=== PATIENT | male | born 1940 | race Caucasian/White ===

== ENCOUNTER 2017-04-15 09:05 | Inpatient (IN) ==
[2017-04-15 09:48] LABS: BASO% 0.1 % (0.0-0.8); EOS# 0.01 X1000 (0.0-0.7); EOS% 0.1 % (0.0-10.0); HEMATOCRIT 38.6 % (42.0-52.0); HEMOGLOBIN 13.4 g/dL (14.0-18.0); IMM GRAN# 0.03 X1000 (0.0-0.04); IMM GRAN% 0.2 % (0.0-0.5); LYMPH# 0.84 X1000 (1.2-3.4); LYMPH% 5.8 % (20.5-51.1); MANUAL DIFF NEEDED? NO; MCH 31.1 PG (27-31); MCHC 34.7 g/dL (33-37); MCV 89.6 FL (81-99); MONO% 6.9 % (1.7-9.3); MPV 11.1 FL (7.4-10.4); NEUT% 86.9 % (42.2-75.2); PLT 276 X1000 (130-400); RBC 4.31 XMIL (4.7-6.1)
[2017-04-15 10:04] LABS: ACETONE SERUM MODERATE (NEGATIVE)
[2017-04-15 10:06] LABS: URINE MICRO REVIEW NEEDED? NO; URINE SOURCE CLEAN CATCH
[2017-04-15 10:11] LABS: BILIRUBIN URINE NEGATIVE (NEGATIVE); BLOOD URINE LARGE (NEGATIVE); COLOR ORANGE; GLUCOSE URINE >1000 mg/dL (NEGATIVE); LEUKOCYTES URINE LARGE (NEGATIVE); NITRITE URINE NEGATIVE (NEGATIVE); PH URINE 5.5; PROTEIN URINE 50 mg/dL (NEGATIVE); SP GRAVITY URINE 1.017; TURBIDITY URINE TURBID (CLEAR); UR EPITHELIAL CELLS >10 /HPF (<10); URINE BACTERIA NEGATIVE /HPF; URINE CULTURE NEEDED? YES; URINE RBC TNTC /HPF (<10); URINE WBC TNTC /HPF (<10); UROBILINOGEN URINE NORMAL (NORMAL)
[2017-04-15 10:36] LABS: AGAP 30; ALBUMIN 3.5 g/dL (3.5-5.0); ALKALINE PHOSPHATASE 97 U/L (32-122); BUN 73 mg/dL (8-22); CALCIUM 8.6 mg/dL (8.8-10.2); CHLORIDE 76 mmol/L (98-107); COSMO 298; GOT 26 U/L (10-34); GPT 18 U/L (10-44); POTASSIUM 4.7 mmol/L (3.5-5.1); SODIUM 118 mmol/L (136-145); TCO2 13 mmol/L (25-35); TOTAL BILIRUBIN 0.63 mg/dL (0.20-1.00); TOTAL PROTEIN 6.7 g/dL (6.3-8.3)
[2017-04-15 10:40] LABS: ALLEN TEST YES; BE -10.7 mmoll (-3.0-3.0); BLOOD TYPE ARTERIAL; DRAW SITE R RADIAL; METHB 1.3 % (0.0-1.5); O2(CT) 17.5 mL/dL (15.0-23.0); PCO2(98.6) 27 mmHg (35-45); PO2(98.6) 105 mmHg (60-100); SAMPLE BLOOD; SAO2 99.6 % (95.0-100.0); THB 12.8 g/dL (11.5-17.4); pH(98.6) 7.32 (7.35-7.45)
[2017-04-15 10:41] LABS: MODALITY ROOM AIR
[2017-04-15] MEDS ORDERED: ROCEPHIN 1 GM in NS 50 ML IV ONE (10:42)
[2017-04-15] MEDS ORDERED: HUMULIN R IV ONE ×2 (10:42→16:37)
[2017-04-15] MEDS ORDERED: NS 1,000 ML IV ONE ×2 (10:42→16:06)
--- NOTE | 2017-04-15 11:18 | PROVIDER DOCUMENTATION ---
HPI-General Adult - General Chief Complaint: High Blood Sugar Stated Complaint: elevated sugar Time Seen by Provider: 04/15/17 09:40 Source: patient, family Allergies/Adverse Reactions: Patient Allergies Allergy/AdvReac Type Severity Reaction Status Date / Time No Known Allergies Allergy Verified 04/15/17 10:20 Home Medications: Home Medication List Medication Instructions Recorded Confirmed Last Taken Type Lisinopril/Hydrochlorothiazide 1 each PO DAILY 11/04/12 04/15/17 12/28/15 21:00 History [Lisinopril-Hctz 20-25 mg Tab] Potassium Chloride [Klor-Con M10] 10 meq PO DAILY 11/04/12 04/15/17 12/28/15 21: 00 History Sotalol HCl [Sotalol] 160 mg PO BID 11/04/12 04/15/17 12/29/15 05:30 History Warfarin Sodium 4 mg PO DIRECTED 11/04/12 04/15/17 12/26/15 21:00 History Warfarin Sodium 6 mg PO DIRECTED 11/04/12 04/15/17 12/25/15 21:00 History Finasteride 5 mg PO DAILY 12/29/15 04/15/17 12/28/15 21:00 History Multivitamins/Minerals [Centrum 1 each PO DAILY 12/29/15 04/15/17 12/29/15 05: 30 History Silver] Subcutaneous Insulin Pump [Insulin 1 each MC DIRECTED 12/29/15 04/15/1704/15 History Pump] Tamsulosin [Flomax] 0.4 mg PO DAILY 12/29/15 04/15/17 12/28/15 21:00 History Levofloxacin [Levaquin] 500 mg PO DAILY 04/15/17 04/15/17 Unknown History - History of Present Illness -Gen Adult Nature of Presenting Problems: Pt is a 76 y/o M c chief complaint of hyperglycemia. Pt arrived at the hospital today with his family for an out-patient urology procedure with Dr. George. On arrival, they checked his vital signs and blood sugar and found him to by hypotensive and have a blood sugar of 760. He was sent to the ER for further evaluation. 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 Pt has an insulin pump and for the past week his blood sugar has been running between 500-600. Family states pt has been confused more than his baseline lately. On arrival, pt is in minimal distress and is afebrile. Review of Systems - Adult - REVIEW OF SYSTEMS - ADULT Constitutional: reports: no symptoms reported. denies: chills, fatique Eyes: reports: no symptoms reported. denies: blurred vision, double vision Ears, Nose, Mouth & Throat: reports: no symptoms reported. denies: ear pain, nose pain Cardiovascular: reports: no symptoms reported. denies: chest pain, irregular heart rate Respiratory: reports: no symptoms reported. denies: cough, shortness of breath Gastrointestinal: reports: no symptoms reported. denies: abdominal pain, nausea Genitourinary: reports: see HPI, urinary retention. denies: dysuria, hematuria Musculoskeletal: reports: no symptoms reported. denies: joint pain, joint swelling Integumentary: reports: no symptoms reported. denies: hives, itching Neurological: reports: no symptoms reported. denies: ataxia, numbness, paresthesia Psychiatric: reports: no symptoms reported. denies: anxiety, emotional problems Endocrine: reports: no symptoms reported. denies: cold intolerance, heat intolerance Hematologic/Lymphatic: reports: no symptoms reported. denies: blood clots, low blood count Allergic/Immunologic: reports: no symptoms reported. denies: allergic reactions , food allergy All Other Systems: Reviewed and Negative Past History - Adult - PAST MEDICAL HISTORY-ADULT Review of Records: reports: Old Records Reviewed, Nursing Assessment Review, Medications Reviewed, Social history reviewed & non-contributory. Major Childhood Illnesses: reports: denies history Cardiovascular: reports: HTN, hyperlipidemia Respiratory: reports: denies history Gastrointestinal: reports: denies history Obstetrical/Gynecological: reports: denies history Genitourinary: reports: chronic UTI's, other (BPH, penile mass) Musculoskeletal: reports: denies history Neurological: reports: denies history Endocrine/Immune: reports: Diabetes Other Conditions: reports: denies history - IMMUNIZATION STATUS Childhood Immunizations: See Nurse Assessment Flu Vaccine: See Nurse Assessment - FAMILY HISTORY Family History: reviewed, not pertinent - SOCIAL HISTORY Smoking: denies Substance Use: none/never Alcohol Use Frequency: never Living Situation: family Physical Exam-General - PHYSICAL EXAM-ADULT Initial Vital Signs Reviewed: Yes - CONSTITUTIONAL General Appearance: alert, no apparent distress - EYES Eyes: PERRL/EOMI, pink conjunctivae - HEAD, EARS, NOSE, MOUTH & THROAT HENMT: normocephalic/atraumatic, moist mucous membranes, normal ENT inspection - NECK Neck: normal inspection - RESPIRATORY Respiratory: chest non-tender, lungs clear, normal breath sounds - CARDIOVASCULAR Cardiovascular: normal peripheral pulses, regular rate, rhythm - GASTROINTESTINAL (ABDOMEN) Abdominal Exam: normal bowel sounds, non tender, soft - LYMPHATIC Lymphatic: no adenopathy - MUSCULOSKELETAL Back Exam: normal inspection, no CVA tenderness, no vertebral tenderness Extremity: normal range of motion, non-tender, normal inspection - SKIN Integumentary: normal color, normal turgor, warm/dry - NEUROLOGIC Neurologic: grossly normal, no motor/sensory deficits - PSYCHIATRIC Psych/Mental Status: normal mood/affect, normal thought content, normal thought process, oriented x 3, other (alert and oriented c mild confusion per family) Progress - PLAN OF CARE/RESULTS Progress/Plan/Lab Results: Vital Signs - 8 hr 04/15/17 09:13 04/15/17 10:37 Temperature 97.6 F Pulse Rate 88 Respiratory Rate 18 Blood Pressure 94/44 O2 Sat by Pulse Oximetry 98 Laboratory Results - last 24 hr 04/15/17 04/15/17 04/15/17 09:29 09:29 09:36 WBC 14.52 H RBC 4.31 L Hgb 13.4 L Hct 38.6 L MCV 89.6 MCH 31.1 H MCHC 34.7 RDW Std Deviation 12.5 Plt Count 276 MPV 11.1 H Immature Gran % (Auto) 0.2 Neut % (Auto) 86.9 H Lymph % (Auto) 5.8 L Barron % (Auto) 6.9 Eos % (Auto) 0.1 Baso % (Auto) 0.1 Immature Gran # (Auto) 0.03 Neut # (Auto) 12.63 H Lymph # (Auto) 0.84 L Barron # (Auto) 1.00 H Eos # (Auto) 0.01 Baso # (Auto) 0.01 Specimen Type Sample Site pH pCO2 pO2 HCO3 Base Excess Oxyhemoglobin ABG O2 Sat (Calculated) ABG O2 Saturation ABG Carboxyhemoglobin ABG Methemoglobin Alex Test A-a O2 Difference Total Hemoglobin Lactate Blood Gas Modality FiO2 % Sodium 118 L* Potassium 4.7 Chloride 76 L Carbon Dioxide 13 L Anion Gap 30 BUN 73 H Creatinine 2.2 H Estimated GFR/1.73 m2 29 BUN/Creatinine Ratio 33 Glucose 760 H* Calculated Osmolality 298 Calcium 8.6 L Total Bilirubin 0.63 AST 26 ALT 18 Alkaline Phosphatase 97 Total Protein 6.7 Albumin 3.5 Globulin 3.2 Albumin/Globulin Ratio 1.1 Urine Source CLEAN CATCH Urine Color ORANGE Urine Turbidity TURBID Urine pH 5.5 Ur Specific [place] 1.017 Urine Protein 50 A Ur Glucose (Stick) >1000 A Ur Ketones (Stick) 20 A Urine Blood LARGE A Urine Nitrite NEGATIVE Urine Bilirubin NEGATIVE Urobilinogen Dipstick NORMAL Urine Leukocytes LARGE A Urine WBC (Auto) TNTC A Urine RBC (Auto) TNTC A U Epithel Cells (Auto) >10 A Urine Bacteria (Auto) NEGATIVE Acetone Level MODERATE A 04/15/17 10:31 WBC RBC Hgb Hct MCV MCH MCHC RDW Std Deviation Plt Count MPV Immature Gran % (Auto) Neut % (Auto) Lymph % (Auto) Barron % (Auto) Eos % (Auto) Baso % (Auto) Immature Gran # (Auto) Neut # (Auto) Lymph # (Auto) Barron # (Auto) Eos # (Auto) Baso # (Auto) Specimen Type ARTERIAL Sample Site R RADIAL pH 7.32 L pCO2 27 L pO2 105 H HCO3 16.6 L Base Excess -10.7 L Oxyhemoglobin 96.5 ABG O2 Sat (Calculated) 17.5 ABG O2 Saturation 99.6 ABG Carboxyhemoglobin 1.80 ABG Methemoglobin 1.3 Alex Test YES A-a O2 Difference 11.0 Total Hemoglobin 12.8 Lactate 3.90 H Blood Gas Modality ROOM AIR FiO2 % 21.0 Sodium Potassium Chloride Carbon Dioxide Anion Gap BUN Creatinine Estimated GFR/1.73 m2 BUN/Creatinine Ratio Glucose Calculated Osmolality Calcium Total Bilirubin AST ALT Alkaline Phosphatase Total Protein Albumin Globulin Albumin/Globulin Ratio Urine Source Urine Color Urine Turbidity Urine pH Ur Specific [place] Urine Protein Ur Glucose (Stick) Ur Ketones (Stick) Urine Blood Urine Nitrite Urine Bilirubin Urobilinogen Dipstick Urine Leukocytes Urine WBC (Auto) Urine RBC (Auto) U Epithel Cells (Auto) Urine Bacteria (Auto) Acetone Level Orders Category Date Time Status FSBS [Finger Stick Blood Sugar (ED)] DIRECTED Care 04/15/17 09:19 Active CHEST-2 VIEWS [RAD] Stat Exams 04/15/17 11:04 Ordered ABG [RESP] Routine Lab 04/15/17 10:31 Completed ACETONE SERUM [CHEM] Stat Lab 04/15/17 09:29 Completed BLOOD CULTURE [BLDCUL] Stat Lab 04/15/17 11:03 Uncollected CBC WITH ELECTRONIC DIFF [HEME] Stat Lab 04/15/17 09:29 Completed COMPREHENSIVE METABOLIC PANEL [CHEM] Stat Lab 04/15/17 09:29 Completed UA Reflex [URINALYSIS W/POSS RFLX CULT-1] [URINALYSIS] Lab 04/15/17 09:36 Completed Stat URINE CULTURE [RM] Routine Lab 04/15/17 10:18 Received 0.9% Sodium Chloride Inj [Ns] 1,000 ml Med 04/15/17 10:42 Active IV 999 mls/hr CefTRIAXONE [Rocephin] 1 gm Med 04/15/17 10:42 Discontinued 0.9% Sodium Chloride Inj [Ns] 50 ml IV NOW Insulin Human Regular [Humulin R] Med 04/15/17 10:42 Discontinued 8 unit IV NOW ONE Result Diagrams: 04/15/17 09:29 04/15/17 09:29 - CONSULTS/PCP/HOSPITALIST Notification #1 *Consult/PCP/Hospitalist*: Lisa LANGFORD / Dr. Carpenter (Hospitalist) Time Discussed: 11:21 (Will admit pt. Agree c work up and treatment. ) #2 Consult: Dr. George (Urology) Time Discussed: 11:53 (Do bladder scan. If >200mL start Olmstead cath. Recommend 13 Belarusian.) #3 Consult: Lisa LANGFORD / Dr. Miranda (Hospitalist) Time Discussed: 11:54 (Discussed recommendations from Dr. George. Requested I order insulin drip at 2units/hr and d/c patient's insulin pump. ) Departure - Departure Date of Disposition Decision: 04/15/17 Time of Disposition Decision: 11:21 DIAGNOSIS: UTI (urinary tract infection) Qualifiers: Urinary tract infection type: site unspecified Hematuria presence: without hematuria Qualified Code(s): N39.0 - Urinary tract infection, site not specified DKA (diabetic ketoacidoses) Qualifiers: Diabetes mellitus type: other specified (including MICHAELLE) Diabetes mellitus complication detail: without coma Qualified Code(s): E13.10 - Other specified diabetes mellitus with ketoacidosis without coma Sepsis Qualifiers: Sepsis type: sepsis due to unspecified organism Qualified Code(s): A41.9 - Sepsis, unspecified organism Disposition: ADMITTED INPATIENT 09 Certified Medical Emergency: Emergent Condition: Stable Referrals and Follow-Ups: Addi Valencia MD [Primary Care Provider] - - Critical Care Note This patient required my direct & personal management of CC.: No Attestation - Physician/ JESSICA Attestation Patient care was provided by Advanced Practice Provider:: Yes Advanced Practice Provider:: Liu Leigh Advanced Practice Provider documentation review:: The Mid-level provider documentation, treatment plan and medical decision making was reviewed by the physician who agrees with all treatment and medical decision making by the MLP. The physician spent face to face time with patient:: No Advanced Practice Provider documentation review:: Supervising physician onsite and consulted in the evaluation and care of this patient. The physician did not have a face to face encounter with the patient.
[2017-04-15 11:41] LABS: HEMOGLOBIN A1C 11.4 % (4.8-6.0)
[2017-04-15] MEDS ORDERED: XYLOCAINE 2% JELLY UROJECT ONE (12:00)
[2017-04-15] MEDS ORDERED: HUMULIN R 100 UNIT in NS 100 ML IV SCH ×4 (12:00)
[2017-04-15] MEDS: HUMULIN R 100 UNIT in NS 100 ML IV SCH ×3 (12:37→14:40)
--- NOTE | 2017-04-15 13:20 | Diag Imaging Result Doc PS360 ---
EXAM: CHEST-2 VIEWS HISTORY: admission to ICU TECHNIQUE: AP upright COMMENT: There is no evidence of acute cardiac or pulmonary disease. Compared to 12/29/2015 there is been no significant change. IMPRESSION: Stable chest. Electronically signed by Chi Morris 04/15/2017 1:18 PM
--- NOTE | 2017-04-15 14:35 | HISTORY AND PHYSICAL ---
PRIMARY CARE PROVIDER: Dr. Addi Valencia CHIEF COMPLAINT: Hypoglycemia. HISTORY OF PRESENT ILLNESS: Mr. Wang Gustafson is a 76-year-old, male , with a medical history of diabetes mellitus type 1, with insulin pump for 10 years, who has most recently been found with an a penile mass. Today, he was here for pre-admit blood work and, while walking to the lab, his knees had buckled. Staff checked his blood glucose, which registered over 600, and he was brought to the ER. He has not had any complaints of nausea. Denies chest pain or abdominal pain. He does have some intermittent diarrhea that has happened for the last 1 week. He does complain of pain around the urethra and meatus. It is found that he does have some JIMMY, which could be secondary to a post-renal situation where the mass is restricting urinary flow. He also appears dehydrated. His blood glucose in the ER registered as 760, and has been started on IV insulin. The insulin pump was removed. He apparently has been using insulin pump for at least 10 years. The basal rate is set by Dr. Valnecia's office, and then his gives him additional insulin on top of that. Apparently, he has also received 18 units of regular insulin this morning prior to arrival. According to the , just this past January, he was admitted to [facility] for the same diagnoses of DKA and urinary tract infection. It also appears he was admitted here last in December 2015 for the same thing. It looks as though he was supposed to have surgery of circumcision with cystoscope at that time, but was not performed due to his hyperglycemia. Dr. George is following. We will attempt for Olmstead catheter placement, as he did have a urinary retention with a bladder scan greater than 400 mL. We will admit to the ICU and consult Dr. George. PAST MEDICAL HISTORY: Dementia, hypertension, hyperlipidemia and type 1 diabetes mellitus that was diagnosed in his 30s. He has been using insulin pump for 10 years now. BPH , atrial fibrillation. SURGICAL HISTORY: Inguinal hernia repair, mitral valve replacement that is mechanical, on chronic Coumadin therapy. Appendectomy. He has had DCCV x2, cardioversion last time was 10 years ago. SOCIAL HISTORY: Quit smoking 30 years ago. Denies alcohol or illicit drug use. Lives at home with his . FAMILY HISTORY: Father had stomach problems, mother had breast cancer. REVIEW OF SYSTEMS: A 14-point review of systems was completed and all were negative, except for those mentioned above in HPI. He does state that he does occasionally have some shortness of breath. He did have some nausea and vomiting yesterday, vomiting only phlegm, and has had some diarrhea on-and-off for 1 week. He has penile pain, bladder pain, urinary retention and incontinence. ALLERGIES: No known drug allergies. HOME MEDICATIONS: Finasteride 5 mg p.o. daily. He was on Levaquin 500 mg p.o. daily, lisinopril/hydrochlorothiazide 20/25 at 1 tab p.o. daily, Centrum Silver 1 tab p.o. daily, potassium chloride 10 mEq p.o. daily, sotalol 160 mg p.o. twice daily, insulin pump that was programmed by Dr. Valencia's office, along with a sliding-scale insulin regimen. Tamsulosin 0.4 mg p.o. daily, Coumadin 4 mg on Tuesdays and Fridays and 6 mg on Friday, Friday , , Friday and Sundays. PHYSICAL EXAMINATION: VITAL SIGNS: Temperature 97.6 degrees, heart rate 88, respiratory rate 18, blood pressure 94/44, O2 saturation 98% on room air. Height 5 foot 8 inches tall, 165 pounds. BMI 25.1. GENERAL: Mr. Wang Gustafson is a 76-year-old male, who is able to answer some questions appropriately, although he does have a history of dementia. He was alert, and in no acute distress. HEENT: Atraumatic, normocephalic. Pupils equal, round, reactive to light. Extraocular movements intact. Mucous membranes are dry. NECK: No JVD. Trachea is midline. CARDIOVASCULAR: Irregularly irregular rate and rhythm. No rubs, gallops, or murmurs. No JVD or carotid bruits noted. No edema noted in the lower extremities. He had +2 dorsalis and radial pulses. PULMONARY: Clear to auscultate, with bilateral breath sounds. No accessory muscle use or work of breathing noted. GASTROINTESTINAL: Soft, nontender, nondistended. Positive bowel sounds x4. The bladder can be felt and is distended. GENITOURINARY: Penile assessment reveals that the foreskin is retracted over the meatus and is difficult to retract in order to assess. He does have a distended bladder, with urinary retention and a bladder scan greater than 400. He does have urinary incontinence involved also. A Olmstead will be attempted. EXTREMITIES: Moves all extremities equally. NEUROLOGIC: Oriented to name and place, but still with some mild confusion. Follows commands. Sensory is intact. SKIN: Warm, dry, intact. LABORATORY DATA: White blood cells 14,000, hemoglobin 13, hematocrit 38, platelet count 276,000. Sodium 118, potassium 4.7, BUN 73, creatinine is 2.2, glucose 760. ABGs on room air: PH 7.32, pCO2 of 27, pO2 of 105, bicarb 16, base excess -10, saturation 96%. Lactate 3.9. Hemoglobin A1c is 11.4. Calcium 8.6, bilirubin 0.63, AST 26, ALT 18, albumin 3.5. Urinalysis : Protein is 50. Urine glucose greater than a 1000. Urine ketones 20. Large blood, large leukocytes, too-numerous- to-count white blood cells, eyf-lckeoerw-ls--count red blood cells, greater than 10 epithelial cells. Negative for bacteria. Moderate acetone level. IMAGING: Chest x-ray has been ordered. ASSESSMENT AND PLAN: 1. Diabetic ketoacidosis, with a history of diabetes mellitus type 1. Apparently, he has an insulin pump that he has had for 10 years, and also received additional sliding-scale insulin. He did have some vomiting yesterday and some on-and-off diarrhea over the last week. We will remove his insulin pump for now, start him on insulin drip per protocol. Hemoglobin A1c is 11.4. Currently, he is n.p.o., except for ice chips, sips of water and medications. 2. 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 He is followed by Dr. George. The plan was for to receive a circumcision with meatus excision. He has been on Coumadin for a mechanical mitral valve and for atrial fibrillation. On Friday, he was started on Lovenox 80 mg twice a day, and Friday his Coumadin was stopped. We will continue with the Lovenox in hopes that, possibly by , will be good for the surgery. Dr. George has been reconsulted. 3. Urinary tract infection present on admit. Received 1 g of Rocephin in the emergency room, and will continue that. White blood cells are up to 14,000. He is afebrile. He is not having any true symptoms of sepsis, although the lactate is up to 3.9. This is likely secondary to diabetic ketoacidosis and not a septic infection. I do feel like the urinary tract infection is currently chronic for him, secondary to urinary retention. 4. Acute kidney injury with a BUN of 73, creatinine of 2.2. Looking back at his creatinine, it has been anywhere from 0.9 to as high as 1.3, so this is new. This is likely post-renal, as a penile mass is causing urinary retention. We will attempt for a urinary catheter placement. Dr. George recommended a Coude catheter versus a 12-Filipino catheter, so we will attempt this. If unsuccessful, will refer to Dr. George. We will do aggressive IV fluid hydration, secondary to diabetic ketoacidosis. 5. Atrial fibrillation, also a mechanical mitral valve replacement, on chronic Coumadin therapy. His Coumadin was stopped on Friday, and he was started on Lovenox 80 mg twice daily in preparation for his procedure . Will continue this regimen for now, unless the procedure gets canceled, then will resume his Coumadin. He has had a history of having cardioversion twice, but the last time was 10 years ago. We will continue his sotalol. 6. Hypertension. Will hold his antihypertensives for now. He is on sotalol and his blood pressure is in the low-100's, upper-90s for now. Will continue sotalol only. 7. Dementia. Continue home medications. 8. Deep venous thrombosis prophylaxis. Again, he is on Lovenox. 9. Gastrointestinal prophylaxis. Proton pump inhibitor. Dictated by PRIMITIVO Kelsey for [employer] MD Addendum: Patient seen and examined. Agree with PRIMITIVO note. It reflects my assessment and plan. Patient basically is being admitted for DKA. According to he is having problems controlling diabetes because of recurrent UTI. Patient has a penile mass. Urology has been consulted and they are planning to do surgery while this patient is here in the hospital. For UTI a urine culture has been ordered and int the meantime will continue with Ceftriaxone. WBC is elevated but he is not having any fever. Also labs done in the ER showed JIMMY. Will continue with IV fluids, in this case NS and will keep checking BMP daily. For anticoagulation since last friday warfarin has been stopped. Patient has chronic atrial fibrillation and mechanical mitral valve. Will continue to hold it. Will continue with Lovenox 80 mg per kg bid and check INR tomorrow. If still high will need to use vitamin K or FFP. cc: PRIMITIVO Kelsey MD Kirk L. Jackson, MD MTDD
[2017-04-15] MEDS ORDERED: ZOFRAN IV PRN (15:22)
[2017-04-15] MEDS ORDERED: TYLENOL PO PRN (15:22)
[2017-04-15] MEDS ORDERED: NS 1,000 ML ONE (15:53)
[2017-04-15] MEDS ORDERED: NS 1,000 ML IV SCH ×2 (16:02→16:37)
[2017-04-15] MEDS ORDERED: D50W SYRINGE IV PRN (16:37)
[2017-04-15] MEDS ORDERED: KLOR-CON PO PRN ×2 (16:37)
[2017-04-15] MEDS ORDERED: POTASSIUM CHLORIDE 40 MEQ/SWI 40 MEQ/100 ML IVPB IV PRN (16:37)
[2017-04-15] MEDS ORDERED: POTASSIUM CHLORIDE 20 MEQ/SWI 20 MEQ/100 ML IVPB IV PRN (16:37)
[2017-04-15] MEDS ORDERED: SODIUM BICARBONATE 8.4% 50 MEQ in D5W 250 ML IV PRN (16:37)
[2017-04-15] MEDS ORDERED: SODIUM PHOSPHATE 30 MMOL in D5W 250 ML IV PRN (16:37)
[2017-04-15] MEDS ORDERED: SODIUM BICARBONATE 8.4% 100 MEQ in D5W 500 ML IV PRN (16:37)
[2017-04-15] MEDS: D5 NS 1,000 ML IV SCH (17:33)
[2017-04-15] MEDS ORDERED: MORPHINE ONE (18:01)
[2017-04-15] MEDS ORDERED: MORPHINE IV ONE (18:05)
[2017-04-15 18:20] LABS: AMYLASE 35 U/L (20-200); CK PROFILE 155 U/L (24-204); LIPASE 26 U/L (13-60)
[2017-04-15 18:21] LABS: CALCIUM 8.6 mg/dL (8.8-10.2); POTASSIUM 3.2 mmol/L (3.5-5.1)
[2017-04-15] MEDS: NS 1,000 ML IV SCH (18:31)
[2017-04-15 18:51] LABS: URINE CULTURE NEEDED? NO; URINE MICRO REVIEW NEEDED? NO; URINE SOURCE CATH
[2017-04-15 18:56] LABS: BILIRUBIN URINE NEGATIVE (NEGATIVE); BLOOD URINE MODERATE (NEGATIVE); COLOR YELLOW; GLUCOSE URINE 500 mg/dL (NEGATIVE); LEUKOCYTES URINE NEGATIVE (NEGATIVE); NITRITE URINE NEGATIVE (NEGATIVE); PH URINE 5.5; PROTEIN URINE NEGATIVE (NEGATIVE); TURBIDITY URINE CLEAR (CLEAR); UROBILINOGEN URINE NORMAL (NORMAL)
[2017-04-15 18:57] LABS: UR EPITHELIAL CELLS <10 /HPF (<10); URINE BACTERIA NEGATIVE /HPF; URINE RBC <10 /HPF (<10); URINE WBC <10 /HPF (<10)
--- NOTE | 2017-04-15 19:14 | CONSULTATION ---
DATE OF CONSULTATION: 04/15/2017 CONSULTING PHYSICIAN: Hawk Cleaning MD. REASON FOR CONSULTATION: UTI, inability to place Olmstead catheter. HISTORY OF PRESENT ILLNESS: This is a 76-year-old male with longstanding symptoms of BPH who was seen by me originally in 2016 at which point he had phimosis and meatal stenosis. He originally was scheduled to undergo circumcision the meatoplasty but had sought a second opinion from Dr. Farmer. The decision at that point was made to be conservative. He re- presented to me just a week ago with worsening symptoms and nearly inability to urinate as well as urinary incontinence. Upon physical examination, he was noted to have a firm penile mass encompassing his entire glans as well as near obliteration of his meatus. He was scheduled to undergo a circumcision, penile biopsy and meatoplasty. He presented to pre-test for anesthesia but was found to have blood sugar over 700. He was admitted with diabetic ketoacidosis. Nursing Staff in the emergency room had attempted multiple times to place a Olmstead catheter and were unsuccessful in doing so. He has been able to void some, however, his bladder scan at some point was reported to be over 400 mL. PAST MEDICAL HISTORY: Diabetes mellitus, hyperlipidemia, hypertension, dementia , BPH, atrial fibrillation, meatal stenosis/phimosis. PAST SURGICAL HISTORY: Appendectomy, mitral valve replacement, cardioversion, inguinal hernia repair. ALLERGIES: No known drug allergies. HOME MEDICATIONS: Please see electronic record but pertinent are finasteride, tamsulosin and Coumadin although he is currently on Lovenox bridge. FAMILY HISTORY: No reports of malignancy. SOCIAL HISTORY: Denies alcohol or drug use, quit smoking a number of years ago. REVIEW OF SYSTEMS: Reviewed 12 systems and negative except for HPI. PHYSICAL EXAMINATION: Vital Signs: T 97.5 degrees, P 87, BP 100/72. General: A pleasant male in no apparent distress. HEENT: Normocephalic, atraumatic. Cardiovascular: Regular rhythm. Pulmonary: Bilateral breath sounds. Abdomen: Nontender, nondistended. Genitourinary: Phimotic foreskin, firm mass palpable along the entire glans, meatus is not visible, there is blood at the meatus likely from previous multiple attempts at catheterization, testes atrophic but descended bilaterally without masses. DIGITAL RECTAL EXAMINATION: Deferred at this time. Lymphatic: No groin lymphadenopathy. Psychiatric: Appropriate mood and affect. Dermatologic: No obvious skin rashes. PERTINENT LABORATORY DATA: White cell count is 15,000, creatinine is 1.9, glucose was 760 this morning but on most recent check it is 163. PERTINENT IMAGES: None. ASSESSMENT AND PLAN: A 76-year-old male with UTI and diabetic ketoacidosis who has phimosis meatal now obliteration, and penile mass suspicious for penile cancer. I prepped and draped the patient in a sterile fashion. I attempted to introduce a 14-Stateless silicone catheter multiple times but met resistance. I then switched to [employer] Difficult catheterization kit and used a spiral filiform introducer to find the true meatus and advance it all the way into the patient's bladder. I then dilated him at bedside over the filiform up to 18-Stateless, followed by introduction of [place] Tip Catheter over the filiform. Clear urine was returned. Olmstead catheter was placed to gravity drainage after 10 mL of sterile water were instilled into the balloon. PLAN: 1. Recommend continuing Olmstead catheter gravity drainage for now. 2. We will tentatively plan for him to undergo procedure on . I had a discussion with the family and originally we plan for him to undergo circumcision, meatoplasty and penile biopsy but given the firmness of the mass and obliteration of the meatus he may benefit from a partial penectomy. The patient and his want to proceed with a 1 stage procedure if possible. We tentatively have it set up for 04/17/2017. Thank you for the consultation. cc: Justyn George MD MTDToro
[2017-04-15] MEDS: PRILOSEC PO SCH (21:09)
[2017-04-15] MEDS: LOVENOX SUBQ SCH (21:10)
[2017-04-15] MEDS: BETAPACE PO SCH (21:10)
[2017-04-15 21:29] LABS: CALCIUM 8.6 mg/dL (8.8-10.2); POTASSIUM 3.6 mmol/L (3.5-5.1)
[2017-04-15 21:46] LABS: ALLEN TEST YES; BE 0.1 mmoll (-3.0-3.0); BLOOD TYPE ARTERIAL; DRAW SITE R RADIAL; METHB 1.1 % (0.0-1.5); MODALITY ROOM AIR; O2(CT) 16.3 mL/dL (15.0-23.0); PCO2(98.6) 39 mmHg (35-45); PO2(98.6) 80 mmHg (60-100); SAMPLE BLOOD; SAO2 98.4 % (95.0-100.0); THB 12.1 g/dL (11.5-17.4); pH(98.6) 7.41 (7.35-7.45)
[2017-04-15 22:52] LABS: URINE MICRO REVIEW NEEDED? NO; URINE SOURCE CATH
[2017-04-15 23:11] LABS: BILIRUBIN URINE NEGATIVE (NEGATIVE); BLOOD URINE MODERATE (NEGATIVE); COLOR YELLOW; GLUCOSE URINE >1000 mg/dL (NEGATIVE); LEUKOCYTES URINE SMALL (NEGATIVE); NITRITE URINE NEGATIVE (NEGATIVE); PROTEIN URINE NEGATIVE (NEGATIVE); SP GRAVITY URINE 1.013; TURBIDITY URINE CLEAR (CLEAR); UR EPITHELIAL CELLS <10 /HPF (<10); URINE BACTERIA NEGATIVE /HPF; URINE CULTURE NEEDED? YES; URINE RBC 20-40 /HPF (<10); UROBILINOGEN URINE NORMAL (NORMAL)
[2017-04-16 01:34] LABS: ALLEN TEST YES; BE -0.2 mmoll (-3.0-3.0); BLOOD TYPE ARTERIAL; DRAW SITE R RADIAL; METHB 1.4 % (0.0-1.5); O2(CT) 16.6 mL/dL (15.0-23.0); PCO2(98.6) 37 mmHg (35-45); PO2(98.6) 96 mmHg (60-100); SAMPLE BLOOD; SAO2 99.1 % (95.0-100.0); THB 12.2 g/dL (11.5-17.4); pH(98.6) 7.42 (7.35-7.45)
[2017-04-16 01:35] LABS: MODALITY ROOM AIR
[2017-04-16] MEDS: D5 NS 1,000 ML IV SCH ×2 (01:48→09:15)
[2017-04-16 02:16] LABS: CALCIUM 7.7 mg/dL (8.8-10.2); MAGNESIUM 1.8 mg/dL (1.5-2.7); POTASSIUM 3.3 mmol/L (3.5-5.1)
[2017-04-16 05:05] LABS: MANUAL DIFF NEEDED? NO
--- NOTE | 2017-04-16 05:06 | EKG Report ---
Test Performed on : 04/15/2017 4:23:31 PM Test Reason : Evaluation Blood Pressure : / mmHG Vent. Rate : 081 BPM Atrial Rate : 084 BPM P-R Int : 000 ms QRS Dur : 116 ms QT Int : 536 ms P-R-T Axes : 000 -05 222 degrees QTc Int : 622 ms Atrial fibrillation. Incomplete right bundle branch block Septal infarct (cited on or before 06-JUL-2007) ST \T\ T wave abnormality, consider anterolateral ischemia ST \T\ T wave abnormality, consider inferior ischemia Prolonged QT Abnormal ECG When compared with ECG of 04-NOV-2012 13:46, Significant changes have occurred Confirmed by Dl Dunlap MD ([id number]) on 04/16/2017 3:08:48 PM
[2017-04-16 05:09] LABS: BASO% 0.2 % (0.0-0.8); EOS# 0.03 X1000 (0.0-0.7); EOS% 0.3 % (0.0-10.0); HEMOGLOBIN 11.6 g/dL (14.0-18.0); IMM GRAN# 0.02 X1000 (0.0-0.04); IMM GRAN% 0.2 % (0.0-0.5); LYMPH# 1.56 X1000 (1.2-3.4); LYMPH% 15.3 % (20.5-51.1); MCH 30.4 PG (27-31); MCHC 35.2 g/dL (33-37); MCV 86.6 FL (81-99); MONO# 1.19 X1000 (0.11-0.59); MONO% 11.7 % (1.7-9.3); MPV 10.9 FL (7.4-10.4); NEUT% 72.3 % (42.2-75.2); PLT 220 X1000 (130-400); RBC 3.81 XMIL (4.7-6.1)
[2017-04-16 05:12] LABS: ALLEN TEST YES; BE -0.2 mmoll (-3.0-3.0); BLOOD TYPE ARTERIAL; DRAW SITE R RADIAL; METHB 0.9 % (0.0-1.5); MODALITY ROOM AIR; O2(CT) 18.2 mL/dL (15.0-23.0); PCO2(98.6) 41 mmHg (35-45); PO2(98.6) 72 mmHg (60-100); SAMPLE BLOOD; SAO2 97.5 % (95.0-100.0); THB 13.7 g/dL (11.5-17.4); pH(98.6) 7.39 (7.35-7.45)
[2017-04-16 05:46] LABS: ALBUMIN 2.7 g/dL (3.5-5.0); CALCIUM 7.8 mg/dL (8.8-10.2); POTASSIUM 2.9 mmol/L (3.5-5.1); TOTAL BILIRUBIN 0.55 mg/dL (0.20-1.00); TOTAL PROTEIN 5.1 g/dL (6.3-8.3)
[2017-04-16 05:48] LABS: HDL 17 mg/dL (35-55); LDL 84 mg/dL; TRIGLYCERIDES 175 mg/dL (39-160); VLDL 35 mg/dL
[2017-04-16 07:14] LABS: PROTIME 76.6 Seconds (9.2-11.7)
[2017-04-16] MEDS: PRILOSEC PO SCH ×2 (07:17→19:49)
[2017-04-16 07:18] LABS: INR 6.48; PTT 67.1 Seconds (22.0-36.0)
[2017-04-16] MEDS: NS 1,000 ML IV SCH ×2 (09:12→10:41)
[2017-04-16] MEDS ORDERED: INSULIN PEN NEEDLES ONE (09:47)
[2017-04-16] MEDS: POTASSIUM CHLORIDE 60 MEQ in NS 500 ML IV SCH ×2 (09:52→17:42)
[2017-04-16] MEDS: PROSCAR PO SCH (09:52)
[2017-04-16] MEDS: FLOMAX PO SCH (09:52)
[2017-04-16] MEDS: NEUTRA-PHOS PO SCH ×4 (09:53→19:50)
[2017-04-16] MEDS: LOVENOX SUBQ SCH ×2 (09:53→19:50)
[2017-04-16] MEDS ORDERED: VITAMIN K SUBQ ONE (10:09)
[2017-04-16] MEDS ORDERED: MORPHINE IV PRN (10:33)
[2017-04-16] MEDS: LANTUS SUBQ SCH (10:35)
[2017-04-16] MEDS: BETAPACE PO SCH ×2 (10:42→19:50)
[2017-04-16] MEDS ORDERED: NS 1,000 ML ONE (10:43)
[2017-04-16] MEDS: HUMALOG SUBQ SCH ×3 (10:55→19:59)
[2017-04-16] MEDS: ROCEPHIN 1 GM in NS 50 ML IV SCH (10:57)
[2017-04-16 11:14] LABS: INR 5.6; PROTIME 65.6 Seconds (9.2-11.7)
--- NOTE | 2017-04-16 11:26 | PROGRESS NOTE ---
DATE: 04/16/2017 SUBJECTIVE: Patient reports feeling fine. Denies any pain or fever. OBJECTIVE: Vital Signs: Temperature 97.3 degrees, heart rate is 96, respiratory rate 18, blood pressure 95/52, O2 saturation 96% on room air. General Examination: This is a 76-year-old, male, lying in bed, in no acute distress. HEENT: Head is normocephalic and atraumatic. Anicteric sclerae and pale conjunctivae. Neck: Supple. No JVD noted. No carotid bruits. No lymphadenopathy. No thyromegaly. Cardiovascular Examination: S1 and S2 heard. Irregularly irregular heart rate. No gallops or rubs. There is metallic sound in the mitral area. Respiratory Examination: Clear bilaterally to auscultation. No work of breathing or using accessory muscles. Abdomen: Soft, nontender to palpation. Bowel sounds present. No organomegaly. Genitourinary: The penile assessment reveals foreskin is retracted over the meatus and it is difficult to retract in order to assess. Extremities: No clubbing, cyanosis, or edema. Peripheral pulses present in both legs. Neurological Examination: Patient is alert and oriented x3. Moves 4 extremities. He is more awake today. Laboratory Data: White cell count 10.18, hemoglobin is 11.6, hematocrit 33, platelets 220,000. INR is 6.48. The ABG shows pH 7.39, with pCO2 of 41, PO2 72. BMP today shows sodium 135, potassium 2.9, chloride 100, bicarbonate 23, anion gap 12, BUN 48, creatinine 1.4, with a glucose of 106, and phosphorus 2 with magnesium 2. ASSESSMENT AND PLAN: 1. Diabetic ketoacidosis. That condition is resolved. Anion gap is closed. He had been using an insulin pump for years. At this time, we have the stopped that pump. Patient currently is on insulin drip. We were going to stop it. We are going to change the intravenous fluids to normal saline at 75 mL per hour. We are going to start Lantus 25 units daily. We will use sliding scale insulin with Humalog moderate doses. We are going to start on a diabetic diet because the patient is not complaining of any nausea and he reports feeling hungry. 2. 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 Dr. George has scheduled this patient to have removal of this mass tomorrow morning. At this point, we will continue following the recommendations per him. 3. Urinary tract infection. Patient is on Rocephin 1 g intravenous every 24 hours. White cell count is back to normal. Two urine cultures have returned negative. Because of history of recurrent urinary tract infections and in anticipation for a urological procedure, we are going to continue with this medication. 4. Chronic atrial fibrillation/mechanical mitral valve replacement. Patient is on chronic Coumadin therapy. Because the INR was high, Coumadin was stopped on Friday and he was started on Lovenox 80 mg subcutaneously twice daily in preparation for procedure on . At this time, because it is very important to do the surgery tomorrow, and considering that his bleeding will be significant, we prefer to administer fresh frozen plasma 1 unit. We are going to check INR later today at 5 p.m. and tomorrow morning. We will provide more fresh frozen plasma if needed. Of course, we are going to continue with Lovenox. That is going to be held just for tomorrow for the procedure and then we will we restart tomorrow after the surgery. 5. Hypertension. Patient's blood pressure is in the range of 110s and high 90s so we are going to stop all blood pressure medications. Medication for chronic atrial fibrillation, in this case Sotalol will be continued. 6. Dementia. We will continue home medications. 7. Acute kidney injury. We have checked previous creatinine for this patient and it was from 0.9- 1.3. On admission, it was 1.7 and today has dropped to 1.4. We will continue checking BMP and we will continue with normal saline at 75 mL per hour. 9. Gastrointestinal prophylaxis with Protonix. 10. Deep vein thrombosis prophylaxis. Patient is on therapeutic Lovenox. We will continue with the same management. cc: Hawk Cleaning MD MTDD
--- NOTE | 2017-04-16 12:41 | PROGRESS NOTE ---
DATE: 04/16/2017 SUBJECTIVE: Mr. Gustafson denies significant pain overnight. He is resting. His Olmstead catheter is draining well. OBJECTIVE: Vital Signs: T 97.3, P 96, BP 95/52. General: No acute distress. Pleasant male. HEENT: Normocephalic, atraumatic. Abdomen: Nontender, distended. : Bladder is nontender to palpation, Olmstead catheter in place draining straw-colored urine. PERTINENT LABS: White cell count of 10,000, hematocrit 33, INR is 5.6, his creatinine is 1.4. ASSESSMENT AND PLAN: A 76-year-old male with: 1. Urinary retention. 2. Diabetes ketoacidosis, which is resolving on insulin. 3. Penile mass. 4. Meatal obliteration and phimosis. I have discussed with the patient that his INR is fairly high and keeps us from being able to proceed with surgery tomorrow unless it is corrected. I have discussed with Dr. Carpenter, who is attending of record currently on Mr. Gustafson. We have agreed to administer fresh frozen plasma to decrease his INR in order for him to be a suitable surgical candidate. Of note, he has been off Coumadin for 4 days and on Lovenox bridge. I have discussed with Mr. Gustafson that his options would be circumcision and penile biopsy versus partial penectomy. I do not think meatoplasty will be of benefit to him. Given that his meatus is pretty much obliterated. The patient seems to understand and his family, who is the and daughter are present at bedside. Everybody appears to be in agreement to proceed with one stage operation which would be partial penectomy, involving removal of the penile mass. He appears to have adequate length to be able to void spontaneously and hence, he does not need a perineal urethrostomy. We have discussed the risks of the procedure including but not limited to bleeding, infection, injury to adjacent structures, need for additional interventions, inability to complete the procedure as attempted. He voiced understanding and wants to proceed. He will be given fresh frozen plasma later today. His INR will be rechecked first thing in the morning. If it is still not suitable, he may need to receive more fresh frozen plasma or be rescheduled at a different date. If it is suitable, we will plan to proceed with partial penectomy. I appreciate Dr. Carpenter's help with his anticoagulation matter. cc: Justyn George MD
[2017-04-16] MEDS ORDERED: AMBIEN PO PRN (20:07)
[2017-04-16] MEDS ORDERED: VITAMIN K 10 MG in NS 50 ML IV ONE (23:54)
[2017-04-17] MEDS: BETAPACE PO SCH ×3 (03:17→21:31)
[2017-04-17] MEDS: PRILOSEC PO SCH ×4 (03:17→21:32)
[2017-04-17] MEDS: NEUTRA-PHOS PO SCH ×5 (03:17→21:32)
[2017-04-17] MEDS: HUMALOG SUBQ SCH ×4 (06:32→21:32)
[2017-04-17 07:00] LABS: MANUAL DIFF NEEDED? NO
[2017-04-17 07:06] LABS: BASO% 0.4 % (0.0-0.8); EOS# 0.05 X1000 (0.0-0.7); HEMATOCRIT 33.7 % (42.0-52.0); HEMOGLOBIN 11.4 g/dL (14.0-18.0); IMM GRAN# 0.02 X1000 (0.0-0.04); IMM GRAN% 0.4 % (0.0-0.5); LYMPH# 1.02 X1000 (1.2-3.4); LYMPH% 19.8 % (20.5-51.1); MCH 30.4 PG (27-31); MCHC 33.8 g/dL (33-37); MCV 89.9 FL (81-99); MONO# 0.77 X1000 (0.11-0.59); MONO% 14.9 % (1.7-9.3); MPV 10.4 FL (7.4-10.4); NEUT% 63.5 % (42.2-75.2); PLT 187 X1000 (130-400); RBC 3.75 XMIL (4.7-6.1)
[2017-04-17 07:24] LABS: INR 1.67; PROTIME 18.1 Seconds (9.2-11.7)
[2017-04-17 07:43] LABS: AGAP 11; BUN 24 mg/dL (8-22); CALCIUM 8.8 mg/dL (8.8-10.2); CHLORIDE 105 mmol/L (98-107); COSMO 284; MAGNESIUM 1.9 mg/dL (1.5-2.7); POTASSIUM 3.6 mmol/L (3.5-5.1); SODIUM 140 mmol/L (136-145); TCO2 24 mmol/L (25-35)
[2017-04-17] MEDS ORDERED: MARCAINE 0.5% ONE (08:15)
[2017-04-17] MEDS ORDERED: BACITRACIN OINTMENT ONE (08:52)
[2017-04-17] MEDS ORDERED: NS 500 ML ONE (09:49)
[2017-04-17] MEDS ORDERED: NORCO-7.5 PO PRN (10:47)
--- NOTE | 2017-04-17 11:02 | PROGRESS NOTE ---
DATE: 04/17/2017 SUBJECTIVE: Patient reports feeling fine. No nausea or vomiting. No fever or pain reported. OBJECTIVE: Vital Signs: Temperature 97.6 degrees, heart rate 102, respiratory rate 12, blood pressure 128/79, O2 saturation 98% on room air. General: This is a 76-year- old male, lying in bed, in no acute distress. HEENT: Head is normocephalic, atraumatic. Neck: Supple. No JVD noted. Cardiovascular: S1, S2 heard. Irregularly irregular heart rate. No gallops or rubs. There is some metallic heart sound in the mitral area. Respiratory: Clear bilaterally to auscultation. No work of breathing or use of accessory muscles. Abdomen: Soft, nontender to palpation. Bowel sounds present. No organomegaly. Genitourinary: The penis is covered with dressing. Extremities: No clubbing, cyanosis, or edema. Peripheral pulses present in both legs. Neurologic: Patient is alert and oriented x3. Moves 4 extremities. LABORATORY DATA: White blood cell count 5.1, hemoglobin 11.4, hematocrit 33.7, platelets 187,000. BMP completely unremarkable. ASSESSMENT AND PLAN: 1. Diabetic ketoacidosis. Condition completely resolved. Patient has been started on Lantus 35 units daily plus sliding scale insulin, Humalog moderate dose. Glucose from [facility] today is 107. We are going to continue with the same management. 2. Penile mass. Dr. George has taken this patient to the OR and had performed partial removal of the penis. The patient with Olmstead catheter. We will follow recommendations. 3. Urinary tract infection. Patient is on Rocephin 1 g IV q.24 hours. White cell count is back to normal. Two urine cultures have returned negative. Because of recent urological procedure and history of recurrent infections, we are going to continue with this medication. We can switch this medication to oral upon discharge. 4. Chronic atrial fibrillation/mechanical mitral valve replacement. The patient is on Lovenox 80 mg subcutaneous twice daily. INR was high at admission, so patient was given FFPs to reverse the action of warfarin. At this time, the INR is 1.6. We are going to restart Coumadin here, in this case 5 mg p.o. daily, and he is going to be seen in the [facility] next week. While this patient is here, we are going to check INR daily. 5. Acute diarrhea. The patient reports that since admission, he started having diarrhea at 1-2 per day, that now is getting a little bit worse 3-4 yesterday that could be related to antibiotic use. In any case, we are going to order a C difficile of stool checking for antigen and toxin. 6. Hypertension. Blood pressure is most of the time in the range of 120s and 130s. So at this point, we are going to continue holding all blood pressure medication. In this case, patient takes lisinopril 20/HCTZ 12.5. Medication for chronic atrial fibrillation, sotalol will be continued. 7. Dementia. Will continue home medications. 8. Acute kidney injury. That condition is completely resolved. 9. Gastrointestinal prophylaxis with Protonix. 10. Deep vein thrombosis prophylaxis. Patient is on therapeutic Lovenox. DISPOSITION: The patient was admitted to the hospital for DKA, acute kidney injury, and urinary tract infection. Also, we were managing anticoagulation for chronic atrial fibrillation and mechanical mitral valve replacement. Those conditions are now stable. DKA is resolved. Acute kidney injury is resolved. Patient is on Lovenox at therapeutic 1 mg/kg q.12 hours. We are going to continue with that, and we are going to start warfarin. As soon as possible urology clears this patient, we will be able to send this patient home. cc: Hawk Cleaning MD MTDToro
[2017-04-17] MEDS: FLOMAX PO SCH (11:16)
[2017-04-17] MEDS: PROSCAR PO SCH (11:16)
[2017-04-17] MEDS: LANTUS SUBQ SCH (11:17)
[2017-04-17] MEDS: ROCEPHIN 1 GM in NS 50 ML IV SCH (11:47)
[2017-04-17] MEDS: NS 1,000 ML IV SCH ×2 (16:32→21:31)
--- NOTE | 2017-04-17 17:20 | PROGRESS NOTE ---
DATE: 04/17/2017 SUBJECTIVE: Mr. Gustafson reports feeling well. He denies pain. OBJECTIVE: Vital Signs: T 98.4, P 104, BP 128/69. General: No acute distress. Abdomen: Non- tender, non-distended. : Olmstead catheter in place, draining clear urine. His dressings from partial penectomy has come off. The sutures are in place, there is no evidence of active bleeding. ASSESSMENT: A 76-year-old male status post partial penectomy earlier today. He is doing well. PLAN: I have discussed with the patient that from my standpoint Olmstead catheter has to stay in for 48 hours and from then on it would be removed. He did have a urinary tract infection with gram- negative rods growing so far. He is on scheduled Rocephin. I have discussed with the patient. I would defer to the hospitalist colleagues to the antibiotic and its dose. I would recommend 10-14 day treatment given his "complicated UTI." Otherwise, he is clear for discharge from urology standpoint and I will plan to see him in a week in my office to review pathology and check his wound. Again, his Olmstead catheter should stay in through end of Friday and can be removed as early as Friday versus Friday. cc: Justyn George MD
--- NOTE | 2017-04-17 19:53 | OPERATIVE NOTE ---
PROCEDURE DATE: 04/17/2017 SURGEON: Justyn George MD PREOPERATIVE DIAGNOSIS: Gross hematuria, urinary retention, urinary incontinence, penile mass, phimosis. PRIMARY PROCEDURE: Partial penectomy. INDICATIONS: A 76-year-old male who had seen me in the past secondary to phimosis and meatal stenosis. He went for another opinion where he was observed for a period of time. He re- presented with a firm glans encompassing mass, phimosis, and recurrent UTIs as well as urinary retention. 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 He was counseled on either circumcision with penile biopsy likely followed by partial penectomy versus partial penectomy. The patient and his family elected to proceed with the latter. He was counseled on the risks. FINDINGS: Adequate hemostasis at the conclusion of the case. DETAILS OF OPERATION: After obtaining informed consent, patient was brought to the operating room. Perioperative antibiotics and laryngeal mask anesthesia were administered. He was placed in supine position and prepped and draped in sterile fashion. 10 mL of 0.5% plain Marcaine was administered for penile block. We made an incision with a 15 blade approximately 1 cm proximal to the area of firmness to assure were negative margins. His skin, Washburn's fascia and corporal cavernosa were incised and transected. Once we got to corpus spongiosum, we dissected along the urethra distally allowing us to have approximately 1 cm edge. The corpus spongiosum and urethra was then transected. The specimen was placed in a container and sent off for Pathology. We then used 2-0 PDS sutures in a horizontal mattress fashion to reapproximate corpora cavernosa. This was done, x3 with a tube down the 0.25 Manda drain which was placed previously providing us tourniquet and hemostasis. Reinspection revealed small bleeding at the level of Washburn's fashion and subcutaneous tissues, but no bleeding from cavernosal bodies or around the urethra. Following that, we spatulated his urethra dorsally with Metzenbaum scissors at a length of approximately 1 cm. We then used 4-0 Vicryl sutures to анна the edges of the urethra and reapproximate it onto the penile skin. This was done circumferentially in an interrupted fashion. Following that, the skin was closed over the stump with interrupted horizontal mattress 3-0 Vicryl sutures. There was no evidence of active bleeding. We then performed cystoscopy with 16-Wallisian flexible cystoscope as the patient has had urinary retention in the past and we were trying to rule out other etiologies, such as urethral stricture, bladder stone or overly enlarged prostate. His cystourethroscopy revealed no evidence of mucosal abnormalities, bilobar prostatic hypertrophy without severe obstruction. His bladder was moderately trabeculated without evidence of diverticula, mucosal lesions or bladder stones. The cystoscope was withdrawn. A 16-Wallisian Olmstead catheter was introduced with return of clear urine. He was extubated and taken to PACU for further recovery. ESTIMATED BLOOD LOSS: 10 mL. COMPLICATIONS: None. DISPOSITION: To PACU and subsequently floor with prescription for pain medications. I have explained to the family that he will need to keep his catheter for 48 hours. This should not preclude him from discharge, but I would deem and defer that to hospitalist colleagues. If he had to have a Olmstead catheter in at the time of discharge, we can educate the family or they can wait 2 more days and have it removed at the office. cc: Justyn George MD
[2017-04-18] MEDS: HUMALOG SUBQ SCH ×5 (01:03→22:08)
[2017-04-18 06:10] LABS: MANUAL DIFF NEEDED? NO
[2017-04-18 06:27] LABS: BASO% 0.1 % (0.0-0.8); EOS# 0.01 X1000 (0.0-0.7); EOS% 0.1 % (0.0-10.0); HEMATOCRIT 32.9 % (42.0-52.0); HEMOGLOBIN 10.8 g/dL (14.0-18.0); IMM GRAN# 0.02 X1000 (0.0-0.04); IMM GRAN% 0.3 % (0.0-0.5); LYMPH% 18.3 % (20.5-51.1); MCH 30.3 PG (27-31); MCHC 32.8 g/dL (33-37); MCV 92.4 FL (81-99); MONO# 1.01 X1000 (0.11-0.59); MONO% 14.2 % (1.7-9.3); MPV 10.8 FL (7.4-10.4); PLT 155 X1000 (130-400); RBC 3.56 XMIL (4.7-6.1)
[2017-04-18] MEDS: PRILOSEC PO SCH ×2 (06:35→22:03)
[2017-04-18] MEDS: LOVENOX SUBQ SCH ×2 (06:35→18:03)
[2017-04-18 06:39] LABS: INR 1.08; PROTIME 11.4 Seconds (9.2-11.7)
[2017-04-18 06:42] LABS: AGAP 11; BUN 21 mg/dL (8-22); CHLORIDE 104 mmol/L (98-107); COSMO 279; MAGNESIUM 1.9 mg/dL (1.5-2.7); POTASSIUM 3.9 mmol/L (3.5-5.1); SODIUM 139 mmol/L (136-145); TCO2 24 mmol/L (25-35)
[2017-04-18] MEDS: NEUTRA-PHOS PO SCH ×4 (09:21→22:02)
[2017-04-18] MEDS: PERIDEX MT SCH ×2 (09:21→22:02)
[2017-04-18] MEDS: PROSCAR PO SCH (09:21)
[2017-04-18] MEDS: FLOMAX PO SCH (09:21)
[2017-04-18] MEDS: BETAPACE PO SCH ×2 (09:21→22:03)
[2017-04-18] MEDS: LANTUS SUBQ SCH (09:22)
[2017-04-18] MEDS: NS 1,000 ML IV SCH ×2 (12:24→16:23)
[2017-04-18] MEDS: ROCEPHIN 1 GM in NS 50 ML IV SCH (12:24)
--- NOTE | 2017-04-18 14:02 | PROGRESS NOTE ---
DATE: 04/18/2017 SUBJECTIVE: Patient reports feeling fine. He denies any fever or chills. OBJECTIVE: Vital Signs: Temperature 98.8 degrees, heart rate 85, respiratory rate 18, blood pressure 135/66, O2 saturation 99% on room air. General Examination: This is a 76-year-old male, lying in bed, in no acute distress. HEENT: Head is normocephalic, atraumatic. Neck: Supple. No JVD. No carotid bruits. Cardiovascular: S1, S2 heard. Irregularly irregular heart rate. No gallops or rubs. There is a metallic heart sound in the mitral area. Respiratory: Clear bilaterally to auscultation. No work of breathing or using accessory muscles. Abdomen: Soft. Nontender to palpation. Bowel sounds present. No organomegaly. Extremities: No clubbing, cyanosis, or edema. Peripheral pulses present in both legs. Genitourinary: Penis is covered by a dressing and also Olmstead catheter present. Neurological: Patient is alert and oriented x3. Moves 4 extremities. LABORATORY DATA: White cell count 7.2, hemoglobin 10.8, hematocrit 32.9, platelets 155,000. BMP completely unremarkable except glucose 71 but Accu-Chek 300 glucose. ASSESSMENT AND PLAN: 1. Diabetic ketoacidosis. That condition is completely resolved. 2. Uncontrolled diabetes type 1. Patient has been controlled here on Lantus 35 units plus Humalog sliding scale. The blood sugar on BMP has been low. At this point, we are going to continue with the same management. Sometimes the blood sugar has been really high. Patient at home uses an insulin drip and has been managed by Dr. Addi Valencia, his primary care physician. In any case, they prefer to see the primary care physician in the office next Friday and they already have an appointment. 3. Perineal mass. Dr. George from urology has performed this procedure. At this point, the patient is ready to go from a urology standpoint, although family is very ___ ____ he is ready. In any case, we will try to contact Dr. George and talk about this patient, if he is able to go from a urology standpoint. 4. Urinary tract infection. The patient is on Rocephin and actually the urine culture showed Pseudomonas aeruginosa pansensitive, so we are going to change the medication to levofloxacin and we are going to complete 2 weeks of antibiotics as per urology recommendation. 5. Acute diarrhea. I think it is related to antibiotic use but we have checked C. difficile infection by doing toxin and antigen in the stool but those returned negative. 6. Chronic atrial fibrillation/mechanical mitral valve replacement. The patient has been given FFP to bring down the CO2 to almost normal levels so patient can have surgery. At this point, we are planning to restart warfarin and keep checking INR daily while this patient is in the hospital. We will stop Lovenox once we reach therapeutic numbers, in this case it is 2.5 to 3.5. 7. Hypertension. Blood pressure has been okay, in the range of 110 to as high as 120 ,so I do not think this patient needs to be restarted on any blood pressure medicines at this time. Will leave the decision to restart to his primary care physician. 8. Dementia. Will continue home medications. 9. Acute kidney injury. Completely resolved. 10. Gastrointestinal prophylaxis with Protonix. 11. Deep vein thrombosis prophylaxis with therapeutic Lovenox. The condition as per family, they report that the patient has become very weak. Physical therapy consult has been placed already and we are waiting for their evaluation and recommendations. Addendum: Patient's family is very demanding and refused to take him home. Patient evaluated by physical therapy and they recommend home health. He is able to walk. They said they are afraid that patient because of dementia can pull out Olmstead catheter. He also claimed his urologist has not seen him today. They also mentioned his blood sugars are erratic and they prefer to restart insulin pump but they have an appointment with his primary care doctor who manages the pump on friday so they requested to keep him until friday. He is medically stable. Urology was informed that family wanted to talk to him. In the meantime will keep this patient in the hospital one more day. Again, this family is very difficult to deal with. cc: Hawk Cleaning MD MTDD
--- NOTE | 2017-04-18 17:40 | PROGRESS NOTE ---
DATE: 04/18/2017 SUBJECTIVE: Mr. Gustafson reports being comfortable. His and family member are present at bedside. Apparently, they are upset because they had not had a chance to talk to me. I have explained to them that I saw him at 7 o'clock this morning without them being present and explained to him the plan of care. They are frustrated because they feel uncomfortable taking care of Olm[place] catheter due to his dementia. OBJECTIVE: Vital Signs: Temperature 98 degrees, pulse 76, blood pressure 109/57. General: No acute distress. Abdomen: Nontender, nondistended. : The incision is clean, dry and intact. Olmstead catheter draining straw-colored urine. PERTINENT LABORATORY DATA: White cell count of 7000, hematocrit 33, creatinine of 1.1. ASSESSMENT: A 76-year-old male status post partial penectomy, who is doing well from the urologic standpoint. I have explained to the family again as I did yesterday that Olmstead catheter has to stay for 48 hours and the earliest we can get it out would be tomorrow morning. I have also explained to them that from urologic standpoint, it is not uncommon for patients and their families to go home with Olmstead catheter and be educated on its removal or have it removed in our office on Friday. Again, the patient's is upset and states she is not leaving the hospital until the catheter is out as she does not feel comfortable with her going home with a catheter. We discussed that it could come out as early as tomorrow morning on 04/19/2017. I have also gone over in details his postoperative care, including the fact that he can lift, walk, take stairs, take showers and apply Vaseline or antibiotic ointment as needed to the suture line to keep it from being irritated. I have also discussed with him that I will plan to see him in approximately a week to go over the pathology results and check his wound. They voiced understanding today on rounds. PLAN: 1. No further care needed at this point. 2. I am putting the order in for Olmstead catheter to be removed at 6 in the morning. 3. Once he voids, he will be clear for discharge. 4. I will see him in 1 week again to discuss pathology results and check his wound. cc: Justyn George MD
[2017-04-19] MEDS: NS 1,000 ML IV SCH ×2 (03:54→06:07)
[2017-04-19] MEDS: PRILOSEC PO SCH (06:08)
[2017-04-19] MEDS: LOVENOX SUBQ SCH (06:08)
[2017-04-19] MEDS: HUMALOG SUBQ SCH ×2 (06:10→13:54)
[2017-04-19 06:38] LABS: MANUAL DIFF NEEDED? NO
[2017-04-19 06:49] LABS: BASO% 0.3 % (0.0-0.8); EOS# 0.14 X1000 (0.0-0.7); EOS% 1.9 % (0.0-10.0); HEMATOCRIT 35.3 % (42.0-52.0); HEMOGLOBIN 11.5 g/dL (14.0-18.0); IMM GRAN# 0.03 X1000 (0.0-0.04); IMM GRAN% 0.4 % (0.0-0.5); LYMPH# 1.17 X1000 (1.2-3.4); MCH 30.6 PG (27-31); MCHC 32.6 g/dL (33-37); MCV 93.9 FL (81-99); MONO# 0.66 X1000 (0.11-0.59); NEUT% 72.4 % (42.2-75.2); PLT 173 X1000 (130-400); RBC 3.76 XMIL (4.7-6.1)
[2017-04-19 06:52] LABS: INR 1.01; PROTIME 10.6 Seconds (9.2-11.7)
[2017-04-19] MEDS ORDERED: SODIUM PHOSPHATE 30 MMOL in NS 250 ML IV ONE (07:08)
[2017-04-19 07:09] LABS: AGAP 9; BUN 16 mg/dL (8-22); CALCIUM 7.9 mg/dL (8.8-10.2); CHLORIDE 106 mmol/L (98-107); COSMO 284; MAGNESIUM 1.7 mg/dL (1.5-2.7); POTASSIUM 4.1 mmol/L (3.5-5.1); SODIUM 142 mmol/L (136-145); TCO2 27 mmol/L (25-35)
[2017-04-19 07:58] VITALS: BP 120/81
[2017-04-19] MEDS ORDERED: POTASSIUM PHOSPHATE 30 MMOL in NS 250 ML IV ONE (08:00)
[2017-04-19] MEDS: LANTUS SUBQ SCH (08:25)
[2017-04-19] MEDS: FLOMAX PO SCH (08:25)
[2017-04-19] MEDS: BETAPACE PO SCH (08:25)
[2017-04-19] MEDS: NEUTRA-PHOS PO SCH ×2 (08:25→13:55)
[2017-04-19] MEDS: PROSCAR PO SCH (08:25)
[2017-04-19] MEDS ORDERED: INSULIN PEN NEEDLES ONE (08:38)
[2017-04-19] MEDS: PERIDEX MT SCH (09:18)
[2017-04-19] MEDS: ROCEPHIN 1 GM in NS 50 ML IV SCH (13:55)
--- NOTE | 2017-04-19 16:04 | PROGRESS NOTE ---
DATE: 04/19/2017 SUBJECTIVE: Mr. Gustafson reports he had a good night overnight. He denies pain at the surgery site. He has voided and has straw-colored urine sitting at bedside in the urinal. OBJECTIVE: Temperature 93 degrees, pulse 101, blood pressure 120/81.General: No acute distress. Abdomen: Nontender, nondistended. : His sutures are intact around the partial penectomy site, no evidence of drainage. PERTINENT LABORATORY DATA: White cell count of 7000, hematocrit is 35, creatinine is 1.1. ASSESSMENT: A 76-year-old male status post partial penectomy who is doing well from the urologic standpoint. I have had a conversation with his family as they are concerned about his blood sugars. He is followed by Dr. Valencia. I have educated him on appropriate postoperative care. We have discussed followup in 5-6 days to check his wound and review pathology report. PLAN: 1. He is cleared for discharge from urology standpoint. 2. I will plan to see him next week again to review his pathology results and check his wound. 3. From my standpoint he is cleared to restart his Coumadin tomorrow. He is currently on Lovenox bridge. cc: Justyn George MD
--- NOTE | 2017-04-19 17:17 | DISCHARGE SUMMARY ---
ADMISSION DATE: 04/15/2017 DISCHARGE DATE: 04/19/2017 DISCHARGE DIAGNOSES: 1. Diabetic ketoacidosis resolved. 2. Uncontrolled diabetes mellitus. 3. Penile mass status post partial penectomy. 4. Urinary tract infection under treatment. 5. Acute kidney injury resolved. 6. Atrial fibrillation/mechanical mitral valve replacement. 7. Chronic anticoagulation. 8. Hypertension. 9. Dementia. CONSULTATIONS: Dr. Justyn George from Urology. PROCEDURES: Partial penectomy performed by Dr. George. HOSPITAL COURSE: This is a 76-year-old male past medical history diabetes mellitus type 1 with insulin pump who has been recently found with a penile mass. He went to the hospital for preadmission to have some blood work and when he was there he was complaining of nausea and the labs showed sugar over 600 so he was brought to the ER. Then he was found to be on DKA and also he reported that he was having some intermittent diarrhea that happened for the last week apparently secondary to an increase in the medication that he takes for dementia that is called Aricept. So patient admitted to the hospital to intensive care unit for management of DKA. Next day the glucose was much better controlled with anion gap that was closed so patient was transferred to regular floor. The patient was scheduled for a partial penectomy next day. 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 Day before surgery we administered 3 units of FFP and 10 mg of vitamin K so the INR went from 6.5- 1.7 so surgery was performed. The patient tolerated the procedure very well. Then we ordered a urine culture twice and both of them did not grow any bacteria. Considering his history of recurrent UTIs we prefer to keep him on antibiotics in this case ceftriaxone. He received 4 doses of that medication while here in the hospital. Also with IV fluids provided for DKA the acute kidney injury that was deemed to be secondary to dehydration was completely resolved as well. For diabetes management he was on insulin 25 units daily plus sliding scale insulin. All those conditions were well controlled. Dr. George has seen this patient in a daily basis and he removed the Olmstead catheter. Before he was discharged we made sure that this patient voided. Patient is going to be treated with antibiotics for a couple of weeks for UTI. Patient's blood pressure medication will be held because most of the time blood pressure even with IV fluids was running between 110s and 120s so I do not think this patient needs to restart this medication by now. He is going to check with Dr. Addi Valencia, his primary care physician to see when is a good time to restart this medication. All labs returned normal. We found out mild low phosphate in the labs that was repleted before this patient leaves. Patient is being discharged in stable condition. He is supposed to have an appointment with Dr. George in the office in 1 week. DISCHARGE DISPOSITION: 1. Home to self-care. 2. Follow up with Dr. George in a week. 3. With Dr. Addi Valencia next Friday as already scheduled. LIST OF MEDICATIONS: 1. Cefuroxime 500 mg p.o. b.i.d. for a couple weeks. 2. Lovenox 80 mg subcutaneous twice daily. 3. [place] 7.5 one tablet p.o. every 4 hours as needed for pain. 4. Warfarin as directed. 5. Insulin pump as directed. 6. Finasteride 5 mg 1 tablet p.o. daily. 7. Tamsulosin 0.4 mg 1 tablet p.o. daily. DISCHARGE TIME: Time spent was 35 minutes. cc: Hawk Cleaning MD MTDD
== END 2017-04-19 15:29 | disposition home or self-care (01) ==
LOC: ED 09:05 → EDIPHOLD 12:28 → ICU 15:30 → 4N 04-16 17:19
PROVIDERS: ATTEND Internal Medicine

== ENCOUNTER 2019-04-04 11:41 | Inpatient (IN) ==
[2019-04-04] MEDS ORDERED: NS 1,000 ML IV ONE ×2 (12:06→18:29)
[2019-04-04] MEDS ORDERED: NS 1,000 ML ONE (12:11)
[2019-04-04] MEDS ORDERED: NS 500 ML IV ONE ×2 (12:13→15:33)
[2019-04-04] MEDS ORDERED: CORDARONE IV ONE (12:13)
--- NOTE | 2019-04-04 13:12 | Diag Imaging Result Doc PS360 ---
EXAM: CHEST-1 VIEW INDICATION: sepsis criteria TECHNIQUE: One view COMPARISON: 03/19/2019 FINDINGS: The interstitial infiltrates seen on the previous study have grossly resolved. The interval. The lungs are grossly clear. There is no discrete pleural fluid collection or pneumothorax. Median sternotomy wires are noted. The pacemaker is stable. The cardiac silhouette is unremarkable, otherwise. IMPRESSION: No evidence of acute pathology by plain radiograph. Electronically signed by Liu Avila 04/04/2019 1:09 PM
[2019-04-04 13:38] LABS: PROTIME 80.1 Seconds (11.0-16.0); PTT 85.9 Seconds (22.3-41.8)
[2019-04-04 13:41] LABS: HEMATOCRIT 31.2 % (42.0-52.0); HEMOGLOBIN 10.7 g/dL (14.0-18.0); MCH 30.1 PG (27-31); MCHC 34.3 g/dL (33-37); MCV 87.6 FL (81-99); RBC 3.56 XMIL (4.7-6.1)
[2019-04-04 13:42] LABS: LYMPH# 0.14 X1000 (1.2-3.4); MONO# 0.15 X1000 (0.11-0.59); MPV 13.2 FL (7.4-10.4); NEUT# 0.71 X1000 (1.4-6.5); PLT 117 X1000 (130-400); RDW 15.5 % (11.5-14.5)
[2019-04-04 13:53] LABS: AGAP 26; ALB/GLOB RATIO 1.1; ALBUMIN 2.5 g/dL (3.5-5.0); ALKALINE PHOSPHATASE 109 U/L (32-122); BUN 36 mg/dL (8-22); CALCIUM 8.8 mg/dL (8.8-10.2); CHLORIDE 95 mmol/L (98-107); CK PROFILE 176 U/L (24-204); COSMO 305; GOT 32 U/L (10-34); GPT 20 U/L (10-44); POTASSIUM 4.8 mmol/L (3.5-5.1); SODIUM 137 mmol/L (136-145); TCO2 16 mmol/L (25-35); TOTAL BILIRUBIN 1.19 mg/dL (0.20-1.00); TOTAL PROTEIN 4.8 g/dL (6.3-8.3)
[2019-04-04] MEDS ORDERED: HUMULIN R IV ONE ×2 (14:04→15:30)
[2019-04-04 14:07] LABS: BANDS 2 % (0-1); LYMPHS 15 % (21-51); MONO 10 % (1-9); NRBC 6 % (0-0); SEGS 73 % (42-75)
[2019-04-04 14:08] LABS: HYPOCHROM 1+; TARGET CELLS OCCASIONAL
[2019-04-04 14:09] LABS: LARGE PLATELETS 1+
[2019-04-04] MEDS ORDERED: AZACTAM 1 GM in NS 50 ML IV ONE (14:13)
[2019-04-04] MEDS ORDERED: VANCOMYCIN 1 GM/NS 1 GM/250 ML IVPB IV ONE ×2 (14:13→18:00)
[2019-04-04] MEDS ORDERED: LANOXIN IV ONE (14:16)
[2019-04-04] MEDS ORDERED: CALMOSEPTINE OINTMENT TOP PRN (14:20)
[2019-04-04 14:48] LABS: URINE SOURCE CLEAN CATCH
[2019-04-04 14:57] LABS: BILIRUBIN URINE NEGATIVE (NEGATIVE); BLOOD URINE NEGATIVE (NEGATIVE); COLOR YELLOW; GLUCOSE URINE >1000 mg/dL (NEGATIVE); KETONE URINE 40 mg/dL (NEGATIVE); LEUKOCYTES URINE NEGATIVE (NEGATIVE); NITRITE URINE NEGATIVE (NEGATIVE); PROTEIN URINE NEGATIVE (NEGATIVE); TURBIDITY URINE CLEAR (CLEAR); UR EPITHELIAL CELLS <10 /HPF (<10); URINE BACTERIA NEGATIVE /HPF; URINE RBC <10 /HPF (<10); URINE WBC <10 /HPF (<10); UROBILINOGEN URINE NORMAL (NORMAL)
[2019-04-04] MEDS ORDERED: NS 500 ML ONE (15:21)
[2019-04-04] MEDS ORDERED: HUMULIN R 100 UNIT in NS 100 ML IV SCH (15:30)
[2019-04-04] MEDS ORDERED: D50W SYRINGE IV PRN (15:30)
[2019-04-04] MEDS ORDERED: VITAMIN K 5 MG in NS 50 ML IV ONE (15:42)
[2019-04-04] MEDS ORDERED: POTASSIUM CHLORIDE 20 MEQ/SWI 20 MEQ/100 ML IVPB IV PRN (15:45)
[2019-04-04 16:23] LABS: MAGNESIUM 1.9 mg/dL (1.5-2.7); PHOSPHORUS 3.2 mg/dL (2.7-4.5)
--- NOTE | 2019-04-04 16:31 | HISTORY AND PHYSICAL ---
ADDENDUM: Mr. 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 Galvan and Dr. Anglin. The patient is currently on adjuvant therapy. Presented to the emergency department today because of generalized weakness, elevated blood glucose, and has been admitted because his investigations have revealed septic patient and DKA. I have also reviewed his labs and imaging studies. Upon presentation, Mr. Gustafson's blood pressure was down to 80/57, and he responded well to fluid resuscitation. PHYSICAL EXAMINATION: Remarkable on his physical exam is his left inguinal region has an open wound which is draining some purulent material. It is extremely foul smelling. It is tunneling into the deeper structures it appears to be. LABORATORY DATA: Significant for leukopenia with thrombocytopenia. Bands of about only 2%. His chemistry is significant for high gap metabolic acidosis with glucose of 503, plasma lactate of 6.7, positive acetone, and troponin also elevated. A chest x-ray shows no evidence of acute pathology. ASSESSMENT: 1. Septic shock presumably due to an infected wound of the left inguinal region. Culture has been done from the wound. Blood cultures have also been done. The patient will be started on broad-spectrum IV antibiotics including vancomycin and cefepime. The patient will be admitted to the ICU and will continue with the sepsis protocol. 2. Infected left inguinal open wound. This has been cultured. The patient will be evaluated by Surgery and Wound Care. 3. 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 The patient is currently undergoing chemotherapy with Dr. Galvan on weekly basis and also radiation therapy with Dr. Anglin 5 times per week for the last 6 weeks. 4. High anion gap metabolic acidosis due to diabetic ketoacidosis and lactic acidosis. We are going to continue to address them. 5. Elevated troponins, most likely from demand ischemia. However, underlying coronary artery disease cannot be entirely ruled out. We are going to be trending days going forward. We will also get a stat EKG to rule out any ST-segment elevation that would need an acute intervention. 6. Atrial fibrillation with rapid ventricular response. The patient has a history of paroxysmal atrial fibrillation. It appears this has gotten worse because of the septic sepsis picture and/or the metabolic derangements. We will continue to hydrate the patient for now. Now that his blood pressures are okay, we will put him on short-acting Cardizem per mouth. 7. Supratherapeutic INR due to Coumadin therapy. This will be withheld. We have given patient a dose of vitamin K. He is currently not actively bleeding, so we are not going to reverse it with any FFP yet. 8. Status post mechanical valve noted. Please refer to the details of the history and physical, which has been dictated by the nurse practitioner. cc: Blake Yanez MD
[2019-04-04 16:37] LABS: ALLEN TEST YES; BE 1.7 mmoll (-3.0-3.0); BLOOD TYPE ARTERIAL; HCO3-(ACT) 26.3 mmoll (20.0-26.0); METHB 0.9 % (0.0-1.5); O2(CT) 13.1 mL/dL (15.0-23.0); O2HB 97.4 % (95.0-99.0); PCO2(98.6) 27 mmHg (35-45); PO2(98.6) 119 mmHg (60-100); SAMPLE BLOOD; SAO2 99.4 % (95.0-100.0); THB 9.4 g/dL (11.5-17.4); pH(98.6) 7.55 (7.35-7.45)
[2019-04-04 16:40] LABS: MODALITY ROOM AIR
[2019-04-04] MEDS ORDERED: ZOFRAN IV PRN (16:51)
[2019-04-04] MEDS ORDERED: VANCOMYCIN IV PER PHARMACY MISC SCH (16:51)
[2019-04-04] MEDS ORDERED: TYLENOL PO PRN (16:51)
--- NOTE | 2019-04-04 16:56 | HISTORY AND PHYSICAL ---
PRIMARY CARE PHYSICIAN: Dr. Lobato. ONCOLOGIST: Dr. Galvan. RADIOLOGY ONCOLOGIST: Dr. Anglin. CHIEF COMPLAINT: Of increased weakness, increased heart rate over the last 2 weeks and increased blood sugar today. HISTORY OF PRESENTING ILLNESS: This is a 78-year-old male who presents to [facility] via EMS with family at bedside who is currently being treated for a penile cancer, is receiving radiation currently and has 4 treatments left. Last treatment was this past Friday. states that he has had an elevated heart rate in the 130s, 140s for the past couple of weeks. They brought him to the emergency room last week because his blood sugar dropped to 39. He had a blood sugar today of 503, a plasma lactate of 6.7, his heart rate was atrial fibrillation with RVR at 140s was given amiodarone 150 mg IV x1 and digoxin 500 mcg IV x1. He was also given 6 units of regular insulin IV x1, 2 L of normal saline boluses, was given a dose of Azactam 1 g IV x1. He had a troponin of 0.835, a white blood cell count of 1.0. His PT and INR were elevated at 80.1 and 9.43. He will be given vitamin K 5 mg IV x1 and placed on a insulin drip, placed on vancomycin per pharmacy protocol and cefepime 1 g IV q.12. He had a left groin tumor that ruptured about 2 weeks ago is tunneling, has excoriated skin surrounding it that is erythematous, tender to touch and we will consult Surgery, Wound Care and Oncology along with Cardiology. He will be admitted to the intensive care unit. His insulin pump has been removed by the . It is noted that he had shingles 3 weeks ago and still has some crusting to his left eyebrow and eye area but completed his treatment. PAST MEDICAL HISTORY: Of dementia, hypertension, hyperlipidemia, diabetes type 1, BPH, atrial fibrillation, DVT and shingles. PAST SURGICAL HISTORY: Of an inguinal hernia, mitral valve replacement that is mechanical, pacemaker, appendectomy, a CVV x2 and cardioversion and a penile ectomy. FAMILY HISTORY: His mother had breast. SOCIAL HISTORY: Currently lives with his , quit smoking 30 years ago and denies any alcohol or illicit drug use. ALLERGIES: He has no known drug allergies. HOME MEDICATIONS: We will need to obtain a current list, reconcile, review and restart as appropriate. Will place an order for nursing to update and confirm home medications. LABORATORY DATA: Showed a white blood cell count of 1.00, hemoglobin 10.7, hematocrit 31.2, platelets 117,000, PT and INR of 80.1 and 9.43. Sodium 137, potassium 4.8, chloride of 95, CO2 16, BUN of 36, creatinine 1, blood sugar 503, troponin of 0.835. Plasma lactate of 6.7. Urinalysis was negative. Acetone level was small. Chest x-ray showed no evidence of acute pathology by plain radiograph. REVIEW OF SYSTEMS: Unable to obtain from patient but at bedside states that he has had increased weakness, increased heart rate, increased blood sugar. Denied any chest pain, coughing, shortness of breath, denied any abdominal pain, constipation, diarrhea, burning or hurting with urination. PHYSICAL EXAMINATION: On arrival he had a temperature of 98.2 degrees, pulse 126 but went as high as 148, respirations 20, blood pressure on arrival of 80/57, saturating 94% on room air currently, blood pressure is up to 122/69. GENERAL: This is a 78-year-old male who is lying in the bed and pleasantly confused, unable to answer questions. at bedside to give medical history and reviewed medical record. GENERAL: This is a 78-year-old male who is lying in the bed. HEENT: Normocephalic, atraumatic. Normal ENT inspection. Again patient is noted to have some scabs and crusting to above his left eyebrow from where he was treated for shingles, treatment is complete. Oropharynx and nares are clear. Pupils are equal, round, and reactive to light, accommodation. Extraocular movements are intact. NECK: Normal inspection, normal range of motion. LUNGS: With some crackles at the bases, equal lung expansion, chest wall movement noted. HEART: Irregular rate and rhythm but no murmurs, rubs, or gallops. ABDOMEN: Soft, nontender, nondistended. Bowel sounds are present x4 quadrants. In the left groin he is noted to have a large open wound, states that is where his tumor burst about 2 weeks ago and has left tunneling now at this time with excoriations surrounding the area and tender to touch. NEUROLOGICAL: Cranial nerves 2-12 appear grossly intact. ASSESSMENT: 1. Sepsis. 2. Atrial fibrillation with rapid ventricular response. 3. Hypotension. 4. Diabetic ketoacidosis. 5. Neutropenia. 6. A left groin wound. 7. Coagulopathy. 8. Elevated troponin . PLAN: He will be admitted to the intensive care unit, placed on telemetry, we will consult General Surgery, Cardiology, Oncology, Wound Care, place on reverse isolation and neutropenic precautions. Place on vancomycin per pharmacy protocol, cefepime 1 g IV q.12 hours, normal saline at 125 mL an hour. He will receive vitamin K 5 mg IV x1, be placed on insulin drip per protocol. Will recheck PT with INR, CBC, BMP in the a.m., do serial troponins q.8, do serial lactate. O2 per protocol. Blood sugars per the DKA protocol. Further orders after seen by attending and by clinical services consultant. Dictated by PRIMITIVO Palmer for Blake Yanez MD cc: MD Blake Felder MD
--- NOTE | 2019-04-04 17:35 | HEMO/ONC CONSULTATION ---
DATE: 04/04/2019 Patient is seen in initial consultation regarding squamous cell carcinoma. The patient is known to Dr. Galvan for squamous cell carcinoma and is undergoing treatment with weekly Taxol and carboplatin. He had his most recent treatment on March 29 and is now being admitted with inguinal infection and what looks like sepsis. He has neutropenic fever. His last chemotherapy treatment was March 29 and his white count at that time was 3.3 with an ANC greater than 1,000. I have recommended sepsis protocol workup with treatment as you are doing. He should be on neutropenic precautions given his total white count of 1.00. His atrial fibrillation RVR is being evaluated by Cardiology. We will follow along and leave further recommendations as indicated based on his hospital course. cc: Joie Clark MD
--- NOTE | 2019-04-04 17:48 | EKG Report ---
Test Performed on : 04/04/2019 11:54:33 AM Test Reason : elevated troponins Blood Pressure : / mmHG Vent. Rate : 143 BPM Atrial Rate : 286 BPM P-R Int : 000 ms QRS Dur : 112 ms QT Int : 234 ms P-R-T Axes : 109 021 188 degrees QTc Int : 361 ms Atrial flutter. with variable AV block. with premature ventricular or aberrantly conducted complexes. Septal infarct (cited on or before 19-MAR-2019) ST & T wave abnormality, consider inferior ischemia ST & T wave abnormality, consider anterior ischemia Abnormal ECG When compared with ECG of 04-APR-2019 11:53, (Unconfirmed) Previous ECG has undetermined rhythm, needs review Serial changes of Septal infarct present Unconfirmed Result
--- NOTE | 2019-04-04 18:24 | GENERAL SURGERY CONSULTATION ---
DATE: 04/04/2019 REQUESTING PHYSICIAN: The hospitalist. REASON FOR CONSULTATION: Groin wound. HISTORY OF PRESENT ILLNESS: This is a 78-year-old male who is being treated for penile cancer, receiving radiation and chemotherapy, who presented with increased weakness and new onset atrial fibrillation. He has a wound in his left groin, the duration of which is hard for me to find by history. Regardless, he does have it to his left groin. He likely had lymphadenopathy there. Has significant tunneling. It is in the area likely where he has had radiation. I was asked to weigh an opinion. PAST MEDICAL HISTORY: Dementia, hypertension, hyperlipidemia, diabetes mellitus type 2, BPH, atrial fibrillation, DVT, history of shingles, and history of penile cancer. PAST SURGICAL HISTORY: Includes mitral valve, pacemaker, appendectomy, cardioversion, penectomy, inguinal hernia. FAMILY HISTORY: Positive for breast cancer. SOCIAL HISTORY: Lives with his . Former smoker. ALLERGIES: None. CURRENT MEDICATIONS: Reviewed. REVIEW OF SYSTEMS: A full 14 systems reviewed and negative except as specified in HPI. PHYSICAL EXAMINATION: Vital Signs: Patient is currently afebrile. Vital signs stable. General: No acute distress. HEENT: Normocephalic, atraumatic. Pupils equal, round, react to light. Mucous membranes moist. Oropharynx benign. There are scabs and crusting over his left eyebrow. Neck: Supple. Trachea midline. Cardiovascular: Somewhat irregular. Lungs: Grossly clear. Abdomen: Soft, nontender. : Left groin with an open wound with tunneling and excoriation likely from radiation. Tender to palpation. Extremities: Moves all extremities. Neurologic: Grossly intact. Skin: Wound as noted above. Vascular: All extremities perfused. LABORATORY: White blood cell count 1, hematocrit 32, platelet count 117,000. INR is 9.43. Remainder of labs reviewed. Of note, his troponin is elevated at 0.835 and glucose is 503. ASSESSMENT AND PLAN: This is a 78-year-old gentleman with multiple medical comorbidities with left groin wound. 1. Multiple medical comorbidities. At this time, to be managed by the hospitalist service. He is in the ICU right now. We will defer to the hospitalist. 2. Left groin wound. At this time, likely a combination of tumor burden, radiation, and underlying disease process. We will just do wet-to-dry dressing changes. His tissue is probably very friable secondary to the radiation, so we will just do wet-to-dry. I am unsure if he could tolerate any other more aggressive treatment at this time. Wound care has been consulted, so we will get their opinion when wound care comes back from the holiday. cc: Sanjay Sampson MD
[2019-04-04] MEDS: MAXIPIME 1 GM in NS 50 ML IV SCH (18:44)
[2019-04-04] MEDS ORDERED: D5 NS 1,000 ML IV SCH ×2 (19:00)
[2019-04-04] MEDS: D5 NS 1,000 ML IV SCH (19:42)
[2019-04-04] MEDS: NS 1,000 ML IV SCH (19:44)
[2019-04-04 20:17] LABS: GLUCOSE 503 mg/dL (70-104)
[2019-04-04 21:06] LABS: AGAP 14; BUN 28 mg/dL (8-22); CHLORIDE 108 mmol/L (98-107); COSMO 292; CREATININE 0.8 mg/dL (0.7-1.2); ESTIMATED GFR > 60; GLUCOSE 158 mg/dL (70-104); MAGNESIUM 1.8 mg/dL (1.5-2.7); PHOSPHORUS 2.3 mg/dL (2.7-4.5); SODIUM 142 mmol/L (136-145); TCO2 20 mmol/L (25-35)
[2019-04-04 21:09] LABS: INR 9.43
[2019-04-05] MEDS: XANAX PO PRN (00:35)
[2019-04-05] MEDS ORDERED: LOPRESSOR IV ONE ×2 (01:02→03:58)
[2019-04-05] MEDS: NS 1,000 ML IV SCH (01:17)
[2019-04-05 01:49] LABS: AGAP 15; BUN 28 mg/dL (8-22); CHLORIDE 110 mmol/L (98-107); COSMO 287; CREATININE 0.9 mg/dL (0.7-1.2); GLUCOSE 277 mg/dL (70-104); POTASSIUM 4.5 mmol/L (3.5-5.1); SODIUM 136 mmol/L (136-145); TCO2 11 mmol/L (25-35)
[2019-04-05 01:50] LABS: MAGNESIUM 1.7 mg/dL (1.5-2.7); PHOSPHORUS 2.7 mg/dL (2.7-4.5)
[2019-04-05] MEDS ORDERED: MAGNESIUM SULFATE 2 GM/S.W.I. 2 GM/50 ML IVPB IV PRN (03:00)
[2019-04-05] MEDS ORDERED: SODIUM PHOSPHATE 30 MMOL in D5W 250 ML IV PRN (03:00)
[2019-04-05] MEDS ORDERED: POTASSIUM CHLORIDE 20 MEQ/SWI 20 MEQ/100 ML IVPB IV PRN (03:00)
[2019-04-05] MEDS ORDERED: SODIUM BICARBONATE 8.4% 100 MEQ in STERILE WATER INJ. 500 ML IV PRN (03:00)
[2019-04-05] MEDS ORDERED: POTASSIUM CHLORIDE 20% LIQUID PO PRN (03:00)
[2019-04-05] MEDS ORDERED: POTASSIUM CHLORIDE 40 MEQ/SWI 40 MEQ/100 ML IVPB IV PRN (03:00)
[2019-04-05] MEDS ORDERED: POTASSIUM CHLORIDE 10% LIQUID PO PRN (03:00)
[2019-04-05] MEDS: MAXIPIME 1 GM in NS 50 ML IV SCH ×3 (04:05→19:43)
[2019-04-05] MEDS: D5 NS 1,000 ML IV SCH (04:05)
[2019-04-05] MEDS ORDERED: CORDARONE IV ONE (05:52)
[2019-04-05] MEDS ORDERED: CORDARONE 360 MG/D5W 360 MG/200 ML IV.SOLN IV ONE (06:00)
[2019-04-05 07:25] LABS: INR 1.64; PROTIME 19.8 Seconds (11.0-16.0)
[2019-04-05 07:28] LABS: BASO# 0.01 X1000 (0.0-0.2); EOS# 0.01 X1000 (0.0-0.7); HEMATOCRIT 29.8 % (42.0-52.0); HEMOGLOBIN 10.2 g/dL (14.0-18.0); LYMPH# 0.24 X1000 (1.2-3.4); MCH 29.8 PG (27-31); MCHC 34.2 g/dL (33-37); MCV 87.1 FL (81-99); MONO# 0.23 X1000 (0.11-0.59); MPV 13.2 FL (7.4-10.4); PLT 106 X1000 (130-400); RBC 3.42 XMIL (4.7-6.1); RDW 15.6 % (11.5-14.5); WBC 0.96 X1000 (4.8-10.8)
--- NOTE | 2019-04-05 07:28 | GENERAL SURGERY PROGRESS NOTE ---
DATE: 04/05/2019 Patient doing about the same. Nursing staff reports no major issues. They have been changing his wound, and it looks grossly the same. We will continue to follow and intermittently check the wound. No major surgical intervention planned. cc: Sanjay Sampson MD
[2019-04-05 07:37] LABS: NEUT# 0.47 X1000 (1.4-6.5)
[2019-04-05 07:49] LABS: AGAP 10; BUN 25 mg/dL (8-22); CALCIUM 7.6 mg/dL (8.8-10.2); CHLORIDE 109 mmol/L (98-107); COSMO 290; CREATININE 0.8 mg/dL (0.7-1.2); ESTIMATED GFR > 60; GLUCOSE 138 mg/dL (70-104); POTASSIUM 4.1 mmol/L (3.5-5.1); SODIUM 142 mmol/L (136-145); TCO2 23 mmol/L (25-35)
[2019-04-05 07:58] LABS: MAGNESIUM 2.3 mg/dL (1.5-2.7)
[2019-04-05] MEDS ORDERED: COUMADIN PO ONE (08:23)
[2019-04-05 09:27] LABS: AGAP 10; BUN 24 mg/dL (8-22); CALCIUM 7.9 mg/dL (8.8-10.2); CHLORIDE 110 mmol/L (98-107); COSMO 290; CREATININE 0.8 mg/dL (0.7-1.2); ESTIMATED GFR > 60; GLUCOSE 151 mg/dL (70-104); POTASSIUM 3.7 mmol/L (3.5-5.1); SODIUM 142 mmol/L (136-145); TCO2 22 mmol/L (25-35)
[2019-04-05 09:38] LABS: MAGNESIUM 2.2 mg/dL (1.5-2.7); PHOSPHORUS 1.9 mg/dL (2.7-4.5)
[2019-04-05] MEDS ORDERED: POTASSIUM PHOSPHATE 40 MEQ in NS 250 ML IV ONE (09:47)
[2019-04-05] MEDS ORDERED: D5 1/2 NS + KCL 20 MEQ 1,000 ML IV SCH (10:00)
[2019-04-05] MEDS ORDERED: LOPRESSOR IV PRN (10:09)
[2019-04-05] MEDS: HEPARIN 25,000 UNITS/D5W 25,000 UNIT/250 ML IV.SOLN IV SCH (10:13)
[2019-04-05] MEDS ORDERED: LANTUS INSULIN SUBQ ONE (10:25)
--- NOTE | 2019-04-05 10:46 | PROGRESS NOTE ---
DATE: 04/05/2019 SUBJECTIVE: This morning Mr. Gustafson continues to be fairly the same. The 2 sisters were at the bedside. No new complaints. They did have a lot of questions about his care. Per the nursing staff, there were no new complaints overnight. OBJECTIVE: Vital Signs: Blood pressure is 124/89, pulse is 127, respirations 15, temperature 97.8 degrees. General: Mr. Gustafson is a 78-year-old gentleman. He is in bed, no distress. Mucosa is pink, slightly dry. Anicteric. Acyanotic. Neck: Supple. Chest: Air entry is bilaterally reduced. There are a few crackles in the posterior lung newberry. Cardiovascular: Still tachycardic and irregularly irregular. There is an old sternotomy scar on the anterior chest wall. There is also a pacemaker on the left anterior chest wall. Abdomen: Soft. Bowel sounds present. The left inguinal region wound is packed with sterile gauze. There is also some superficial skin breakdown on the right side. Extremities: About 1 to 2+ pedal edema. Central Nervous System: The patient is sleepy, but easily awake. He will say a few words, but for the most part he is not engaging in the conversation. Skin: I understand he also has some erosions on his butt. Mr. Gustafson also has redness over the right big finger with a central area of minimal fluctuance. CURRENT MEDICATIONS: The patient's current medications have all been reviewed. ASSESSMENT AND PLAN: 1. Septic shock secondary to left inguinal wound infection. The patient was adequately fluid resuscitated. He did not need any vasopressor. Blood pressures have now stabilized. 2. Atrial fibrillation with rapid ventricular response in the setting of septic shock. The patient has been evaluated by Cardiology. He is currently on amiodarone. Heart rate is still in atrial fibrillation, but it seems to be a little better in terms of the rate. 3. High anion gap metabolic acidosis, resolved. 4. Diabetic ketoacidosis, resolved. 5. Elevated troponin, presumably demand ischemia versus [id number] myocardial infarction. 6. Supratherapeutic INR due to Coumadin therapy. INR is now down to subtherapeutic level. The patient has a mechanical valve, so we are going to start him on a heparin drip and start him back on his Coumadin. 7. Infected left inguinal open wound. This has been cultured. It is growing gram-negative addie. We think that was the source of the sepsis picture. The patient has been evaluated by Surgery and wound care has been advised. 8. Cellulitis to the right big finger. The patient is currently on IV antibiotics. 9. 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 The patient follows up with Dr. Galvan. He has been evaluated over here by Dr. Clark. We will continue with recommendations from them. 10. Severe underlying dementia noted. 11. Neutropenia with calculated absolute neutrophil count of 470. The patient is currently on neutropenic precautions, broad-spectrum IV antibiotics, and we are awaiting the culture results. 12. Crackles in the lungs. We think this is probably from overhydration. We are going to get a chest x-ray today to make sure there is not any new global pneumonia that has developed in the interim. We will also cut back on his IV fluids at this point since his blood pressures are now back to normal. 13. S/p Mitral Mechanical Valve, will start patient on Heparin drip DISCUSSION: In general, I think Mr. Gustafson continues to be remarkably sick. His blood pressure is now back to normal. He still in atrial fibrillation RVR. He is currently on amiodarone drip. We will continue with broad-spectrum IV antimicrobial therapy. We will also get Infectious Disease to see him to help with antimicrobial therapy. Mr. Gustafson is being seen by multiple subspecialties including Cardiology and General Surgery. TIME SPENT: Critical time spent is 45 minutes. cc: Blkae Yanez MD MTDD
[2019-04-05] MEDS ORDERED: LASIX IV ONE (10:49)
--- NOTE | 2019-04-05 10:54 | CARDIOLOGY CONSULTATION ---
DATE: 04/05/2019 CHIEF COMPLAINT ON PRESENTATION: Weakness increased, heart rates, elevated blood sugar. HISTORY OF PRESENT ILLNESS: Mr. Gustafson is a 78-year-old white male with a history of atrial fibrillation as well as a mechanical mitral valve. He presented for the above complaints with his family. Apparently the patient has been quite confused as well. He has a history of invasive squamous cell carcinoma of the penis, currently receiving radiation therapy, and has had some infectious issues in the left groin area. The patient does not overly report any heart racing or pain complaints, but again, he is quite confused. PAST MEDICAL HISTORY: Significant for: 1. A mechanical mitral valve replacement in [address] [employer] valve. He has been managed on Coumadin for that. 2. Chronic atrial fibrillation. 3. History of ASD with pericardial patch. 4. History of sick sinus syndrome with subsequent permanent pacemaker implantation in 2018. 5. Hypertension. 6. Hyperlipidemia. 7. Diabetes. 8. Apparent dementia. 9. History of squamous cell carcinoma of the penis. SOCIAL HISTORY: Lives with his . Quit smoking 30 years ago. FAMILY HISTORY: Mother apparently had breast cancer. REVIEW OF SYSTEMS: A 10 system review of systems was unable to be done as the patient is currently quite confused. PHYSICAL EXAMINATION: The patient has been afebrile during this hospitalization. His most recent heart rates have been in the 120s, blood pressure is 124/89.General: He is in no acute distress. HEENT: Oropharynx is moist. Poor dentition. His eye examination shows pink conjunctivae and white sclerae. Neck: Examination shows no obvious thyromegaly or thyroid tenderness. Cardiovascular: He sounds to be in an irregularly irregular tachycardic rhythm which is consistent with atrial fibrillation on his monitor. He has no lower extremity edema. He has warm and well perfused extremities. His chest exam was difficult but sounded clear. He had a poor inspiratory effort. He had no increased work of breathing. His abdomen is soft, nontender. He has no obvious organomegaly. His exam shows a packed wound in the left groin area. Neurologic and psychiatric exams could not be performed secondary to the patient's confusion, but he seems to be moving all extremities well and quite confused. DIAGNOSTIC STUDIES: His chest x-ray shows no evidence of any acute pathology. His EKG on presentation showed rapid atrial fibrillation, 143 beats per minute, likely aberrant conduction with some nonspecific ST-T changes. His white count is 0.9, his hematocrit is 29.8, his platelet count is 106,000. His INR on presentation was 9.4; presently it is 1.6. His sodium is 142, potassium 3.8, BUN 25, creatinine 0.8. His cardiac enzymes have been elevated with initial of 0.835, most recent was 0.605. His lactate is 3.8. He did have a small amount acetone. ASSESSMENT: Mr. Gustafson is a 78-year-old gentleman, who presented in diabetic ketoacidosis, with likely sepsis and rapid atrial fibrillation. PLAN: Patient's atrial fibrillation is being driven by the sepsis as well as DKA/volume depletion. His cardiac enzymes were elevated and likely secondary to the infection/DKA with the supply/demand mismatch going along with it. I would continue him on the amiodarone for the time being, and I will add in a low dose of oral Lopressor with some IV Lopressor for breakthrough. Hopefully with improvement in his infectious issues, we will see improvement in the rate control. Notably, the patient has chronic atrial fibrillation, so judaism of sinus is not an option in this patient. cc: Uday Quintero MD
--- NOTE | 2019-04-05 10:54 | Diag Imaging Result Doc PS360 ---
EXAM: CHEST-PORTABLE INDICATION: sob TECHNIQUE: One view COMPARISON: 04/04/2019 FINDINGS: Since the previous study, there has been development of pulmonary venous congestion and mild to moderate interstitial edema. There is no discrete pleural fluid collection or pneumothorax. The pacemaker is in stable position. Cardiac silhouette is stable, otherwise. IMPRESSION: Interval development of pulmonary venous congestion and interstitial edema as described. Electronically signed by Liu Avila 04/05/2019 10:51 AM
[2019-04-05] MEDS: HUMALOG SUBQ SCH ×3 (11:39→20:24)
[2019-04-05] MEDS ORDERED: CORDARONE 540 MG in D5W 289.2 ML IV ONE (12:00)
[2019-04-05 12:25] LABS: MAGNESIUM 1.9 mg/dL (1.5-2.7); PHOSPHORUS 2.1 mg/dL (2.7-4.5)
[2019-04-05] MEDS: MORPHINE IV PRN (12:30)
[2019-04-05 12:51] LABS: AGAP 10; BUN 24 mg/dL (8-22); CALCIUM 7.3 mg/dL (8.8-10.2); CHLORIDE 108 mmol/L (98-107); COSMO 287; CREATININE 0.6 mg/dL (0.7-1.2); ESTIMATED GFR > 60; GLUCOSE 238 mg/dL (70-104); POTASSIUM 4.7 mmol/L (3.5-5.1); SODIUM 138 mmol/L (136-145); TCO2 20 mmol/L (25-35)
[2019-04-05] MEDS: LOPRESSOR PO SCH ×2 (15:45→20:32)
--- NOTE | 2019-04-05 15:57 | INFECTIOUS DISEASE PROGRESS NO ---
DATE: 04/05/2019 CONCLUSION: The patient has an infection in his left groin wound. The wound is growing gram- negative rods. The patient also has an abscess on his right hand. I have sent a culture down from the hand today. RECOMMENDATIONS: I agree with treating the patient with vancomycin and cefepime. I have with a needle gotten some fluid from the patient's right hand abscess. The fluid was sanguinopurulent in nature. The fluid that came out I sent it to the microbiology lab for culture. DISCUSSION: The patient came in the hospital because of increased weakness and tachycardia. Also he was in diabetic ketoacidosis. Studies thus far show a CBC with a white count of 960, an absolute neutrophil count of 470, creatinine is 0.8, GFR is greater than 60. Liver function studies are normal. Urinalysis does not have any white cells or bacteria. The patient's hemoglobin is 10.2 and platelet count is 106,000. Chest x-ray shows pulmonary venous congestion. Blood cultures are pending. PRESENT ILLNESS: The patient had a return of the patient's penile cancer in the left groin area for which the patient received chemotherapy and radiation. The patient has developed a large open wound in the left groin area. A culture from that wound is growing gram- negative rods. PAST MEDICAL HISTORY: The patient has dementia, hypertension, hyperlipidemia, diabetes, benign prostatic hypertrophy, atrial fibrillation, deep venous thrombosis. INFECTIOUS DISEASE HISTORY: Patient recently had shingles of the face. PAST SURGICAL HISTORY: The patient has had an inguinal hernia repair, mitral valve replacement, a pacemaker, an appendectomy, he has had a penile ectomy. FAMILY HISTORY: Positive for breast cancer. SOCIAL HISTORY: The patient is . He quit smoking 30 years ago. He does not drink alcohol or use illicit drugs. ALLERGIES: He has no known drug allergies. HOME MEDICATIONS: Include alprazolam, doxycycline, insulin, Ativan, losartan, and Coumadin. PHYSICAL EXAMINATION: Vital Signs: Temperature is 98.2 degrees, pulse 132, respirations 18, blood pressure 164/75. General: This is a ill-appearing elderly male. He is sedated. Head, eyes, ears, nose and throat: No drainage noted from the nose or ears. Almost all his hair is gone. Patient does have on the left side of his face a large eschar where he had shingles. I could not see into his mouth. Neck: No meningismus. Patient has a jugular venous catheter in place. The catheter site is not erythematous or draining. Lungs: Clear to auscultation. Cardiovascular: Heart rate was regular and rapid. Abdomen: Soft and nontender. The left inguinal area had a large open wound that had some necrotic tissue in it. There was no odor. On the buttock area, there are some erythematous areas most likely due to the patient being on his back and buttock for prolonged periods. Neurologic: As mentioned above, the patient is sedated. He did not respond to verbal stimuli. There was no tremor. Extremities: The patient's right hand had fluctuant area on the dorsum of the hand between the thumb and 2nd finger. I put a needle in that area after cleaning with alcohol and a small amount of sanguinopurulent fluid came out which was sent for culture. Thank you for the consult. cc: Miguel Michel MD MTDD
[2019-04-05] MEDS ORDERED: VANCOMYCIN 1,400 MG in NS 250 ML IV SCH (18:00)
[2019-04-05] MEDS ORDERED: HEPARIN IV ONE (18:02)
[2019-04-06] MEDS: LOPRESSOR PO SCH ×4 (01:16→20:00)
[2019-04-06] MEDS: MAXIPIME 1 GM in NS 50 ML IV SCH (03:43)
[2019-04-06] MEDS: MORPHINE IV PRN ×2 (03:44→13:59)
[2019-04-06] MEDS: HUMALOG SUBQ SCH ×4 (06:29→20:00)
[2019-04-06 06:33] LABS: BASO# 0.01 X1000 (0.0-0.2); BASO% 0.5 % (0.0-0.8); EOS# 0.02 X1000 (0.0-0.7); HEMATOCRIT 29.7 % (42.0-52.0); HEMOGLOBIN 9.9 g/dL (14.0-18.0); IMM GRAN# 0.09 X1000 (0.0-0.04); IMM GRAN% 4.4 % (0.0-0.5); LYMPH# 0.53 X1000 (1.2-3.4); LYMPH% 25.7 % (20.5-51.1); MCH 29.5 PG (27-31); MCHC 33.3 g/dL (33-37); MCV 88.4 FL (81-99); MONO# 0.35 X1000 (0.11-0.59); MPV 13.3 FL (7.4-10.4); NEUT# 1.06 X1000 (1.4-6.5); NEUT% 51.4 % (42.2-75.2); PLT 105 X1000 (130-400); RBC 3.36 XMIL (4.7-6.1); RDW 16.6 % (11.5-14.5); WBC 2.06 X1000 (4.8-10.8)
[2019-04-06] MEDS ORDERED: CORDARONE 360 MG/D5W 360 MG/200 ML IV.SOLN IV SCH (07:00)
--- NOTE | 2019-04-06 07:23 | Diag Imaging Result Doc PS360 ---
EXAM: CHEST-PORTABLE 04/06/2019 HISTORY: dyspnea TECHNIQUE: AP portable at 0532 COMMENT: The pulmonary edema present on 04/05/2019 appears to have improved slightly. The heart size does not appear to be as large. IMPRESSION: Improved cardiomegaly and pulmonary edema. Electronically signed by Chi Morris 04/06/2019 7:21 AM
[2019-04-06 07:35] LABS: AGAP 15; ALBUMIN 2.4 g/dL (3.5-5.0); BUN 25 mg/dL (8-22); CHLORIDE 120 mmol/L (98-107); COSMO 313; CREATININE 0.9 mg/dL (0.7-1.2); ESTIMATED GFR > 60; GLUCOSE 197 mg/dL (70-104); POTASSIUM 4.5 mmol/L (3.5-5.1); SODIUM 153 mmol/L (136-145); TCO2 18 mmol/L (25-35)
[2019-04-06 07:44] LABS: BANDS 22 % (0-1); LYMPHS 6 % (21-51); MONO 6 % (1-9); NRBC 12 % (0-0); SEGS 66 % (42-75)
[2019-04-06] MEDS: HEPARIN 25,000 UNITS/D5W 25,000 UNIT/250 ML IV.SOLN IV SCH ×2 (08:02→17:20)
[2019-04-06] MEDS: LANTUS INSULIN SUBQ SCH (08:02)
[2019-04-06] MEDS: D5W 1,000 ML IV SCH ×2 (08:38→17:20)
--- NOTE | 2019-04-06 09:38 | INFECTIOUS DISEASE PROGRESS NO ---
DATE: 04/06/2019 PRESENT ILLNESS: The patient has an infection in his left groin where his penile tumor came back and he has been having radiation therapy to that area. Culture from the area grew Providencia. MEDICATIONS: The patient has been on cefepime and vancomycin. PHYSICAL EXAMINATION: Vital Signs: Temperature is 96.9 degrees, pulse 129, respirations 14, blood pressure 105/71. General: This is an ill-appearing elderly male. He is delirious. Head/eyes/ears/nose/throat: He has a large eschar on the left side of his face where he had shingles. There is no drainage from the nose or ears. I could not get a good look into his mouth. Neck: There does not seem to be any pain when the patient turns his neck. He does have a left-sided jugular catheter in place. The site is not red or swollen. Lungs: Clear to auscultation. Cardiovascular: Heart rate is regular. Abdomen: Soft and nontender. In the left inguinal area there is a large open wound. It is erythematous and it has an odor to it. The patient, on his right hand has a fluctuant area which I aspirated last night. It looks like it primarily may be a hematoma, but there were parts where I thought there was some purulent material also, so it could be an abscess combined with a hematoma. Thorax: The patient has a pacemaker present on the left side. The site is not erythematous or swollen. LAB AND X-RAY: Chest x-ray shows improvement in the patient's pulmonary venous congestion. The patient's groin, as mentioned above, grew Providencia. His CBC shows a white count that is up to 2060, hemoglobin is 9.9, and platelet count is a 105,000. Creatinine is 0.9, GFR is greater than 60. The right hand culture is pending. Blood cultures are sterile. ASSESSMENT AND PLAN: The patient has an infection in his left groin wound. I am switching the patient from cefepime and vancomycin to Rocephin as a single drug. The hand culture is pending. COMORBIDITIES: The patient is elderly. He has penile cancer which recurred in his left groin. He also is a diabetic. The patient has had mitral valve replacement with a plastic valve according to the patient's . cc: Miguel Michel MD [facility]
[2019-04-06] MEDS: ROCEPHIN 2 GM in NS 50 ML IV SCH (09:51)
[2019-04-06] MEDS: LOPRESSOR IV PRN (10:38)
--- NOTE | 2019-04-06 10:55 | PROGRESS NOTE ---
DATE: 04/06/2019 SUBJECTIVE: This morning Mr. Gustafson refers to be doing fairly okay. No new complaints. The family members were not at the bedside at the time of the encounter. OBJECTIVE: Vitals: Blood pressure is 101/69, pulse 130, respiration is 14, temperature is 96.7 degrees. The patient's T-max has been 98.1. General exam: Mr. Gustafson is a 78-year-old elderly gentleman. He is in bed in no distress. HEENT: Mucosa is pink and moist. Anicteric. Acyanotic. Neck: Supple. Chest: Air entry is bilaterally reduced. There are some crackles posteriorly. Cardiovascular: Slightly tachycardic. Irregularly irregular. There is a metallic S1 sound at the mitral area. There is also an old sternotomy scar on the anterior chest wall. GI: Abdomen is soft, is distended. The bowel sounds are present. In the inguinal region, there is a lot of skin breakdown on both inguinal regions. The left side has an open wound which is covered with sterile dressing. There is edema on the upper thigh, as well as the lower extremity. QUILL WINDER: Patient is awake, does not really follow any commands, but will withdrawal very actively to painful stimulation. Musculoskeletal: The right top part of the big finger proximally is still minimally swollen and erythematous. MICROBIOLOGY: Blood cultures have been 48 hours negative. The wound culture is growing Providencia rettgeri. LABORATORY DATA: WBC is up to 2.06, hemoglobin is 9.9, platelet count of 105. The patient has 22% of bands on the peripheral smear. Chemistry is also reviewed. Sodium is 153, potassium is 120. ASSESSMENT: 1. Septic shock on presentation secondary to left inguinal wound infection. 2. Providencia rettgeri wound infection of the left inguinal region. 3. 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 The patient follows up with Dr. Galvan and Dr. Anglin. 4. Chemotherapy-induced pancytopenia with significant neutropenia. The patient's white cell count is improving. 5. Cellulitis to the right big finger. 6. Supratherapeutic INR on admission due to Coumadin therapy. The patient is currently on heparin drip. 7. High anion gap metabolic acidosis on presentation due to lactic acidosis and diabetic ketoacidosis, both improved. 8. Diabetes mellitus. The patient is currently on insulin regimen. 9. Status post mechanical mitral valve replacement. The patient is currently on heparin drip for anticoagulation. 10. Elevated troponins on presentation presumably due to demand ischemia. Cardiology is on board. 11. Atrial fibrillation with rapid ventricular response. Patient continues to be on amiodarone drip. PLAN: So, in general, Mr. Gustafson seems to be hemodynamically more stable today. He is not on any pressor. He continues to be on the amiodarone drip and heparin drip. Antibiotics have been changed this morning by Infectious Disease. We have started him on very gentle free-water hydration because of significant hypernatremia and hyperchloremia. We will repeat his electrolytes this afternoon to decide if to continue with the free-water or to discontinue it. cc: Blake Yanez MD
[2019-04-06] MEDS ORDERED: NS 250 ML ONE (13:45)
--- NOTE | 2019-04-06 13:47 | CARDIOLOGY PROGRESS NOTE ---
DATE: 04/06/2019 SUBJECTIVE: Mr. Gustafson continues to be somewhat confused, somnolent, opens his eyes, but does not answer questions. OBJECTIVE: Vital Signs: Afebrile. Heart rate in the 70s to 90s. His blood pressure is 125/70. Generally: He is in no acute distress. Cardiovascular: He sounds to be in an irregularly irregular rhythm. His rate currently is in the 80s. He has no lower extremity edema. Warm and well-perfused extremities. Respiratory: His chest is clear bilaterally. Poor inspiratory effort. Abdomen: Soft, nontender. PERTINENT DATA: His white count is 2, his hematocrit is 29, his platelet count is 105. He has a 22% bandemia. He is on heparin for his valve. Sodium is 153, potassium 4.5, BUN is 25, creatinine 0.9. His albumin level is 2.4. ASSESSMENT: Mr. Gustafson is a 78-year-old gentleman who presented with sepsis. Since admission, he has been found to have gram-positive cocci from a right hand culture, as well as Providencia rettgeri from a left groin wound culture. Blood cultures have been negative. PLAN: His atrial fibrillation is chronic. He seems better rate controlled today. His blood pressure seems reasonably controlled presently. He is receiving a fluid resuscitation for sodium that is 153. I would not pursue an ischemia evaluation for his troponin abnormality considering his comorbidities and the likelihood of supply-demand mismatch on presentation given that he had a significant elevation of his lactate suggesting a global hypoperfusion state. We will continue to follow for the atrial fib issues. He is on heparin for his mechanical valve. cc: Uday Quintero MD
[2019-04-06] MEDS: DILAUDID IV PRN (14:24)
[2019-04-06] MEDS: SSD CREAM TOP SCH ×2 (14:25→21:06)
[2019-04-06] MEDS: DAKIN S 0.125% TOP SCH ×2 (14:26→21:07)
--- NOTE | 2019-04-06 14:57 | EKG Report ---
Test Performed on : 04/06/2019 12:58:49 PM Test Reason : BRADYCARDIA Blood Pressure : / mmHG Vent. Rate : 077 BPM Atrial Rate : 082 BPM P-R Int : 000 ms QRS Dur : 112 ms QT Int : 398 ms P-R-T Axes : 000 026 183 degrees QTc Int : 450 ms Atrial fibrillation. with premature ventricular or aberrantly conducted complexes. (almost bigeminal pattern) Septal infarct (cited on or before 19-MAR-2019) ST & T wave abnormality, consider lateral ischemia Abnormal ECG When compared with ECG of 04-APR-2019 11:54, (Unconfirmed) Atrial fibrillation. has replaced Atrial flutter. Vent. rate has decreased BY 66 BPM Confirmed by Samy STRANGE, James Montoya ([id number]) on 04/07/2019 8:30:46 AM
[2019-04-06] MEDS ORDERED: ZOVIRAX CREAM TOP SCH (15:00)
--- NOTE | 2019-04-06 15:36 | Diag Imaging Result Doc PS360 ---
EXAM: CHEST-PORTABLE 04/06/2019 HISTORY: PICC line placement TECHNIQUE: AP portable at 1525 COMMENT: There is cardiomegaly. There is a PICC line on the right, with its tip apparently in the upper portion of the superior vena cava or innominate vein on the right. There is ill-defined opacity over the costophrenic angle region on the left which is slightly worse than on 04/06/2019 at 0532. Overall however compared to the previous study and considering differences in technique there has been very little change. IMPRESSION: Questionably worsened atelectasis in the left lower lobe. Electronically signed by Chi Morris 04/06/2019 3:34 PM
[2019-04-06 15:58] LABS: ESTIMATED GFR > 60
[2019-04-06 16:12] LABS: URINE SOURCE CATH
[2019-04-06 16:15] LABS: POTASSIUM 4.2 mmol/L (3.5-5.1); SODIUM 138 mmol/L (136-145)
[2019-04-06 16:16] LABS: CHLORIDE 110 mmol/L (98-107)
[2019-04-06 16:25] LABS: UR EPITHELIAL CELLS <10 /HPF (<10); URINE BACTERIA NEGATIVE /HPF; URINE RBC <10 /HPF (<10); URINE WBC <10 /HPF (<10)
[2019-04-06 16:26] LABS: BILIRUBIN URINE NEGATIVE (NEGATIVE); BLOOD URINE NEGATIVE (NEGATIVE); COLOR YELLOW; GLUCOSE URINE 70 mg/dL (NEGATIVE); KETONE URINE NEGATIVE (NEGATIVE); LEUKOCYTES URINE NEGATIVE (NEGATIVE); NITRITE URINE NEGATIVE (NEGATIVE); PROTEIN URINE 30 mg/dL (NEGATIVE); SP GRAVITY URINE 1.022; TURBIDITY URINE CLEAR (CLEAR); UROBILINOGEN URINE NORMAL (NORMAL)
[2019-04-06 16:27] LABS: BUN 22 mg/dL (8-22); CREATININE 0.6 mg/dL (0.7-1.2); GLUCOSE 153 mg/dL (70-104); TCO2 19 mmol/L (25-35)
[2019-04-06 16:28] LABS: AGAP 9; COSMO 282
[2019-04-06] MEDS: ZOVIRAX OINTMENT TOP SCH ×2 (17:19→21:06)
--- NOTE | 2019-04-06 17:29 | HEMO/ONC CONSULTATION ---
DATE: 04/06/2019 ADMITTING PHYSICIAN: Dr. Yanez. REQUESTING PHYSICIAN: Dr. Yanez. We appreciate this consult. CHIEF COMPLAINT: Squamous cell carcinoma of the penis. HISTORY OF PRESENT ILLNESS: Mr. Gustafson is a very pleasant 78-year-old male well known to Dr. 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 He is currently undergoing combined treatment with radiation as well as carboplatin and Taxol. The patient does have an open wound to his left inguinal region. He has been maintained on antibiotics as an outpatient. He is undergoing radiation therapy as well to the region, the patient's reports that he became quite ill with fevers, chills and he presented to [facility] Emergency Department. Upon presentation the patient was found to have an elevated blood glucose and was in diabetic ketoacidosis. We are consulted as the patient is well known to us. PAST MEDICAL HISTORY: 1. Dementia. 2. Hypertension. 3. Hyperlipidemia. 4. Diabetes mellitus type 1. 5. BPH. 6. Atrial fibrillation. 7. DVT. 8. Shingles. 9. Squamous cell carcinoma of penis. PAST SURGICAL HISTORY: 1. Inguinal hernia repair. 2. Mitral valve replacement. 3. Pacemaker placement. 4. Appendectomy. 5. Penile ectomy. FAMILY HISTORY: Significant for breast cancer in the patient's mother. SOCIAL HISTORY: The patient quit smoking 30 years ago. He does not use alcohol or illicit drugs. MEDICATIONS ON ADMISSION.: 1. Ativan. 2. Coumadin . 3. Doxycycline. 4. Famciclovir. 5. Furosemide. 6. Lomotil. 7. Marinol. 8. Metoprolol. 9. [place]. 10. NovoLog insulin. 11. Oxybutynin chloride. 12. Potassium chloride. 13. Pravastatin. 14. TobraDex eye drops. 15. Xarelto. 16. Zofran. ALLERGIES: Patient has no known drug allergies. REVIEW OF SYSTEMS: A 14 point review of systems was attempted but is unable to be obtained at this time secondary to patient's confusion. PHYSICAL EXAM: Mr. Gustafson is a 78-year-old male lying supine in bed and quite confused but otherwise in no immediate distress.Vital Signs: Temperature 96.9 degrees, blood pressure 101/69, heart rate 130, respirations 10, O2 saturation is 94% on room air. HEENT: Normocephalic, atraumatic. Mucous membranes are pale and moist. Sclerae is anicteric. Extraocular movements intact. Neck: Supple. Lungs: With coarse breath sounds bases. CV: S1-S2 is heard. The patient is tachycardic, he has no murmurs, rubs or gallops. Abdomen: Nondistended, nontender, bowel sounds positive all quadrants. No rebound, guarding noted. Extremities: Without clubbing or cyanosis. The patient does have trace bilateral lower extremity edema. Dermatologic: No rashes, bruises or lesions. Neuro: Patient is quite confused, he has no overt focal motor deficit. LABORATORY DATA: Hemoglobin 9.9, hematocrit 29.7, white blood cell count 2.06, platelets 105,000, ANC 1.06. Sodium 153, potassium 4.5, chloride 120, CO2 18, BUN 25, creatinine 0.9 and glucose is 197, calcium 8.0, phosphorus 3.0. Chest x-ray reveals improved cardiomegaly and pulmonary edema. ASSESSMENT AND PLAN: 1. Septic shock. Blood pressure is currently stable not currently on vasopressors and patient is on an antibiotic, infectious disease is following. 2. Infected left inguinal wound on ceftriaxone. Infectious Disease and Wound Care currently following. 3. 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 Patient is currently undergoing treatment with radiation and carboplatin/Taxol. 4. Atrial fibrillation with rapid ventricular response on amiodarone and cardiology is following. 5. Subtherapeutic INR with mechanical valve. The patient is currently on a heparin drip. 6. Neutropenia, ANC is currently 1.06, we will provide Granix if ANC drops below 1.00. 7. We will follow along with you make further recommendations pending outcomes . The above reflects the history exam assessment plan of Dr. Galvan. Dictated by PRIMITIVO Rodney for Alon Galvan MD cc: PRIMITIVO Rodney MD
[2019-04-06] MEDS ORDERED: NS 500 ML IV ONE (18:44)
[2019-04-06] MEDS ORDERED: DILAUDID IV PRN (21:00)
[2019-04-07] MEDS: LOPRESSOR PO SCH ×4 (01:20→19:31)
[2019-04-07] MEDS: DILAUDID IV PRN ×2 (01:21→09:30)
[2019-04-07] MEDS: D5W 1,000 ML IV SCH (01:42)
[2019-04-07] MEDS: LOPRESSOR IV PRN ×2 (04:52→08:57)
[2019-04-07 06:07] LABS: BASO# 0.02 X1000 (0.0-0.2); BASO% 0.7 % (0.0-0.8); EOS# 0.02 X1000 (0.0-0.7); EOS% 0.7 % (0.0-10.0); HEMATOCRIT 28.7 % (42.0-52.0); HEMOGLOBIN 9.7 g/dL (14.0-18.0); IMM GRAN# 0.28 X1000 (0.0-0.04); IMM GRAN% 10.4 % (0.0-0.5); LYMPH% 14.9 % (20.5-51.1); MCH 29.9 PG (27-31); MCHC 33.8 g/dL (33-37); MCV 88.6 FL (81-99); MONO# 0.28 X1000 (0.11-0.59); MONO% 10.4 % (1.7-9.3); MPV 13.1 FL (7.4-10.4); NEUT# 1.68 X1000 (1.4-6.5); NEUT% 62.9 % (42.2-75.2); PLT 110 X1000 (130-400); RBC 3.24 XMIL (4.7-6.1); RDW 17.3 % (11.5-14.5); WBC 2.68 X1000 (4.8-10.8)
[2019-04-07] MEDS: HUMALOG SUBQ SCH ×4 (06:20→20:29)
[2019-04-07 06:48] LABS: AGAP 10; ALBUMIN 2.1 g/dL (3.5-5.0); BUN 20 mg/dL (8-22); CALCIUM 7.8 mg/dL (8.8-10.2); CHLORIDE 109 mmol/L (98-107); COSMO 288; CREATININE 0.9 mg/dL (0.7-1.2); ESTIMATED GFR > 60; GLUCOSE 245 mg/dL (70-104); PHOSPHORUS 2.6 mg/dL (2.7-4.5); POTASSIUM 4.2 mmol/L (3.5-5.1); SODIUM 139 mmol/L (136-145); TCO2 20 mmol/L (25-35)
[2019-04-07 07:25] LABS: BANDS 12 % (0-1); LYMPHS 14 % (21-51); MONO 4 % (1-9); NRBC 8 % (0-0); SEGS 60 % (42-75)
[2019-04-07 07:26] LABS: ANISOCYTOSIS 1+; LARGE PLATELETS 1+
--- NOTE | 2019-04-07 07:50 | GENERAL SURGERY PROGRESS NOTE ---
DATE: 04/07/2019 Discussed the case with the nurse. The wound looks essentially the same. Reviewed wound care note, very complicated wound. No real good surgical intervention given the clinical context of this. Recommend continued local wound care as ordered by Wound Care. I will follow peripherally. cc: Sanjay Sampson MD
[2019-04-07] MEDS ORDERED: HEPARIN 25,000 UNITS/D5W 25,000 UNIT/250 ML IV.SOLN IV SCH (08:18)
[2019-04-07] MEDS: LANTUS INSULIN SUBQ SCH (08:38)
[2019-04-07] MEDS: ROCEPHIN 2 GM in NS 50 ML IV SCH (08:41)
[2019-04-07] MEDS: DAKIN S 0.125% TOP SCH ×2 (09:24→20:30)
[2019-04-07] MEDS: SSD CREAM TOP SCH ×2 (09:24→20:30)
[2019-04-07] MEDS: ZOVIRAX OINTMENT TOP SCH (09:25)
[2019-04-07] MEDS ORDERED: CATHFLO IV ONE (10:54)
[2019-04-07] MEDS ORDERED: STERILE WATER INJ. INJ ONE (10:54)
[2019-04-07] MEDS: CUBICIN 500 MG in NS 100 ML IV SCH (10:57)
[2019-04-07] MEDS ORDERED: D5 1/2 NS + KCL 20 MEQ 1,000 ML IV SCH (11:00)
[2019-04-07] MEDS: LEVOPHED 8 MG in D5 1/2 NS 250 ML IV SCH (11:25)
[2019-04-07] MEDS: ALBUMIN 25% IV SCH (11:33)
[2019-04-07] MEDS ORDERED: NS 250 ML ONE (12:23)
--- NOTE | 2019-04-07 12:24 | PROGRESS NOTE ---
DATE: 04/07/2019 SUBJECTIVE: This morning Mr. Gustafson was seen in the ICU. The sister was at the bedside at the time of the encounter. He was just recently given medication for wound dressing so he was sleeping. OBJECTIVE: Vital signs: Blood pressure 82/45, pulse of 81, respirations 15, and temperature is 97.2 degrees. General: Mr. Gustafson is a 78-year-old elderly gentleman. He is in bed in no distress. HEENT: Mucosa is pink and moist. Anicteric. Acyanotic. Neck: Supple. Chest: Air entry is bilaterally reduced. There are some crackles posteriorly. Cardiovascular: Irregularly irregular, but rate controlled. There is a metallic S1 sound at the mitral area. There is also an old sternotomy scar on the anterior chest wall. Abdomen: Soft. Bowel sounds present. There is a lot of breakdown in the inguinal region. The left inguinal region has a wound which is currently covered with sterile dressing. SOLIDWORKS DESIGNER: Patient is sleepy but easily arousable. Musculoskeletal: The proximal skin right behind the big toe is still a little erythematous. The lower extremity has about 3+ pedal edema. LABORATORY DATA: WBC is 12.68, hemoglobin is 9.7, and platelet count of 110,000 and is doing better. Patient has 12% of bands on the peripheral smear. Chemistry is also reviewed and unremarkable. Glucose was 249. The groin wound showed Providencia rettgeri. The wound on the right hand shows MSSA. ASSESSMENT: 1. Septic shock on presentation secondary to left inguinal wound infection. The patient continues to be hypotensive. We are going to start him on pressors. 2. Providencia rettgeri wound infection of the left inguinal region. Patient is on ceftriaxone. ID is on board. 3. Right big finger skin cellulitis with cultures showing MSSA. 4. Chemotherapy-induced pancytopenia with significant neutropenia on presentation improving. 5. 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 Patient follows up with Dr. Galvan and Dr. Anglin. 6. Coumadin therapy for mitral mechanical valve. The patient is currently on heparin drip. 7. Diabetes mellitus. We will continue with insulin. 8. Elevated troponin on presentation due to demand ischemia. 9. Atrial fibrillation with RVR currently rate controlled. PLAN: So in general, Mr. Gustafson seems to have been hypotensive for most part of last night and early this morning. I think a bolus of 500 mL of normal saline was given to him that improved things a little bit, but he continues to be hypotensive. We are going to start him on pressors. He is also remarkably hypoalbuminemic, so we will replace that. I have explained my plan to the sister who was at the bedside at the time of the encounter. cc: Blake Yanez MD MTDD
--- NOTE | 2019-04-07 14:13 | INFECTIOUS DISEASE PROGRESS NO ---
DATE: 04/07/2019 PRESENT ILLNESS: The patient has an infected left groin wound where his penile tumor came back. The patient also has an infection in his right hand and on culture gram-positive cocci were seen. MEDICATIONS: The patient is on Rocephin as a single agent. PHYSICAL EXAMINATION: Vital Signs: Temperature is 97.2 degrees, pulse 89, respirations 18, blood pressure 95/54. General: The patient is awake today. He looks very ill but he is in no acute distress. Head, Eyes, Ears, Nose, And Throat: Patient has a large eschar on the left side of his head where he had shingles. There is no drainage from the nose or ears. I did not see any white patches in his mouth. Neck: No pain with movement of his neck. Lungs: Clear to auscultation. Cardiovascular: Heart rate is regular. Thorax: Patient has a pacemaker in place. The site is not swollen or erythematous. Extremities: The patient's right hand is swollen and erythematous and there is a dry black eschar present. Neurologic: The patient is awake today. He is talking. He does not have a tremor. LAB AND X-RAY: There is no new radiographic study. The patient's CBC shows a white count of 2,680 with an absolute neutrophil count of 1,680, hemoglobin is 9.7, platelet count is 110,000. Creatinine is 0.9. GFR is greater than 60. The patient's culture from the right hand is growing gram-positive cocci. ASSESSMENT AND PLAN: The patient has an infected left groin wound. He also has cellulitis and possible abscess in the right hand. My plan is to continue Rocephin. The patient's told me that the patient has decreased hearing. Therefore, I am not going to put the patient on vancomycin but instead I have ordered daptomycin. The patient may need surgical drainage of the infection on his hand. I have also discontinued isolation because the patient's absolute neutrophil count is greater than 1,000. I am going to continue with Rocephin to treat the patient's left groin wound. COMORBIDITIES: The patient is elderly. He has penile cancer which recurred in his left groin. He also is a diabetic. The patient also has had a mitral valve replacement and he has a pacemaker also. cc: Miguel Michel MD
[2019-04-08] MEDS: LOPRESSOR PO SCH ×4 (01:32→20:24)
[2019-04-08] MEDS: DILAUDID IV PRN ×3 (01:32→22:12)
--- NOTE | 2019-04-08 02:29 | CARDIOLOGY PROGRESS NOTE ---
DATE: 04/07/2019 SUBJECTIVE: Mr. Gustafson appears a little bit more alert today. He has no pain complaints. He reports his breathing is doing well. OBJECTIVE: Vital signs: The patient is afebrile. Heart rate primarily appears to be in the 80s. He had 1 documented at 133, but during my examination he was in the 80s in atrial fibrillation. Blood pressure 98/74. General: He is no acute distress. Cardiovascular: He is in an irregularly irregular rhythm. He has no murmurs. No S3. He has 2+ bilateral lower extremity edema. Chest: Clear bilaterally. He has no increased work of breathing. Abdomen: Soft, nontender, nondistended. PERTINENT DATA: His lab data shows a white count of 2.7, hematocrit 28, platelet count is 110,000. He continues to have a bandemia of 12, which is improved. Sodium 139, potassium 4.2, BUN 20, creatinine 0.9. Phosphorus 2.6. Albumin 2.1. ASSESSMENT: Mr. Gustafson is a 78-year-old gentleman who presented with sepsis, diabetic ketoacidosis, as well as rapid atrial fibrillation. PLAN: Patient has chronic atrial fibrillation. His rate seems reasonably well controlled currently on his oral metoprolol with IV metoprolol p.r.n. He is on a low dose of pressor presently. Albumin has been administered to assist with his edematous issues. No acute recommendations presently. cc: Uday Quintero MD
[2019-04-08] MEDS: LEVOPHED 8 MG in D5 1/2 NS 250 ML IV SCH (04:06)
[2019-04-08] MEDS: HEPARIN 25,000 UNITS/D5W 25,000 UNIT/250 ML IV.SOLN IV SCH (04:06)
[2019-04-08 04:26] LABS: BASO# 0.05 X1000 (0.0-0.2); BASO% 1.7 % (0.0-0.8); HEMATOCRIT 24.2 % (42.0-52.0); HEMOGLOBIN 8.1 g/dL (14.0-18.0); IMM GRAN# 0.41 X1000 (0.0-0.04); IMM GRAN% 14.2 % (0.0-0.5); LYMPH# 0.44 X1000 (1.2-3.4); LYMPH% 15.2 % (20.5-51.1); MCH 29.9 PG (27-31); MCHC 33.5 g/dL (33-37); MCV 89.3 FL (81-99); MONO# 0.26 X1000 (0.11-0.59); NEUT# 1.73 X1000 (1.4-6.5); NEUT% 59.9 % (42.2-75.2); PLT 131 X1000 (130-400); RBC 2.71 XMIL (4.7-6.1); RDW 17.5 % (11.5-14.5); WBC 2.89 X1000 (4.8-10.8)
[2019-04-08 04:46] LABS: BANDS 6 % (0-1); LYMPHS 17 % (21-51); MONO 12 % (1-9); NRBC 8 % (0-0); SEGS 63 % (42-75)
[2019-04-08 04:47] LABS: ANISOCYTOSIS 3+; HYPOCHROM 1+; POLYCHROM 1+
[2019-04-08] MEDS: HUMALOG SUBQ SCH ×4 (06:02→20:25)
--- NOTE | 2019-04-08 07:18 | Diag Imaging Result Doc PS360 ---
EXAM: CHEST-PORTABLE INDICATION: dyspnea TECHNIQUE: One view COMPARISON: 04/06/2019 FINDINGS: The central vasculature is more prominent than the previous study and there is an increase in interstitial markings indicating pulmonary venous congestion and pulmonary edema that has worsened. No new consolidations are identified. Cardiac silhouette is approximately stable. IMPRESSION: Pulmonary venous congestion and interstitial edema that has developed during the interval. Electronically signed by Liu Avila 04/08/2019 7:15 AM
[2019-04-08] MEDS ORDERED: LASIX IV ONE (08:23)
[2019-04-08] MEDS: ALBUMIN 25% IV SCH (08:26)
[2019-04-08] MEDS: DAKIN S 0.125% TOP SCH ×2 (09:20→23:18)
[2019-04-08] MEDS: SSD CREAM TOP SCH ×2 (09:20→23:19)
[2019-04-08] MEDS: ROCEPHIN 2 GM in NS 50 ML IV SCH (09:20)
[2019-04-08] MEDS: CUBICIN 500 MG in NS 100 ML IV SCH (09:23)
[2019-04-08] MEDS: LANTUS INSULIN SUBQ SCH (09:59)
[2019-04-08] MEDS: VALTREX PO SCH ×3 (12:31→20:25)
[2019-04-08] MEDS ORDERED: LASIX IV SCH (13:30)
--- NOTE | 2019-04-08 14:08 | EKG Report ---
Test Performed on : 04/08/2019 1:49:32 PM Test Reason : afib Blood Pressure : / mmHG Vent. Rate : 086 BPM Atrial Rate : 086 BPM P-R Int : 286 ms QRS Dur : 118 ms QT Int : 398 ms P-R-T Axes : 097 004 211 degrees QTc Int : 476 ms Sinus rhythm. with 1st degree AV block. Septal infarct (cited on or before 19-MAR-2019) ST & T wave abnormality, consider inferolateral ischemia Abnormal ECG When compared with ECG of 06-APR-2019 12:58, Sinus rhythm. has replaced Atrial fibrillation. Confirmed by Samy STRANGE, James Montoya ([id number]) on 04/09/2019 6:06:06 AM
--- NOTE | 2019-04-08 18:59 | INFECTIOUS DISEASE PROGRESS NO ---
DATE: 04/08/2019 PRESENT ILLNESS: The patient has an infected left groin wound where the patient's penile tumor came back. The patient also has an infection on his right hand from which an oxacillin sensitive Staphylococcus aureus was isolated, and finally, on the patient's buttock, there are some lesions that most likely are due to Varicella zoster virus. MEDICATIONS: The patient is on a combination of Rocephin and daptomycin. PHYSICAL EXAMINATION: Vital Signs: Temperature is 97.7 degrees, pulse 87, respirations 16, blood pressure is 105/54. General: This is a lethargic patient. He has just received medication for pain. Head, Eyes, Ears, Nose, and Throat: The patient has a dry brown eschar on the left side of the head where he had previous shingles. No drainage noted from the nose or ears. Neck: No meningismus. Lungs: Clear to auscultation. Cardiovascular: Heart rate is regular. Abdomen: Soft and nontender. Skin: In the pelvic area, the patient's wound in the left groin had the dressing removed. The wound itself has beefy red tissue. There is surrounding erythema of the wound. Also, in the right groin there is erythema, but no tumor. On the patient's buttock, there are some erythematous vesicular lesions where the vesicle itself has been opened. The lesions are in a dermatome distribution. Neurologic: The patient is very lethargic today. The patient sometimes opens his eyes, but he does not readily answer questions and he does not follow requests to move his extremities. He does not have a tremor. Extremities: The patient's right hand erythema and eschar are about the same, but there is less swelling and fluctuance in the right hand. Thorax: The patient's left upper chest pacemaker site is not swollen or erythematous. LAB AND X-RAY: The CBC shows a white count of 2890, hemoglobin 8.1, and platelet count 131,000. There is no BMP back yet from the patient's lab. Chest x-ray shows pulmonary venous congestion. The patient's right hand is growing out an oxacillin sensitive Staphylococcus aureus. There is no BMP today. Culture from the right hand is growing an oxacillin sensitive Staphylococcus aureus. Chest x-ray shows pulmonary venous congestion. ASSESSMENT AND PLAN: The patient has an infected left groin wound. My plan is to continue Rocephin for that. Regarding the patient's right hand, from which an oxacillin sensitive Staphylococcus aureus was isolated, I plan to treat it with the Rocephin, which is treating the patient's groin wound from which Providencia was grown. Also, I have started the patient on Valtrex for his presumed shingles. I am going to continue the Rocephin to treat the patient's groin wound and also his staph infected right hand. The Valtrex has been started to treat the presumed buttock Varicella zoster lesions. The Valtrex is being given as 1 g p.o. every 8 hours. COMORBIDITIES: The patient is elderly. 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 The patient is also a diabetic. He has had a mitral valve replacement and a pacemaker placed. cc: Miguel Michel MD
--- NOTE | 2019-04-08 21:22 | PROGRESS NOTE ---
DATE: 04/08/2019 SUBJECTIVE: This morning, Mr. Gustafson referred to be doing fairly okay. The was at the bedside at the time of the encounter. OBJECTIVE: Vital signs: Blood pressure 93/49, pulse of 79, respiration 13, temperature 91.1 degrees. General: Mr. Gustafson, a 78-year-old, gentleman, is in bed, in no distress. Mucosa is pink and moist, anicteric, and acyanotic. Neck: Supple. Chest: Good air entry bilaterally. There are some crackles bilaterally. Cardiovascular: Irregularly irregular, rate controlled. There is a S1 metallic sound at the mitral area. There is also an old sternotomy scar on the anterior chest wall. Gastrointestinal: Abdomen is soft. There is some breakdown in both inguinal regions. The left has a wound which is dressed. It does not smell like before. Central nervous system: Patient is awake, will respond appropriately. Extremities: The right big toe continues to have erythematous changes on the dorsum. Lower extremity has about 3+ pedal edema. 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 LABORATORY AND DIAGNOSTIC DATA: WBC is 2.89, hemoglobin is 8.1, platelet count of 131,000. Chemistry, none for today. Imaging study shows pulmonary venous congestion and interstitial edema that has developed during the interval. The patient's I's and O's, urine output shows 1450. Patient has still currently positive balance. ASSESSMENT/PLAN: 1. Septic shock on presentation secondary to left inguinal wound infection. Patient's blood pressures have significantly improved with the pressors. 2. Providencia rettgeri wound infection of the left inguinal region. The patient is on ceftriaxone. 3. Methicillin-susceptible Staphylococcus aureus cellulitis to the right big finger. The patient is on ceftriaxone, which will cover this as well. 4. Chemotherapy-induced pancytopenia with significant neutropenia on presentation. Improved. 5. History of invasive squamous cell cancer of the penis. The patient follows up with Dr. Galvan and Dr. Anglin. 6. Coumadin therapy for mechanical mitral valve. The patient is on heparin drip. 7. Diabetes mellitus. 8. Elevated troponin on presentation, presumably due to demand ischemia. 9. Atrial fibrillation with rapid ventricular response. Currently rate controlled. 10. Fluid overload. We think part of it is because of hypoalbuminemia and poor nutritional status. The patient is getting albumin infusion. We are going to give a couple of doses of Lasix after albumin infusion. Today, we are going to consult Palliative Medicine. A chest x-ray this morning did show some congestion, so we are going to give him a couple of doses of Lasix. Blood pressures had improved early on, but this afternoon, it seems like it is trending low. I will check his cortisol level to rule out any transient adrenal insufficiency. cc: Blake Yanez MD
[2019-04-09] MEDS: LOPRESSOR PO SCH ×4 (02:00→20:48)
[2019-04-09 04:26] LABS: HEMATOCRIT 23.2 % (42.0-52.0); HEMOGLOBIN 7.8 g/dL (14.0-18.0); MCH 30.4 PG (27-31); MCHC 33.6 g/dL (33-37); MCV 90.3 FL (81-99); MONO% 11.6 % (1.7-9.3); MPV 11.3 FL (7.4-10.4); NEUT% 65.5 % (42.2-75.2); PLT 137 X1000 (130-400); RBC 2.57 XMIL (4.7-6.1); RDW 17.9 % (11.5-14.5); WBC 2.58 X1000 (4.8-10.8)
[2019-04-09 04:27] LABS: BASO# 0.02 X1000 (0.0-0.2); BASO% 0.8 % (0.0-0.8); IMM GRAN# 0.26 X1000 (0.0-0.04); IMM GRAN% 10.1 % (0.0-0.5); LYMPH# 0.31 X1000 (1.2-3.4); NEUT# 1.69 X1000 (1.4-6.5)
[2019-04-09 04:51] LABS: AGAP 10; BUN 11 mg/dL (8-22); CHLORIDE 107 mmol/L (98-107); COSMO 276; CREATININE 0.8 mg/dL (0.7-1.2); ESTIMATED GFR > 60; GLUCOSE 123 mg/dL (70-104); MAGNESIUM 1.8 mg/dL (1.5-2.7); POTASSIUM 3.6 mmol/L (3.5-5.1); SODIUM 138 mmol/L (136-145); TCO2 21 mmol/L (25-35)
[2019-04-09] MEDS: HEPARIN 25,000 UNITS/D5W 25,000 UNIT/250 ML IV.SOLN IV SCH (04:54)
[2019-04-09] MEDS: VALTREX PO SCH ×3 (04:55→20:48)
[2019-04-09] MEDS: HUMALOG SUBQ SCH ×4 (06:29→21:07)
[2019-04-09] MEDS: PROTONIX IV SCH ×2 (06:35→18:03)
[2019-04-09] MEDS: ALBUMIN 25% IV SCH (08:44)
[2019-04-09] MEDS: LANTUS INSULIN SUBQ SCH (08:44)
[2019-04-09] MEDS ORDERED: LASIX IV SCH (09:00)
[2019-04-09] MEDS: ROCEPHIN 2 GM in NS 50 ML IV SCH ×2 (10:28→20:48)
[2019-04-09] MEDS: DILAUDID IV PRN (13:47)
[2019-04-09] MEDS: SSD CREAM TOP SCH ×2 (13:53→20:49)
[2019-04-09] MEDS: DAKIN S 0.125% TOP SCH ×2 (13:53→20:48)
[2019-04-09] MEDS ORDERED: LASIX IV ONE (14:04)
--- NOTE | 2019-04-09 14:12 | PROGRESS NOTE ---
DATE: 04/09/2019 SUBJECTIVE: This morning, Mr. Gustafson referred to be doing a lot better. The was at the bedside at the time of the encounter. No new complaints. He has been off the Levophed since yesterday and MAP's have been well above 65. His random cortisol level was 20.7, which is adequate. OBJECTIVE: Vital Signs: Current vitals, blood pressure 94/70 with a MAP of 85, pulse is 106, respirations 12, temperature is 98.2 degrees. The patient is saturating 100% on room air. General: Mr. Gustafson is a 78-year-old elderly gentleman. He was in bed. No distress. Mucosa is pink and moist. There is some crusted lesions over the left eye from a previous shingle episode. Chest: Air entry is bilaterally reduced. Some crackles posteriorly. Cardiovascular: There is an old sternotomy scar on the anterior chest wall. There is an S1 metallic sound in the mitral region. Heart rate is irregularly irregular. Gastrointestinal: Abdomen is soft. There is some excoriations and breakdown in both inguinal region. The left has a open wound which is dressed. Extremities: About 3+ pedal edema. There is also edema on the lateral aspect of the abdominal ivy and the chest wall. Central Nervous System: Patient is more awake, alert. Follows basic commands. LABORATORY DATA: WBC is 2.58, hemoglobin is 7.8, platelet count of 137,000. Chemistry is reviewed all normal within normal range. No imaging studies today. MEDICATIONS: Have all been reviewed. Patient is currently only on ceftriaxone as a single antimicrobial agent. ASSESSMENT: 1. Septic shock on presentation. The patient is currently off the Levophed. 2. Providencia rettgeri left inguinal wound infection. The patient is on ceftriaxone. 3. Methicillin-sensitive Staphylococcus aureus cellulitis to the right hand. 4. Neutropenia with pancytopenia due to chemotherapy, improved. 5. Coumadin therapy for mechanical mitral valve. The patient is currently on heparin drip. 6. Diabetes mellitus controlled on insulin. 7. Elevated troponins on presentation, presumably due to demand ischemia. Cardiology is on board. 8. Atrial fibrillation with rapid ventricular response. The patient is on metoprolol. 9. Fluid overload. We will continue with albumin with Lasix. 10. Protein calorie malnutrition. We will get some diet supplements. This morning, Mr. Gustafson's hemoglobin has dropped to about 7.8. He seems however to be stable. The night team had ordered 2 units of PRBC transfusion. We will continue to follow the hemoglobin and hematocrit. He does not seem to have any overt bleeding anywhere. We will increase the Lasix to help with the generalized edema and will continue to optimize his nutritional status. cc: Blake Yanez MD MTDToro
--- NOTE | 2019-04-09 14:58 | INFECTIOUS DISEASE PROGRESS NO ---
DATE: 04/09/2019 PRESENT ILLNESS: The patient has a Providencia left groin infection where the patient's penile cancer recurred. The patient also has an active case of varicella zoster infection on his buttock. He has on his right hand an oxacillin sensitive Staph aureus infection. MEDICATIONS: The patient is on a combination of Rocephin and Valtrex. I have increased the dose of Rocephin to 2 g IV every 12 hours instead of every 24 hours to help clear up the patient's right hand infection. PHYSICAL EXAMINATION: Vital Signs: Temperature is 99 degrees, pulse 133, respirations 7, blood pressure 91/64. General: This is a lethargic, chronically ill-appearing elderly male. He appears to be in no acute distress. Head, Eyes, Ears, Nose And Throat: No drainage noted from the nose or ears. The patient has a brown eschar that is dry on the upper part of his left face where he had shingles. Neck: No resistance to passive movement. Thorax: The patient has a pacemaker on the left side. The site is not erythematous or draining. Lungs: Clear to auscultation. Cardiovascular: Heart rate is regular and rapid. Abdomen: Soft and not tender. Extremities: The patient has a PICC in his right arm. There is no erythema or drainage coming from it. The patient's right hand continues to be erythematous and have a black eschar on it. The patient's left groin wound is erythematous. Buttocks: The patient's varicella zoster lesions on his buttock are ulcerated and they are moist. There is no eschar that is formed on them. Neurologic: The patient seems to be delirious. He did not respond to verbal stimuli. He did not follow requests to move his extremities. He can move his extremities. There was no tremor. LAB AND X-RAY: Chest x-ray shows pulmonary venous congestion. Creatinine 0.8. GFR is greater than 60. The CBC shows a white count of 2580, hemoglobin 7.8, and platelet count is 137,000. ASSESSMENT AND PLAN: The patient has an infection in his left groin due to Providencia. He also has an infection in his right hand due to an oxacillin sensitive Staph aureus. The patient on his buttock has active varicella zoster infection. My plan is to continue Rocephin but increase the dose to 2 g IV every 12 hours and continue Valtrex. COMORBIDITIES: He is elderly. He has metastatic penile cancer and he is a diabetic. He has also had mitral valve replacement and a pacemaker placed. cc: Miguel Michel MD MTDD
[2019-04-09] MEDS: SODIUM CHLORIDE 0.9% INJ SCH (18:03)
[2019-04-09] MEDS: LASIX IV SCH (20:49)
[2019-04-10] MEDS: LOPRESSOR PO SCH ×4 (02:19→21:00)
[2019-04-10] MEDS: DILAUDID IV PRN ×3 (02:19→22:06)
[2019-04-10] MEDS: HEPARIN 25,000 UNITS/D5W 25,000 UNIT/250 ML IV.SOLN IV SCH (02:20)
[2019-04-10 05:53] LABS: BASO# 0.03 X1000 (0.0-0.2); BASO% 0.9 % (0.0-0.8); HEMATOCRIT 35.7 % (42.0-52.0); HEMOGLOBIN 12.5 g/dL (14.0-18.0); IMM GRAN# 0.19 X1000 (0.0-0.04); IMM GRAN% 5.8 % (0.0-0.5); LYMPH# 0.43 X1000 (1.2-3.4); LYMPH% 13.2 % (20.5-51.1); MCH 30.6 PG (27-31); MCV 87.5 FL (81-99); MONO# 0.41 X1000 (0.11-0.59); MONO% 12.6 % (1.7-9.3); MPV 11.5 FL (7.4-10.4); NEUT# 2.19 X1000 (1.4-6.5); NEUT% 67.5 % (42.2-75.2); PLT 167 X1000 (130-400); RBC 4.08 XMIL (4.7-6.1); RDW 16.7 % (11.5-14.5); WBC 3.25 X1000 (4.8-10.8)
[2019-04-10] MEDS: VALTREX PO SCH ×3 (05:55→22:00)
[2019-04-10] MEDS: PROTONIX IV SCH ×2 (05:55→17:59)
[2019-04-10] MEDS: SODIUM CHLORIDE 0.9% INJ SCH ×2 (05:55→17:59)
[2019-04-10] MEDS: HUMALOG SUBQ SCH ×4 (06:05→21:00)
[2019-04-10 06:10] LABS: AGAP 14; ALBUMIN 3.1 g/dL (3.5-5.0); BUN 9 mg/dL (8-22); CALCIUM 8.2 mg/dL (8.8-10.2); CHLORIDE 105 mmol/L (98-107); COSMO 284; CREATININE 0.8 mg/dL (0.7-1.2); ESTIMATED GFR > 60; GLUCOSE 110 mg/dL (70-104); PHOSPHORUS 2.3 mg/dL (2.7-4.5); SODIUM 143 mmol/L (136-145); TCO2 24 mmol/L (25-35)
[2019-04-10 06:57] LABS: BANDS 8 % (0-1); LYMPHS 2 % (21-51); MONO 4 % (1-9); NRBC 2 % (0-0); SEGS 70 % (42-75)
[2019-04-10] MEDS ORDERED: POTASSIUM PHOSPHATE 40 MEQ in NS 250 ML IV ONE (07:10)
[2019-04-10] MEDS: ROCEPHIN 2 GM in NS 50 ML IV SCH ×2 (08:49→22:00)
[2019-04-10] MEDS: LASIX IV SCH ×2 (08:53→22:00)
[2019-04-10] MEDS: LANTUS INSULIN SUBQ SCH (08:56)
[2019-04-10] MEDS: ALBUMIN 25% IV SCH (09:21)
[2019-04-10] MEDS: LOPRESSOR IV PRN (11:05)
--- NOTE | 2019-04-10 12:23 | PROGRESS NOTE ---
DATE: 04/09/2019 SUBJECTIVE: This morning, Mr. Gustafson for refers to be feeling a lot better. No changes overnight per the nursing staff. He night was uneventful. OBJECTIVE: Vital signs: Blood pressure is 154/93, pulse of 115, respiration is 12, temperature is 97.9 degrees. General: Mr. Gustafson is a 78-year-old elderly . Male he is in bed, in no distress. MUCOSA IS PINK AND MOIST: Anicteric, acyanotic.Neck: Supple. Chest: Air bilaterally reduced. There are still some crackles in the posterior lung newberry. Cardiovascular: There is an old sternotomy scar on the anterior chest wall. There is an irregularly irregular heart rate. There is an S1 metallic sound in the mitral region. Gastrointestinal: Abdomen is soft. Teft inguinal open wound is covered with sterile dressing. There is about 3+ edema on the lateral aspect of the abdominal wall. Extremities: 1+ pedal edema. Central nervous system: Patient is awake, alert. Follows basic commands. He definitely does have cognitive decline. LABORATORY DATA: This morning, WBC is up to 3.25, hemoglobin is 12.5, platelet count is 157,000. The patient has 8% of bands on the peripheral smear. Chemistry is also reviewed, potassium is 3.0. Rest of chemistry is unremarkable. ASSESSMENT: 1. Septic shock on presentation. Patient is currently off the Levophed. 2. Providencia rettgeri left inguinal wound infection. The patient is on ceftriaxone. 3. Methicillin-susceptible Staphylococcus aureus cellulitis to the right hand. 4. Neutropenia with pancytopenia on presentation due to chemotherapy, improved. 5. Coumadin therapy for mechanical mitral valve. The patient is currently on heparin drip. We are going to start him on his Coumadin tonight. 6. Diabetes mellitus. Controlled on insulin. 7. Elevated troponins on presentation, presumably due to demand ischemia. Cardiology is on board. The patient is currently asymptomatic. 8. Fluid overload. We are going to continue with the Lasix. Protein calorie malnutrition. Patient is on supplements. 9. Atrial fibrillation with rapid ventricular response, currently rate controlled. 10. Alzheimer dementia noted. 11. Anemia with positive occult blood, concerning for gastrointestinal bleed. The patient was transfused 2 PRBCs yesterday. Hemoglobin and hematocrit is fairly stable. We will continue trending this. The patient is also on PPI. cc: Blake Yanez MD
[2019-04-10] MEDS: SSD CREAM TOP SCH ×2 (15:07→22:00)
[2019-04-10] MEDS: DAKIN S 0.125% TOP SCH ×2 (15:07→22:00)
[2019-04-10] MEDS: COUMADIN PO SCH (22:00)
[2019-04-11] MEDS: LOPRESSOR PO SCH ×4 (02:00→21:38)
[2019-04-11] MEDS: VALTREX PO SCH ×3 (04:42→21:51)
[2019-04-11] MEDS: PROTONIX IV SCH ×3 (04:42→17:37)
[2019-04-11] MEDS ORDERED: LANOXIN IV ONE ×3 (06:00→22:35)
[2019-04-11 06:37] LABS: BASO# 0.02 X1000 (0.0-0.2); BASO% 0.6 % (0.0-0.8); HEMATOCRIT 31.7 % (42.0-52.0); HEMOGLOBIN 10.9 g/dL (14.0-18.0); IMM GRAN# 0.09 X1000 (0.0-0.04); IMM GRAN% 2.5 % (0.0-0.5); LYMPH% 11.3 % (20.5-51.1); MCH 30.4 PG (27-31); MCHC 34.4 g/dL (33-37); MCV 88.5 FL (81-99); MONO# 0.54 X1000 (0.11-0.59); MONO% 15.3 % (1.7-9.3); NEUT# 2.49 X1000 (1.4-6.5); NEUT% 70.3 % (42.2-75.2); PLT 199 X1000 (130-400); RBC 3.58 XMIL (4.7-6.1); RDW 16.7 % (11.5-14.5); WBC 3.54 X1000 (4.8-10.8)
[2019-04-11 06:47] LABS: INR 1.85; PROTIME 21.8 Seconds (11.0-16.0)
[2019-04-11 06:58] LABS: AGAP 12; ALBUMIN 3.1 g/dL (3.5-5.0); BUN 9 mg/dL (8-22); CHLORIDE 101 mmol/L (98-107); COSMO 289; CREATININE 0.7 mg/dL (0.7-1.2); ESTIMATED GFR > 60; GLUCOSE 166 mg/dL (70-104); PHOSPHORUS 2.9 mg/dL (2.7-4.5); POTASSIUM 2.6 mmol/L (3.5-5.1); SODIUM 144 mmol/L (136-145); TCO2 31 mmol/L (25-35)
[2019-04-11] MEDS: LOPRESSOR IV PRN (07:59)
[2019-04-11] MEDS ORDERED: KLOR-CON PO ONE (08:04)
[2019-04-11] MEDS: LANTUS INSULIN SUBQ SCH (08:19)
--- NOTE | 2019-04-11 08:49 | Diag Imaging Result Doc PS360 ---
CHEST-PORTABLE - 04/11/2019 INDICATION: PICC placement COMPARISON: 04/08/2019 FINDINGS: There is a right PICC line with the catheter tip in the axillary vein, in the axillary soft tissues. Stable pacemaker. Stable mild cardiomegaly. There has been significant improvement in the pulmonary vascular congestion. Nearly complete resolution of the pulmonary edema. No significant pleural effusion. IMPRESSION: 1. Right PICC line catheter tip is now in the axillary vein. 2. Near complete resolution of the pulmonary vascular congestion and pulmonary edema. Electronically signed by iLu Renee 04/11/2019 8:47 AM
[2019-04-11] MEDS: LASIX IV SCH ×2 (09:17→21:38)
[2019-04-11] MEDS: ROCEPHIN 2 GM in NS 50 ML IV SCH ×2 (09:17→22:02)
[2019-04-11] MEDS: HEPARIN 25,000 UNITS/D5W 25,000 UNIT/250 ML IV.SOLN IV SCH (09:53)
[2019-04-11] MEDS ORDERED: HEPARIN 25,000 UNITS/D5W 25,000 UNIT/250 ML IV.SOLN IV SCH ×2 (09:57→10:00)
[2019-04-11] MEDS: HUMALOG SUBQ SCH ×3 (10:25→21:52)
--- NOTE | 2019-04-11 10:56 | PROGRESS NOTE ---
DATE: 04/11/2019 SUBJECTIVE: This morning, Mr. Gustafson refers to be doing much better. The was at the bedside at the time of the encounter. Per the nursing staff, the night was uneventful. OBJECTIVE: Vital signs: Blood pressure is 120/61. Not on any pressor. Pulse is 91, respirations 12, temperature 98.3 degrees. Patient is saturating 96% on room air. General: Mr. Gustafson is a 78-year-old male. He is in bed, no distress. HEENT: Mucosa is pink and moist. Anicteric. Acyanotic. There was some crusted lesion over the left forehead. Neck: Supple. Chest: Good air entry bilateral. No crepitations. Cardiovascular: Irregularly irregular. There is a metallic S1 sound. GI: Abdomen soft. Inguinal region continues to show some skin breakdown. The left inguinal region has an open wound which is covered with sterile dressing. There is some edema on the lateral aspect of the abdominal wall. Extremities: Trace pedal edema. CHIPPER OPERATOR: Patient is awake, alert. Follows basic commands. LABORATORY DATA: WBC is 3.54, hemoglobin is 10.9, platelet count of 199,000. Chemistry is also reviewed. Potassium is 2.6. The patient's I's and O's show urine output was 4525. He is currently negative balance of 2656. A chest x-ray this morning suggests a near complete resolution of the pulmonary vascular congestion and the pulmonary edema. ASSESSMENT: 1. Septic shock on presentation. The patient needed Levophed for some time, and he has been off Levophed for 48 hours, and blood pressures are now stabilized. 2. Providencia rettgeri left inguinal wound infection. The patient is on ceftriaxone. 3. Methicillin-resistant Staphylococcus aureus cellulitis to the right hand. The patient is on ceftriaxone. ID is onboard. 4. Pancytopenia with neutropenia on presentation. We think this is chemotherapy induced. The patient's numbers have significantly improved. 5. Status post mechanical mitral valve replacement, on Coumadin therapy. Patient is currently on heparin drip. He has been started on Coumadin since yesterday. INR this morning is 1.85. We will continue with another 5 mg tonight. 6. Diabetes mellitus, controlled on insulin regimen. 7. Elevated troponins on presentation, presumably demand ischemia. 8. Fluid overload, improving with albumin and Lasix. 9. Atrial fibrillation with rapid ventricular response, currently rate controlled. The patient is on metoprolol. Cardiology is onboard. 10. Advanced Alzheimer's dementia, noted. 11. Normocytic anemia with occult blood positive. Patient is status post 2 PRBC transfusion. Hemoglobin and hematocrit this morning is fairly stable. We are going to continue keeping an eye on this. If hemoglobin and hematocrit continues to be dropping, I think it would be reasonable to get GI to evaluate him tomorrow. PLAN: In general, I think Mr. Gustafson is hemodynamically stable. We are going to transfer him from the ICU to [facility]. He is still on the heparin drip. cc: Blake Yanez MD
[2019-04-11] MEDS: DILAUDID IV PRN (14:51)
[2019-04-11] MEDS: DAKIN S 0.125% TOP SCH ×2 (15:19→21:39)
[2019-04-11] MEDS: SSD CREAM TOP SCH ×2 (15:19→21:39)
[2019-04-11] MEDS: SODIUM CHLORIDE 0.9% INJ SCH (17:37)
[2019-04-11] MEDS: MARINOL PO SCH (21:39)
[2019-04-11] MEDS: COUMADIN PO SCH (21:39)
--- NOTE | 2019-04-11 22:38 | EKG Report ---
Test Performed on : 04/11/2019 10:11:33 PM Test Reason : HR 160's Blood Pressure : / mmHG Vent. Rate : 161 BPM Atrial Rate : 174 BPM P-R Int : 000 ms QRS Dur : 112 ms QT Int : 320 ms P-R-T Axes : 000 -30 191 degrees QTc Int : 523 ms Supraventricular tachycardia. Left axis deviation Septal infarct (cited on or before 19-MAR-2019) Marked ST abnormality, possible inferior subendocardial injury Marked ST abnormality, possible anterolateral subendocardial injury Abnormal ECG When compared with ECG of 08-APR-2019 13:49, WA interval has decreased Vent. rate has increased BY [address] now depressed in Anterior leads Confirmed by Samy STRANGE, James Montoya ([id number]) on 04/12/2019 8:22:29 AM
[2019-04-12] MEDS: LOPRESSOR PO SCH ×3 (01:16→18:57)
[2019-04-12 04:02] LABS: AGAP 13; BUN 23 mg/dL (8-22); CHLORIDE 98 mmol/L (98-107); COSMO 291; CREATININE 0.8 mg/dL (0.7-1.2); ESTIMATED GFR > 60; GLUCOSE 244 mg/dL (70-104); POTASSIUM 3.7 mmol/L (3.5-5.1); SODIUM 140 mmol/L (136-145); TCO2 29 mmol/L (25-35)
[2019-04-12 04:03] LABS: ALBUMIN 2.7 g/dL (3.5-5.0); CALCIUM 7.5 mg/dL (8.8-10.2); PHOSPHORUS 2.5 mg/dL (2.7-4.5)
[2019-04-12 04:23] LABS: BASO# 0.02 X1000 (0.0-0.2); BASO% 0.5 % (0.0-0.8); HEMATOCRIT 28.9 % (42.0-52.0); HEMOGLOBIN 9.6 g/dL (14.0-18.0); IMM GRAN# 0.18 X1000 (0.0-0.04); IMM GRAN% 4.7 % (0.0-0.5); LYMPH# 0.58 X1000 (1.2-3.4); LYMPH% 15.2 % (20.5-51.1); MCH 29.9 PG (27-31); MCHC 33.2 g/dL (33-37); MONO# 0.44 X1000 (0.11-0.59); MONO% 11.5 % (1.7-9.3); MPV 11.2 FL (7.4-10.4); NEUT% 68.1 % (42.2-75.2); PLT 224 X1000 (130-400); RBC 3.21 XMIL (4.7-6.1); RDW 16.5 % (11.5-14.5); WBC 3.82 X1000 (4.8-10.8)
[2019-04-12] MEDS: HUMALOG SUBQ SCH ×5 (04:53→20:54)
[2019-04-12] MEDS: NEO-SYNEPHRINE 50 MG in NS 250 ML IV SCH ×4 (04:58→20:01)
[2019-04-12] MEDS: CARDIZEM 125 MG/D5W 125 MG/125 ML IVPB IV SCH ×2 (05:07→16:29)
[2019-04-12] MEDS: PROTONIX IV SCH ×2 (05:08→18:57)
[2019-04-12] MEDS: VALTREX PO SCH (05:13)
[2019-04-12 05:25] LABS: INR 2.33; PROTIME 26.2 Seconds (11.0-16.0)
[2019-04-12] MEDS ORDERED: LANOXIN IV ONE ×2 (06:00)
[2019-04-12] MEDS: DILAUDID IV PRN ×2 (08:32→20:36)
[2019-04-12 10:19] LABS: HEMATOCRIT 25.4 % (42.0-52.0); HEMOGLOBIN 8.1 g/dL (14.0-18.0)
[2019-04-12] MEDS ORDERED: STERILE WATER INJ. INJ ONE (10:34)
[2019-04-12] MEDS ORDERED: CATHFLO IV ONE (10:34)
[2019-04-12] MEDS: ROCEPHIN 2 GM in NS 50 ML IV SCH ×2 (10:37→20:53)
--- NOTE | 2019-04-12 10:38 | EKG Report ---
Test Performed on : 04/12/2019 10:30:51 AM Test Reason : afib Blood Pressure : / mmHG Vent. Rate : 085 BPM Atrial Rate : 312 BPM P-R Int : 000 ms QRS Dur : 112 ms QT Int : 404 ms P-R-T Axes : 000 001 141 degrees QTc Int : 480 ms Atrial flutter. with variable AV block. ST depression, consider subendocardial injury Nonspecific T wave abnormality Prolonged QT Abnormal ECG When compared with ECG of 11-APR-2019 22:11, Atrial flutter. has replaced Sinus rhythm. Vent. rate has decreased BY 76 BPM T wave inversion no longer evident in Inferior leads T wave inversion no longer evident in Lateral leads Confirmed by Samy STRANGE, James Montoya ([id number]) on 04/13/2019 8:40:17 AM
[2019-04-12] MEDS: KLOR-CON PO SCH (10:40)
[2019-04-12] MEDS: MARINOL PO SCH ×2 (10:40→20:57)
[2019-04-12] MEDS: LASIX IV SCH (10:40)
[2019-04-12] MEDS: LANTUS INSULIN SUBQ SCH (10:40)
[2019-04-12] MEDS: SSD CREAM TOP SCH ×2 (10:41→20:56)
[2019-04-12] MEDS: DAKIN S 0.125% TOP SCH ×2 (10:43→20:57)
[2019-04-12] MEDS ORDERED: NS 250 ML IV SCH (10:45)
[2019-04-12] MEDS ORDERED: NS 500 ML IV ONE ×2 (10:47→16:54)
--- NOTE | 2019-04-12 11:20 | PROGRESS NOTE ---
DATE: 04/12/2019 SUBJECTIVE: This morning Mr. Gustafson is seen in the ICU. I understand last night he had a very large bowel movement which was tarry dark. Since then, his blood pressure has just dropped precipitously, and he was transferred from the [facility] to the ICU. He is currently on 2 pressors. Blood pressures are slightly better today with a systolic above 100 just now. OBJECTIVE: Blood pressure is currently 102/51, pulse of 87, respirations 22, temperature is 98.2 degrees, and patient is saturating 97%.General: Mr. Gustafson is a 78-year-old elderly gentleman. He is in bed. He is not in any distress. Mucosa is pink, slightly dry. Anicteric. Acyanotic. Neck: Supple. There are some crusted lesions over the left forehead. Cardiovascular: Irregularly irregular. There is a S1 metallic sound at the apex. Abdomen: Soft and nontender. Bowel sounds present. Inguinal region has some breakdowns bilaterally. The left inguinal region also has an open wound which has a sterile dressing over it. Minimal edema in the lateral aspect of the abdominal wall. Extremities: No pedal edema. SORORITY SUPERVISOR: Patient is slightly drowsy, but is arousable and follows basic commands. LABORATORY DATA: WBC 3.82, hemoglobin is now down to 8.1, and platelet count is fine. INR is 2.33. Chemistry is completely within normal range. ASSESSMENT: 1. Septic shock on presentation. This was resolved however, patient became extremely hypotensive yesterday, which I think was because of due to acute blood loss and intra volume. 2. GI bleed. The patient had a massive tarry black stool and this morning he has had another maroon-colored large bowel movement. Hemoglobin and hematocrit have dropped to 8.1. We are going to group and crossmatch, and give him a unit. Also, follow up on his serial hemoglobin and hematocrit. GI has been consulted and patient is on b.i.d. PPI. 3. Status post mechanical valve replacement on Coumadin therapy prior to hospitalization. The patient was on heparin drip, and his Coumadin was also restarted. His current INR is 2.3. The patient's recent PTT was 49.4. All anticoagulations have been withheld today. 4. Diabetes mellitus. Patient is on insulin regimen. 5. Elevated troponin's on presentation presumably due to demand ischemia. 6. Fluid overload which has significantly improved. A chest x-ray yesterday did suggest near complete resolution of the pulmonary vascular congestion and pulmonary edema. 7. Advanced Alzheimer's. 8. Providencia rettgeri left inguinal wound infection and MSSA cellulitis to the right hand. The patient is on Rocephin. Infectious Disease is on board. 9. Neutropenia on presentation due to chemotherapy. This has resolved. Shingles on the forehead, and I understand some lesions on his butt. The patient has been started on Valtrex by ID. In general, Mr. Gustafson has been brought back to the ICU in a more critical condition. He remains hypotensive and he is currently on 2 pressors (Levophed and David- Synephrine). We are going to give him a bolus of just 250 mL of normal saline. We will continue with the pressor support. We will do serial hemoglobin and hematocrit. His Hb has gone down some to 8.1 at 12.5 just about 2 days ago after the last transfusion. This is a change of about 4 g. We will go ahead and give him a unit of blood and hold 2 more for now. cc: Blake Yanez MD MTDD
[2019-04-12 11:39] LABS: HEMATOCRIT 23.9 % (42.0-52.0); HEMOGLOBIN 7.8 g/dL (14.0-18.0)
--- NOTE | 2019-04-12 16:35 | INFECTIOUS DISEASE PROGRESS NO ---
DATE: 04/12/2019 PRESENT ILLNESS: The patient has a Providencia left groin infection, an oxacillin sensitive Staph aureus infection on the right hand, and he previously had varicella zoster infection of the buttock but that has cleared completely. MEDICATIONS: The patient is on a combination of Rocephin and Valtrex. PHYSICAL EXAMINATION: Vital Signs: Temperature is 99 degrees, pulse 106, respirations 22, blood pressure 83/47. General: This is a lethargic chronically ill-appearing elderly male. He is in no acute distress. Head, Eyes, Ears, Nose, and throat: There is no drainage from the nose or ears. The patient's eschar on the left upper part of his face is partially no longer present. The tissue underneath the scar is not purulent. I did not see any white patches in the patient's mouth. Thorax: The patient has a pacemaker present on the left side. The patient's left chest pacemaker site is not erythematous or swollen. Cardiovascular: Heart rate is regular. Abdomen: Soft and nontender. Extremities: Patient has a PICC in the right arm. That site also is not erythematous or tender. In the left groin, I removed the patient's dressing and there was no purulence and no necrosis. Some of the tissue looked devitalized.. There was no odor to the wound also. Buttocks: As mentioned above, the varicella zoster lesions have cleared. LAB AND X-RAY STUDIES: The patient's CBC shows a white count of 3820, hemoglobin 8.1 and platelet count of 224,000. The patient's creatinine is 0.8. GFR is greater than 60. The patient's chest x-ray shows near complete resolution of the pulmonary vascular congestion and edema. ASSESSMENT AND PLAN: Patient's left groin wound and the wound on his right hand both appear to be getting better. The shingles that he had on his buttock have cleared. My plan is to continue with Rocephin but discontinue Valtrex and also discontinue isolation. COMORBIDITIES: Metastatic penile cancer, diabetes mellitus. cc: MD GEENA Garnett
[2019-04-12 17:55] LABS: HEMATOCRIT 27.7 % (42.0-52.0); HEMOGLOBIN 9.2 g/dL (14.0-18.0)
[2019-04-12] MEDS ORDERED: VITAMIN K 10 MG in NS 50 ML IV ONE (18:23)
--- NOTE | 2019-04-12 18:51 | CARDIOLOGY PROGRESS NOTE ---
DATE: 04/12/2019 SUBJECTIVE: Mr. Gustafson is somewhat somnolent. He opens his eyes to physical and verbal stimuli, attempts to answer questions but right now makes largely unintelligible noises. PHYSICAL EXAMINATION: Vital Signs: He is afebrile. His heart rate during my examination was in the 80s. Previously his heart rates got as high as 150s to 160s his most recent blood pressure is 83/47. He is currently on pressors. General: Generally, in no acute distress. Cardiovascular: He sounds to be in a relatively regular rhythm currently. He has no murmurs. He has no S3. He has warm and well perfused extremities. Chest: Clear bilaterally. He has no increased work of breathing. Abdomen: Soft, nontender. He has no obvious organomegaly. PERTINENT DATA: EKG this morning demonstrates atrial fibrillation. Rate of 85 beats per minute. Otherwise, relatively unremarkable. Lab data shows a white count of 3.8, hematocrit 23.9, he has dropped since the 7th when it was 35.7, he was 31.7 yesterday. His platelet count is 224,000. His INR is 2.3. His sodium is 140, potassium 3.7, his BUN is 23, creatinine 0.8. Albumin level is 2.7. ASSESSMENT: Mr. Gustafson is a 78-year-old gentleman who presented septic. Now he has had a significant gastrointestinal bleed. In addition, he has chronic atrial fibrillation as well as a mechanical mitral valve. PLAN: Presently the patient has had a large volume bleed resulting in hypotension. His anticoagulants have been stopped. I discussed this with the family at length and they are aware of the critical situation he is in with the conflicting issues of bleeding along with the necessity for anticoagulation with his valve. Considering his hypotension and blood loss his anticoagulants have been stopped. His atrial fibrillation seems reasonably rate controlled presently. He is pending transfusion. cc: Uday Quintero MD [facility]
[2019-04-12] MEDS: PROTONIX 80 MG in NS 80 ML IV SCH (20:01)
[2019-04-12 21:42] LABS: BASO# 0.04 X1000 (0.0-0.2); HEMATOCRIT 26.7 % (42.0-52.0); IMM GRAN# 0.12 X1000 (0.0-0.04); IMM GRAN% 3.1 % (0.0-0.5); LYMPH# 0.52 X1000 (1.2-3.4); LYMPH% 13.3 % (20.5-51.1); MCH 29.5 PG (27-31); MCHC 33.7 g/dL (33-37); MCV 87.5 FL (81-99); MONO# 0.44 X1000 (0.11-0.59); MONO% 11.2 % (1.7-9.3); MPV 10.5 FL (7.4-10.4); NEUT% 71.4 % (42.2-75.2); PLT 182 X1000 (130-400); RBC 3.05 XMIL (4.7-6.1); RDW 15.8 % (11.5-14.5); WBC 3.92 X1000 (4.8-10.8)
[2019-04-12] MEDS ORDERED: NS 500 ML ONE (22:16)
[2019-04-13] MEDS: NEO-SYNEPHRINE 50 MG in NS 250 ML IV SCH ×2 (02:11→07:33)
[2019-04-13 04:58] LABS: BASO# 0.03 X1000 (0.0-0.2); BASO% 0.7 % (0.0-0.8); HEMOGLOBIN 10.2 g/dL (14.0-18.0); IMM GRAN# 0.12 X1000 (0.0-0.04); IMM GRAN% 2.9 % (0.0-0.5); LYMPH# 0.63 X1000 (1.2-3.4); LYMPH% 15.3 % (20.5-51.1); MCH 29.7 PG (27-31); MCV 87.5 FL (81-99); MONO# 0.57 X1000 (0.11-0.59); MONO% 13.9 % (1.7-9.3); MPV 10.9 FL (7.4-10.4); NEUT# 2.76 X1000 (1.4-6.5); NEUT% 67.2 % (42.2-75.2); PLT 145 X1000 (130-400); RBC 3.43 XMIL (4.7-6.1); WBC 4.11 X1000 (4.8-10.8)
[2019-04-13 05:06] LABS: INR 1.54; PROTIME 18.8 Seconds (11.0-16.0)
[2019-04-13 05:45] LABS: AGAP 10; ALBUMIN 2.2 g/dL (3.5-5.0); BUN 21 mg/dL (8-22); CHLORIDE 110 mmol/L (98-107); COSMO 301; CREATININE 0.6 mg/dL (0.7-1.2); ESTIMATED GFR > 60; GLUCOSE 268 mg/dL (70-104); PHOSPHORUS 1.9 mg/dL (2.7-4.5); POTASSIUM 3.7 mmol/L (3.5-5.1); SODIUM 145 mmol/L (136-145); TCO2 25 mmol/L (25-35)
[2019-04-13 05:49] LABS: CALCIUM 6.8 mg/dL (8.8-10.2)
[2019-04-13] MEDS ORDERED: CALCIUM GLUCONATE 1 GM in NS 50 ML IV ONE (05:49)
[2019-04-13] MEDS: PROTONIX 80 MG in NS 80 ML IV SCH ×2 (06:09→14:27)
[2019-04-13] MEDS: HUMALOG SUBQ SCH ×4 (06:21→23:07)
[2019-04-13] MEDS ORDERED: AMIDATE ONE (07:59)
[2019-04-13] MEDS ORDERED: LOPRESSOR ONE (08:35)
[2019-04-13] MEDS ORDERED: CARDIZEM ONE (08:47)
--- NOTE | 2019-04-13 08:55 | ENDOSCOPY OPERATIVE NOTE ---
[facility] ENDOSCOPY OPERATIVE NOTE , EGD PROCEDURE REPORT PATIENT: Wang Gustafson ADMISSION DATE: 04/13/2019 MR#: [id number] : 1940 PROCEDURE DATE: 04/13/2019 SURGEON: Lamont Guadalupe MD STATUS: inpatient SHIPPING CLERK PACKING: Germania Bardales PREOPERATIVE DIAGNOSIS: The patient is a 78 yr old male here for an EGD due to hematochezia and acut e post hemorrhagic anemia. PROCEDURE PERFORMED: EGD w/ control of bleeding MEDICATIONS: Per Anesthesia TOPICAL ANESTHETIC: none CONSENT: The patient understands the risks and benefits of the procedure and understands that these r isks include, but are not limited to: sedation, allergic reaction, infection, perforation and/or bleeding. Alternative means of evaluation and treatment include, among others: physical exam, x-rays, and/or surgical intervention. The patient elects to proceed with this endoscopic procedure. HISORY AND PHYSICAL: 04/13/2019 function. Hand hygiene and appropriate measures for infection prevention was taken. After the risks, benefits and alternatives of the procedure were thoroughly explained, Informed consent was verified, confirmed and timeout was successfully executed by the treatment team. The patient was anesthetized with topical anesthesia and the [id number]-[id number] ([id number]) endoscope was introduced through the mouth and advanced to the second portion of the duoden um. Retroflexion was performed in the stomach and revealed no abnormalities. The gastroscope was then slowly withdraw n and removed. ESOPHAGUS: Severe reflux esophagitis was found in the mid esophagus and distal esophagus. Esophagiti s was LA Class D: Mucosal breaks involving more than 75% of esophageal circumference. There was no evidence of Hiatal hernia, Cabrera's esophagus or varices. The esophagus was otherwise normal. STOMACH: A single non-bleeding, deep and clean-based ulcer was found in the gastric antrum. There w as no evidence of AVM, tumor or evidence of bleeding in the stomach. The stomach otherwise appeared normal. DUODENUM: A single bleeding and round ulcer ranging between 5-9mm in size with a visible vessel and a ctive arterial spurting of blood was found in the 2nd part of the duodenum. Complete hemostasis was achieved by woo cing a single [place] Resolution hemoclip on the bleeding site(s). Multiple non-bleeding, shallow and clean-based ulcers ranging between 3-5 mm in size were found in the duodenal bulb and 2nd part duodenum. SPECIMENS REMOVED: No ADVERSE EVENTS: There were no complications. POSTOPERATIVE DIAGNOSIS: 1. Reflux esophagitis in the mid esophagus and distal esophagus 2. The esophagus was otherwise normal 3. Single ulcer was found in the gastric antrum 4. The stomach otherwise appeared normal 5. Single ulcer ranging between 5-9mm in size was found in the 2nd part of the duodenum; Complete he mostasis was achieved by placing a single hemoclip on the bleeding site(s) 6. Multiple ulcers ranging between 3-5 mm in size were found in the duodenal bulb and 2nd part duode num RECOMMENDATIONS: 1. Start Clear liquid diet for 1 Day(s) 2. Resume current medications 4. Hold anticoagulation for atleast 24 hours. 5. Return to ICU REPEAT EXAM: Lamont Guadalupe MD eSigned: Lamont Guadalupe MD 04/13/2019 8:54 AM cc: Shawn Quintero MD PATIENT NAME: Wang Gustafson MR#: [id number]
[2019-04-13] MEDS ORDERED: STERILE WATER INJ. INJ ONE (09:36)
[2019-04-13] MEDS ORDERED: CATHFLO IV ONE (09:36)
--- NOTE | 2019-04-13 09:53 | INFECTIOUS DISEASE PROGRESS NO ---
DATE: 04/13/2019 PRESENT ILLNESS: The patient has a Providencia infected left groin and he also has an oxacillin sensitive Staph aureus infection of the right hand. His prior varicella zoster infection has cleared. MEDICATIONS: The patient is receiving Rocephin as a single agent. PHYSICAL EXAMINATION: Vital Signs: Temperature is 98.8 degrees, pulse 79, respirations 12, blood pressure 113/48. General: This is a chronically ill-appearing elderly male. He is in no acute distress. Head, eyes, ears, nose, and throat: He does not have any drainage from the nose or ears. He does have an eschar on the left side of his face which is getting smaller. Neck: Did not seem to have any pain when he moves his neck. Thorax: The patient has a pacemaker on the left side. The site is not swollen or red. Cardiovascular: Heart rate is regular. Abdomen: Soft and nontender. Extremities: The patient has a PICC in the right arm. The PICC site is not erythematous or draining. In the left groin the patient has an infected area. There is a large dressing over the groin. The dressing is intact. Neurologic: The patient is arousable. He does move his extremities to request. LAB AND X-RAY: The patient's CBC shows a white count of 4110, hemoglobin 10.2, and platelet count 145,000. Creatinine is 0.6, GFR is greater than 60. There is no radiographic study scheduled for today as of yet. ASSESSMENT AND PLAN: The patient has a left groin wound and a wound on his right hand. I am going to continue Rocephin for both. COMORBIDITIES: The patient has metastatic penile cancer in the left groin area. He also has diabetes mellitus. cc: Miguel Michel MD
[2019-04-13] MEDS: LANTUS INSULIN SUBQ SCH (09:58)
[2019-04-13] MEDS: MARINOL PO SCH ×2 (09:58→20:30)
[2019-04-13] MEDS: SSD CREAM TOP SCH ×2 (09:58→20:31)
[2019-04-13] MEDS: KLOR-CON PO SCH (09:58)
[2019-04-13] MEDS: DAKIN S 0.125% TOP SCH ×2 (09:58→20:30)
[2019-04-13] MEDS: DILAUDID IV PRN (09:59)
[2019-04-13] MEDS: ROCEPHIN 2 GM in NS 50 ML IV SCH ×2 (10:20→20:35)
[2019-04-13 11:02] LABS: BASO# 0.04 X1000 (0.0-0.2); BASO% 0.8 % (0.0-0.8); HEMATOCRIT 30.3 % (42.0-52.0); HEMOGLOBIN 10.3 g/dL (14.0-18.0); IMM GRAN# 0.13 X1000 (0.0-0.04); IMM GRAN% 2.7 % (0.0-0.5); LYMPH# 0.58 X1000 (1.2-3.4); LYMPH% 11.9 % (20.5-51.1); MCH 29.9 PG (27-31); MCV 87.8 FL (81-99); MONO# 0.73 X1000 (0.11-0.59); MONO% 14.9 % (1.7-9.3); NEUT# 3.41 X1000 (1.4-6.5); NEUT% 69.7 % (42.2-75.2); PLT 166 X1000 (130-400); RBC 3.45 XMIL (4.7-6.1); RDW 15.3 % (11.5-14.5); WBC 4.89 X1000 (4.8-10.8)
--- NOTE | 2019-04-13 11:12 | PROGRESS NOTE ---
DATE: 04/13/2019 SUBJECTIVE: This morning Mr. Gustafson looks a whole lot more alert and conversational. Was taking some bites of Jell-O when I saw him. He just came from the OR. OBJECTIVE: Vital signs: Blood pressure is 113/48, pulse of 79, respiration is 12 and temperature is 97.1 degrees. General: Mr. Gustafson is a 78-year-old male. He is in bed in no distress. HEENT: Mucosa is pink and moist. Anicteric. Acyanotic. Neck: Supple. Chest: Clear to auscultation. No crepitations. No rhonchi. Cardiovascular: Regular rate and rhythm. There is an S1 metallic sound at the apex. Abdomen: Soft, nontender. Bowel sounds present. Inguinal region still has some skin erosions and breakdown. The left inguinal region has an open wound which has sterile dressing over it. Extremities: No pedal edema. PREMIX OPERATOR CONCENTRATE: Patient is awake, alert, follows commands. LABORATORY DATA: Hemoglobin is 10.2, platelet count 145. Chemistry is also reviewed. ASSESSMENT: 1. Septic shock on presentation. 2. Hypovolemic shock from massive gastrointestinal bleed. The patient is status post a total of 6 packed red blood cell transfusion and 1 fresh frozen plasma. 3. Gastrointestinal bleed. The patient is status post esophagogastroduodenoscopy. Report reveals a single bleeding duodenal ulcer which there was a complete hemostasis achieved by placing a single hemoclip on the bleeding site. We are going to continue trending the patient's hemoglobin and hematocrit. Recommendations have been given to restart anticoagulation after 24 hours. 4. Status post mechanical valve replacement on Coumadin therapy prior to hospitalization. The patient was placed on heparin drip at some point. He is now off anticoagulation because of massive gastrointestinal bleed. This will be restarted in 24 hours. 5. Diabetes mellitus on insulin regimen. 6. Elevated troponins on presentation, presumably due to demand ischemia. 7. Fluid overload, improved. 8. Advanced Alzheimer disease. 9. Providencia rettgeri, left inguinal wound infection and methicillin-sensitive Staphylococcus aureus cellulitis to the right hand. Patient is on antimicrobial therapy. Infectious Disease is on board. 10. Neutropenia on presentation due to chemotherapy, improved. 11. Shingles on the forehead and the buttocks. The patient is on Valtrex. PLAN: So, in general, Mr. Gustafson is looking a lot better today. He just came out of the EGD. Please refer to the details of the findings. Briefly, an arterial bleeding was found in the duodenum and this was endoscopically treated. He looks much hemodynamically stable now. We are going to be trending his H and H in the next couple hours, and will follow up with further recommendations from GI. We will also resume his anticoagulation 24 hours later. We will replace all his electrolyte abnormalities found on his lab work today. cc: Blake Yanez MD
[2019-04-13 11:40] LABS: BANDS 4 % (0-1); LYMPHS 8 % (21-51); MONO 6 % (1-9); NRBC 2 % (0-0); SEGS 78 % (42-75)
--- NOTE | 2019-04-13 13:13 | CARDIOLOGY PROGRESS NOTE ---
DATE: 04/13/2019 SUBJECTIVE: Mr. Gustafson has no complaints presently. He underwent his endoscopy today and was noted to have a few different ulcers, a severe level of esophagitis. One ulcer that was in the second part of the duodenum had a visible area of arterial bleeding. This was clipped. OBJECTIVE: Vital signs: The patient is afebrile. Heart rate 81, blood pressure 130/64. General: He is in no acute distress. Cardiovascular: He sounds to be in a regular rate and rhythm. Currently appears to be ventricular paced. He has no lower extremity edema. Chest: Exam is clear bilaterally. He has no increased work of breathing. Abdomen: Soft, nontender. PERTINENT DATA: His BUN and creatinine are 21 and 0.6, his hematocrit is 30.3. He has a bandemia. ASSESSMENT: Mr. Gustafson is a 78-year-old gentleman who presented with atrial fibrillation, sepsis, and now has developed a significant GI bleed. PLAN: GI recommended 24 hours off the heparin. I have placed an order to resume the heparin drip at 8:00 tomorrow morning. His hematocrit seems reasonably stable presently. His atrial fibrillation seems controlled. No acute recommendations. cc: Uday Quintero MD
--- NOTE | 2019-04-13 14:03 | Diag Imaging Result Doc PS360 ---
EXAM: CHEST-PORTABLE INDICATION: picc line placement TECHNIQUE: One view COMPARISON: 04/11/2019 FINDINGS: The PICC line tip is still presumed to be in the axillary vein. Pulmonary venous congestion is essentially stable as compared to the previous study. No new consolidation is identified. Cardiac silhouette is stable. IMPRESSION: Malpositioned PICC line that is presumed to be in the right axillary vein. Stable chest, otherwise. Electronically signed by Liu Avila 04/13/2019 2:01 PM
[2019-04-13] MEDS ORDERED: NS 250 ML ONE (15:20)
--- NOTE | 2019-04-13 17:01 | Diag Imaging Result Doc PS360 ---
EXAM: CHEST-PORTABLE - 04/13/2019 HISTORY: PICC placement TECHNIQUE: Portable chest COMPARISON: Prior portable chest of 04/13/2019 FINDINGS: The PICC which enters from the right has been advanced to the expected location of the distal superior vena cava. There are no other interval changes identified. IMPRESSION: Tip of PICC at distal superior vena cava. Electronically signed by Colt Cruz 04/13/2019 4:59 PM
[2019-04-13 17:19] LABS: BASO# 0.03 X1000 (0.0-0.2); BASO% 0.9 % (0.0-0.8); HEMATOCRIT 26.1 % (42.0-52.0); HEMOGLOBIN 8.8 g/dL (14.0-18.0); IMM GRAN# 0.08 X1000 (0.0-0.04); IMM GRAN% 2.3 % (0.0-0.5); LYMPH% 17.6 % (20.5-51.1); MCH 29.7 PG (27-31); MCHC 33.7 g/dL (33-37); MCV 88.2 FL (81-99); MONO% 14.7 % (1.7-9.3); MPV 10.9 FL (7.4-10.4); NEUT% 64.5 % (42.2-75.2); PLT 141 X1000 (130-400); RBC 2.96 XMIL (4.7-6.1); RDW 15.4 % (11.5-14.5); WBC 3.41 X1000 (4.8-10.8)
[2019-04-13 21:12] LABS: BASO# 0.04 X1000 (0.0-0.2); HEMATOCRIT 25.4 % (42.0-52.0); HEMOGLOBIN 8.6 g/dL (14.0-18.0); IMM GRAN# 0.07 X1000 (0.0-0.04); IMM GRAN% 1.7 % (0.0-0.5); LYMPH# 0.55 X1000 (1.2-3.4); LYMPH% 13.5 % (20.5-51.1); MCHC 33.9 g/dL (33-37); MCV 88.5 FL (81-99); MONO% 12.3 % (1.7-9.3); MPV 10.8 FL (7.4-10.4); NEUT# 2.91 X1000 (1.4-6.5); NEUT% 71.5 % (42.2-75.2); PLT 135 X1000 (130-400); RBC 2.87 XMIL (4.7-6.1); RDW 15.4 % (11.5-14.5); WBC 4.07 X1000 (4.8-10.8)
[2019-04-13] MEDS: CARDIZEM 125 MG/D5W 125 MG/125 ML IVPB IV SCH (22:27)
[2019-04-14] MEDS: DILAUDID IV PRN ×2 (02:14→12:36)
[2019-04-14] MEDS: CARDIZEM 125 MG/D5W 125 MG/125 ML IVPB IV SCH (05:46)
[2019-04-14 06:06] LABS: BASO# 0.02 X1000 (0.0-0.2); BASO% 0.5 % (0.0-0.8); HEMATOCRIT 23.2 % (42.0-52.0); HEMOGLOBIN 7.8 g/dL (14.0-18.0); IMM GRAN# 0.06 X1000 (0.0-0.04); IMM GRAN% 1.6 % (0.0-0.5); INR 1.29; LYMPH# 0.41 X1000 (1.2-3.4); LYMPH% 10.8 % (20.5-51.1); MCH 30.1 PG (27-31); MCHC 33.6 g/dL (33-37); MCV 89.6 FL (81-99); MONO# 0.47 X1000 (0.11-0.59); MONO% 12.4 % (1.7-9.3); NEUT# 2.84 X1000 (1.4-6.5); NEUT% 74.7 % (42.2-75.2); PLT 128 X1000 (130-400); PROTIME 16.3 Seconds (11.0-16.0); RBC 2.59 XMIL (4.7-6.1); RDW 15.3 % (11.5-14.5)
[2019-04-14] MEDS: HUMALOG SUBQ SCH ×4 (06:36→20:45)
[2019-04-14] MEDS: DAKIN S 0.125% TOP SCH ×2 (09:11→20:44)
[2019-04-14] MEDS: MARINOL PO SCH ×2 (09:12→20:44)
[2019-04-14] MEDS: ROCEPHIN 2 GM in NS 50 ML IV SCH ×2 (09:12→20:44)
[2019-04-14] MEDS: KLOR-CON PO SCH (09:12)
[2019-04-14] MEDS: LANTUS INSULIN SUBQ SCH (09:13)
[2019-04-14] MEDS: SSD CREAM TOP SCH ×2 (09:13→20:44)
--- NOTE | 2019-04-14 09:23 | INFECTIOUS DISEASE PROGRESS NO ---
DATE: 04/14/2019 PRESENT ILLNESS: The patient has a Providencia infected left groin and an oxacillin-sensitive Staph aureus infection of the right hand. MEDICATIONS: The patient is receiving Rocephin as a single agent. PHYSICAL EXAMINATION: Vital Signs: Temperature is 98.2 degrees, pulse 89, respirations 14, blood pressure 119/48. Generally: This is a chronically ill-appearing elderly male. He is in no acute distress. Head/eyes/ears/nose/throat: He does not have any drainage from his nose or ears. The eschar on the left side of his face continues to get smaller. Neck: The patient does not seem to have any pain when he moves his neck. Thorax: The patient has a left-sided pacemaker in place. The site is not erythematous or tender. Cardiovascular: Heart rate is regular. Abdomen: Soft and nontender. The patient has a dressing on his left groin wound. I removed the top layer of the dressing, and the wound that is going deeper is packed with a dressing. The surrounding tissue is pink in color. I did not see any purulence or necrotic tissue. Extremities: The patient has a PICC in her right arm, and the site is not erythematous or purulent. The patient's right hand is less swollen and less erythematous, and his eschar is gradually getting smaller also. The wound itself does have some devitalized tissue in it. Neurologic: The patient is awake. He did not do things that I requested him to do, such as moving his arms or sticking out his tongue. LAB AND X-RAY: The patient's chest x-ray shows pulmonary venous congestion. Creatinine is 0.6. GFR is greater than 60. CBC shows a white count of 3800, hemoglobin 7.8, and platelet count 128,000. ASSESSMENT AND PLAN: Patient has an infected left groin wound and infected wound on his right hand. I plan on continuing Rocephin to treat both. 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 The patient also has diabetes mellitus. cc: Miguel Michel MD
[2019-04-14] MEDS: HEPARIN 25,000 UNITS/D5W 25,000 UNIT/250 ML IV.SOLN IV SCH (09:54)
--- NOTE | 2019-04-14 11:13 | PROGRESS NOTE ---
DATE: 04/14/2019 SUBJECTIVE: This morning Mr. Gustafson refers to be doing fairly okay. The was at the bedside at the time of the encounter. Per the nursing staff, his night was unremarkable, except that early this morning his heart rate went into the 160s. Presumably they thought it was a-fib/a- flutter with RVR, so he was started back on Cardizem drip. This morning the heart rate is better controlled. OBJECTIVE: Vitals: Currently blood pressure is 114/61, pulse 81, respiration is 18, temperature is 98.4 degrees. Patient was saturating 96% on room air. General exam: Mr. Gustafson is a 78- year-old male who is in bed in no distress. HEENT: Mucosa is pink and moist. Anicteric. Acyanotic. Neck: Supple. Face: There are some crusted lesions over the left forehead. Chest: Good air entry bilateral. Did not hear any crepitations. No rhonchi. Cardiovascular: Regular rate and rhythm. There are occasional extrasystolic beats. There is an S1 metallic sound at the apex. GI/Abdomen: Soft. Bowel sounds present. Inguinal region: There is a lot of skin breakdown. The left inguinal region also has an open wound which is currently covered with sterile dressing. Extremities: No pedal edema. MOTOR LODGE CLERK: Patient is awake, alert. Follows basic commands. LABORATORY DATA: WBC is 3.80, hemoglobin is 7.8, platelet count of 128. Chemistry is also reviewed. Glucose is 120. The patient continues to be on ceftriaxone and Cardizem drip. Pressors are standby; they are not being used at this point, but the patient's blood pressures are holding stable. ASSESSMENT: 1. Septic shock on presentation, resolved. 2. Hypovolemic shock from massive gastrointestinal bleed during the hospital course, improved with 6 packed red blood cell transfusions and 1 fresh frozen plasma. Coagulopathy was also reversed. The patient seems to be hemodynamically stable at this point. We will continue to follow up on his hemoglobin/hematocrit later on today and transfuse if needed. 3. Massive gastrointestinal bleed. Patient is status post esophagogastroduodenoscopy, though there was a single bleeding duodenal ulcer. Hemostasis was achieved with hemoclip. The patient continues to have some dark tarry black stools. I think these are all digested blood from before. We are going to continue monitoring his hemodynamic parameters. 4. Status post mechanical valve replacement. Patient used to be on Coumadin therapy prior to hospitalization. He is going to be started on heparin drip some time this evening once we are certain that he is does not have any more ongoing bleed. 5. Diabetes mellitus controlled on insulin regimen. 6. Elevated troponins on presentation, presumably due to demand ischemia. 7. Fluid overload, improved. 8. History of Alzheimer dementia. 9. Providencia rettgeri left inguinal wound infection and methicillin-sensitive Staphylococcus aureus cellulitis to the right hand. The patient is on ceftriaxone. Infectious Disease is on board. 10. Neutropenia on presentation due to chemotherapy side effects, resolved. 11. Shingles on forehead and on buttocks. Patient is on Valtrex. 12. History of metastatic penile carcinoma noted. Patient follows up with Dr. Anglin and Dr. Galvan. 13. Paroxysmal atrial fibrillation. The patient also tends to do atrial flutter. He is back on Cardizem drip. Cardiology is on board. We will be waiting on further recommendations from them in terms of oral agents. PLAN: So in general, Mr. Gustafson seems to be fairly stable, but still critical. He is off the vasopressors. He is currently on a Cardizem drip for rate control. H and H are slightly lower than yesterday. We are going to repeat it at about midday today, and follow it up accordingly. I have explained the plan to the , who was at the bedside at the time of the encounter. Mr. Gustafson is currently DNR level 2. No intubation, no PEG tube. The is still debating on what his cardiac resuscitation should be if an event should happen. cc: MD GEENA Ling
[2019-04-14 12:11] LABS: HEMATOCRIT 25.4 % (42.0-52.0); HEMOGLOBIN 8.4 g/dL (14.0-18.0)
--- NOTE | 2019-04-14 20:01 | CARDIOLOGY PROGRESS NOTE ---
DATE: 04/14/2019 SUBJECTIVE: Mr. Gustafson has no complaints today. No pain complaints. OBJECTIVE: He is afebrile, heart rate 81, blood pressure 110/49. General: He is no acute distress. Cardiovascular: He sounds to be in a regular rate and rhythm. He appears to have a paced rhythm currently. He has no lower extremity edema. Chest: Sounds relatively clear, but he has a poor inspiratory effort. No increased work of breathing. Abdomen: Soft, nontender. PERTINENT DATA: His hematocrit most recently was 25.4. Yesterday at 8 p.m., it was 25.4. His white count is 3.8. His last transfusion was on the . His platelet count is 128,000. His INR is 1.29. We have no chemistry data. ASSESSMENT: Mr. Gustafson is a 78-year-old gentleman who presented with sepsis and atrial fibrillation. Subsequently, he developed a significant gastrointestinal bleed that was treated in the GI lab yesterday. PLAN: Per recommendations by Dr. Guadalupe, we will restart the heparin today. His hematocrit seems relatively stable compared to yesterday's, and per nursing staff, there has been no significant bleeding. We will continue on the heparin for the time being, and hopefully in the near future, transition over to warfarin. cc: Uday Quintero MD
--- NOTE | 2019-04-14 20:23 | GASTROENTEROLOGY PROGRESS NOTE ---
DATE: 04/14/2019 SUBJECTIVE: At the time of my evaluation, the Wound Care nurse was in changing his dressing. I have spoken with his . Patient had an EGD on 04/13/2019. Indications were GI bleeding. Findings showed reflux esophagitis, an ulcer in the gastric antrum, an ulcer at the second portion of the duodenum with active bleeding noted, hemostasis achieved with hemoclip, and also multiple ulcers in the duodenal bulb and 2nd portion of the duodenum. I have spoken with the nurse and she states he has had some dark stools, but reported as old blood. Hemoglobin and hematocrit have remained stable. Today, his hemoglobin was 8.4 and hematocrit 25.4. OBJECTIVE: Vital Signs: Temperature 98.9 degrees, pulse 81, respirations 17, blood pressure 110/49. LABORATORY: Hematology: WBC 3.80, hemoglobin 8.4, hematocrit 25.4, platelet 128,000. ASSESSMENT AND PLAN: 1. Recent sepsis. 2. Gastrointestinal bleed, with findings of a bleeding duodenal ulcer that was hemoclipped. Patient has had some dark stool, but no evidence of active gastrointestinal bleeding. Hemoglobin and hematocrit are currently stable. 3. History of mechanical valve replacement. Patient had been on Coumadin. Patient has been started on heparin drip. 4. We will continue to follow, monitor hemoglobin and hematocrit, and monitor for further gastrointestinal bleeding. Further plans will be made as needed. I have discussed this case with Dr. Guadalupe. Dictated by PRIMITIVO [place] for Lamont Guadalupe MD cc: PRIMITIVO Giordano MD [facility]
[2019-04-15] MEDS: DILAUDID IV PRN ×2 (02:20→12:05)
[2019-04-15] MEDS: CARDIZEM 125 MG/D5W 125 MG/125 ML IVPB IV SCH (06:35)
[2019-04-15] MEDS: HUMALOG SUBQ SCH ×4 (06:48→20:09)
[2019-04-15 06:51] LABS: BASO# 0.03 X1000 (0.0-0.2); BASO% 0.8 % (0.0-0.8); HEMOGLOBIN 7.5 g/dL (14.0-18.0); LYMPH# 0.42 X1000 (1.2-3.4); LYMPH% 10.9 % (20.5-51.1); MCH 29.9 PG (27-31); MCHC 32.6 g/dL (33-37); MCV 91.6 FL (81-99); MONO# 0.44 X1000 (0.11-0.59); MONO% 11.5 % (1.7-9.3); MPV 10.9 FL (7.4-10.4); PLT 145 X1000 (130-400); RBC 2.51 XMIL (4.7-6.1); RDW 15.9 % (11.5-14.5); WBC 3.84 X1000 (4.8-10.8)
[2019-04-15 07:02] LABS: AGAP 6; ALBUMIN 2.3 g/dL (3.5-5.0); ALKALINE PHOSPHATASE 81 U/L (32-122); BUN 14 mg/dL (8-22); CALCIUM 7.8 mg/dL (8.8-10.2); CHLORIDE 113 mmol/L (98-107); COSMO 294; CREATININE 0.6 mg/dL (0.7-1.2); ESTIMATED GFR > 60; GLUCOSE 85 mg/dL (70-104); GOT 19 U/L (10-34); GPT 11 U/L (10-44); POTASSIUM 3.5 mmol/L (3.5-5.1); SODIUM 148 mmol/L (136-145); TCO2 29 mmol/L (25-35); TOTAL BILIRUBIN 0.29 mg/dL (0.20-1.00); TOTAL PROTEIN 4.5 g/dL (6.3-8.3)
[2019-04-15 07:07] LABS: INR 1.59; PROTIME 19.2 Seconds (11.0-16.0)
[2019-04-15 07:35] LABS: MONO 2 % (1-9); NRBC 1 % (0-0); SEGS 92 % (42-75)
--- NOTE | 2019-04-15 08:15 | PROGRESS NOTE ---
DATE: 04/15/2019 SUBJECTIVE: This patient is resting comfortably in bed. He is not complaining of pain. He is alert and he is oriented x1. He is also able to say his date of , but he is not oriented to place or date. Vital signs are stable at this moment. He had a bowel movement that has been described as a maroon/old blood. Hemoglobin dropped from 8.4 to 7.5. I will check the hemoglobin and hematocrit every 6 hours, and I will transfuse this patient as needed. His sodium level is a little bit high. I instructed the patient and the nurse to give him more water, but apparently this patient has been having low appetite, and he has not been eating or drinking too much. OBJECTIVE: Vital Signs: Temperature 97.7 degrees, pulse 81, respiratory rate 11, blood pressure 116/54, oxygen saturation 98%. HEENT: Head normocephalic. No trauma. PERRLA. Neck: Supple. No JVD. No masses. Central trachea. Chest: Clear to auscultation. No wheezing. No rales. Abdomen: Soft, nontender, nondistended. No hepatosplenomegaly. Extremities: No edema, no clubbing, no cyanosis. Neurological: The patient is alert. He is oriented x1. He moves all 4 extremities. He is following commands. He is able to say his date of , but he is not oriented to place or time. Skin: He has some scars on his forehead and buttocks from shingles. LABORATORY DATA: WBC 3.8, hemoglobin 7.5, hematocrit 23, platelets 145,000. Sodium 148, potassium 3.5, chloride 113, bicarbonate 29, BUN 14, creatinine 0.6, glucose 85, calcium 7.8, albumin 2.3. ASSESSMENT AND PLAN: 1. Septic shock on presentation, resolved. 2. Hypovolemic shock from massive gastrointestinal bleed during the hospital course, improved with 6 packed red blood cells and 1 fresh frozen plasma. Coagulopathy was also reversed. He seems to be more stable now. I will continue monitoring his hemoglobin and hematocrit every 6 hours, and transfuse as needed. 3. Massive gastrointestinal bleed as above, status post esophagogastroduodenoscopy. They found a single bleeding duodenal ulcer that was treated. He is still having some dark, tarry stools with old blood, which is basically expected. 4. Status post mechanical valve replacement. The patient has been placed on a heparin drip, and we will reassume the Coumadin at some point once we are sure that the bleeding has been controlled. 5. Diabetes, controlled on insulin regimen. 6. Elevated troponins on presentation, likely due to demand ischemia. 7. Fluid overload, improved. 8. History of Alzheimer's dementia. Aware. 9. Providencia rettgeri left inguinal wound infection and methicillin-sensitive Staphylococcus aureus cellulitis to the right hand. This patient is on ceftriaxone. Infectious Disease on board. 10. Neutropenia on presentation due to chemotherapy side effects, resolved. 11. Shingles on forehead and on buttocks. The patient is on Valtrex. 12. 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 13. Paroxysmal atrial fibrillation. This patient has been placed on Cardizem drip. Cardiology on board. I will wait for recommendations from them in terms of oral agents. 14. Mild hypernatremia. I instructed the patient and the nurse to give more water. I will give him D5 water if this does not improve. 15. It looks like this patient is DO NOT RESUSCITATE level 2. No intubation. No percutaneous endoscopic gastrostomy tube. I am not quite sure about chest compression or medications. No family members at the bedside at this point. CRITICAL CARE TIME: 35 minutes. cc: Nilesh Poole MD
[2019-04-15] MEDS: HEPARIN 25,000 UNITS/D5W 25,000 UNIT/250 ML IV.SOLN IV SCH (09:50)
[2019-04-15] MEDS: LANTUS INSULIN SUBQ SCH (09:51)
[2019-04-15] MEDS: MARINOL PO SCH ×2 (09:51→20:08)
[2019-04-15] MEDS: ROCEPHIN 2 GM in NS 50 ML IV SCH ×2 (09:51→20:08)
[2019-04-15] MEDS: SSD CREAM TOP SCH ×2 (09:52→20:09)
[2019-04-15] MEDS: DAKIN S 0.125% TOP SCH ×2 (09:52→20:09)
[2019-04-15 12:19] LABS: HEMATOCRIT 24.6 % (42.0-52.0); HEMOGLOBIN 7.9 g/dL (14.0-18.0)
--- NOTE | 2019-04-15 17:08 | CARDIOLOGY PROGRESS NOTE ---
DATE: 04/15/2019 SUBJECTIVE: Mr. Gustafson seems to be in good spirits today. He has no pain complaints. Family is at the bedside. OBJECTIVE: Vital signs: Afebrile. Heart rate 81, blood pressure 111/58. General: No acute distress. Cardiovascular: He sounds to be in a regular rate and rhythm. He seems to be in a ventricular paced rhythm. He has no lower extremity edema. Chest: Exam sounds clear. He has poor inspiratory effort. No increased work of breathing. Abdomen: Soft, nontender. PERTINENT DATA: Lab high, his hematocrit is 24.6 which is relatively stable. His platelet count is 145,000, white count 3.8. His sodium is 148, potassium 3.5, BUN 14, creatinine 0.6. ASSESSMENT: Mr. Gustafson is a gentleman who came in with sepsis and rapid atrial fibrillation. Since that time, he has had a gastrointestinal bleed. PLAN: He has chronic atrial fibrillation. We will continue him on the heparin for his atrial fibrillation as well as his mechanical mitral valve. I will add in some metoprolol at 25 p.o. q.6 hours to try to wean him off the current diltiazem infusion. cc: Uday Quintero MD
[2019-04-15] MEDS: LOPRESSOR PO SCH (20:08)
[2019-04-15 21:03] LABS: HEMATOCRIT 25.2 % (42.0-52.0); HEMOGLOBIN 8.2 g/dL (14.0-18.0)
[2019-04-16 01:48] LABS: HEMATOCRIT 23.8 % (42.0-52.0); HEMOGLOBIN 7.9 g/dL (14.0-18.0)
[2019-04-16] MEDS: DILAUDID IV PRN ×2 (01:59→12:19)
[2019-04-16] MEDS: LOPRESSOR PO SCH ×4 (02:00→21:35)
[2019-04-16 05:22] LABS: BASO# 0.03 X1000 (0.0-0.2); BASO% 0.7 % (0.0-0.8); HEMATOCRIT 25.2 % (42.0-52.0); HEMOGLOBIN 8.2 g/dL (14.0-18.0); LYMPH# 0.47 X1000 (1.2-3.4); LYMPH% 10.5 % (20.5-51.1); MCHC 32.5 g/dL (33-37); MCV 92.3 FL (81-99); MONO# 0.54 X1000 (0.11-0.59); MONO% 12.1 % (1.7-9.3); MPV 10.8 FL (7.4-10.4); PLT 199 X1000 (130-400); RBC 2.73 XMIL (4.7-6.1); RDW 16.2 % (11.5-14.5); WBC 4.48 X1000 (4.8-10.8)
[2019-04-16 05:24] LABS: INR 1.46
[2019-04-16 05:47] LABS: AGAP 8; ALB/GLOB RATIO 1.1; ALBUMIN 2.5 g/dL (3.5-5.0); ALKALINE PHOSPHATASE 89 U/L (32-122); BUN 14 mg/dL (8-22); CALCIUM 7.7 mg/dL (8.8-10.2); CHLORIDE 109 mmol/L (98-107); COSMO 286; CREATININE 0.6 mg/dL (0.7-1.2); ESTIMATED GFR > 60; GLUCOSE 48 mg/dL (70-104); GOT 18 U/L (10-34); GPT 14 U/L (10-44); POTASSIUM 3.4 mmol/L (3.5-5.1); SODIUM 145 mmol/L (136-145); TCO2 28 mmol/L (25-35); TOTAL BILIRUBIN 0.26 mg/dL (0.20-1.00); TOTAL PROTEIN 4.8 g/dL (6.3-8.3)
[2019-04-16] MEDS: HUMALOG SUBQ SCH ×4 (07:21→21:35)
[2019-04-16 07:33] LABS: ANISOCYTOSIS 1+; BANDS 1 % (0-1); HYPOCHROM OCCASIONAL; LYMPHS 8 % (21-51); MONO 3 % (1-9); NRBC 1 % (0-0); POLYCHROM OCCASIONAL; SEGS 87 % (42-75)
[2019-04-16] MEDS: MARINOL PO SCH ×2 (08:13→21:35)
[2019-04-16] MEDS: ROCEPHIN 2 GM in NS 50 ML IV SCH ×2 (08:13→21:35)
--- NOTE | 2019-04-16 08:20 | PROGRESS NOTE ---
DATE: 04/16/2019 SUBJECTIVE: This patient is resting comfortably in bed. It looks like this patient had a low blood sugar today, but he did not have too many symptoms. Actually, he is alert and he is following commands for me. He is able to say his name. His sodium level improved from 148 to 145. Hemoglobin has been stable since yesterday. The Cardizem drip has been stopped. We will continue with Lopressor. Cardiology Department on board. Continue with heparin drip for now. OBJECTIVE: Vital Signs: Temperature 97.5 degrees, pulse 80, respiratory rate 12, blood pressure 110/55, and oxygen saturation 97% on 1 L of nasal cannula. HEENT: Head normocephalic. No trauma. PERRLA he has some scars on his forehead due to shingles. Neck: Supple. No JVD. Central trachea. Chest: Clear to auscultation. No wheezing. No rales. Abdomen: Soft, nontender, and nondistended. No hepatosplenomegaly. Extremities: No edema. No clubbing. No cyanosis. Neurological: This patient is alert. He is oriented x1. He moves all 4 extremities spontaneously. He is following commands. He is able to say his name, but he is not oriented to place or time. No agitation. LABORATORY: WBC 4.4, hemoglobin 8.2, hematocrit 23.8, and platelet 199,000. Sodium 145, potassium 3.4, chloride 109, bicarbonate 28, BUN 14, creatinine 0.6, glucose 48, calcium 7.7, and albumin 2.5. ASSESSMENT AND PLAN: 1. Septic shock on presentation, resolved. 2. Hypovolemic shock from massive GI bleed during the hospital course, improved with 6 PRBC's and 1 FFP, coagulopathy also was reversed. He seems to be more stable now. Hemoglobin and hematocrit have been stable for the past 24 hours. 3. Massive GI bleed, as above, status post EGD. They found a single bleeding duodenal ulcer that was treated. He is still having some dark tarry stools, which is all blood which is basically expected. 4. Status post mechanical valve replacement. Continue with heparin drip for now. We will reassume Coumadin at some point during this hospitalization. Cardiology on board. 5. Hypoglycemia. He did not have too many symptoms. I will stop the long-acting insulin. I will continue with just sliding scale insulin. He received something to drink, orange juice to improve the blood sugar. 6. Elevated troponin on presentation likely due to demand ischemia. 7. Fluid overload, improved. 8. Paroxysmal atrial fibrillation. This patient has been placed on Cardizem drip, which has been stopped already. Continue with Lopressor. Cardiology on board. 9. History of Alzheimer's dementia. Aware. No changes. 10. Providencia rettgeri left inguinal wound infection and MSSA cellulitis to the right hand, this patient is on ceftriaxone. Infectious Disease Department on board. 11. Neutropenia presentation due to chemotherapy. Side effects, resolved. 12. Shingles on forehead and buttocks. Continue with same management. 13. History of metastatic penile carcinoma noted followed by Dr. Galvan. 14. Mild hypernatremia, resolved. I will continue with water intake improved compared with yesterday from 148 to 145. 15. Do Not Resuscitate level 2. No intubation. No PEG tube. 16. Hypokalemia. I will replace the potassium. CRITICAL CARE TIME: 35 minutes. cc: Nilesh Poole MD
[2019-04-16] MEDS: SSD CREAM TOP SCH ×2 (09:00→21:37)
[2019-04-16] MEDS: DAKIN S 0.125% TOP SCH ×2 (09:00→21:36)
[2019-04-16] MEDS: HEPARIN 25,000 UNITS/D5W 25,000 UNIT/250 ML IV.SOLN IV SCH (10:36)
--- NOTE | 2019-04-16 18:53 | INFECTIOUS DISEASE PROGRESS NO ---
DATE: 04/16/2019 PRESENT ILLNESS: Mr. Gustafson is being treated for a Providencia infection to his left groin and an oxacillin-sensitive Staph aureus infection to his right hand. MEDICATIONS: He is receiving Rocephin 2 g IV every 12 hours as a single agent. PHYSICAL EXAMINATION: Vital Signs: Temperature is 97.6 degrees, pulse rate 80, respiratory rate 14, blood pressure 130/57, O2 saturation is 100% on 1 L nasal cannula. General: This is a chronically ill-appearing, elderly gentleman. He is lying in the bed, currently in no acute distress. HEENT: Atraumatic, normocephalic. There are some mild scabby abrasions over his left eye from an old shingles infection. Conjunctivae are pale. Oral mucous membranes are pink and moist. Respiratory: Lung sounds are clear to auscultation bilaterally. No work of breathing is noted. Cardiovascular: Heart rate and rhythm are regular with pacemaker spikes on the monitor. Integumentary: The dressing to the right hand was removed and there is a quarter-sized wound with a pink wound bed and yellow slough with some mild erythema surrounding the wound. The left groin site is packed and that dressing was not removed at this time. There is a left- sided pacemaker with the site free of any edema or erythema. He also has a PICC line in his right upper arm. That site is without edema, erythema, or drainage. Neurologic: He is awake, alert, appropriate, and following commands without difficulty. He is able to move his extremities with generalized weakness noted. LABORATORY AND X-RAY: Today, his white count is 4.48, hemoglobin 7.9, platelet count 199,000. Creatinine is 0.6, estimated GFR is greater than 60. Total bilirubin is 0.26, AST 18, ALT 14, alkaline phosphatase 89. Previously, his left groin grew Providencia rettgeri and his right hand grew an oxacillin-sensitive Staph aureus. No imaging reports today. ASSESSMENT AND PLAN: Mr. Gustafson is being treated for a left groin and a right hand infection. He has been afebrile for the last the 24 hours and there is no leukocytosis. He seems to be improving at this point, so we will continue treatment as ordered using Rocephin. These plans have been discussed with and recommended by Dr. Michel. COMORBIDITIES: For Mr. Gustafson, include that he is elderly, with recent GI bleed and sepsis, metastatic penile cancer, and diabetes mellitus. Dictated by PRIMITIVO [place] for Miguel Michel MD cc: Miguel Michel MD [facility]
--- NOTE | 2019-04-16 19:51 | GASTROENTEROLOGY PROGRESS NOTE ---
DATE: 04/16/2019 SUBJECTIVE: The patient was awake with eyes open at the time of my evaluation. Per nurse he was having some agitation so medication has been given. He denies complaints. OBJECTIVE: Vital Signs: Temperature 97.6 degrees, pulse 80, respirations 14, blood pressure 130/57. General: Patient was awake with eyes open. Abdomen: Soft. Positive bowel sounds. Nontender. LABORATORY: Hematology: WBC 4.48, hemoglobin 8.2, hematocrit 25.2, MCV 92.3, platelet [id number]. Chemistry sodium 145, potassium 3.4, chloride 109, CO2 28, BUN 14, creatinine 0.6, glucose 48. ASSESSMENT AND PLAN: 1. Sepsis shock resolved. 2. Gastrointestinal bleed. Patient is having old blood noted. Hemoglobin and hematocrit is stable today and will continue to follow. Monitor for further evidence of active bleeding. He has had some dark stools. Will continue to follow. 3. History of mechanical valve replacement. He is on heparin drip now. 4. Other medical problems: Atrial fibrillation. Neutropenia, history of metastatic penile carcinoma. Patient is being followed by the wound care nurse. PLAN: We will continue to follow. Monitor for further signs of active bleeding. Monitor hemoglobin and hematocrit. So far today stable. We will not transfuse packed red blood cells at the present time. Further plans will be made according to his progress. I have discussed this case with Dr. Guadalupe. Dictated by PRIMITIVO [place] for Lamont Guadalupe MD cc: PRIMITIVO Giordano MD [facility]
--- NOTE | 2019-04-16 22:06 | CARDIOLOGY PROGRESS NOTE ---
DATE: 04/16/2019 SUBJECTIVE: Mr. Gustafson is somewhat sleepy. He had his packing changed recently. He has no palpitations. PHYSICAL EXAMINATION: Vital Signs: Patient is afebrile. His heart rate is in the 80s. His blood pressure is 102/60. General: He is in no acute distress. Cardiovascular: He sounds to be in a regular rate and rhythm. He has a crisp mechanical S1. He has no lower extremity edema. Chest: Clear bilaterally. He has no increased work of breathing. His abdomen is soft, nontender. PERTINENT DATA: His hematocrit has been reviewed and has stayed in the mid 20s for the last several days. The last transfusion he had was on the 10th. He has a platelet count of 199. His sodium is 145, potassium 3.4, BUN is 14, creatinine 0.6. ASSESSMENT: Mr. Gustafson is a 78-year-old gentleman who presented septic with chronic atrial fibrillation that was in rapid ventricular response. He subsequently developed a gastrointestinal bleed. He has a mechanical mitral valve. PLAN: His hematocrits have been relatively stable. He is on a heparin drip. He is on oral metoprolol as well as a low dose of diltiazem. For now, I would recommend reinstituting warfarin when safe from a GI perspective. I do not have any acute recommendations presently. cc: Uday Quintero MD
[2019-04-16] MEDS: MORPHINE IV PRN (23:35)
[2019-04-17] MEDS: LOPRESSOR PO SCH ×4 (01:05→20:54)
[2019-04-17] MEDS: XANAX PO PRN (01:05)
[2019-04-17] MEDS: DILAUDID IV PRN ×2 (03:59→14:34)
[2019-04-17 05:26] LABS: HEMATOCRIT 24.6 % (42.0-52.0); MCHC 32.5 g/dL (33-37); MCV 92.1 FL (81-99); MPV 11.1 FL (7.4-10.4); PLT 219 X1000 (130-400); RBC 2.67 XMIL (4.7-6.1); RDW 16.7 % (11.5-14.5); WBC 4.68 X1000 (4.8-10.8)
[2019-04-17 05:27] LABS: BASO# 0.02 X1000 (0.0-0.2); BASO% 0.4 % (0.0-0.8); LYMPH# 0.42 X1000 (1.2-3.4); MONO# 0.66 X1000 (0.11-0.59); MONO% 14.1 % (1.7-9.3)
[2019-04-17 05:36] LABS: INR 1.52; PROTIME 18.6 Seconds (11.0-16.0)
[2019-04-17 06:33] LABS: AGAP 8; ALB/GLOB RATIO 0.8; ALBUMIN 2.2 g/dL (3.5-5.0); ALKALINE PHOSPHATASE 86 U/L (32-122); BUN 12 mg/dL (8-22); CALCIUM 7.3 mg/dL (8.8-10.2); CHLORIDE 103 mmol/L (98-107); COSMO 285; CREATININE 0.6 mg/dL (0.7-1.2); ESTIMATED GFR > 60; GLUCOSE 265 mg/dL (70-104); GOT 18 U/L (10-34); GPT 12 U/L (10-44); POTASSIUM 4.2 mmol/L (3.5-5.1); SODIUM 138 mmol/L (136-145); TCO2 27 mmol/L (25-35); TOTAL BILIRUBIN 0.35 mg/dL (0.20-1.00); TOTAL PROTEIN 4.8 g/dL (6.3-8.3)
[2019-04-17] MEDS: HUMALOG SUBQ SCH ×4 (06:38→23:16)
[2019-04-17 07:19] LABS: PTT HEPARIN PROTOCOL > 215.0 Seconds
[2019-04-17 07:48] LABS: ANISOCYTOSIS 1+; BANDS 4 % (0-1); HYPOCHROM 1+; LYMPHS 6 % (21-51); MONO 8 % (1-9); SEGS 82 % (42-75)
--- NOTE | 2019-04-17 08:49 | PROGRESS NOTE ---
DATE: 04/17/2019 SUBJECTIVE: The patient is resting comfortably in bed. Now he is hyperglycemic. I will start this patient on Lantus at really low dose, around 5, and I will increase it as needed. Continue with sliding scale insulin and pattern blood sugar. I will also communicate today with Gastroenterology Department to see if we are going to be able to start this patient back on Warfarin. At this moment, he is on a Warfarin drip. OBJECTIVE: Vital Signs: Temperature 97.6 degrees, pulse 81, respiratory rate 12, blood pressure 124/63, oxygen saturation 98% on room air. HEENT: Head normocephalic, no trauma, PERRLA. He has some scars on his forehead due to shingles. Neck: Supple. No JVD. Central trachea. Chest: Clear to auscultation. No wheezing. No rales. Abdomen: Soft, nontender, nondistended. No hepatosplenomegaly. Extremities: No changes. No clubbing, no cyanosis. Neurological: This patient is alert. He is oriented x1. He moves all 4 extremities spontaneously. He follows commands. He is able to say his name. LABORATORY: WBC 4.6, hemoglobin 8, hematocrit 24.6, platelets 219,000. Sodium 138, potassium 4.2, chloride 103, bicarbonate 27, BUN 12, creatinine 0.6, glucose 265, calcium 7.3, albumin 2.2. ASSESSMENT AND PLAN: 1. Septic shock on presentation, resolved. 2. Hypovolemic shock from massive gastrointestinal bleed during the hospital course, improving with 6 PRBCs and 1 FFP. His coagulopathy also was reversed, seems to be more stable now. Hemoglobin and hematocrit has been stable for the past couple days. I will discuss the case with Gastroenterology Department to see if I can place this patient back on Warfarin. 3. Supratherapeutic INR on presentation, resolved. 4. Massive gastrointestinal bleed, as above, status post EGD that showed a single bleeding duodenal ulcer that was treated. He is still having some dark tarry stools which is old blood, basically expected. 5. Status post mechanical valve replacement. Continue with heparin drip for now, but we will try to resume his Coumadin if Gastroenterology Department is okay. 6. Hypoglycemia. He did not have so many symptoms. Now he is hyperglycemic. I will start this patient on a low dose of Lantus, around 5 units. 7. Elevated troponins on presentation, likely due to demand ischemia. 8. Fluid overload, improved. 9. Paroxysmal atrial fibrillation. This patient has been placed on Cardizem drip, which has been stopped already. Continue with p.o. medications, seems to be controlled. 10. History of Alzheimer's dementia, aware. No changes. 11. Providencia rettgeri left inguinal wound infection with methicillin-sensitive Staphylococcus aureus cellulitis to the right hand as well. This patient is on ceftriaxone. Infectious Disease Department on board. 12. Neutropenia on presentation due to chemotherapy, better. 13. Shingles on forehead and buttocks. Continue with same management. 14. 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 15. Mild hypernatremia, resolved. 16. Do Not Resuscitate level 2, no intubation, no PEG tube. 17. Hypokalemia, resolved. cc: Nilesh Poole MD
[2019-04-17] MEDS: DAKIN S 0.125% TOP SCH ×2 (08:55→23:46)
[2019-04-17] MEDS: LANTUS INSULIN SUBQ SCH (08:55)
[2019-04-17] MEDS: SSD CREAM TOP SCH ×2 (08:56→23:45)
[2019-04-17] MEDS: ROCEPHIN 2 GM in NS 50 ML IV SCH ×2 (08:56→23:45)
[2019-04-17] MEDS: MARINOL PO SCH ×2 (09:30→23:12)
[2019-04-17] MEDS ORDERED: HEPARIN IV PRN (15:36)
[2019-04-17] MEDS: COUMADIN PO SCH (23:13)
[2019-04-18] MEDS: HEPARIN 25,000 UNITS/D5W 25,000 UNIT/250 ML IV.SOLN IV SCH ×2 (00:13→16:48)
[2019-04-18] MEDS ORDERED: HEPARIN 25,000 UNITS/D5W 25,000 UNIT/250 ML IV.SOLN IV SCH ×3 (00:17→08:16)
[2019-04-18] MEDS: LOPRESSOR PO SCH ×4 (02:58→20:09)
[2019-04-18 06:26] LABS: INR 1.51; PROTIME 18.5 Seconds (11.0-16.0)
[2019-04-18 06:42] LABS: BASO# 0.03 X1000 (0.0-0.2); BASO% 0.6 % (0.0-0.8); HEMATOCRIT 24.1 % (42.0-52.0); HEMOGLOBIN 7.7 g/dL (14.0-18.0); LYMPH# 0.61 X1000 (1.2-3.4); LYMPH% 11.9 % (20.5-51.1); MCH 29.6 PG (27-31); MCV 92.7 FL (81-99); MONO# 0.76 X1000 (0.11-0.59); MONO% 14.8 % (1.7-9.3); MPV 11.4 FL (7.4-10.4); PLT 247 X1000 (130-400); RDW 16.8 % (11.5-14.5); WBC 5.13 X1000 (4.8-10.8)
[2019-04-18] MEDS: HUMALOG SUBQ SCH ×4 (06:43→20:10)
[2019-04-18 07:11] LABS: AGAP 7; CHLORIDE 102 mmol/L (98-107); POTASSIUM 4.1 mmol/L (3.5-5.1); SODIUM 136 mmol/L (136-145); TCO2 27 mmol/L (25-35)
[2019-04-18 07:12] LABS: ALB/GLOB RATIO 0.8; ALBUMIN 2.1 g/dL (3.5-5.0); ALKALINE PHOSPHATASE 94 U/L (32-122); BUN 9 mg/dL (8-22); CALCIUM 7.1 mg/dL (8.8-10.2); COSMO 272; CREATININE 0.6 mg/dL (0.7-1.2); ESTIMATED GFR > 60; GLUCOSE 114 mg/dL (70-104); GOT 18 U/L (10-34); GPT 11 U/L (10-44); TOTAL BILIRUBIN 0.29 mg/dL (0.20-1.00); TOTAL PROTEIN 4.6 g/dL (6.3-8.3)
[2019-04-18] MEDS ORDERED: HEPARIN IV PRN (08:01)
[2019-04-18 08:20] LABS: ANISOCYTOSIS 1+; BANDS 2 % (0-1); LYMPHS 8 % (21-51); MONO 12 % (1-9); SEGS 78 % (42-75)
[2019-04-18 08:21] LABS: HYPOCHROM 1+
[2019-04-18] MEDS: ROCEPHIN 2 GM in NS 50 ML IV SCH ×2 (08:41→20:08)
[2019-04-18] MEDS: LANTUS INSULIN SUBQ SCH (08:42)
[2019-04-18] MEDS: MARINOL PO SCH ×2 (08:43→20:09)
[2019-04-18] MEDS: DAKIN S 0.125% TOP SCH ×2 (08:49→20:09)
[2019-04-18] MEDS: SSD CREAM TOP SCH ×2 (08:50→20:10)
[2019-04-18] MEDS ORDERED: LASIX IV ONE (13:51)
--- NOTE | 2019-04-18 14:22 | PROGRESS NOTE ---
DATE: 04/18/2019 SUBJECTIVE: This patient is resting comfortably in bed. He is not complaining of any specific pain. He is awake. He is alert. He is oriented x1. He is able to recognize family members at the bedside. Blood sugar seems to be better controlled. He does have a Olmstead catheter. He is incontinent and he has a left inguinal wound infection that we are trying to keep clean and dry. It is covered with a dressing. Also he has an ulcer on his right hand, dorsal area, around 2 cm diameter with a clean base and surrounding erythema. OBJECTIVE: Vital Signs: Temperature 98.5 degrees, pulse 85, respiratory rate 18, blood pressure 128/46, oxygen saturation 99 on room air. HEENT: Head normocephalic. No trauma. PERRLA. He has some scars on his forehead due to shingles. Neck: Supple no JVD. Central trachea. Chest: Clear to auscultation. No wheezing. No rales. Abdomen: Soft. Some generalized tenderness to palpation. No hepatosplenomegaly. Extremities: He does have 1 to 2+ lower extremity edema. No clubbing. No cyanosis. He has a right hand that is edematous a little bit with an ulcer with a clean base. Erythema is surrounding that ulcer. Neurological: The patient is alert. He is oriented x1. He moves all 4 extremities spontaneously. It looks like he has been leaning towards his right side with physical activity. LABORATORY: WBC 5.1, hemoglobin 7.7, hematocrit 24.1, platelets 247,000. Sodium 136, potassium 4.1, chloride 102, bicarbonate 27, BUN 9, creatinine 0.6, glucose 114, calcium 7.1, albumin 2.1. ASSESSMENT AND PLAN: 1. Septic shock on presentation, resolved. 2. Hypovolemic shock due to massive gastrointestinal bleed during the hospital course, improving with 6 PRBCs and 1 FFP. His coagulopathy also was reversed. His INR upon admission was around 9. It seems to be more stable now and actually we have restarted again his Coumadin. 3. Supratherapeutic INR on presentation, resolved. Back on Coumadin again. We will monitor this on a daily basis. 4. Massive gastrointestinal bleed, status post esophagogastroduodenoscopy that showed a single bleeding duodenal ulcer that was treated. He is still having some dark tarry stools which is old blood and basically expected. 5. Status post mechanical valve placement. Continue with heparin drip for now and we have already started Coumadin on this patient. 6. Hypoglycemia, resolved. 7. Diabetes. We will continue with low dose of insulin. 8. Elevated troponins on presentation, likely to due to demand ischemia. 9. Fluid overload. He has some lower extremity swelling again now. His BUN and creatinine are within normal limits. I will give him a low dose of IV Lasix and I will monitor this closely. 10. Paroxysmal atrial fibrillation. Continue with p.o. medications. Seems to be controlled. 11. History of Alzheimer's dementia, aware. 12. Providencia rettgeri left inguinal wound infection and also methicillin-sensitive Staphylococcus aureus cellulitis to the right hand as well. Continue with ceftriaxone. Infectious Disease Department on board. 13. Neutropenia on presentation due to chemotherapy, better. 14. Shingles on forehead and buttocks. Continue with same management. Seems to be better. 15. History of metastatic penile carcinoma, noted. Followed by Dr. Galvan. 16. Mild hypernatremia, resolved. 17. Hypokalemia, resolved. 18. This patient do not resuscitate level 2. No intubation. No PEG tube. No mechanical ventilation. In case of cardiac respiratory arrest we are only allowed to use medications. cc: Nilesh Poole MD
[2019-04-18] MEDS: COUMADIN PO SCH (20:09)
[2019-04-18] MEDS: DILAUDID IV PRN (23:51)
[2019-04-19] MEDS: LOPRESSOR PO SCH ×4 (04:47→21:50)
[2019-04-19 05:32] LABS: BASO# 0.03 X1000 (0.0-0.2); BASO% 0.7 % (0.0-0.8); EOS# 0.06 X1000 (0.0-0.7); EOS% 1.4 % (0.0-10.0); HEMATOCRIT 24.7 % (42.0-52.0); HEMOGLOBIN 7.9 g/dL (14.0-18.0); IMM GRAN# 0.07 X1000 (0.0-0.04); IMM GRAN% 1.6 % (0.0-0.5); LYMPH# 0.57 X1000 (1.2-3.4); LYMPH% 13.3 % (20.5-51.1); MCH 29.5 PG (27-31); MCV 92.2 FL (81-99); MONO# 0.74 X1000 (0.11-0.59); MONO% 17.2 % (1.7-9.3); MPV 10.5 FL (7.4-10.4); NEUT# 2.83 X1000 (1.4-6.5); NEUT% 65.8 % (42.2-75.2); PLT 293 X1000 (130-400); RBC 2.68 XMIL (4.7-6.1); RDW 16.6 % (11.5-14.5)
[2019-04-19 05:55] LABS: AGAP 6; ALB/GLOB RATIO 0.9; ALBUMIN 2.3 g/dL (3.5-5.0); ALKALINE PHOSPHATASE 108 U/L (32-122); BUN 8 mg/dL (8-22); CALCIUM 7.2 mg/dL (8.8-10.2); CHLORIDE 98 mmol/L (98-107); COSMO 265; CREATININE 0.6 mg/dL (0.7-1.2); ESTIMATED GFR > 60; GLUCOSE 137 mg/dL (70-104); GOT 19 U/L (10-34); GPT 12 U/L (10-44); POTASSIUM 3.7 mmol/L (3.5-5.1); SODIUM 132 mmol/L (136-145); TCO2 28 mmol/L (25-35); TOTAL BILIRUBIN 0.29 mg/dL (0.20-1.00)
[2019-04-19 06:24] LABS: INR 1.6; PROTIME 19.3 Seconds (11.0-16.0)
[2019-04-19] MEDS: HUMALOG SUBQ SCH ×4 (06:45→21:00)
[2019-04-19] MEDS: ROCEPHIN 2 GM in NS 50 ML IV SCH ×2 (09:08→21:50)
[2019-04-19] MEDS: MARINOL PO SCH (09:13)
[2019-04-19] MEDS: LANTUS INSULIN SUBQ SCH (09:13)
[2019-04-19] MEDS: HEPARIN 25,000 UNITS/D5W 25,000 UNIT/250 ML IV.SOLN IV SCH ×2 (11:52→16:20)
--- NOTE | 2019-04-19 16:30 | PROGRESS NOTE ---
DATE: 04/19/2019 SUBJECTIVE: The patient is resting comfortably in bed. He is not complaining of pain. He is awake. He is alert. He is oriented x1. He is able to recognize family members at the bedside. He seems to be stable. We will continue with same management. OBJECTIVE: Vital Signs: Temperature 98 degrees, pulse 81, respiratory rate 16, blood pressure 124/68, oxygen saturation 99 on room air. HEENT: Head normocephalic. No trauma. PERRLA. He has some scars on his forehead due to shingles. Neck: Supple. No JVD. Central trachea. Chest: Some crepitus at the bases. Abdomen: Soft. Generalized tenderness to palpation. No hepatosplenomegaly. Extremities: No edema, no clubbing, no cyanosis. He has a right hand that is edematous with an ulcer with a clean base on the dorsal area. He also has a dressing over his left inguinal area from a local infection. Neurologic: The patient is alert. He is oriented x1. He is able to recognize family members at the bedside. He is talking without any problem. LABORATORY DATA: WBC 4.3, hemoglobin 7.9, hematocrit 24.7, platelets 293,000. Sodium 132, potassium 3.7, chloride 98, bicarbonate 28, BUN 8, creatinine 0.6, glucose 137, calcium 7.2, albumin 2.3. ASSESSMENT AND PLAN: 1. Septic shock on presentation, resolved. 2. Hypovolemic shock due to massive gastrointestinal bleeding during the hospital course, improving after 6 PRBCs and 1 FFP. His coagulopathy also was reversed. INR upon admission was around 9. He seems to be more stable now and actually we have restarted again this patient on Coumadin. 3. Supratherapeutic INR on presentation, resolved. He is on heparin drip and Coumadin again. At this moment, the INR is 1.6. 4. Massive gastrointestinal bleed status post esophagogastroduodenoscopy that showed a single bleeding duodenal ulcer that was treated. He is still having some dark tarry stools but the hemoglobin has been stable. 5. Status post mechanical valve placement. Continue with heparin drip for now. We have already started Coumadin on this patient. 6. Hypoglycemia, resolved. 7. Diabetes. Continue with low dose of insulin. 8. Elevated troponins on presentation, likely due to demand ischemia. 9. Fluid overload. He seems to be better. Yesterday, his lower extremities were a little bit swollen, but not today. He received at one-time dose of IV Lasix low dose. 10. Paroxysmal atrial fibrillation. Continue with p.o. medications. He seems to be controlled. 11. History of Alzheimer's dementia, aware. 12. Providencia rettgeri left inguinal wound infection and also MSSA cellulitis to the right hand. Continue with ceftriaxone. Infectious Disease Department on board. 13. Neutropenia on presentation due to chemotherapy, better. 14. Shingles on the forehead and buttocks. Continue with the same management. Seems to be better. 15. 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 16. Mild hypernatremia, resolved. 17. Hypokalemia resolved. 18. This patient is DNR level 2, no intubation, no PEG tube. No mechanical ventilation. In case of cardiac respiratory arrest, we are only allowed to use medications. cc: Nilesh Poole MD
[2019-04-19] MEDS: DILAUDID IV PRN (16:36)
[2019-04-19] MEDS: SSD CREAM TOP SCH (16:45)
[2019-04-19] MEDS: DAKIN S 0.125% TOP SCH (16:45)
--- NOTE | 2019-04-19 18:23 | GASTROENTEROLOGY PROGRESS NOTE ---
DATE: 04/19/2019 SUBJECTIVE: Patient was lying in bed in no acute distress. He is awake and alert. He has family at the bedside. There has been no evidence of active GI bleeding. Hemoglobin and hematocrit today were 7.9 and 24.7. Family is asking if he can start to have some solid foods. He has been on full liquid diet. OBJECTIVE: Vital Signs: Temperature 98.0 degrees, pulse 81, respirations 16, blood pressure 124/68. General: Patient is awake and alert. He denies complaints. LABORATORY: Hematology: WBC 4.30, hemoglobin 7.9, hematocrit 24.7, MCV 92.2, platelets 293,000. Chemistry: Sodium 132, potassium 3.7, chloride 98, CO2 28, BUN 8, creatinine 0.6, glucose 137. ASSESSMENT AND PLAN: 1. Recent gastrointestinal bleed with findings of bleeding duodenal ulcer that was treated. 2. History of mechanical valve replacement. The patient is currently being transitioned from heparin to Coumadin. We will continue to follow. 3. Other medical problems: Coronary artery disease, diabetes, atrial fibrillation, history of Alzheimer dementia. 4. Continue to follow and monitor for any further evidence of active bleeding when he is transitioned over to Coumadin. We will advance his diet to a pureed diet. Apparently he has lost his dentures. Further plans will be made according to his progress. The patient was also seen by Dr. Guadalupe. Dictated by PRIMITIVO [place] for Lamont Guadalupe MD cc: PRIMITIVO Giordano MD
--- NOTE | 2019-04-19 19:58 | INFECTIOUS DISEASE PROGRESS NO ---
DATE: 04/19/2019 PRESENT ILLNESS: The patient is being treated for a Providencia infection of the left groin and an oxacillin sensitive Staph aureus infection of the right hand. MEDICATIONS: The patient receives Rocephin 2 g IV every 12 hours. PHYSICAL EXAMINATION: Vital Signs: Temperature is 98 degrees, pulse 81, respirations 16, blood pressure 124/68. General: This is a chronically ill-appearing elderly male. He is lying in bed. He is in no acute distress. Head, eyes, ears, nose, and throat: He can hear my spoken words and see near objects. He does not have any white patches in the mouth. His eschar on the left side of his face is almost completely gone. Neck: No pain with movement of it. Lungs: Clear to auscultation. Cardiovascular: Heart rate is regular. Thorax: The patient has a left-sided pacemaker. The site is not swollen or draining. Extremities: Patient has a PICC in the right arm. That site also is not red or swollen. In the left groin he has a wound and a I partially removed the dressing and the wound had pink tissue. There was no odor and no purulence. There was no surrounding erythema. Neurologic: The patient is awake. He does move his extremities to request. There is no tremor. LAB AND X-RAY: There is no new radiographic study today. CBC shows a white count of 4300, hemoglobin 7.9, and platelet count is 293,000. Creatinine is 0.6. GFR is greater than 60. Liver function studies are normal. ASSESSMENT AND PLAN: The patient has left groin and right hand infection which seem to be healing well. My plan is to continue local care and IV Rocephin. COMORBIDITIES: The patient is elderly. He has metastatic penile cancer. He is a diabetic also and recently he had GI bleed and sepsis. cc: Miguel Michel MD
[2019-04-19] MEDS: COUMADIN PO SCH (21:50)
[2019-04-20] MEDS: MARINOL PO SCH ×2 (02:31→09:37)
[2019-04-20] MEDS: LOPRESSOR PO SCH ×4 (02:34→21:58)
[2019-04-20] MEDS: DILAUDID IV PRN ×2 (05:10→16:02)
[2019-04-20] MEDS: SSD CREAM TOP SCH ×2 (05:39→16:17)
[2019-04-20] MEDS: DAKIN S 0.125% TOP SCH ×2 (05:39→16:17)
[2019-04-20] MEDS: HUMALOG SUBQ SCH ×4 (06:52→21:59)
[2019-04-20 08:16] LABS: INR 1.73; PROTIME 20.6 Seconds (11.0-16.0)
[2019-04-20 08:29] LABS: AGAP 10; BUN 8 mg/dL (8-22); CALCIUM 7.4 mg/dL (8.8-10.2); CHLORIDE 97 mmol/L (98-107); COSMO 270; CREATININE 0.6 mg/dL (0.7-1.2); ESTIMATED GFR > 60; GLUCOSE 169 mg/dL (70-104); POTASSIUM 4.1 mmol/L (3.5-5.1); SODIUM 134 mmol/L (136-145); TCO2 27 mmol/L (25-35)
[2019-04-20 08:37] LABS: BASO# 0.02 X1000 (0.0-0.2); BASO% 0.4 % (0.0-0.8); EOS# 0.05 X1000 (0.0-0.7); EOS% 1.1 % (0.0-10.0); HEMATOCRIT 25.4 % (42.0-52.0); HEMOGLOBIN 8.2 g/dL (14.0-18.0); LYMPH# 0.61 X1000 (1.2-3.4); LYMPH% 13.6 % (20.5-51.1); MCH 30.4 PG (27-31); MCHC 32.3 g/dL (33-37); MCV 94.1 FL (81-99); MONO# 0.76 X1000 (0.11-0.59); MONO% 16.9 % (1.7-9.3); MPV 11.1 FL (7.4-10.4); NEUT# 3.05 X1000 (1.4-6.5); PLT 284 X1000 (130-400); RDW 17.4 % (11.5-14.5); WBC 4.49 X1000 (4.8-10.8)
[2019-04-20] MEDS: LANTUS INSULIN SUBQ SCH (09:38)
[2019-04-20 09:52] LABS: PTT HEPARIN PROTOCOL 84.8 Seconds
[2019-04-20 10:04] LABS: LYMPHS 10 % (21-51); MONO 8 % (1-9); NRBC 1 % (0-0); SEGS 80 % (42-75)
[2019-04-20] MEDS: ROCEPHIN 2 GM in NS 50 ML IV SCH ×2 (11:25→21:59)
--- NOTE | 2019-04-20 12:35 | PROVIDER DOCUMENTATION ---
This chart was entered by Lillian Gilliam Scribe, acting as scribe for Alex Rich MD. HPI-General Adult - General Chief Complaint: Syncope Stated Complaint: WEAKNESS,BLOOD SUGAR HIGH Time Seen by Provider: 04/04/19 12:03 Source: family (Daughter/) Allergies/Adverse Reactions: Patient Allergies Allergy/AdvReac Type Severity Reaction Status Date / Time No Known Allergies Allergy Verified 03/19/19 20:42 Home Medications: Home Medication List Medication Instructions Recorded Confirmed Last Taken Type Insulin Aspart [Novolog] 1 unit SUBQ DIRECTED 04/25/17 04/04/19 11/05/18 05:00 History Potassium Chloride 10 meq PO DAILY 04/25/17 04/04/19 11/04/18 08:00 History Losartan Potassium 25 mg PO DAILY 11/23/17 04/04/19 11/04/18 08:00 History Warfarin Sodium [Coumadin] 2.5 - 5 mg PO EVERY OTHER DAY 01/07/18 04/04/19 11/02/18 History Lorazepam [Ativan] 0.5 mg PO PRN PRN 10/29/18 03/19/19 11/04/18 21:00 History Doxycycline Hyclate 100 mg PO BID 04/04/19 04/04/19 Unknown History - History of Present Illness -Gen Adult Nature of Presenting Problems: 78 y/o male with history of cancer presents to the ED with increasing weakness while on radiation and chemo treatment for the past six weeks, increased heart rate up to 140 for the past two weeks and blood sugar of 500 todat. 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 states the PCP is Dr. Dc and Oncolologist is Dr. Gonsales and the patient was seen here Friday a week ago or 9 days previous with low blood sugar. Location of Pain/Injury: reports: generalized Onset/Duration: reports: gradual Timing: reports: still present Associated Symptoms: reports: denies symptoms Similar Symptoms Previously?: No Recently seen or treated by another doctor?: Yes (here 9 days ago ) Review of Systems - Adult - REVIEW OF SYSTEMS - ADULT Constitutional: reports: other (weakness). denies: chills, fever, night sweats Eyes: reports: no symptoms reported Ears, Nose, Mouth & Throat: reports: no symptoms reported Cardiovascular: reports: edema (left leg is chronic but right is new), irregular heart rate (tachycardia). denies: chest pain Respiratory: reports: no symptoms reported Gastrointestinal: reports: no symptoms reported Genitourinary: denies: dysuria, discharge, frequency, hematuria Musculoskeletal: reports: no symptoms reported Integumentary: reports: no symptoms reported Neurological: reports: no symptoms reported Psychiatric: reports: no symptoms reported Endocrine: reports: no symptoms reported Hematologic/Lymphatic: reports: no symptoms reported Allergic/Immunologic: reports: no symptoms reported All Other Systems: Reviewed and Negative Past History - Adult - PAST MEDICAL HISTORY-ADULT Review of Records: reports: Old Records Reviewed, Nursing Assessment Review, Medications Reviewed Major Childhood Illnesses: reports: denies history Cardiovascular: reports: A-Fib, HTN, hyperlipidemia Respiratory: reports: denies history Gastrointestinal: reports: denies history Obstetrical/Gynecological: reports: denies history Genitourinary: reports: cancer (penile), chronic UTI's, other (BPH, penile mass) Musculoskeletal: reports: denies history Neurological: reports: dementia Endocrine/Immune: reports: Diabetes Other Conditions: reports: denies history - PRIOR SURGERIES/PROCEDURES Surgical/Procedure History: reports: appendectomy, CABG, hernia repair, other (penilectomy) - IMMUNIZATION STATUS Childhood Immunizations: See Nurse Assessment Flu Vaccine: See Nurse Assessment - FAMILY HISTORY Family History: reviewed, not pertinent - SOCIAL HISTORY Smoking: other (former smoker) Living Situation: family Physical Exam-General - PHYSICAL EXAM-ADULT Initial Vital Signs Reviewed: Yes - CONSTITUTIONAL General Appearance: alert. negative: appears well - EYES Eyes: PERRL/EOMI, pink conjunctivae - HEAD, EARS, NOSE, MOUTH & THROAT HENMT: hearing deficit, other (blood above left brow on scalp) - RESPIRATORY Respiratory: crackles (basal). negative: rales, rhonchi, wheezing - CARDIOVASCULAR Cardiovascular: regular rate, rhythm, no JVD, other (edema which is chronic on the left and new on the right according to family) - GASTROINTESTINAL (ABDOMEN) Abdominal Exam: soft. negative: guarding, rebound - MUSCULOSKELETAL Extremity: pedal edema (chronic on left and new on the right). negative: pulse deficit, tenderness - SKIN Integumentary: warm/dry, pallor, other (large open wound left groin/inguinal fold) Progress - PLAN OF CARE/RESULTS Progress/Plan/Lab Results: Vital Signs - 8 hr 04/04/19 11:42 Temperature 98.2 F Pulse Rate 126 H Respiratory Rate 20 Blood Pressure 80/57 O2 Sat by Pulse Oximetry 94 L Laboratory Results - last 24 hr 04/04/19 12:01 POC Glucose 500 H D Orders Category Date Time Status Cardiac Monitoring DIRECTED Care 04/04/19 12:05 Active IV Insertion ORDERED Care 04/04/19 12:05 Active Notify MD of + Sepsis Screen NOW Care 04/04/19 12:05 Active Notify Physician As Ordered Care 04/04/19 12:05 Active CHEST-1 VIEW [RAD] Stat Exams 04/04/19 12:05 Ordered BLOOD CULTURE [BLDCUL] Stat Lab 04/04/19 12:05 Uncollected CBC WITH DIFF [HEME] Stat Lab 04/04/19 12:05 Uncollected CK PROFILE [SP CHEM] Stat Lab 04/04/19 12:05 Uncollected COMPREHENSIVE METABOLIC PANEL [CHEM] Stat Lab 04/04/19 12:05 Uncollected LACTATE, PLASMA [CHEM] Q3H Lab 04/04/19 12:15 Uncollected LACTATE, PLASMA [CHEM] Q3H Lab 04/04/19 15:15 Uncollected LACTATE, PLASMA [CHEM] Q3H Lab 04/04/19 18:15 Uncollected PROTIME WITH INR [COAG] Stat Lab 04/04/19 12:05 Uncollected PTT [COAG] Stat Lab 04/04/19 12:05 Uncollected TROPONIN T Stat Lab 04/04/19 12:05 Uncollected URINALYSIS W/POSS RFLX CULT [URINALYSIS] Stat Lab 04/04/19 12:05 Uncollected 0.9% Sodium Chloride Inj [Ns] 1,000 ml Med 04/04/19 12:11 Discontinued .ROUTE As directed 0.9% Sodium Chloride Inj [Ns] 1,000 ml Med 04/04/19 12:06 Active IV 999 mls/hr Oxygen Device Stat Oth 04/04/19 12:05 Active Result Diagrams: 04/04/19 12:59 04/04/19 12:54 - REASSESSMENT Reassessment #1 Time Reassessed: 12:53 (discussed with family awaiting labs before further tx plan determined ) Reassessment Comment: patient is comfortable Reassessment #2 Time Reassessed: 13:51 Status: improving Reassessment Comment: HR down to 130 Reassessment #3 Time Reassessed: 14:13 Status: unchanged - EKG 1 Time of EKG reading by physician:: 12:02 EKG Read and Signed by:: Alex Rich EKG Interpretation (*Must complete 3 of following elements*): Abnormal (ST and T wave abnormality consider anterior and inferior ischemia) Rate: 143 Rhythm: atrial flutter w/ variable AV block/RVR Comments: septal infarct age undetermined - XRAY 1 XRAY Study: Chest (EXAM: CHEST-1 VIEW INDICATION: sepsis criteria TECHNIQUE: One view COMPARISON: 03/19/2019 FINDINGS: The interstitial infiltrates seen on the previous study have grossly resolved. The interval. The lungs are grossly clear. There is no discrete pleural fluid collection or pneumothorax. Median sternotomy wires are noted. The pacemaker is stable. The cardiac s ilhouette is unremarkable, otherwise. IMPRESSION: No evidence of acute pathology by plain radiograph. Electronically signed by Liu Avila 04/04/2019 1:09 PM) Comparison with other Films: changes noted - CONSULTS/PCP/HOSPITALIST Notification #1 *Consult/PCP/Hospitalist*: Hospitalist KAMRAN Time Discussed: 14:01 Reason/Comments: atrial flutter with RVR, hypotensive, neutropenic, DKA, h/o CA, Consult Disposition: Admit (to [facility]) Departure - Departure Date of Disposition Decision: 04/04/19 Time of Disposition Decision: 14:06 DIAGNOSIS: Atrial flutter with rapid ventricular response DKA (diabetic ketoacidoses) Qualifiers: Diabetes mellitus type: type 1 Neutropenia Qualifiers: Neutropenia type: secondary to cancer chemotherapy Qualified Code(s): D70.1 - Agranulocytosis secondary to cancer chemotherapy; T45.1X5A - Adverse effect of antineoplastic and immunosuppressive drugs, initial encounter Disposition: ADMITTED INPATIENT 09 Certified Medical Emergency: Emergent Condition: Critical Referrals and Follow-Ups: Bruno Lobato MD [Primary Care Provider] - - Critical Care Note This patient required my direct & personal management of CC.: Yes Total Time (mins): 35 Critical Care Statement: This patient required my direct personal management to treat or rule out processes, the absence of which, could potentiallly result in sudden, clinically significant life or limb threatening deterioration. Attestation - Physician/ JESSICA Attestation Patient care was provided by Advanced Practice Provider:: No The physician spent face to face time with patient:: Yes Advanced Practice Provider documentation review:: Supervising physician onsite and consulted in the evaluation and care of this patient. The physician did have a face to face encounter with the patient. This chart was documented by the indicated scribe, (Lillian Gilliam, [place]) and accurately reflects the services I performed and decisions made by me, Alex Rich MD, as attested by the provider's signature.
--- NOTE | 2019-04-20 14:48 | PROGRESS NOTE ---
DATE: 04/20/2019 SUBJECTIVE: The patient is resting comfortably in bed. He is not complaining of pain. He is awake. He is alert. He is oriented x1. He is able to recognize family members at the bedside. He seems to be stable. INR is close to being therapeutic. Continue with same management for now. OBJECTIVE: Vital Signs: Temperature 97.3 degrees, pulse 96, respiratory rate 16, blood pressure 119/63, and oxygen saturation 92 on room air. HEENT: Head normocephalic. No trauma. PERRLA. He has some scars on his forehead due to shingles. Neck: Supple. No JVD. Central trachea. Chest: Some crepitus at the bases. Abdomen: Soft. There is some tenderness to palpation. No splenomegaly. Extremities: No edema. No clubbing. No cyanosis. He has a right hand that is a little bit edematous with an ulcer that has a clean base on the dorsal area. He also has a dressing over his left inguinal area from a local infection. Neurological: This patient is alert and oriented x1. Able to recognize family members at the bedside, and he is able to talk. He moves all 4 extremities spontaneously. LABORATORY: WBC 4.4, hemoglobin 8.2, hematocrit 25.4, and platelets 284,000. Sodium 134, potassium 4.1, chloride 97, bicarbonate 27, BUN 8, creatinine 0.6, glucose 169, calcium 7.4, and INR 1.7. ASSESSMENT AND PLAN: 1. Septic shock on presentation, resolved. 2. Hypovolemic shock due to massive gastrointestinal bleed during the hospital course, improving after 6 PRBC's, and 1 FFP. His coagulopathy also has been reversed. 3. Supratherapeutic INR on presentation, resolved. INR was around 9 upon admission. 4. Massive GI bleed status post EGD that showed a single bleeding duodenal ulcer that was treated. 5. Status post mechanical valve placement. Continue with heparin drip and warfarin until the INR is therapeutic until the INR is therapeutic. 6. Hypoglycemia resolved. 7. Diabetes. More stable. 8. Elevated troponin's on presentation, likely due to demand ischemia. 9. Fluid overload, better. 10. Paroxysmal atrial fibrillation. Continue p.o. medication. He seems to be controlled. 11. History of Alzheimer's dementia. Aware. 12. Providencia rettgeri left inguinal wound infection, and also MSSA cellulitis to the right hand. Continue with ceftriaxone. Infectious Disease Department on board. 13. Neutropenia on presentation due to chemotherapy, better. 14. Shingles on the forehead and buttocks. Continue with the same management, seems to be better. 15. 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 16. Mild hyponatremia, resolved. 17. Hypokalemia, resolved. 18. This patient is DNR, no intubation. No PEG tube. No mechanical ventilation in case of cardiac respiratory arrest. We are only allowed to use medications. cc: Nilesh Poole MD
--- NOTE | 2019-04-20 15:10 | GASTROENTEROLOGY PROGRESS NOTE ---
DATE: 04/20/2019 SUBJECTIVE: At the time of my evaluation, physical therapy was working with the patient. I did speak with his . She states he was able to tolerate a little of his pureed diet, but states he did not eat much. There has been no evidence of active bleeding. His hemoglobin and hematocrit today have improved. Hemoglobin 8.2, hematocrit 25.4. OBJECTIVE: Vital Signs: Temperature 97.3 degrees, pulse 96, and blood pressure 119/63. LABORATORY: Hematology: WBC 4.49 hemoglobin 8.2, hematocrit 25.4, and MCV 94.1. Coagulation ProTime 20.6. INR 1.73. PTT 84.8. CHEMISTRY: Sodium 134, potassium 4.1, chloride 97, CO2 27, BUN 8, creatinine 0.6, and glucose 169. ASSESSMENT AND PLAN: 1. Recent gastrointestinal bleeding with findings of bleeding duodenal ulcer that was treated. There has been no further evidence of active bleeding. Hemoglobin and hematocrit are stable. 2. History of mechanical valve replacement. The patient is currently being transitioned from heparin to Coumadin. We will continue to monitor for any signs of active bleeding. He has tolerated a small amount of his pureed diet. Continue to monitor. Further plans to be made according to his progress. I have discussed this case with Dr. Guadalupe. Dictated by PRIMITIVO [place] for Lamont Guadalupe MD cc: PRIMITIVO Giordano MD
[2019-04-20] MEDS: HEPARIN 25,000 UNITS/D5W 25,000 UNIT/250 ML IV.SOLN IV SCH (16:13)
[2019-04-20] MEDS: COUMADIN PO SCH (21:58)
[2019-04-21] MEDS: MARINOL PO SCH ×3 (02:00→21:28)
[2019-04-21] MEDS: LOPRESSOR PO SCH ×4 (02:01→21:28)
[2019-04-21] MEDS: DILAUDID IV PRN ×2 (03:20→11:13)
[2019-04-21] MEDS: DAKIN S 0.125% TOP SCH ×2 (03:30→13:20)
[2019-04-21] MEDS: SSD CREAM TOP SCH ×2 (03:44→13:20)
[2019-04-21 06:04] LABS: INR 1.66
[2019-04-21] MEDS: HUMALOG SUBQ SCH ×5 (06:33→22:18)
[2019-04-21 06:57] LABS: BASO# 0.03 X1000 (0.0-0.2); BASO% 0.5 % (0.0-0.8); HEMATOCRIT 25.1 % (42.0-52.0); HEMOGLOBIN 8.2 g/dL (14.0-18.0); LYMPH# 0.68 X1000 (1.2-3.4); LYMPH% 11.8 % (20.5-51.1); MCHC 32.7 g/dL (33-37); MCV 91.9 FL (81-99); MONO# 0.79 X1000 (0.11-0.59); MONO% 13.7 % (1.7-9.3); MPV 9.8 FL (7.4-10.4); PLT 333 X1000 (130-400); RBC 2.73 XMIL (4.7-6.1); RDW 17.3 % (11.5-14.5); WBC 5.76 X1000 (4.8-10.8)
[2019-04-21 08:28] LABS: BANDS 2 % (0-1); MONO 6 % (1-9); SEGS 88 % (42-75)
[2019-04-21] MEDS: ROCEPHIN 2 GM in NS 50 ML IV SCH ×2 (10:25→21:33)
[2019-04-21] MEDS: LANTUS INSULIN SUBQ SCH (10:32)
--- NOTE | 2019-04-21 10:37 | PROGRESS NOTE ---
DATE: 04/21/2019 SUBJECTIVE: The patient is resting comfortably in bed. He is not complaining of pain. His INR is still subtherapeutic. Continue with heparin drip. I evaluated his wound in the inguinal area. I do not see any pus secretion. I called the wound care nurse for evaluation. She will take a picture of this area. OBJECTIVE: Vital Signs: Temperature 98.2 degrees, pulse 77, respiratory rate 18, blood pressure 96/57, oxygen saturation 96 on room air. HEENT: Head normocephalic. No trauma. PERRLA. He has some scars on his forehead due to shingles. Neck: Supple. No JVD. Central trachea. Chest: Some crepitus at the bases. Abdomen: Soft, nontender, nondistended. No hepatosplenomegaly. Extremities: No edema, no clubbing, no cyanosis. He has a right hand that is a little bit edematous with an ulcer which has a clean base in the dorsal area. He also has a dressing over the left inguinal area from a local infection/abscess. Neurological Examination: This patient is alert. He is oriented x1. He is able to recognize family members at the bedside. He is following commands. He is able to talk. He moves all 4 extremities spontaneously. Laboratory: WBC 5.7, hemoglobin 8.2, hematocrit 25.1, platelets 333,000. INR was 166. ASSESSMENT AND PLAN: 1. Septic shock on presentation, resolved. 2. Hypovolemic shock due to massive gastrointestinal bleed during the hospital course, improving after 6 units of packed red blood cells and 1 fresh frozen plasma. His coagulopathy also has been reversed. 3. Supratherapeutic INR on presentation, resolved. INR was around 9 upon admission. 4. Massive gastrointestinal bleed, status post esophagogastroduodenoscopy that showed a single bleeding duodenal ulcer that was treated. We have restarted anticoagulation slowly with this patient. 5. Status post mechanical valve replacement. Continue with heparin drip and warfarin until the INR is therapeutic. 6. Hypoglycemia, resolved. 7. Diabetes, stable. 8. Elevated troponins on presentation, likely due to demand ischemia. 9. Fluid overload, seems to be better. 10. Paroxysmal atrial fibrillation. Continue with oral medication. It seems to be controlled. 11. History of Alzheimer's dementia. Aware. 12. Providencia rettgeri left inguinal wound infection. Also methicillin-sensitive Staphylococcus aureus cellulitis to the right hand. Continue with ceftriaxone. Infectious disease department on board. 13. Neutropenia on presentation due to chemotherapy, better. 14. Shingles on the forehead and buttocks. Continue with the same management. He seems to be doing better. 15. 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 16. Mild hyponatremia, resolved. 17. Hypokalemia, resolved. 18. This patient is Do Not Resuscitate. No intubation, no percutaneous endoscopic gastrostomy tube, no mechanical ventilation. All the medications are allowed. cc: Nilesh Poole MD
[2019-04-21] MEDS: HEPARIN 25,000 UNITS/D5W 25,000 UNIT/250 ML IV.SOLN IV SCH (15:44)
--- NOTE | 2019-04-21 19:12 | GASTROENTEROLOGY PROGRESS NOTE ---
DATE: 04/21/2019 SUBJECTIVE: The patient was lying in bed asleep. He is in no acute distress. No family was at the that bedside at the time of my evaluation. Hemoglobin and hematocrit have been stable. Hemoglobin and hematocrit today 8.2 and 25.1. No evidence of active GI bleeding. Per intake and output report, he is eating bites only of his pureed diet. OBJECTIVE: Vital Signs: Temperature 98.3 degrees, pulse 46, respirations 20, blood pressure 131/84, previous pulse 67 and 72. ASSESSMENT AND PLAN: 1. Recent gastrointestinal bleeding with findings of bleeding duodenal ulcer that was treated. 2. History of mechanical valve replacement. He is being transitioned from heparin to his Coumadin. PT/INR today was 20.0 and 1.66. PLAN: Continue to follow for any further signs of active bleeding. Monitor hemoglobin and hematocrit. Further plans will be made as needed. I have discussed this case with Dr. Guadalupe. Dictated by PRIMITIVO [place] for Lamont Guadalupe MD cc: PRIMITIVO Giordano MD
[2019-04-21] MEDS: COUMADIN PO SCH (21:28)
--- NOTE | 2019-04-22 00:02 | INFECTIOUS DISEASE PROGRESS NO ---
DATE: 04/21/2019 PRESENT ILLNESS: Mr. Gustafson is being treated for a left groin Providencia infection and a right hand oxacillin-sensitive Staph aureus infection. MEDICATIONS: Today is day 12 of treatment using ceftriaxone 2 g IV every 12 hours. PHYSICAL EXAMINATION: Vital Signs: Temperature is 97.9 degrees, pulse rate 80, respiratory rate 20, blood pressure 101/66. O2 saturation is 100% on room air. General: This is a chronically ill-appearing, elderly gentleman. He is lying in bed, currently in no acute distress. HEENT: He does have some eschar above his left eyebrow from a previous shingles infection. Oral mucous membranes are pink and moist. Conjunctivae are pale. Neck: Supple. Trachea is midline. Cardiovascular: Heart rate and rhythm are regular. He has a paced rhythm on the monitor. Respiratory: Lung sounds have some mildly scattered wheezes and rhonchi bilaterally. No work of breathing is noted. Integumentary: There is a PICC line in place to the right upper arm. That site is without edema, erythema, or drainage. The right hand wound has a pink-yellow wound bed with raised erythematous edges. The left groin wound is yaneth somewhat with packing not removed at this time. There are some areas with a small amount of serous drainage with slough. Neurologic: He is awake, alert, and will follow commands appropriately. However, he does have wrist restraints in place and has been confused to place, time, and situation. LABORATORY AND X-RAY: Today his white count is 5.76, hemoglobin 8.2, platelet count 333,000. No creatinine or imaging reports today. ASSESSMENT AND PLAN: Mr. Gustafson is on day 12 of Rocephin for the Providencia infection to the left groin and oxacillin-sensitive Staphylococcus aureus to the right hand. These are improving, so we will continue treatment as ordered. These plans have been discussed with and recommended by Dr. Michel. COMORBIDITIES: For Mr. Gustafson include that he is elderly and confused with metastatic penile cancer, diabetes mellitus, and a recent GI bleed and sepsis. Dictated by PRIMITIVO [place] for Miguel Michel MD cc: Miguel Michel MD
[2019-04-22] MEDS: LOPRESSOR PO SCH ×4 (01:41→20:35)
[2019-04-22] MEDS: DILAUDID IV PRN (01:41)
[2019-04-22] MEDS: DAKIN S 0.125% TOP SCH ×2 (03:45→11:20)
[2019-04-22] MEDS: SSD CREAM TOP SCH ×2 (03:45→11:20)
[2019-04-22] MEDS: HUMALOG SUBQ SCH ×4 (06:11→20:32)
[2019-04-22 07:34] LABS: BASO# 0.03 X1000 (0.0-0.2); BASO% 0.4 % (0.0-0.8); HEMOGLOBIN 8.5 g/dL (14.0-18.0); LYMPH# 0.77 X1000 (1.2-3.4); LYMPH% 10.4 % (20.5-51.1); MCH 30.2 PG (27-31); MCHC 32.7 g/dL (33-37); MCV 92.5 FL (81-99); MONO# 0.98 X1000 (0.11-0.59); MONO% 13.2 % (1.7-9.3); PLT 326 X1000 (130-400); RBC 2.81 XMIL (4.7-6.1); RDW 17.9 % (11.5-14.5); WBC 7.43 X1000 (4.8-10.8)
[2019-04-22 07:38] LABS: AGAP 9; BUN 8 mg/dL (8-22); CALCIUM 7.7 mg/dL (8.8-10.2); CHLORIDE 99 mmol/L (98-107); COSMO 273; CREATININE 0.6 mg/dL (0.7-1.2); ESTIMATED GFR > 60; GLUCOSE 206 mg/dL (70-104); POTASSIUM 3.7 mmol/L (3.5-5.1); SODIUM 134 mmol/L (136-145); TCO2 26 mmol/L (25-35)
[2019-04-22 08:12] LABS: BANDS 2 % (0-1); LARGE PLATELETS 1+; LYMPHS 4 % (21-51); MONO 8 % (1-9); SEGS 82 % (42-75)
[2019-04-22 09:00] LABS: INR 1.52; PROTIME 18.6 Seconds (11.0-16.0)
[2019-04-22] MEDS: LANTUS INSULIN SUBQ SCH (11:19)
[2019-04-22] MEDS: MARINOL PO SCH ×2 (11:19→20:35)
[2019-04-22] MEDS: XANAX PO PRN (11:19)
[2019-04-22] MEDS: ROCEPHIN 2 GM in NS 50 ML IV SCH ×2 (11:20→20:33)
--- NOTE | 2019-04-22 12:35 | PROGRESS NOTE ---
DATE: 04/22/2019 SUBJECTIVE: The patient is resting comfortably in bed. INR today is 1.5, decreased from 1.6. We will continue with the same management for now. Gastroenterology department has recommended to use warfarin hope, his home dose and let the INR to increase slowly. Wound care nurse evaluated the wound yesterday and it seems to be getting better. I requested an evaluation by the urology department since he is having some urine leaking around his catheter. I am not quite sure if this is because of bladder spasm or this is because of the size of the catheter. OBJECTIVE: Vital Signs: Temperature 97.7 degrees, pulse 80, respiratory rate 16, blood pressure 121/57, oxygen saturation 100% on room air. HEENT: Head normocephalic. No trauma. PERRLA. He has some scars on his forehead due to shingles. Neck: Supple. No JVD. Central trachea. Chest: Some crepitus at the bases. Abdomen: Soft, nontender, nondistended. No hepatosplenomegaly. Extremities: No edema, no clubbing, no cyanosis. He has a right hand that is a little bit edematous with an ulcer which has a clean base in the dorsal area. Also, he has a new dressing over his left inguinal area from a local infection/abscess. Neurological Examination: The patient is sleepy but arousable. No changes compared with yesterday. Laboratory: WBCs 7.4, hemoglobin 8.5, hematocrit 26, platelets 326,000. INR 1.5. Sodium 134, potassium 3.7, chloride 99, bicarbonate 26, BUN 8, creatinine 0.6, glucose 206, calcium 7.7. ASSESSMENT AND PLAN: 1. Septic shock on presentation, resolved. 2. Hypovolemic shock due to massive gastrointestinal bleed during the hospital course, improving after 6 units of packed red blood cells and 1 fresh frozen plasma. His coagulopathy has been reversed. 3. Supratherapeutic INR, resolved. 4. Massive gastrointestinal bleed, status post esophagogastroduodenoscopy that showed a single bleeding duodenal ulcer that was treated. We have restarted this patient on his warfarin,. Continue with heparin drip. 5. Status post mechanical valve replacement. Continue heparin drip and warfarin until the INR is therapeutic. 6. Hypoglycemia, resolved. 7. Diabetes, stable. 8. Elevated troponins on presentation, likely due to demand ischemia. 9. Fluid overload, better. 10. Paroxysmal atrial fibrillation. Continue with oral medication. It seems to be controlled. 11. History of Alzheimer's dementia. Aware. 12. Providencia rettgeri left inguinal wound infection and also methicillin-sensitive Staphylococcus aureus cellulitis to the right hand. Continue with ceftriaxone. Infectious disease on board. 13. Neutropenia on presentation due to chemotherapy, better. 14. Shingles on the forehead and buttocks. Continue with the same management. He seems to be doing better. 15. 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 I have requested an evaluation by the urology department because he has been leaking urine around the catheter. I am not quite sure if we need to put a bigger catheter or this is related to bladder spasm. 16. Mild hyponatremia, stable. 17. Hypokalemia, resolved. 18. This patient is Do Not Resuscitate level 2. No intubation, no percutaneous endoscopic gastrostomy tube, no mechanical ventilation. We are allowed to use all only medications. cc: Nilesh Poole MD
[2019-04-22] MEDS ORDERED: HEPARIN 25,000 UNITS/D5W 25,000 UNIT/250 ML IV.SOLN IV SCH ×2 (16:00)
[2019-04-22] MEDS ORDERED: HEPARIN IV ONE (16:08)
--- NOTE | 2019-04-22 19:39 | INFECTIOUS DISEASE PROGRESS NO ---
DATE: 04/22/2019 PRESENT ILLNESS: The patient has a Providencia left groin infection and an oxacillin sensitive Staphylococcus aureus hand infection. MEDICATIONS: This is day 13 of treatment with Rocephin. PHYSICAL EXAMINATION: Vital Signs: Temperature is 97.2 degrees, pulse 96, respirations 18, blood pressure 114/48. General: This is an ill-appearing elderly male. Today, he seems to be somewhat delirious. Head, Eyes, Ears, Nose, Throat: He does not have any drainage from his nose or ears, and the infection on the left side of his face from prior shingles is clearing up well. Neck: No pain with movement. Lungs: Clear to auscultation. Cardiovascular: Heart rate is regular. Abdomen: Soft and nontender. The patient's left groin still is erythematous and tender. There is a deep wound in the groin area that is packed. Extremities: The patient has a PICC in the right arm. The site is not swollen or red. Neurologic: The patient today seems somewhat delirious. He did not carry on a coherent conversation. He did not follow request to move his extremities. LAB AND X-RAY: There is no radiographic study today. CBC shows a white count of 7430, hemoglobin 8.5, and platelet count 326,000. Creatinine is 0.6. GFR is greater than 60. ASSESSMENT AND PLAN: The patient has a groin and hand infection. I plan on stopping the patient's antibiotics tomorrow. COMORBIDITIES: The patient is elderly and unfortunately has metastatic penile cancer. He also has diabetes mellitus and recently had a GI bleed with sepsis. cc: MD GEENA Garnett
[2019-04-22] MEDS: COUMADIN PO SCH (20:36)
--- NOTE | 2019-04-22 23:11 | CONSULTATION ---
DATE OF CONSULTATION: 04/22/2019 REQUESTING PHYSICIAN: Dr. Grubbs, hospitalist service. REASON FOR CONSULTATION: Urinary incontinence around Olmstead catheter. HISTORY OF PRESENT ILLNESS: A 78-year-old male, known to me secondary to a history of advanced squamous cell penile carcinoma. He has undergone partial penectomy in April 2017. He was most recently seen by me in December 2018 with a firm penile mass as well as inguinal lymphadenopathy. He had a CT scan in October and subsequently December 2018 revealing an increase in the size of the left inguinal mass, which is concerning for progression of cancer. He was offered to go to a tertiary institution, but his wanted to stay closer to home. He had seen Dr. Anglin and undergone radiation, as well as seen Dr. Galvan and has been on chemotherapy. He was admitted with concern for septic shock from the infected wound in the left inguinal area as well as a GI bleed. In the interim, a Olmstead catheter was placed in order to decrease leakage around his penis, which could get into his inguinal wound. Per patient's family, there is leakage around the catheter. Urology was consulted. PAST MEDICAL HISTORY: Squamous cell carcinoma of the penis, atrial fibrillation, DVT, diabetes, which is poorly controlled, hyperlipidemia, hypertension, dementia, BPH. PAST SURGICAL HISTORY: Inguinal hernia repair, mitral valve replacement, appendectomy, partial penectomy. ALLERGIES: No known drug allergies. SOCIAL HISTORY: Former smoker. Denies alcohol or illicit drug use. HOME MEDICATIONS: Marinol, alprazolam, doxycycline, Ativan, Coumadin, losartan, insulin, potassium chloride. REVIEW OF SYSTEMS: Unobtainable from the patient as he is fairly demented and appears to be out of it at the time of rounds. Per his , his sugars have been out of control. He has been weak. He had complained of the pain in his groin area. PHYSICAL EXAMINATION: VITAL SIGNS: Temperature 97.7 degrees, pulse 80, blood pressure 121/57. General: Cachectic and ill-appearing male who responds to verbal stimuli. He does not recognize me. HEENT: Normocephalic, atraumatic. Cardiovascular: Regular rhythm. Abdomen: Protuberant, nontender to palpation. Genitourinary: Testes descended bilaterally. No masses palpated. His penile stump is difficult to see due to suprapubic fat. Olmstead catheter is in place, draining cloudy urine. He has a left inguinal necrotic-appearing area. No evidence of abscess noted. Back: No CVA tenderness. Dermatologic: No obvious skin rashes. PERTINENT LABORATORY DATA: White cell count of 7000, hematocrit 26. Creatinine 0.6. PERTINENT IMAGES: None recently. ASSESSMENT AND PLAN: A 78-year-old male with advanced penile cancer with left necrotic inguinal mass that is very likely advanced cancer from his left superficial inguinal lymph nodes. He has undergone radiation and chemotherapy with the wound not healing. I have discussed with the patient's and other family members that leakage around the catheter, since there is urine coming through the catheter, is likely due to bladder spasms. I have flushed his existing Olmstead catheter with sterile water. There was quite a bit of cloudy material within the tube. Hence, in a sterile fashion, I removed the 14-British coude catheter and replaced it with a 14-British silicone catheter, with return of cloudy urine. His bladder was then irrigated. We discussed that he would benefit from Ditropan to help with bladder spasms. PLAN: 1. Keep Olmstead catheter to gravity drainage per primary team. Okay to remove whenever. 2. I am concerned at the necrotic mass in his left inguinal area. It is unlikely to heal given that it is probably advanced penile carcinoma. 3. Please call with further questions. Thank you for the consultation. cc: Justyn George MD
[2019-04-23] MEDS ORDERED: HEPARIN 25,000 UNITS/D5W 25,000 UNIT/250 ML IV.SOLN IV SCH (00:20)
[2019-04-23] MEDS: DILAUDID IV PRN ×2 (00:26→16:37)
[2019-04-23] MEDS: SSD CREAM TOP SCH ×3 (01:05→21:52)
[2019-04-23] MEDS: DAKIN S 0.125% TOP SCH ×3 (01:05→21:52)
[2019-04-23] MEDS: LOPRESSOR PO SCH ×3 (02:21→21:51)
[2019-04-23 05:31] LABS: BASO# 0.04 X1000 (0.0-0.2); BASO% 0.7 % (0.0-0.8); HEMATOCRIT 25.9 % (42.0-52.0); HEMOGLOBIN 8.3 g/dL (14.0-18.0); LYMPH# 0.81 X1000 (1.2-3.4); LYMPH% 13.4 % (20.5-51.1); MCH 29.9 PG (27-31); MCV 93.2 FL (81-99); MONO% 14.9 % (1.7-9.3); MPV 9.7 FL (7.4-10.4); PLT 340 X1000 (130-400); RBC 2.78 XMIL (4.7-6.1); RDW 18.5 % (11.5-14.5); WBC 6.04 X1000 (4.8-10.8)
[2019-04-23 05:39] LABS: AGAP 7; BUN 7 mg/dL (8-22); CHLORIDE 100 mmol/L (98-107); COSMO 268; CREATININE 0.5 mg/dL (0.7-1.2); ESTIMATED GFR > 60; GLUCOSE 59 mg/dL (70-104); POTASSIUM 3.7 mmol/L (3.5-5.1); SODIUM 136 mmol/L (136-145); TCO2 29 mmol/L (25-35)
[2019-04-23 05:44] LABS: INR 1.46
[2019-04-23] MEDS: HUMALOG SUBQ SCH ×4 (06:19→21:52)
[2019-04-23] MEDS: ROCEPHIN 2 GM in NS 50 ML IV SCH (09:14)
[2019-04-23] MEDS: DITROPAN PO SCH ×3 (09:14→16:12)
[2019-04-23] MEDS: LANTUS INSULIN SUBQ SCH (09:14)
[2019-04-23] MEDS: MARINOL PO SCH ×2 (09:14→21:51)
--- NOTE | 2019-04-23 15:53 | INFECTIOUS DISEASE PROGRESS NO ---
DATE: 04/23/2019 PRESENT ILLNESS: The patient has a Providencia left groin infection and oxacillin sensitive Staph aureus hand infection. MEDICATIONS: This is the 14th day of treatment with Rocephin. PHYSICAL EXAMINATION: Vital Signs: Temperature is 98.1 degrees, pulse 83, respirations 17, blood pressure 124/60. General: This is an ill-appearing elderly male. Today he is awake and talks in a coherent fashion. Head/eyes/ears/nose/throat: He can hear my spoken words and see near objects. I did not see any white coating on his tongue. The eschar that the patient had on his face from when he had shingles has cleared. Lungs: Clear to auscultation. Cardiovascular: Regular heart rate. Abdomen: Soft and nontender. The patient's left groin wound is less erythematous. It still is tender. It did not have any odor and I did not see any purulence. Extremities: The patient has a PICC in his right arm. That site is not swollen or tender. Neurologic: As I mentioned earlier, the patient is more alert today. He is working with physical therapy now and he is able to sit up on the side of the bed. LAB AND X-RAY: There is no new radiographic study. The patient's lab work shows a CBC with a white count of 6040, hemoglobin 8.3, and platelet count 340,000. Creatinine is 0.5. GFR is greater than 60. ASSESSMENT AND PLAN: The patient has a groin and hand infection. Both are getting better. This is the 14th day of IV antibiotics. My plan now is to stop Rocephin and put the patient on Ceftin for a total of 5 more days and then stop it. COMORBIDITY: Patient is elderly and unfortunately he has metastatic penile cancer. He also is a diabetic and he has had a GI bleed in the past associated with sepsis. I am signing off the patient's case. As I mentioned above, I have ordered Ceftin to be given p.o. for 5 more days. cc: MD GEENA Garnett
[2019-04-23] MEDS ORDERED: COUMADIN PO SCH (21:00)
[2019-04-23] MEDS: LOVENOX SUBQ SCH (21:50)
[2019-04-23] MEDS: CEFTIN PO SCH (21:50)
--- NOTE | 2019-04-24 04:02 | DISCHARGE SUMMARY ---
ADMISSION DATE: 04/04/2019 DISCHARGE DATE: 04/24/2019 ADMITTING DIAGNOSIS: 1. Septic shock. 2. Infected left inguinal wound. 3. 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 4. Metabolic acidosis/diabetic ketoacidosis. 5. Elevated troponins due to demand ischemia. 6. Atrial fibrillation with rapid ventricular response. 7. Supratherapeutic INR. 8. Status post mechanical valve placement. DISCHARGE DIAGNOSIS: 1. Septic shock, resolved. 2. Hypovolemic shock, resolved. 3. Subtherapeutic INR, resolved. 4. Status post mechanical valve replacement. 5. Diabetes. 6. Fluid overload, improved. 7. Paroxysmal atrial fibrillation. 8. Alzheimer dementia. 9. Left inguinal wound infection. 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 CONSULT: Dr. Justyn George, Dr. Miguel Michel, Dr. Lamont Guadalupe, Dr. Uday Quintero, Dr. Joie Clark. HOSPITAL COURSE: Mr. Gustafson was admitted on 04/04/2019. He presented that day to the emergency department with generalized weakness, elevated blood glucose and revealed to be in septic shock and DKA. He was placed in the ICU unit. He also was noted to have infected left inguinal open wound. Dr. Michel was consulted. He was noted to have elevated troponins and atrial fibrillation with RVR and subtherapeutic INR. He was given FFP and vitamin K. He was seen by Dr. Joie Clark. He was seen by Dr. Sampson for his wound to his groin. Dr. Uday Quintero was consulted for cardiology. He noted his cardiac enzymes to be elevated likely due to infection, DKA and supply/demand mismatch. The patient was on amiodarone drip. He placed him on Lopressor. The patient was also noted to have an infection to the hand. Dr. Michel was treating with IV antibiotics for both wounds. The patient developed a large volume bleed resulting in hypotension. His anticoagulations were stopped. Dr. Guadalupe was consulted. He performed an EGD. The EGD showed a single ulcer ranging between 5 and 9 mm in size found in the 2nd part of the duodenum. He placed a hemoclip on the bleeding site. There were also multiple ulcers ranging between 3 and 5 mm in size were found in the duodenal bulb and 2nd part of the duodenum. GI recommended the patient be off blood thinners for at least 24 hours. The patient was started back on heparin drip 24 hours after his procedure. The patient received a total of 6 units of blood and 1 unit of FFP. His coagulopathy reversed and is stable at this time. He has now been placed on Lovenox and warfarin. He will continue on these 2 medications until his INR is therapeutic and then will continue on warfarin. We are going to continue with his antibiotics per Infectious Disease recommendations. Dr. George was consulted because patient was having some leakage around his Olmstead catheter. Dr. George recommended that we could take the Olmstead out whenever needed and we could start him on some Ditropan for his bladder spasms. Dr. George was concerned about the left inguinal area and a necrotic mass from his penile cancer but patient is being seen by Dr. Michel and Dr. Sampson for this necrotic mass. The patient will be discharged to [facility]. DISCHARGE MEDICATIONS: 1. Alprazolam 0.5 mg tablet 1 tablet p.o. b.i.d. 2. Coumadin 4 mg p.o. every other day. 3. Dakin solution topical b.i.d. 4. Ditropan 5 mg p.o. t.i.d. 5. Lantus 5 units subcutaneous daily. 6. Lopressor 50 mg p.o. q.12 hours. 7. Lovenox 80 mg subcutaneous q.12 hours. 8. Marinol 2.5 mg p.o. b.i.d. 9. Silver sulfadiazine cream 1 mg topical b.i.d. 10. Tylenol 650 mg p.o. q.6 hours p.r.n. DISCHARGE LABORATORY DATA: White blood cell count 6.04, red blood cell count 2.78, hemoglobin 8.3, hematocrit 25.9, platelet count 340,000. PT is 18.0, INR is 1.46, PTT is 73.6. Sodium is 136, potassium is 3.7, chloride is 100, anion gap is 7, carbon dioxide is 29, BUN 7, creatinine is 0.5, GFR is greater than 60, glucose 82, calcium 8. DISCHARGE DIET: Resume diet per rehab facility. DISCHARGE ACTIVITY: Resume activity per rehab facility. DISCHARGE DISPOSITION: We are discharging this patient to [facility]. The patient is to follow up with Dr. Lobato and he will have [facility]. Dictated by PRIMITIVO Norman for Nilesh Poole MD cc: MD Miguel Tobias MD Peter Johnson, MD Khurshid Yousuf, MD MTDD
[2019-04-24] MEDS: HUMALOG SUBQ SCH (06:08)
[2019-04-24 07:36] VITALS: BP 117/57
[2019-04-24 08:21] LABS: INR 1.42; PROTIME 17.7 Seconds (11.0-16.0)
[2019-04-24] MEDS: LOPRESSOR PO SCH (08:24)
[2019-04-24] MEDS: MARINOL PO SCH (08:24)
[2019-04-24] MEDS: CEFTIN PO SCH (08:24)
[2019-04-24] MEDS: DITROPAN PO SCH (08:25)
[2019-04-24] MEDS: LOVENOX SUBQ SCH (08:25)
[2019-04-24] MEDS: LANTUS INSULIN SUBQ SCH (08:26)
[2019-04-24] MEDS: DAKIN S 0.125% TOP SCH (08:26)
[2019-04-24] MEDS: SSD CREAM TOP SCH (08:26)
[2019-04-24 08:43] LABS: BASO# 0.04 X1000 (0.0-0.2); BASO% 0.7 % (0.0-0.8); EOS# 0.11 X1000 (0.0-0.7); EOS% 1.9 % (0.0-10.0); HEMATOCRIT 25.4 % (42.0-52.0); HEMOGLOBIN 8.2 g/dL (14.0-18.0); LYMPH% 11.8 % (20.5-51.1); MCH 31.1 PG (27-31); MCHC 32.3 g/dL (33-37); MCV 96.2 FL (81-99); MONO# 0.94 X1000 (0.11-0.59); MONO% 15.8 % (1.7-9.3); MPV 10.1 FL (7.4-10.4); NEUT# 4.15 X1000 (1.4-6.5); NEUT% 69.8 % (42.2-75.2); PLT 324 X1000 (130-400); RBC 2.64 XMIL (4.7-6.1); RDW 18.9 % (11.5-14.5); WBC 5.94 X1000 (4.8-10.8)
[2019-04-24 10:29] LABS: BASO 1 % (0-1); EOS 2 % (1-10); LYMPHS 13 % (21-51); MONO 9 % (1-9); SEGS 73 % (42-75)
[2019-04-24 10:31] LABS: ANISOCYTOSIS 1+; MICROCYTOSIS 1+; POLYCHROM 1+
--- NOTE | 2019-04-24 11:54 | PROGRESS NOTE ---
DATE: 04/24/2019 SUBJECTIVE: No big changes compared with yesterday. He is alert. He is moving. He will be transferred today to a rehab center. Yesterday, we started this patient on Lovenox which should be stopped once the INR level is therapeutic between 2 and 3. This recommendation has been given to the rehab center. Hemoglobin and hematocrit stable for the past 5 days. INR is still subtherapeutic. I explained the whole situation and the plan to a family member at the bedside yesterday and today as well, and they seemed to understand. OBJECTIVE: Vital Signs: Temperature 98 degrees, pulse 102, respiratory rate 16, blood pressure 117/57, oxygen saturation 95% on room air. HEENT: Head normocephalic, no trauma, PERRLA. Neck: Supple, no JVD. No masses. Central trachea. He has some scars in the forehead due to shingles. Chest: Some crepitus at the bases. Abdomen: Soft, nontender, nondistended. No hepatosplenomegaly. Extremities: No edema, no clubbing, no cyanosis. He has a right hand that is a little bit edematous with an ulcer which has a clean base and looks much better in the dorsal area. Also, he has a new dressing over his left inguinal area from a local infection. He has a Olmstead catheter. Neurological: The patient is alert. He is oriented x1. He is following commands. He is able to recognize family members at the bedside. He moves all 4 extremities spontaneously. LABORATORY: WBC 5.9, hemoglobin 8.2, hematocrit 25.4, platelets 324,000. PT 17.7, INR 1.2. ASSESSMENT AND PLAN: 1. Septic shock on presentation, resolved. 2. Hypovolemic shock due to massive gastrointestinal bleed during the hospital course, improving after 6 units of PRBCs and 1 FFP. 3. Supratherapeutic INR, resolved. 4. Massive gastrointestinal bleed, status post EGD that showed a single bleeding duodenal ulcer that was treated. 5. Status post mechanical valve replacement, aware. 6. Hypoglycemia, resolved. 7. Diabetes, stable. 8. Elevated troponins on presentation, likely due to demand ischemia. 9. Fluid overload, better. 10. Paroxysmal atrial fibrillation. Continue with oral medications. He seems to be controlled. 11. History of Alzheimer's dementia, aware. 12. Providencia rettgeri left inguinal wound infection and also methicillin-sensitive Staphylococcus aureus cellulitis to the right hand. Continue with p.o. medications per Infectious Disease Department. 13. Neutropenia on presentation due to chemotherapy, better. 14. Shingles on the forehead and buttocks. Continue with same management. He seems to be better. 15. History of metastatic penile carcinoma, noted. Followed by Dr. Galvan, and also Urology Department has placed recently a new catheter. He will need to follow up with them in a month. 16. Mild hyponatremia, stable. 17. Hypokalemia, resolved. 18. This patient is do not resuscitate level 2. No intubation, no PEG tube. No mechanical ventilation. We are only allowed to do medications with this patient. This patient will be transferred today to a rehab center. For more details, please read the discharge summary done on 04/23/2019. cc: Nilseh Poole MD
== END 2019-04-24 10:16 | DRG 871 ==
LOC: ED 11:41 → ICU 16:25 → SUATTDRO 16:25 → 2N 04-11 15:47 → ICU 04-12 04:31 → 2N 04-16 19:31 → 3N 04-17 17:04
PROVIDERS: ATTEND Internal Medicine

== ENCOUNTER 2019-04-30 18:42 | Inpatient (IN) ==
[2019-04-30] MEDS ORDERED: NS 1,000 ML IV ONE (19:35)
[2019-04-30 19:58] LABS: HEMATOCRIT 22.1 % (42.0-52.0); MCH 31.4 PG (27-31); MCHC 31.7 g/dL (33-37); MCV 99.1 FL (81-99); MPV 10.2 FL (7.4-10.4); PLT 262 X1000 (130-400); RBC 2.23 XMIL (4.7-6.1); RDW 22.1 % (11.5-14.5); WBC 14.73 X1000 (4.8-10.8)
--- NOTE | 2019-04-30 20:06 | Diag Imaging Result Doc PS360 ---
EXAM: CHEST-PORTABLE - 04/30/2019 HISTORY: anemia TECHNIQUE: Portable chest COMPARISON: 04/13/2019 FINDINGS: Heart size appears mildly enlarged. There are sternal wires from previous surgery and transvenous cardiac pacemaker again seen. There is apparent hazy pulmonary edema. There is apparent small left pleural effusion. There is possibly some loculated pleural fluid at the right minor fissure. There is no pneumothorax seen. IMPRESSION: Apparent pulmonary edema. Electronically signed by Colt Cruz 04/30/2019 8:03 PM
--- NOTE | 2019-04-30 20:19 | EKG Report ---
Test Performed on : 04/30/2019 7:20:00 PM Test Reason : anemia Blood Pressure : / mmHG Vent. Rate : 089 BPM Atrial Rate : 093 BPM P-R Int : 000 ms QRS Dur : 112 ms QT Int : 404 ms P-R-T Axes : 000 -21 225 degrees QTc Int : 491 ms Atrial fibrillation. with premature ventricular or aberrantly conducted complexes. Septal infarct , age undetermined ST & T wave abnormality, consider inferolateral ischemia Abnormal ECG When compared with ECG of 12-APR-2019 10:30, Atrial fibrillation. has replaced Atrial flutter. T wave inversion now evident in Inferior leads T wave inversion now evident in Lateral leads Unconfirmed Result
[2019-04-30 20:21] LABS: AGAP 8; ALB/GLOB RATIO 0.6; ALBUMIN 2.1 g/dL (3.5-5.0); ALKALINE PHOSPHATASE 106 U/L (32-122); BUN 12 mg/dL (8-22); CALCIUM 7.6 mg/dL (8.8-10.2); CHLORIDE 98 mmol/L (98-107); CK PROFILE 59 U/L (24-204); COSMO 268; CREATININE 0.7 mg/dL (0.7-1.2); ESTIMATED GFR > 60; GLUCOSE 160 mg/dL (70-104); GOT 20 U/L (10-34); GPT 16 U/L (10-44); POTASSIUM 4.8 mmol/L (3.5-5.1); SODIUM 132 mmol/L (136-145); TCO2 26 mmol/L (25-35); TOTAL BILIRUBIN 0.27 mg/dL (0.20-1.00); TOTAL PROTEIN 5.8 g/dL (6.3-8.3)
[2019-04-30 20:23] LABS: ANISOCYTOSIS 2+; LYMPHS 3 % (21-51); MICROCYTOSIS 2+; MONO 2 % (1-9); NRBC 1 % (0-0); SEGS 95 % (42-75)
--- NOTE | 2019-04-30 21:41 | PROVIDER DOCUMENTATION ---
This chart was entered by Donna Avila Scribe, acting as scribe for Ambrose Cm DO. HPI-General Adult - General Chief Complaint: Abnormal Lab[s] Stated Complaint: Blood Transfusion Time Seen by Provider: 04/30/19 19:03 Source: family Allergies/Adverse Reactions: Patient Allergies Allergy/AdvReac Type Severity Reaction Status Date / Time No Known Allergies Allergy Verified 04/30/19 21:29 Home Medications: Home Medication List Medication Instructions Recorded Confirmed Last Taken Type Acetaminophen [Tylenol] 650 mg PO Q6H PRN PRN tab 04/23/19 04/30/19 04/23/19 Rx Alprazolam 1 tab PO BID PRN #60 tab 04/23/19 04/30/19 04/30/19 Rx Dronabinol [Marinol] 2.5 mg PO BID #60 cap 04/23/19 04/30/19 04/30/19 Rx Enoxaparin [Lovenox] 80 mg SUBQ Q12H #20 syringe 04/23/19 04/30/19 04/30/19 Rx Insulin Glargine [Lantus Insulin] 5 unit SUBQ DAILY #1 unit 04/23/19 04/30/19 04/30/19 Rx Metoprolol [Lopressor] 50 mg PO Q12H #60 tab 04/23/19 04/30/19 04/30/19 Rx Oxybutynin [Ditropan] 5 mg PO TID #90 tab 04/23/19 04/30/19 04/30/19 Rx Silver Sulfadiazine Cream [Ssd 1 mg TOP BID #1 jar 04/23/19 04/30/19 04/30/19 Rx Cream] Sodium Hypochlorite 0.125% 1 applic TOP BID #1 bottle 04/23/19 04/30/19 04/30/19 Rx [Dakin's 0.125% Soln] Warfarin Sodium [Coumadin] 4 mg PO EVERY OTHER DAY #30 tab 04/23/19 04/30/19 04/30/19 Rx - History of Present Illness -Gen Adult Nature of Presenting Problems: pt is a 78 yowm presenting w/ at bedside c/o abn labs. pt is in rehab at [facility] currently and had HGB of 6.2. rpts pt has had black, tarry stools according to [facility]. pt became septic due to gi bleed and was in icu 3 wks, d/c on 04-04. pt has had penilectomy. pt has hx of penile cancer, dm, dementia, pacemaker, and valve replacement. pt is pale at bedside. Location of Pain/Injury: reports: none Pain Radiation: reports: no radiation Quality of Pain: reports: none Onset/Duration: reports: unsure Timing: reports: still present Context/Activities at Onset: reports: none Modifying Factors: improves with: nothing Associated Symptoms: reports: other (abd labs low hgb, black tarry stools) Recently seen or treated by another doctor?: Yes (surgery few wks ago Dr. Mayfield ) Review of Systems - Adult - REVIEW OF SYSTEMS - ADULT ROS:: ROS per family Constitutional: reports: no symptoms reported. denies: fever, fatique, night sweats Eyes: reports: no symptoms reported Ears, Nose, Mouth & Throat: reports: no symptoms reported Cardiovascular: reports: no symptoms reported Respiratory: reports: no symptoms reported Gastrointestinal: reports: see HPI, rectal bleeding (black tarry stools). denies: abdominal pain, diarrhea, nausea, vomiting Genitourinary: reports: no symptoms reported Musculoskeletal: reports: no symptoms reported Integumentary: reports: no symptoms reported Neurological: reports: no symptoms reported Psychiatric: reports: no symptoms reported Endocrine: reports: no symptoms reported Hematologic/Lymphatic: reports: see HPI, low blood count, transfusions (when in hospital for GI bleed). denies: blood clots, easy bruising, swollen lymph nodes Allergic/Immunologic: reports: no symptoms reported All Other Systems: Reviewed and Negative Past History - Adult - PAST MEDICAL HISTORY-ADULT Review of Records: reports: Old Records Reviewed, Nursing Assessment Review, Medications Reviewed, Social history reviewed & non-contributory. Major Childhood Illnesses: reports: denies history Cardiovascular: reports: A-Fib, HTN, heart valve problem (has artifical mitral valve), hyperlipidemia, pacemaker Respiratory: reports: denies history Gastrointestinal: reports: denies history Obstetrical/Gynecological: reports: denies history Genitourinary: reports: cancer (penile), chronic UTI's, other (BPH, penile mass) Musculoskeletal: reports: denies history Neurological: reports: dementia Endocrine/Immune: reports: Diabetes Diabetes Type: Type 1 Other Conditions: reports: denies history - PRIOR SURGERIES/PROCEDURES Surgical/Procedure History: reports: recent surgery, appendectomy, CABG, hernia repair, other (penilectomy) - IMMUNIZATION STATUS Childhood Immunizations: See Nurse Assessment Flu Vaccine: See Nurse Assessment - FAMILY HISTORY Family History: reviewed, not pertinent - SOCIAL HISTORY Smoking: other (former) Substance Use: none/never Physical Exam-General - PHYSICAL EXAM-ADULT Initial Vital Signs Reviewed: Yes - CONSTITUTIONAL General Appearance: alert, no apparent distress, cachetic. negative: lethargic, slow to respond, combative - EYES Eyes: PERRL/EOMI, pink conjunctivae - HEAD, EARS, NOSE, MOUTH & THROAT HENMT: normocephalic/atraumatic, moist mucous membranes, normal ENT inspection - NECK Neck: non-tender, full range of motion, supple, normal inspection - RESPIRATORY Respiratory: chest non-tender, lungs clear, normal breath sounds - CARDIOVASCULAR Cardiovascular: normal peripheral pulses, no edema, no gallop, no JVD, no murmur , other (click from mitral vlave). negative: regular rate, rhythm, JVD, bradycardia, tachycardia - GASTROINTESTINAL (ABDOMEN) Abdominal Exam: normal bowel sounds, non tender, soft, no organomegaly, no p ulsatile mass. negative: distended, rebound, tenderness - GENITOURINARY Male Genitalia: other (penilectomy wound w/out draining and packing in place.). negative: normal genitalia, normal prostate, inguinal lymphadenopathy, urethral discharge, inguinal tenderness Rectal Exam: decreased tone, other (brown stool in rectum, had cream on rectum). negative: normal exam, normal rectal tone, hemorrhoids, mass, tenderness Hemoccult Exam: heme positive stool - LYMPHATIC Lymphatic: no adenopathy - MUSCULOSKELETAL Back Exam: normal inspection, no CVA tenderness, no vertebral tenderness Extremity: normal range of motion, non-tender, normal inspection Peripheral Pulses: radial (R): 2+, radial (L): 2+ - SKIN Integumentary: normal turgor, warm/dry, abrasion(s) (left eyebrow), pallor. negative: normal color, swelling, tenderness, warm - NEUROLOGIC Neurologic: other (unable to test Clinical Documentation Consultant due to pt condition). negative: grossly normal, no motor/sensory deficits, EOM palsy, facial droop - PSYCHIATRIC Psych/Mental Status: disoriented x 3, other (pt baseline is confused). negative : anxious, disheveled, depressed affect Progress - PLAN OF CARE/RESULTS Progress/Plan/Lab Results: Vital Signs - 8 hr 04/30/19 18:58 Temperature 97.7 F Pulse Rate 85 Respiratory Rate 19 Blood Pressure 94/50 O2 Sat by Pulse Oximetry 97 Result Diagrams: 04/30/19 19:37 04/30/19 19:37 - EKG 1 Time of EKG reading by physician:: 19:20 EKG Read and Signed by:: Ambrose Cm EKG Interpretation (*Must complete 3 of following elements*): Abnormal Rate: 89 Rhythm: Afib w/ premature ventricular or aberrantly conducted complexes ST Wave: non-specific ST changes (st & t wave abnormality, consider inferolate ral ischemia) Comments: septal infarct age undetermined 2 Time of EKG reading by physician:: 20:25 EKG Read and Signed by:: Ambrose Cm EKG Interpretation (*Must complete 3 of following elements*): Abnormal Rate: 92 Rhythm: Afib w/ premature ventricular or aberrantly conducted complexes [place]: normal QRS: RBB (incomplete), other (prolonged qt) ST Wave: non-specific ST changes (st&t wave abnormality, consider inferolateral ischemia) Prior EKG Comparison: changes noted - CONSULTS/PCP/HOSPITALIST Notification #1 *Consult/PCP/Hospitalist*: Dr. Joseph/ hospitalist Time Discussed: 20:10 Consult Disposition: Admit Departure - Departure Date of Disposition Decision: 04/30/19 Time of Disposition Decision: 21:40 DIAGNOSIS: GI bleed Disposition: [facility] 02 Certified Medical Emergency: Emergent Condition: Serious Referrals and Follow-Ups: Bruno Lobato MD [Primary Care Provider] - - Critical Care Note This patient required my direct & personal management of CC.: No Attestation - Physician/ JESSICA Attestation Patient care was provided by Advanced Practice Provider:: No The physician spent face to face time with patient:: Yes Advanced Practice Provider documentation review:: Supervising physician onsite and consulted in the evaluation and care of this patient. The physician did have a face to face encounter with the patient. This chart was documented by the indicated scribe, (Avila,Donna E., Scribe) and accurately reflects the services I performed and decisions made by , Ambrose Cm DO, as attested by the provider's signature.
--- NOTE | 2019-04-30 22:30 | HISTORY AND PHYSICAL ---
PRIMARY CARE PHYSICIAN: Dr. Lobato. CHIEF COMPLAINT: Tarry stools. HISTORY OF PRESENTING ILLNESS: This is a 78-year-old male with a history of penile cancer status post radiation and chemotherapy treatment, diabetes mellitus type 2, who had presented to the emergency department with several days history of having black, tarry stools. As per family, he was feeling more weak. The patient is a poor historian and most of the history is obtained from family members. As per family, patient also had an EGD done [address] Guadalupe. PAST MEDICAL HISTORY: Includes penile cancer, diabetes mellitus type 2. PAST SURGICAL HISTORY: Mitral valve replacement, pacemaker, appendectomy. ALLERGIES: No known drug allergies. CURRENT MEDICATIONS: Include acetaminophen 650 mg p.o. q.6 hours, alprazolam 0.5 mg p.o. b.i.d., Marinol 2.5 mg p.o. b.i.d., enoxaparin 80 mg p.o. q.12 hours, Lantus 5 units daily, metoprolol 50 mg p.o. q.12 hours, oxybutynin 5 mg p.o. t.i.d., warfarin 4 mg every other day. SOCIAL HISTORY: He is a former smoker. No history of alcohol or illicit drug use. FAMILY HISTORY: No history of coronary artery disease. REVIEW OF SYSTEMS: Fourteen point review of system as listed in HPI. However, it was limited. PHYSICAL EXAMINATION: GENERAL: The patient is resting comfortably. He is without any respiratory distress. VITAL SIGNS: Temperature 97.7 degrees, pulse 85, respiration 19, blood pressure 94/50. HEENT: Atraumatic, normocephalic. Extraocular movements intact. He has pale conjunctiva. NECK: No masses. CHEST: Clear to auscultation. CARDIOVASCULAR: Regular rate and rhythm. ABDOMEN: Soft. Positive bowel sounds. EXTREMITIES: No edema. NEUROLOGIC: He is awake and alert. GENITOURINARY: No bladder distention. SKIN: Warm. LABORATORIES AND STUDIES: Sodium 132, potassium 4.8, chloride 98, CO2 is 26, BUN is 12, creatinine 0.7, glucose is 160. Troponin is 0.411. WBC 14.73, hemoglobin 7.1, hematocrit 22.1, platelets 262,000. ASSESSMENT: This is a 78-year-old male with a history of penile cancer status post radiation and chemotherapy, diabetes mellitus type 2, who presented to emergency department with several days history of having black, tarry stools. He was evaluated in the emergency department. Due to his presenting symptoms and suspicion of bleed, he will require admission for further management. 1. Suspected gastrointestinal bleed. 2. Penile cancer status post chemotherapy and radiation. 3. Status post mitral valve replacement, is on anticoagulation. 4. Diabetes mellitus type 2. 5. Also elevated troponin. PLAN: 1. We will admit patient to PVC. 2. We will keep patient NPO. 3. We will type and cross and transfuse 2 units of packed red blood cells. 4. We will consult Gastroenterology. 5. We will also consult his oncologist. 6. We will trend troponins and consult Cardiology. 7. We will monitor blood glucose and continue patient on sliding scale insulin regimen. 8. The patient is already on anticoagulation and that will suffice for DVT prophylaxis. 9. We will continue to follow, reassess and make further recommendation based on patient's clinical course. cc: Kaushal Joseph MD
[2019-04-30] MEDS ORDERED: ZOFRAN IV PRN (23:20)
[2019-05-01] MEDS: HUMALOG SUBQ SCH ×4 (06:35→21:02)
[2019-05-01 06:46] LABS: HEMATOCRIT 28.7 % (42.0-52.0); HEMOGLOBIN 9.3 g/dL (14.0-18.0); MCH 31.6 PG (27-31); MCHC 32.4 g/dL (33-37); MCV 97.6 FL (81-99); MPV 10.3 FL (7.4-10.4); RBC 2.94 XMIL (4.7-6.1); RDW 20.5 % (11.5-14.5); WBC 9.72 X1000 (4.8-10.8)
[2019-05-01 07:17] LABS: AGAP 13; BUN 12 mg/dL (8-22); CALCIUM 7.2 mg/dL (8.8-10.2); CHLORIDE 96 mmol/L (98-107); COSMO 275; CREATININE 0.9 mg/dL (0.7-1.2); ESTIMATED GFR > 60; GLUCOSE 359 mg/dL (70-104); POTASSIUM 4.8 mmol/L (3.5-5.1); SODIUM 130 mmol/L (136-145); TCO2 21 mmol/L (25-35)
[2019-05-01 08:09] LABS: INR 1.46
[2019-05-01] MEDS: LOPRESSOR PO SCH ×2 (09:39→20:58)
[2019-05-01] MEDS: MARINOL PO SCH ×2 (09:39→20:58)
[2019-05-01] MEDS: DITROPAN PO SCH ×3 (09:39→17:47)
[2019-05-01] MEDS: LANTUS INSULIN SUBQ SCH (09:39)
[2019-05-01] MEDS ORDERED: LASIX PO ONE (10:24)
--- NOTE | 2019-05-01 11:43 | PROGRESS NOTE ---
DATE: 05/01/2019 INTERVAL HISTORY: No acute events overnight. SUBJECTIVE: Mr. Gustafson was admitted for melena and acute blood loss anemia. He received 2 units of blood transfusion overnight. The patient's family is at bedside. Patient has dementia. Does not engage in encounter meaningfully. Most of the historical data was gathered from patient's at bedside. The patient does not appear to be in any acute distress. Apparently, since his discharge in early April to rehab, he has been having black tarry stools. He has been receiving enoxaparin on a twice a day basis and recently was started on warfarin every other day. However, whether he received his enoxaparin yesterday or not is not clear at the moment. VITAL SIGNS: Currently temperature 97.9 degrees, pulse 82, respiratory rate 20, blood pressure 90/60, saturating 99% on room air. PHYSICAL EXAMINATION: General: Does not appear in any acute distress. HEENT: Oral cavity is dry. Lungs: Air entry bilaterally equal. No wheeze or rhonchi. Mild crackles bilateral infraaxillary region. Cardiovascular: Irregularly irregular heart rhythm. Mechanical S1, normal S2. No rub or gallop. Abdomen: Obese, soft, nontender. Extremities: No lower extremity edema. Rectal: I could not see any bleeding external hemorrhoids on rectal examination. Genitourinary: He does have a urine catheter. He has foul smelling discharge from the wound in the left groin region. LABORATORY DATA: His leukocytosis is better. His hemoglobin gloria appropriately after blood transfusion. His INR is 1.4. He is hyperglycemic and has elevated troponins. EKG had atrial fibrillation, there are no new changes. Chest x-ray had acute pulmonary edema. ASSESSMENT AND PLAN: 1. Suspected ongoing upper gastrointestinal bleeding. I will start patient on intravenous pantoprazole b.i.d. He had reflux esophagitis, gastric antral ulcer and multiple duodenal ulcers in endoscopy in early April 2019. He is status post 2 units of blood transfusion for acute blood loss anemia. I will continue to trend hemoglobin. Gastroenterology will be consulted. I will start him on anticoagulation in the afternoon time if Cardiology is in agreement. 2. Left groin foul-smelling wound. Previously, it was growing Providencia and he had history of Pseudomonas UTI. I will start him on intravenous cefepime. I will follow up with wound culture as well as blood cultures, and wound nurse will be consulted. Previously, Surgical Team had suggested he may not be an appropriate candidate for surgical intervention. 3. History of penile cancer status post chemoradiation, the last one being in March 2019. Conservative management plan as per Oncology Team. 4. History of chronic atrial fibrillation and mechanical mitral valve. Continue anticoagulation, metoprolol. Trend troponins. he doesn't have a known h/o CAD. 5. Others. Continue alprazolam for anxiety, dronabinol for appetite stimulant, insulin glargine and sliding scale insulin for insulin-dependent diabetes mellitus, oxybutynin for bladder spasm. DISPOSITION: I will continue to monitor patient inside the hospital. Will follow up with blood culture to rule out suspected sepsis as he was hypotensive on presentation. Plan of care discussed with the patient and his family at bedside. Their questions have been answered. cc: Charan Scott MD MTDD
[2019-05-01] MEDS: MAXIPIME 1 GM in NS 50 ML IV SCH ×2 (12:03→22:30)
[2019-05-01] MEDS: PROTONIX IV SCH ×2 (12:04→22:32)
[2019-05-01] MEDS ORDERED: HEPARIN IV ONE ×2 (12:25→15:19)
[2019-05-01] MEDS ORDERED: HEPARIN IV PRN (12:25)
[2019-05-01] MEDS ORDERED: HEPARIN 25,000 UNITS/D5W 25,000 UNIT/250 ML IV.SOLN IV SCH (12:30)
--- NOTE | 2019-05-01 13:01 | CARDIOLOGY CONSULTATION ---
DATE: 05/01/2019 HISTORY OF PRESENT ILLNESS: Mr. Gustafson is an 79-year-old gentleman who was recently admitted here on 04/04/2019, discharged on 04/24/2019. He was admitted with septic shock, infected left inguinal wound, diabetic ketoacidosis, has chronic anticoagulation therapy secondary to mechanical mitral valve replacement, history of atrial fibrillation. He was noted to have significant GI bleed and underwent upper GI endoscopy. This patient was discharged home. He was brought with complaints of black stools and blood in the rectum in the rehab facility. His hemoglobin was 6.9. He received blood transfusion. Today, his hemoglobin is 9.3, hematocrit is 28.7. The patient has dementia. He is DNR level 1. History was obtained from the chart as well as discussing with his . PAST MEDICAL HISTORY: 1. Mechanical mitral valve in [address] [employer], has been managed on Coumadin. 2. Chronic atrial fibrillation. 3. History of ASD repair with a pericardial patch. 4. Sick sinus syndrome, status post permanent pacemaker implantation in 2019. 5. Hypertension. 6. Hyperlipidemia. 7. Diabetes. 8. Dementia. 9. 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 10. Recurrent GI bleed. Last endoscopy revealed reflux esophagitis, ulcers in the gastric antrum, and ulcers were noted in the duodenum. Treated with hemoclip, and multiple ulcers were also noted in the second part of the duodenum. REVIEW OF SYSTEMS: Review of systems could not be obtained from the patient given his condition of significant dementia MEDICATIONS: Insulin as directed, metoprolol to 50 mg b.i.d. Lovenox 1 mg/kg twice daily, silver sulfadiazine, Marinol, Coumadin, sodium hypochlorite. PHYSICAL EXAMINATION: Vital signs: Blood pressure was 106/82. Patient afebrile. Cardiovascular: First and second heart sounds were heard. Mechanical valve sounds noted. Respiratory: Distant breath sounds. Abdomen: Soft. The patient had a wound which is dressed in his inguinal area. : He has a catheter. Central Nervous System: Could not be assessed. Extremities: Mild edema. LABORATORY EXAMINATION: Post transfusion hemoglobin 9.3, hematocrit 28, platelet count of 215, WBC 9.72. Chemistry showed sodium 130, potassium 4.8, BUN 12, creatinine 0.9. Chronically elevated troponin, today 0.411 and 0.382. Chest x-ray with haziness suggestive of heart failure. ASSESSMENT AND PLAN: 1. Mr. Wang Gustafson is an 79-year-old gentleman who is admitted again with GI bleed status post blood transfusion. Has a known mechanical mitral valve replacement, [employer] device in 1989, chronic atrial fibrillation. He has had infection in his groin area, treated with radiation for penile squamous cell carcinoma of his penis. From a cardiac standpoint, he has been on Lovenox and had been started on Coumadin at the rehab facility. His INR is 1.46. Given his gastrointestinal bleed, instead of Lovenox, should further GI workup be planned, we will give him IV heparin per standard protocol and see how he progresses as far as bleeding is concerned. He has had significant ulcers and bleeding and recently had a clip placed by Gastroenterology. 2. We will restart his Coumadin once he is stable from a GI standpoint. In the interim, continue with all his home medications. Thank you for the consult. cc: José Luis Pacheco MD
[2019-05-01 14:27] LABS: INR 1.42; PROTIME 17.6 Seconds (11.0-16.0); PTT 36.6 Seconds (22.3-41.8)
[2019-05-01] MEDS: CARAFATE LIQUID PO SCH ×3 (14:40→20:58)
[2019-05-01] MEDS ORDERED: LOVENOX SUBQ SCH (16:00)
--- NOTE | 2019-05-01 18:18 | CONSULTATION ---
DATE OF CONSULTATION: 05/01/2019 REASON FOR CONSULTATION: GI bleed. HISTORY OF PRESENT ILLNESS: 78-year-old gentleman with a recent GI bleed secondary to gastric, duodenal ulcers status post clip on the duodenal ulcer by Dr. Guadalupe 2 weeks ago has been on Coumadin, presents with dark stools and getting weak. On admission he was found to have a hematocrit of 22, since admission patient is being stable. PAST MEDICAL HISTORY: Penile cancer status post radiation, history of groin wound, diabetes type 2. PAST SURGICAL: Mitral valve replacement, pacemaker and appendectomy. ALLERGIES: None. CURRENT MEDICATIONS: Include warfarin 4 mg every other day, Lantus 5 units and metoprolol. SOCIAL HISTORY: He used to smoke, does not drink or drugs. FAMILY HISTORY: Negative. REVIEW OF SYSTEMS: Negative other than feeling weak and dizzy. PHYSICAL EXAMINATION: Vital Signs: Stable with temperature of 97.7 degrees, pulse 85, blood pressure 100/60, respiration 19. HEENT: Conjunctival pallor. Neck: Supple. Trachea midline. Heart: Patient has a click. Abdomen: Soft. Groin has an ulcer from radiation. LABS: Electrolytes and creatinine are normal. Glucose is 160, hematocrit 22. IMPRESSION: 1. Gastrointestinal bleed slow and possibly oozing from these ulcers Dr. Guadalupe has described. I do not see the patient is on any proton pump inhibitors. We have started that already here. 2. Penile cancer status post chemo and radiation. 3. Mitral valve on anticoagulation. 4. Diabetes type 2. RECOMMENDATION: Continue the current management. Unfortunately patient needs to be on anticoagulation so I will ask Dr. Guadalupe whether it would be worthwhile take a 2nd look with endoscopy Friday. cc: Marcin Crook MD
[2019-05-01] MEDS: XANAX PO PRN (20:58)
[2019-05-02] MEDS: CARAFATE LIQUID PO SCH ×4 (01:32→20:52)
[2019-05-02 06:06] LABS: BASO# 0.01 X1000 (0.0-0.2); BASO% 0.1 % (0.0-0.8); HEMATOCRIT 28.2 % (42.0-52.0); HEMOGLOBIN 9.3 g/dL (14.0-18.0); LYMPH# 0.76 X1000 (1.2-3.4); MCH 31.5 PG (27-31); MCV 95.6 FL (81-99); MONO# 1.09 X1000 (0.11-0.59); MONO% 8.7 % (1.7-9.3); MPV 10.1 FL (7.4-10.4); PLT 239 X1000 (130-400); RBC 2.95 XMIL (4.7-6.1); RDW 20.9 % (11.5-14.5); WBC 12.58 X1000 (4.8-10.8)
[2019-05-02] MEDS: HUMALOG SUBQ SCH ×4 (06:16→20:53)
[2019-05-02 06:26] LABS: INR 1.45; PROTIME 17.9 Seconds (11.0-16.0)
[2019-05-02] MEDS ORDERED: HEPARIN IV PRN (06:47)
[2019-05-02] MEDS ORDERED: HEPARIN 25,000 UNITS/D5W 25,000 UNIT/250 ML IV.SOLN IV SCH ×4 (07:00→19:20)
[2019-05-02 08:39] LABS: LYMPHS 2 % (21-51); MONO 2 % (1-9); SEGS 96 % (42-75)
[2019-05-02 08:40] LABS: ANISOCYTOSIS 1+; HYPOCHROM 1+
[2019-05-02] MEDS: MAXIPIME 1 GM in NS 50 ML IV SCH ×3 (09:04→22:12)
[2019-05-02] MEDS: DITROPAN PO SCH ×4 (09:04→16:53)
[2019-05-02] MEDS: MARINOL PO SCH ×2 (09:04→20:52)
[2019-05-02] MEDS: PROTONIX IV SCH ×3 (09:04→22:14)
[2019-05-02] MEDS: LOPRESSOR PO SCH ×2 (09:04→20:52)
--- NOTE | 2019-05-02 09:35 | PROGRESS NOTE ---
DATE: 05/02/2019 INTERVAL HISTORY: No acute events overnight. His blood count has remained stable. He has not have any overt GI bleed on heparin drip. In discharge summary, it was not listed that he was supposed to be taking pantoprazole. Currently no family member is available. The patient is alert but he is not oriented due to baseline dementia. VITALS: Temperature 98.2 degrees, pulse 90, respiratory rate 18, blood pressure 113/80. He is saturating 95% on room air. PHYSICAL EXAMINATION: General: Does not appear in any acute distress. HEENT: Oral cavity is dry. Lungs: Air entry bilaterally equal. No wheeze, rhonchi, or crackles. Irregularly irregular heart rhythm, which is intermittently paced. Mechanical S1. Normal S2. No rub, rub, or gallop. Abdomen: Obese, soft, nontender. No lower extremity edema. He has urine catheter draining clear urine. He also has a very deep wound in the left groin which undermines below the scrotum with some foul-smelling discharge which is dressed. LABS: Suggestive of mild leukocytosis. Stable hemoglobin, normal platelet count. His blood sugars are fluctuating. His troponin was 0.411, 0.382, the latest 1 was 0.480, so I added another troponin. He is status post 2 units of packed red blood cell transfusion. Electrocardiogram has atrial fibrillation with premature ventricular or aberrantly conducted complexes. ASSESSMENT AND PLAN: 1. Upper gastrointestinal bleed. Continue intravenous pantoprazole IV b.i.d. On the esophagogastroduodenoscopy in early April 2019 he had reflux esophagitis, gastric antral ulcer and multiple duodenal ulcers. He is status post 2 units of packed red blood cells with stable hemoglobin. Gastroenterology is currently planning conservative management unless his blood count drops. I will appreciate their recommendation tomorrow. I will also keep him on sucralfate. 2. Left groin foul-smelling wound previously growing [place] with history of Pseudomonas aeruginosa. Continue intravenous cefepime. Follow up final wound culture results. Previously surgical team had seen him in early April and had recommended conservative wound care management. Will appreciate wound care recommendations. 3. History of chronic atrial fibrillation, states sick sinus syndrome status post pacemaker and atrial septal defect, status post patch and history of mechanical mitral valve. I will continue him on metoprolol and anticoagulation with intravenous heparin for now. He does have elevated troponin and EKG on admission had inferolateral ST- T changes which was also present on EKG in early April. Cardiology team is on board. 4. History of penile cancer status post chemo radiation, last in March 2019. Conservative management at the moment as per oncology team. 5. Others continue alprazolam for anxiety; dronabinol for appetite stimulation; glargine with sliding scale insulin for insulin-dependent diabetes mellitus; oxybutynin for bladder spasm. DISPOSITION: I will continue to monitor patient inside the hospital. We will await further GI recommendations. Plan of care is discussed with the nursing team. I will keep the family updated. cc: Charan Scott MD
[2019-05-02] MEDS: LANTUS INSULIN SUBQ SCH (10:00)
[2019-05-02] MEDS: XANAX PO PRN (20:52)
[2019-05-03] MEDS: CARAFATE LIQUID PO SCH ×4 (01:00→21:57)
[2019-05-03] MEDS: HUMALOG SUBQ SCH ×4 (06:00→21:58)
[2019-05-03 06:45] LABS: INR 1.38; PROTIME 17.2 Seconds (11.0-16.0)
[2019-05-03 07:08] LABS: AGAP 8; BUN 8 mg/dL (8-22); CALCIUM 7.9 mg/dL (8.8-10.2); CHLORIDE 101 mmol/L (98-107); COSMO 268; CREATININE 0.7 mg/dL (0.7-1.2); ESTIMATED GFR > 60; GLUCOSE 90 mg/dL (70-104); POTASSIUM 3.8 mmol/L (3.5-5.1); SODIUM 135 mmol/L (136-145); TCO2 26 mmol/L (25-35)
[2019-05-03 07:09] LABS: BASO# 0.01 X1000 (0.0-0.2); BASO% 0.1 % (0.0-0.8); HEMATOCRIT 28.4 % (42.0-52.0); HEMOGLOBIN 9.2 g/dL (14.0-18.0); LYMPH# 0.61 X1000 (1.2-3.4); LYMPH% 7.3 % (20.5-51.1); MCH 31.1 PG (27-31); MCHC 32.4 g/dL (33-37); MCV 95.9 FL (81-99); MONO# 1.01 X1000 (0.11-0.59); MONO% 12.1 % (1.7-9.3); MPV 10.1 FL (7.4-10.4); PLT 267 X1000 (130-400); RBC 2.96 XMIL (4.7-6.1); RDW 20.8 % (11.5-14.5); WBC 8.33 X1000 (4.8-10.8)
[2019-05-03 07:41] LABS: EOS 6 % (1-10); LARGE PLATELETS 1+; LYMPHS 4 % (21-51); MONO 2 % (1-9); SEGS 88 % (42-75)
[2019-05-03] MEDS: DITROPAN PO SCH ×3 (08:27→16:51)
[2019-05-03] MEDS: MARINOL PO SCH ×2 (08:27→21:58)
[2019-05-03] MEDS: LOPRESSOR PO SCH ×2 (08:27→21:58)
[2019-05-03] MEDS: LANTUS INSULIN SUBQ SCH (08:28)
--- NOTE | 2019-05-03 09:30 | EKG Report ---
Test Performed on : 04/30/2019 8:25:06 PM Test Reason : CP Blood Pressure : / mmHG Vent. Rate : 092 BPM Atrial Rate : 085 BPM P-R Int : 000 ms QRS Dur : 110 ms QT Int : 406 ms P-R-T Axes : 000 004 215 degrees QTc Int : 502 ms Atrial fibrillation. with premature ventricular or aberrantly conducted complexes. Incomplete right bundle branch block ST & T wave abnormality, consider inferolateral ischemia Prolonged QT Abnormal ECG When compared with ECG of 30-APR-2019 19:20, (Unconfirmed) No significant change was found Unconfirmed Result
[2019-05-03] MEDS: MAXIPIME 1 GM in NS 50 ML IV SCH (10:58)
[2019-05-03] MEDS: PROTONIX IV SCH ×2 (10:59→22:18)
[2019-05-03] MEDS ORDERED: AMPICILLIN 1 GM/NS 1 GM/50 ML IVPB IV ONE (12:55)
[2019-05-03] MEDS ORDERED: ROCEPHIN 1 GM in NS 50 ML IV SCH (13:00)
[2019-05-03] MEDS: ZOSYN 3.375 GM in NS 50 ML IV SCH ×2 (14:51→21:57)
[2019-05-03] MEDS: XANAX PO PRN (14:55)
[2019-05-03] MEDS: TYLENOL PO PRN (14:55)
--- NOTE | 2019-05-03 17:10 | PROGRESS NOTE ---
DATE: 05/03/2019 INTERVAL HISTORY: No acute events overnight. The patient has not had any documented bowel movement. His hemoglobin has been stable. Gastroenterology is planning endoscopy either tomorrow or day after tomorrow. The patient's is at bedside. The patient denies to be in acute distress. VITAL SIGNS: Temperature 97.9 degrees, pulse 82, respiratory rate 19, blood pressure 120/65, saturating 97% on room air. PHYSICAL EXAMINATION: General: Not in any acute distress. HEENT: No pallor, cyanosis, clubbing, or icterus. Oral cavity is dry. Lungs: Air entry bilaterally equal. No wheeze, rhonchi, crackles. Cardiovascular: Irregularly irregular heart rhythm, which is intermittently paced on bedside monitor. Mechanical S1. Normal S2. No murmur, rub, or gallop. Abdomen: Obese, soft, nontender. Extremities: No lower extremity edema. : He has urine catheter draining clear urine. He has a very deep wound in the left groin, undermining undersurface of the perineum with foul smelling discharge. LABS: Suggestive of hemoglobin of 9.2 which is stable, platelets 267,000. INR is within therapeutic range most of the time. Normal electrolytes. Blood sugars are fluctuating but largely acceptable. MICROBIOLOGY: Wound culture is growing Citrobacter and Enterococcus faecalis. IMAGING: No new imaging. ASSESSMENT AND PLAN: 1. Upper gastrointestinal bleed. In early April 2019 EGD had reflux esophagitis, gastric antral ulcer, and multiple duodenal ulcers. He is status post 2 units of PRBCs for acute blood loss anemia and hemoglobin is stable. No more documented bowel movement. Gastroenterology team consulted for possible EGD tomorrow or day after tomorrow. I will appreciate formal recommendations. Continue intravenous PPI b.i.d. and oral sucralfate. It is unclear if he was taking proton pump inhibitors after discharge to correction in early April 2019. 2. Left groin foul-smelling wound which wound is growing Citrobacter and enterococcus which has been an ongoing issue. Previously, surgical team who had seen him in early April did not think he was an ideal surgical candidate considering his multiple comorbidities. For now, I will continue local wound management, intravenous antibiotics as per Infectious Disease team's recommendations. I am giving him intravenous ceftriaxone and intravenous ampicillin until ID team gives further recommendations. 3. History of chronic atrial fibrillation, sick sinus syndrome status post pacemaker, atrial septal defect status post patch repair, mechanical mitral valve. Continue metoprolol and anticoagulation with intravenous heparin until final GI recommendations come by. At which point, I will switch it to enoxaparin with warfarin bridge. He does have elevated troponin and inferolateral ST changes on EKG, which were unchanged from early April. Cardiology team is on board. 4. History of squamous cell cancer of penis. It was of invasive nature. He has been on combined carboplatin and Taxol treatment, as well as receiving local groin radiation. The last therapy was in late March 2019. Currently, Oncology team is planning conservative treatment. 5. Others. Continue alprazolam for anxiety, dronabinol for appetite stimulation, glargine with sliding scale insulin for insulin-dependent diabetes mellitus, oxybutynin for bladder spasm as well as urine catheter to avoid wound contamination. 6. Disposition. I will continue to monitor the patient in the PVC unit pending further GI recommendations. Plan of care was discussed with the patient's at bedside. He also appears to have cognitive impairment. cc: Charan Scott MD
--- NOTE | 2019-05-03 17:43 | INFECTIOUS DISEASE PROGRESS NO ---
DATE: 05/03/2019 PRESENT ILLNESS: The patient has an infected left groin infection where he has metastatic penile cancer present. A culture taken from the left groin area is growing Enterococcus and Citrobacter. MEDICATIONS: The patient is on Rocephin. PHYSICAL EXAMINATION: Vital Signs: Temperature is 98.2 degrees, pulse 96, respirations 18, blood pressure 118/71. Patient is 5 feet 8 inches tall, weighs 161 pounds. General: This is an ill- appearing, elderly male. He is in no acute distress. Head/eyes/ears/nose/throat: He can hear my spoken words and see near objects. He does not have any white coating on his tongue. The eschar that was on the left side of the patient's face has cleared. Neck: No pain with movement. Lungs: Clear to auscultation. Cardiovascular: Regular heart rate. Abdomen: In the left groin area there is a large wound. It is malodorous and smells somewhat like urine. There is a lot of devitalized tissue. I did not see any pus or necrotic tissue. It was from this area that I took a culture. Neurologic: The patient is awake. He can move his extremities. There is no tremor. Thorax: The patient has a pacemaker present on the left side. The site is not erythematous or tender. LAB AND X-RAY: The patient's CBC shows a white count of 8330, hemoglobin 9.2, and platelet count 267,000. Creatinine is 0.7 GFR is greater than 60. Liver function studies are normal. A culture from the patient's left groin wound is growing Citrobacter and Enterococcus. ASSESSMENT AND PLAN: The patient has an infected left groin wound. I have discontinued Rocephin and started the patient on Zosyn. Some of the side effects of the antibiotic, including rash and diarrhea, have been explained to the patient and his . They agree to treatment. COMORBIDITIES: The patient has metastatic penile cancer and diabetes mellitus. cc: Miguel Michel MD
[2019-05-03] MEDS: SSD CREAM TOP SCH ×2 (18:35→22:45)
[2019-05-03] MEDS: DAKIN S 0.125% TOP SCH ×2 (18:35→21:57)
[2019-05-03] MEDS: HEPARIN 25,000 UNITS/D5W 25,000 UNIT/250 ML IV.SOLN IV SCH (19:15)
--- NOTE | 2019-05-03 20:15 | GASTROENTEROLOGY PROGRESS NOTE ---
DATE: 05/03/2019 Patient is awake and alert in no acute distress. His was at the bedside. He had been residing at [facility] rehab since his discharge from his previous hospitalization. He had EGD on 04/13/2019 with findings of severe esophagitis, ulcer in antrum and bleeding ulcers at the second portion of the duodenum with hemo clips applied. Patient's reports he has had black stools or dark stools since being in rehab, he had drop in his hemoglobin and hematocrit and had to come into the hospital and receive 2 units of packed red blood cells. Patient currently denies abdominal pain. No evidence of dizziness or lightheadedness. Vital signs are stable. PHYSICAL EXAMINATION: Vital Signs: Temperature 97.9 degrees, pulse 82, respirations 18, blood pressure 120/65. General: The patient is awake and alert with some confusion noted. His is at the bedside. Abdomen: Nontender. Positive bowel sounds. Soft. LABORATORY: Hematology. WBC 8.33, hemoglobin 9.2, hematocrit 28.4, MCV 95.9, platelet 267,000. Chemistry, sodium 135, potassium 3.8, chloride 101, CO2 26, BUN 8, creatinine 0.7, glucose 90. ASSESSMENT AND PLAN: 1. Recent upper gastrointestinal bleed with bleeding ulcers in the second portion of the duodenum with hemo clips applied. Patient has had further drop in his hemoglobin and hematocrit requiring 2 units of packed red blood cells. Continue to monitor for active bleeding. Continue PPI. Do not see that patient was on a PPI from his discharge to [facility], was not on his home medication list. Also he has been added Carafate. 2. Chronic atrial fibrillation, history pacemaker placement, history of mechanical mitral valve replacement on anticoagulation. Patient's Coumadin has been held since Friday. He is currently on a heparin drip. 3. History of squamous cell cancer of the penis and abscess. Continue current recommendations. PLAN: Patient has had drop in his hemoglobin and hematocrit and had to receive 2 units of packed red blood cells. He has history of recent duodenal bleeding ulcer with hemoclips applied on 04/13/2019. Continue to monitor for further active bleeding. Transfuse further packed red blood cells as needed. We will plan for EGD on Friday or sooner if needed urgently. Will need to hold heparin prior to the procedure. The patient was also seen by Dr. Guadalupe. Dictated by PRIMITIVO [place] for Lamont Guadalupe MD cc: PRIMITIVO Giordano MD
[2019-05-03] MEDS: SODIUM CHLORIDE 0.9% INJ SCH (22:19)
[2019-05-04] MEDS: ZOSYN 3.375 GM in NS 50 ML IV SCH ×4 (01:57→20:23)
[2019-05-04] MEDS: CARAFATE LIQUID PO SCH ×4 (01:57→20:23)
[2019-05-04] MEDS: TYLENOL PO PRN (02:06)
[2019-05-04] MEDS: XANAX PO PRN (02:06)
[2019-05-04] MEDS ORDERED: D50W SYRINGE IV PRN (06:28)
[2019-05-04] MEDS: HUMALOG SUBQ SCH ×4 (06:36→20:40)
[2019-05-04 07:13] LABS: INR 1.24; PROTIME 15.8 Seconds (11.0-16.0)
[2019-05-04 07:19] LABS: BASO# 0.01 X1000 (0.0-0.2); BASO% 0.1 % (0.0-0.8); HEMOGLOBIN 9.4 g/dL (14.0-18.0); IMM GRAN# 0.02 X1000 (0.0-0.04); IMM GRAN% 0.3 % (0.0-0.5)
[2019-05-04 07:33] LABS: AGAP 9; BUN 8 mg/dL (8-22); CALCIUM 7.7 mg/dL (8.8-10.2); CHLORIDE 104 mmol/L (98-107); COSMO 272; CREATININE 0.7 mg/dL (0.7-1.2); ESTIMATED GFR > 60; GLUCOSE 56 mg/dL (70-104); POTASSIUM 3.7 mmol/L (3.5-5.1); SODIUM 138 mmol/L (136-145); TCO2 25 mmol/L (25-35)
[2019-05-04 08:06] LABS: EOS# 0.42 X1000 (0.0-0.7); EOS% 5.5 % (0.0-10.0); HEMATOCRIT 29.2 % (42.0-52.0); LYMPH# 0.99 X1000 (1.2-3.4); LYMPH% 12.9 % (20.5-51.1); MCH 31.9 PG (27-31); MCHC 32.2 g/dL (33-37); MONO# 0.95 X1000 (0.11-0.59); MONO% 12.4 % (1.7-9.3); MPV 10.3 FL (7.4-10.4); NEUT# 5.29 X1000 (1.4-6.5); NEUT% 68.8 % (42.2-75.2); PLT 251 X1000 (130-400); RBC 2.95 XMIL (4.7-6.1); WBC 7.68 X1000 (4.8-10.8)
[2019-05-04] MEDS: DITROPAN PO SCH ×3 (08:33→16:25)
[2019-05-04] MEDS: LOPRESSOR PO SCH ×2 (08:33→20:25)
[2019-05-04] MEDS: MARINOL PO SCH ×2 (08:33→20:25)
[2019-05-04] MEDS: DAKIN S 0.125% TOP SCH ×2 (08:34→20:24)
[2019-05-04] MEDS: SSD CREAM TOP SCH ×2 (08:34→20:24)
[2019-05-04] MEDS: LANTUS INSULIN SUBQ SCH (09:44)
--- NOTE | 2019-05-04 11:01 | HEMO/ONC CONSULTATION ---
DATE: 05/04/2019 ADMITTING PHYSICIAN: Dr. Kaushal Joseph. REQUESTING PHYSICIAN: Dr. Kaushal Joseph. We appreciate this consult. CHIEF COMPLAINT: Squamous cell carcinoma of the penis. HISTORY OF PRESENT ILLNESS: Mr. Gustafson is a 78-year-old, male, well known to Dr. Galvan with a history of squamous cell carcinoma of the penis with chronic left groin wound and infection. The patient has been receiving carboplatin and Taxol with concurrent radiation therapy. His last chemotherapy was on 03/29/2019. The patient has not received chemotherapy since that time secondary to prolonged hospitalization due to ongoing infection. The patient was discharged home after prolonged hospitalization secondary to groin infection with sepsis. The patient returned to [facility] with complaints of several days of black tarry stools and profound weakness. The patient was admitted for probable upper GI bleed. He does have a history of gastric and duodenal ulcers. He is on chronic anticoagulation secondary to mechanical mitral valve and chronic atrial fibrillation. We are asked to see the patient as he is well known to us with a history of squamous cell carcinoma of the penis. PAST MEDICAL HISTORY: 1. Diabetes mellitus type 2. 2. Penile cancer. 3. Recent gastrointestinal bleed. 4. Chronic atrial fibrillation. PAST SURGICAL HISTORY: 1. Mitral valve replacement. 2. Pacemaker placement. 3. Appendectomy. FAMILY HISTORY: Negative for any hematologic or oncologic disease. SOCIAL HISTORY: The patient does have a history of smoking. He is not currently smoking, and does not use alcohol or illicit drugs. MEDICATIONS ON ADMISSION: 1. Ativan. 2. Coumadin. 3. Doxycycline. 4. Famciclovir. 5. Furosemide. 6. Lomotil. 7. Marinol. 8. Metoprolol. 9. [place]. 10. NovoLog insulin. 11. Oxybutynin. 12. Potassium chloride ER. 13. Pravastatin. 14. TobraDex eye drops. 15. Zofran. ALLERGIES: The patient has no known drug allergies. REVIEW OF SYSTEMS: A 14 point review of systems was obtained, and is negative except for mentioned in HPI. PHYSICAL EXAMINATION: General: Mr. Gustafson is a pleasant 79-year-old, male lying supine in bed. He is confused but in no immediate distress. Vital Signs: Temperature 97.9 degrees, blood pressure 103/86, heart rate 95, respirations 22, and O2 saturation 95% on room air. HEENT: Normocephalic, atraumatic. Mucous membranes are pale and moist. Sclerae is anicteric. Extraocular movements intact. Neck: Supple. Lungs: Clear to auscultation bilaterally. Chest expansion is equal bilaterally. CV: S1, S2 is heard without murmur, rub or gallop. Abdomen: Nondistended. Extremities: No clubbing, cyanosis, or edema. Dermatologic: No rashes, bruises or lesions. Neurologic: The patient is awake. He is oriented to name only. He has no overt focal deficits. LABORATORY DATA: Hemoglobin 9.2, hematocrit 28.4, white blood cell count is 8.33, platelets are 267,000. Sodium 135, potassium 3.8, chloride 101, CO2 is 26, BUN 8, creatinine 0.7, and glucose is 90. Calcium is 7.9. Wound cultures are positive for gram-negative rods and gram-positive cocci. Blood culture shows no growth at 48 hours. ASSESSMENT AND PLAN: 1. Squamous cell carcinoma of the penis with chronic left groin wound and infection. He is currently on cefepime. The patient is receiving carboplatin and Taxol with concurrent radiation therapy. He has not received chemotherapy since 03/29/2019 secondary to recent prolonged hospitalization. We will continue to follow. 2. Melena likely due to ongoing upper GI bleed with gastric and duodenal ulcers. Gastroenterology is currently following. He is on Carafate and a proton pump inhibitor. He will undergo EGD in the very near future. 3. Acute blood loss anemia status post transfusion. Hemoglobin is currently stable at 9.2. Would continue to monitor CBC and transfuse packed red blood cells if hemoglobin drops below 8.0, or in the setting of active bleeding. 4. Mechanical mitral valve with chronic atrial fibrillation. The patient is currently on IV heparin. 5. We will follow along with you, and make further recommendations pending outcomes. The above reflects the history, exam and assessment and plan of Dr. Galvan. Dictated by PRIMITIVO Rodney for Alon Galvan MD cc: PRIMITIVO Rodney MD
[2019-05-04] MEDS: PROTONIX IV SCH ×2 (11:23→22:45)
--- NOTE | 2019-05-04 13:37 | GASTROENTEROLOGY PROGRESS NOTE ---
DATE: 05/04/2019 SUBJECTIVE: Patient is awake, no acute distress noted. Per nurse report, there have been no signs of active GI bleeding. His hemoglobin and hematocrit today are stable, 9.4, 29.2. OBJECTIVE: Vital Signs: Temperature 97.7 degrees, pulse 80, blood pressure 97/70. General: Patient is awake, alert, in no acute distress. LABORATORY: Hematology: WBC 7.68, hemoglobin 9.4, hematocrit 29.2, MCV 99.0, platelet 251,000. Chemistry: Sodium 138, potassium 3.7, chloride 104, CO2 25, BUN 8, creatinine 0.7, glucose 56. ASSESSMENT AND PLAN: 1. History of upper gastrointestinal bleeding with duodenal ulcers with hemo clips applied on 04/13/2019. 2. Anemia requiring transfusion of packed red blood cells. 3. History of atrial fibrillation, pacemaker placement, and mechanical mitral valve replacement on anticoagulation. Coumadin has been held since Friday. He is currently on a heparin drip. PLAN: Continue to monitor hemoglobin and hematocrit. Monitor for any signs of active bleeding. We will plan for EGD on Friday. We will need to hold the heparin drip 4 hours prior to the procedure. Further plan to be made according to findings. I discussed the procedure along with benefits and risks with the patient's . She wishes to proceed. Further plans to be made according to findings. I have discussed this case with Dr. Guadalupe. Dictated by PRIMITIVO [place] for Lamont Guadalupe MD cc: PRIMITIVO Giordano MD
[2019-05-04] MEDS: HEPARIN 25,000 UNITS/D5W 25,000 UNIT/250 ML IV.SOLN IV SCH (18:18)
--- NOTE | 2019-05-04 18:40 | PROGRESS NOTE ---
DATE: 05/04/2019 SUBJECTIVE: The patient is resting comfortably in bed. No acute events noted overnight. OBJECTIVE: Vital Signs: Temperature 98.3 degrees, blood pressure 123/80, heart rate 73, respirations 15, O2 saturation is 93% on room air. General: This is a chronically ill-appearing, elderly male, lying in bed in no acute distress. Heart: S1, S2 normal. Regular rate and rhythm. Lungs: Clear to auscultation bilaterally. No wheezing. No rales. No rhonchi. Abdomen: Positive bowel sounds. Soft, nontender, nondistended. Extremities: No edema. No cyanosis. Neurologic: The patient is oriented to self only. He is impulsive. LABORATORY: White blood cell count 7.6, hemoglobin 9.4, hematocrit 29, platelets 251,000. INR 1.2. Sodium 138, potassium 3.7, chloride 104, CO2 of 25, BUN 8, creatinine 0.7, glucose 56, calcium 7.7. ASSESSMENT AND PLAN: 1. Upper gastrointestinal bleed. Gastroenterology is following for endoscopy planned for tomorrow. Continue on IV Protonix. 2. Mechanical mitral valve replacement. The patient is currently on a heparin drip. 3. Left groin infection secondary to Citrobacter and Enterococcus. Continue with antibiotic therapy as directed by Dr. Michel. 4. Chronic atrial fibrillation. The patient is rate controlled. He remains on a heparin drip. 5. Anemia. Stable. 6. Dementia. Aware. 7. History of squamous cell cancer. Aware. 8. Severe protein-calorie malnutrition. The patient is currently on Marinol. 9. Intermittent agitation. Continue on p.r.n. Xanax. 10. Disposition. The patient is currently a DNR level 1. Chief Nurse Anesthetist is working on placement for the patient once medically stable. cc: Deanna Walden MD [facility]
[2019-05-05] MEDS: ZOSYN 3.375 GM in NS 50 ML IV SCH ×4 (02:10→22:43)
[2019-05-05] MEDS: CARAFATE LIQUID PO SCH ×4 (02:11→20:56)
[2019-05-05] MEDS: SODIUM CHLORIDE 0.9% INJ SCH (04:24)
[2019-05-05] MEDS: HUMALOG SUBQ SCH ×4 (06:15→21:01)
[2019-05-05 06:44] LABS: INR 1.27; PROTIME 16.1 Seconds (11.0-16.0)
[2019-05-05] MEDS: LOPRESSOR PO SCH ×2 (08:31→20:55)
[2019-05-05] MEDS: MARINOL PO SCH ×2 (08:31→20:55)
[2019-05-05] MEDS: DITROPAN PO SCH ×3 (08:31→17:12)
[2019-05-05] MEDS: SSD CREAM TOP SCH ×2 (08:32→22:45)
[2019-05-05] MEDS: LANTUS INSULIN SUBQ SCH (08:32)
[2019-05-05] MEDS: DAKIN S 0.125% TOP SCH ×2 (08:32→22:45)
[2019-05-05] MEDS: MORPHINE IV PRN (10:14)
[2019-05-05] MEDS: PROTONIX IV SCH ×2 (11:55→22:43)
[2019-05-05] MEDS ORDERED: DIPRIVAN 1% ONE (16:14)
--- NOTE | 2019-05-05 16:59 | ENDOSCOPY OPERATIVE NOTE ---
[facility] ENDOSCOPY OPERATIVE NOTE , EGD PROCEDURE REPORT PATIENT: Wang Gustafson ADMISSION DATE: 05/05/2019 MR#: [id number] : 1940 PROCEDURE DATE: 05/05/2019 SURGEON: Lamont Guadalupe MD STATUS: inpatient NANOTECHNOLOGY ENGINEERING TECHNICIAN: Marla Purcell and Leandro Sellers PREOPERATIVE DIAGNOSIS: The patient is a 79 yr old male here for an EGD due to acute post hemorrhagi c anemia and Acute GI bleeding and history of bleeding ulcer.. PROCEDURE PERFORMED: EGD, diagnostic MEDICATIONS: Per Anesthesia TOPICAL ANESTHETIC: none CONSENT: The patient understands the risks and benefits of the procedure and understands that these r isks include, but are not limited to: sedation, allergic reaction, infection, perforation and/or bleeding. Alternative means of evaluation and treatment include, among others: physical exam, x-rays, and/or surgical intervention. The patient elects to proceed with this endoscopic procedure. HISORY AND PHYSICAL: 05/05/2019 DESCRIPTION OF PROCEDURE: During intra-op preparation period all mechanical and medical equipment was checked for proper function. Hand hygiene and appropriate measures for infection prevention was taken. After the risks, benefits and alternatives of the procedure were thoroughly explained, Informed consent was verified, confirmed and timeout was successfully executed by the treatment team. The patient was anesthetized with topical anesthesia and the CA11-m14 ([id number]) endoscope was introduced through the mouth and advanced to the second portion of the duoden um. Retroflexion was performed in the stomach and revealed no abnormalities. The gastroscope was then slowly withdraw n and removed. ESOPHAGUS: Moderately severe esophagitis was found in the mid esophagus. The esophagus was otherwis e normal. STOMACH: A single non-bleeding, deep, round and clean-based ulcer ranging between 5-9mm in size was f ound in the gastric antrum. The stomach otherwise appeared normal. DUODENUM: A single non-bleeding, irregular shaped, deep and clean-based ulcer ranging between 5-9mm i n size was found in the 2nd part of the duodenum. Otherwise duodenum looks better. The bleeding ulcer seen earlier has healed. SPECIMENS REMOVED: No ADVERSE EVENTS: There were no complications. POSTOPERATIVE DIAGNOSIS: 1. Esophagitis in the mid esophagus 2. The esophagus was otherwise normal 3. Single ulcer ranging between 5-9mm in size was found in the gastric antrum 4. The stomach otherwise appeared normal 5. Single ulcer ranging between 5-9mm in size was found in the 2nd part of the duodenum 6. Otherwise duodenum looks better. The bleeding ulcer seen earlier has healed RECOMMENDATIONS: 1. Resume current medications 2. Resume previous diet 3. Return to floor when standard parameters are met REPEAT EXAM: Lamont Guadalupe MD eSigned: Lamont Guadalupe MD 05/05/2019 4:58 PM cc: PATIENT NAME: Wang Gustafson MR#: [id number]
[2019-05-05] MEDS: COUMADIN PO SCH (21:00)
--- NOTE | 2019-05-05 23:48 | PROGRESS NOTE ---
DATE: 05/05/2019 SUBJECTIVE: The patient is resting comfortably in bed. He remains confused. OBJECTIVE: Vital signs: Temperature 98.1 degrees, blood pressure 114/60, heart rate 96, respirations 17, O2 saturation 95% on room air. General: This is a chronically ill-appearing, elderly male lying in bed in no acute distress. Heart: S1, S2, normal. Regular rate and rhythm. Lungs: Equal air entry bilaterally. No wheezing. No rales. No rhonchi.Abdomen: Positive bowel sounds. Soft, nontender, nondistended. Extremities: No edema. No cyanosis. Neurologic: The patient is demented. LABORATORY DATA: None. ASSESSMENT AND PLAN: 1. Severe esophagitis. Continue with proton pump inhibitor therapy. 2. Gastric ulcer. Continue with proton pump inhibitor therapy. 3. Mechanical mitral valve replacement. We will start the patient on warfarin. Continue with a heparin drip until the INR is therapeutic. 4. History of atrioseptal defect repair. Aware. 5. Dementia. Aware. 6. Chronic atrial fibrillation. The patient is rate-controlled. Continue on anticoagulation as ordered. 7. Left lung infection secondary to Citrobacter and enterococcus. Continue with antibiotic therapy. 8. History of squamous cell cancer. Aware. 9. Severe protein-calorie malnutrition. Continue on the current diet as ordered. 10. Disposition. Music Critic and Palliative Care are working on a discharge plan for the patient. cc: Deanna Walden MD [facility]
[2019-05-06] MEDS: CARAFATE LIQUID PO SCH ×4 (01:39→20:47)
[2019-05-06] MEDS: ZOSYN 3.375 GM in NS 50 ML IV SCH ×4 (04:20→23:02)
[2019-05-06] MEDS: HEPARIN 25,000 UNITS/D5W 25,000 UNIT/250 ML IV.SOLN IV SCH (04:20)
[2019-05-06] MEDS: HUMALOG SUBQ SCH ×4 (06:24→20:47)
[2019-05-06 06:51] LABS: INR 1.34; PROTIME 16.8 Seconds (11.0-16.0)
[2019-05-06 07:09] LABS: AGAP 11; BUN 8 mg/dL (8-22); CHLORIDE 104 mmol/L (98-107); COSMO 279; CREATININE 0.8 mg/dL (0.7-1.2); ESTIMATED GFR > 60; GLUCOSE 123 mg/dL (70-104); POTASSIUM 3.9 mmol/L (3.5-5.1); SODIUM 140 mmol/L (136-145); TCO2 25 mmol/L (25-35)
[2019-05-06 07:10] LABS: BASO# 0.03 X1000 (0.0-0.2); BASO% 0.2 % (0.0-0.8); EOS# 0.89 X1000 (0.0-0.7); EOS% 6.6 % (0.0-10.0); HEMATOCRIT 27.8 % (42.0-52.0); HEMOGLOBIN 9.3 g/dL (14.0-18.0); LYMPH% 5.9 % (20.5-51.1); MCH 34.1 PG (27-31); MCHC 33.5 g/dL (33-37); MCV 101.8 FL (81-99); MONO% 8.9 % (1.7-9.3); MPV 10.1 FL (7.4-10.4); NEUT# 10.56 X1000 (1.4-6.5); NEUT% 78.4 % (42.2-75.2); PLT 244 X1000 (130-400); RBC 2.73 XMIL (4.7-6.1); RDW 21.1 % (11.5-14.5); WBC 13.48 X1000 (4.8-10.8)
[2019-05-06] MEDS: DITROPAN PO SCH ×3 (09:55→20:47)
[2019-05-06] MEDS: MARINOL PO SCH ×2 (09:56→20:47)
[2019-05-06] MEDS: LANTUS INSULIN SUBQ SCH (09:56)
[2019-05-06] MEDS: LOPRESSOR PO SCH ×3 (10:19→23:02)
--- NOTE | 2019-05-06 10:21 | Diag Imaging Result Doc PS360 ---
EXAM: CHEST-PORTABLE HISTORY: dyspnea TECHNIQUE: Chest single view COMPARISON: 04/30/2019 FINDINGS: The lungs are well expanded. Mild cardiomegaly with sternal wires in the left pacemaker. Left perihilar prominence similar to the prior study. There is a small left effusion and there is mild pulmonary edema. IMPRESSION: Stable chest Electronically signed by Rainer Mckeon 05/06/2019 10:18 AM
[2019-05-06] MEDS: PROTONIX IV SCH ×2 (12:07→23:02)
[2019-05-06] MEDS: SSD CREAM TOP SCH ×2 (12:13→20:53)
[2019-05-06] MEDS: DAKIN S 0.125% TOP SCH ×2 (12:13→20:53)
--- NOTE | 2019-05-06 15:16 | Diag Imaging Result Doc PS360 ---
EXAM: CT THORAX/ABD/PELVIS W/CON 05/06/2019 HISTORY: staging TECHNIQUE: This exam was performed using automated exposure control, adjustment of mA or kV according to patient size, and/or use of iterative reconstruction technique. COMMENT: There are no previous thoracic studies. Comparison is made with the abdominal study of 10/24/2017 and with the pelvis of 01/01/2019. Thorax: There are bilateral pleural fluid collections. There is right paratracheal adenopathy with a node measuring over 15 mm. There is some subcarinal adenopathy mildly prominent aorticopulmonary window nodes are present. There is compressive atelectasis in both lower lobes. The possibility of pneumonia cannot be excluded. There is some fluid loculated in the minor fissure on the right. There are spondylotic changes in the thoracic spine. There has been sternotomy. There are pacemaker leads. The aorta is not distended and there is no evidence of dissection. There are dense calcifications in the left anterior descending coronary artery. There is a mitral valve prosthesis. No filling defects are demonstrated in the pulmonary arteries. ABDOMEN: The abdominal aorta is not distended. There are calcifications particularly distally. The mesenteric and renal arteries are patent. There is some apparent vicarious excretion of contrast in the gallbladder. The kidneys are without evidence of hydronephrosis or solid mass. There is some cortical scarring and cysts bilaterally. This is not changed significantly since the previous examination of 10/24/2017. The adrenal glands are not enlarged. The pancreas is unremarkable. There is a fair amount of stool in the colon. The small bowel is not distended. There is subcutaneous edema particularly in the flanks which was not the case on the previous study. There has been previous appendectomy. Pelvis: There is no evidence of bowel obstruction. There is some presacral edema. There was an inguinal hernia on the left at the time the previous study. There is a presumably postsurgical defect lateral to this currently. There is a Olmstead catheter in the bladder which is completely contracted. There are some degenerative disc and facet changes in the lumbar spine. There is no evidence of acute bony disease.. There are no bowel loops within the hernia. Portions of the left colon are very close to the defect however. IMPRESSION: 1. Bilateral pleural effusions. Right paratracheal adenopathy. 2. Anasarca. 3. Constipation. 4. Postsurgical changes in the left inguinal region. Electronically signed by Chi Morris 05/06/2019 3:14 PM
[2019-05-06] MEDS: MORPHINE IV PRN (16:27)
[2019-05-06] MEDS ORDERED: LASIX IV ONE (17:26)
[2019-05-06] MEDS: COUMADIN PO SCH (20:47)
[2019-05-07] MEDS: CARAFATE LIQUID PO SCH ×4 (01:41→21:09)
--- NOTE | 2019-05-07 03:54 | PROGRESS NOTE ---
DATE: 05/06/2019 SUBJECTIVE: The patient is resting comfortably in bed. His is present at the bedside. No acute events noted overnight. OBJECTIVE: Vital Signs: Temperature 98.1 degrees, blood pressure 97/69, heart rate 100, respirations 14, O2 saturation 95% on room air. Intake 240; output 1.7 L. General: This is a chronically ill-appearing, elderly male, lying in bed in no acute distress. Heart: S1, S2. Normal rate and rhythm. Lungs: Equal air entry bilaterally. No wheezing. No rales. No rhonchi. Abdomen: Positive bowel sounds. Soft, nontender, nondistended. Extremities: No edema, no cyanosis, no calf tenderness. Neurologic: The patient is awake, but demented. He is able to move all 4 extremities. LABS: White blood cell count 13, hemoglobin 9.3, hematocrit 27, platelets 244,000. INR 1.3. Sodium 140, potassium 3.9, chloride 104, CO2 25, BUN 8, creatinine 0.8, glucose 123. CT of the chest, abdomen, and pelvis revealed bilateral pleural effusions, anasarca, and constipation. ASSESSMENT AND PLAN: 1. Severe esophagitis. Continue on Protonix. 2. Gastric ulcer. Continue with Protonix therapy. 3. Mechanical mitral valve replacement. We will continue on heparin drip plus warfarin until the patient's INR is therapeutic. 4. History of atrial septal defect repair. Aware. 5. Chronic atrial fibrillation. Continue on Lopressor. 6. Left groin infection, secondary to Citrobacter and Enterococcus. Continue with antibiotic therapy. 7. Severe protein-calorie malnutrition. Continue with Marinol and meal supplementation. 8. Bilateral pleural effusions with anasarca. The patient will receive diuretic therapy. 9. Dementia. Aware. 10. Disposition. The patient will be discharged to [facility] once his INR is therapeutic. This was discussed with the patient's today and she is in agreement with the plan. cc: Deanna Walden MD [facility]
[2019-05-07] MEDS: ZOSYN 3.375 GM in NS 50 ML IV SCH ×4 (05:11→22:30)
[2019-05-07 05:26] LABS: BASO# 0.03 X1000 (0.0-0.2); BASO% 0.3 % (0.0-0.8); EOS# 0.85 X1000 (0.0-0.7); EOS% 7.8 % (0.0-10.0); HEMATOCRIT 27.9 % (42.0-52.0); HEMOGLOBIN 8.7 g/dL (14.0-18.0); IMM GRAN# 0.02 X1000 (0.0-0.04); IMM GRAN% 0.2 % (0.0-0.5); LYMPH# 0.83 X1000 (1.2-3.4); LYMPH% 7.6 % (20.5-51.1); MCH 31.4 PG (27-31); MCHC 31.2 g/dL (33-37); MCV 100.7 FL (81-99); MONO# 0.99 X1000 (0.11-0.59); MONO% 9.1 % (1.7-9.3); NEUT# 8.17 X1000 (1.4-6.5); PLT 260 X1000 (130-400); RBC 2.77 XMIL (4.7-6.1); RDW 20.4 % (11.5-14.5); WBC 10.89 X1000 (4.8-10.8)
[2019-05-07 05:28] LABS: AGAP 9; BUN 10 mg/dL (8-22); CHLORIDE 101 mmol/L (98-107); COSMO 271; CREATININE 0.8 mg/dL (0.7-1.2); ESTIMATED GFR > 60; GLUCOSE 107 mg/dL (70-104); POTASSIUM 3.7 mmol/L (3.5-5.1); SODIUM 136 mmol/L (136-145); TCO2 26 mmol/L (25-35)
[2019-05-07] MEDS: HUMALOG SUBQ SCH ×4 (06:35→21:10)
[2019-05-07 06:42] LABS: INR 1.72; PROTIME 20.6 Seconds (11.0-16.0)
[2019-05-07] MEDS ORDERED: VITAMIN D PO SCH (09:00)
[2019-05-07] MEDS: DITROPAN PO SCH ×3 (10:22→21:10)
[2019-05-07] MEDS: LOPRESSOR PO SCH ×2 (10:22→13:17)
[2019-05-07] MEDS: MARINOL PO SCH ×2 (10:22→21:09)
[2019-05-07] MEDS: LASIX IV SCH (10:23)
[2019-05-07] MEDS: LANTUS INSULIN SUBQ SCH (10:28)
[2019-05-07] MEDS: HEPARIN 25,000 UNITS/D5W 25,000 UNIT/250 ML IV.SOLN IV SCH ×2 (10:28→11:33)
[2019-05-07] MEDS: PROTONIX IV SCH ×2 (11:44→23:11)
--- NOTE | 2019-05-07 13:07 | GASTROENTEROLOGY PROGRESS NOTE ---
DATE: 05/07/2019 SUBJECTIVE: Patient is awake, his family is at the bedside. There has been no evidence of active GI bleeding. Hemoglobin is slightly lower today, but stable. Patient has had Coumadin restarted. He continues on heparin drip until his INR is therapeutic. OBJECTIVE: Vital Signs: Temperature 98.3 degrees, pulse 109, respirations 14, blood pressure 105/61. LABORATORY: Hematology: WBC 10.89, hemoglobin 8.7, hematocrit 27.9, MCV 100.7. Chemistry: Sodium 136, potassium 3.7, chloride 101, CO2 26. BUN 10, creatinine 0.8, glucose 107. IMAGING: CT scan of the abdomen and pelvis on 05/06/2019 showed bilateral pleural effusions, right peritracheal adenopathy, anasarca, constipation and postsurgical changes in left inguinal region. ASSESSMENT AND PLAN: 1. Recent gastrointestinal bleed. 2. Esophagogastroduodenoscopy on 05/05/2019 showed esophagitis, ulcer at the gastric antrum non bleeding, and an ulcer in the second portion of the duodenum with no evidence of active bleeding. Bleeding ulcer seen on earlier esophagogastroduodenoscopy was reported as healed. 3. History of mechanical mitral valve replacement. Patient is being transitioned from heparin to Coumadin. 4. CT scan showed constipation. Would recommend starting MiraLAX daily and adjust according to his response. 5. Gastroenterology will sign off for now. Please re-consult as needed. I have discussed this case with Dr. Guadalupe. Dictated by PRIMITIVO [place] for Lamont Guadalupe MD cc: PRIMITIVO Giordano MD
[2019-05-07] MEDS: MIRALAX PO SCH (13:17)
[2019-05-07] MEDS: SSD CREAM TOP SCH ×2 (13:17→21:21)
[2019-05-07] MEDS: DAKIN S 0.125% TOP SCH ×2 (13:18→21:21)
--- NOTE | 2019-05-07 14:11 | EKG Report ---
Test Performed on : 05/07/2019 2:03:39 PM Test Reason : increased heart rate Blood Pressure : / mmHG Vent. Rate : 110 BPM Atrial Rate : 117 BPM P-R Int : 000 ms QRS Dur : 120 ms QT Int : 372 ms P-R-T Axes : 000 -15 214 degrees QTc Int : 503 ms Atrial fibrillation. with rapid ventricular response. with premature ventricular or aberrantly conduc grady complexes. Septal infarct , age undetermined ST & T wave abnormality, consider inferolateral ischemia Abnormal ECG When compared with ECG of 30-APR-2019 20:25, (Unconfirmed) Incomplete right bundle branch block is no longer present Septal infarct is now present Confirmed by Ben STRANGE, Suhail Montoya ([id number]) on 05/09/2019 9:00:45 AM
--- NOTE | 2019-05-07 15:32 | INFECTIOUS DISEASE PROGRESS NO ---
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 That groin is growing Citrobacter and Enterococcus. MEDICATIONS: Today is day 4 of treatment with Zosyn 3.375 g IV every 6 hours. PHYSICAL EXAMINATION: Vital Signs: Temperature is 98.2 degrees, pulse rate 94, respiratory rate 14, blood pressure 108/60, O2 saturation is 95% on room air. General: This is a chronically ill- appearing elderly gentleman. He is lying in bed currently in no acute distress. HEENT: Atraumatic, normocephalic. Oral mucous membranes are pink and moist. Conjunctivae are pale. Neck: Supple. Trachea is midline. Cardiovascular: Irregularly irregular with atrial fibrillation on the monitor. Respiratory: Lung sounds are clear to auscultation in the upper lobes. Diminished in the bases. Abdomen: Soft, flat, nontender. Bowel sounds are active. Integumentary: Skin is warm and dry. The left groin wound has area of purulent drainage with packing and dressing in place. Neurologic: He is awake, alert and somewhat confused. Able to move his extremities in the bed independently. LABORATORY AND X-RAY: Today his white count is 10.89, hemoglobin 8.7, platelet count 260,000. Creatinine is 0.8. Estimated GFR is greater than 60. His groin wound grew Citrobacter freundii and enterococcal faecalis. No imaging reports today. However yesterday a CT of his abdomen and pelvis showed pleural effusions, anasarca, constipation and left inguinal postsurgical changes. Chest x-ray was stable with a small effusion and mild pulmonary edema. ASSESSMENT AND PLAN: Mr. Gustafson is being treated for left groin enterococcal and Citrobacter infection. He is receiving Zosyn which we will continue at this time. He had a mild spike in white count yesterday but today it is almost back to normal. The plan is to possibly send him to rehab on Friday. If possible, it would be good for him to go on Zosyn at 4.5 gm IV every 8 hours in rehab. These plans have been discussed with and recommended by Dr. Michel. COMORBIDITIES: Include metastatic penile cancer and diabetes mellitus. Dictated by PRIMITIVO Montejo for Miguel Michel MD cc: Miguel Michel MD [facility]
[2019-05-07] MEDS: MORPHINE IV PRN (17:15)
--- NOTE | 2019-05-07 18:09 | PROGRESS NOTE ---
DATE: 05/07/2019 SUBJECTIVE: The patient is resting comfortably in bed. No acute events noted overnight. OBJECTIVE: Vital Signs: Temperature 98.1 degrees, blood pressure 96/65, heart rate 106, respirations 15, O2 saturation 94% on room air. General: This is a chronically ill-appearing elderly male lying in bed in no acute distress. Heart: S1, S2 normal. Regular rate and rhythm. Lungs: Equal air entry bilaterally. No wheezing. No rales. No rhonchi. Abdomen: Positive bowel sounds. Soft, nontender, nondistended. Extremities: No edema. No cyanosis. No calf tenderness. Neurologic: The patient is awake but demented. LABORATORY DATA: White blood cell count 10, hemoglobin 8.7, hematocrit 27, platelets 260,000. Sodium 136, potassium 3.7, chloride 101, CO2 26, INR 1.7. ASSESSMENT AND PLAN: 1. Gastrointestinal bleed. Resolved. 2. Severe esophagitis. Continue on Protonix. 3. Gastric ulcer. Continue with Protonix therapy. 4. Pulmonary edema. Continue with diuretic therapy. 5. Mechanical mitral valve replacement. The patient's INR is 1.7 today. Continue with the heparin drip plus warfarin. 6. History of atrial septal defect repair. Aware. 7. Left groin infection secondary to Citrobacter and Enterococcus. Continue with antibiotic therapy. 8. Chronic atrial fibrillation. Continue on Lopressor. 9. Bilateral pleural effusions with anasarca. Continue with Lasix. 10. Dementia. Aware. 11. Severe protein calorie malnutrition. Continue on Marinol and meal supplementation. 12. Disposition. The patient will be discharged to [facility] once his INR is therapeutic. cc: Deanna Walden MD
[2019-05-07] MEDS ORDERED: LOPRESSOR PO SCH (21:00)
[2019-05-07] MEDS: XANAX PO PRN (21:09)
[2019-05-07] MEDS: COUMADIN PO SCH (21:10)
[2019-05-07] MEDS: COREG PO SCH (21:10)
[2019-05-07] MEDS: SODIUM CHLORIDE 0.9% INJ SCH (23:11)
[2019-05-08] MEDS: CARAFATE LIQUID PO SCH ×4 (02:21→22:13)
[2019-05-08] MEDS: ZOSYN 3.375 GM in NS 50 ML IV SCH ×4 (05:30→23:23)
[2019-05-08] MEDS: HUMALOG SUBQ SCH ×4 (06:18→22:14)
[2019-05-08 06:47] LABS: HEMATOCRIT 26.7 % (42.0-52.0); HEMOGLOBIN 8.5 g/dL (14.0-18.0); MCH 31.4 PG (27-31); MCHC 31.8 g/dL (33-37); MCV 98.5 FL (81-99); MPV 9.8 FL (7.4-10.4); RBC 2.71 XMIL (4.7-6.1); RDW 19.5 % (11.5-14.5); WBC 7.33 X1000 (4.8-10.8)
[2019-05-08 07:03] LABS: AGAP 11; BUN 9 mg/dL (8-22); CALCIUM 8.4 mg/dL (8.8-10.2); CHLORIDE 101 mmol/L (98-107); COSMO 276; CREATININE 0.7 mg/dL (0.7-1.2); ESTIMATED GFR > 60; GLUCOSE 103 mg/dL (70-104); MAGNESIUM 1.8 mg/dL (1.5-2.7); POTASSIUM 3.2 mmol/L (3.5-5.1); SODIUM 139 mmol/L (136-145); TCO2 27 mmol/L (25-35)
[2019-05-08] MEDS ORDERED: B & O 15A SUPP PR PRN (09:50)
[2019-05-08] MEDS ORDERED: KLOR-CON PO ONE (09:52)
[2019-05-08] MEDS ORDERED: HEPARIN IV PRN (10:21)
[2019-05-08 10:23] LABS: INR 1.91; PROTIME 22.3 Seconds (11.0-16.0)
[2019-05-08] MEDS ORDERED: HEPARIN IV ONE ×2 (10:30→20:56)
[2019-05-08] MEDS: LASIX IV SCH (10:39)
[2019-05-08] MEDS: COREG PO SCH (10:40)
[2019-05-08] MEDS: DITROPAN PO SCH ×4 (10:40→22:13)
[2019-05-08] MEDS: LANTUS INSULIN SUBQ SCH (10:40)
[2019-05-08] MEDS: MARINOL PO SCH ×2 (10:40→22:13)
[2019-05-08] MEDS: MIRALAX PO SCH (10:41)
[2019-05-08] MEDS: PROTONIX IV SCH ×2 (10:47→23:22)
[2019-05-08] MEDS: SSD CREAM TOP SCH ×2 (10:53→22:01)
[2019-05-08] MEDS: DAKIN S 0.125% TOP SCH ×2 (10:54→22:01)
[2019-05-08] MEDS ORDERED: CARDIZEM IV ONE (11:21)
[2019-05-08] MEDS ORDERED: LOPRESSOR IV ONE (11:29)
[2019-05-08] MEDS ORDERED: LOPRESSOR IV PRN (11:32)
--- NOTE | 2019-05-08 12:02 | EKG Report ---
Test Performed on : 05/08/2019 10:56:24 AM Test Reason : increased hr Blood Pressure : / mmHG Vent. Rate : 145 BPM Atrial Rate : 145 BPM P-R Int : 000 ms QRS Dur : 112 ms QT Int : 262 ms P-R-T Axes : 000 -40 177 degrees QTc Int : 406 ms Supraventricular tachycardia. Left axis deviation Marked ST abnormality, possible anterolateral subendocardial injury Abnormal ECG When compared with ECG of 07-MAY-2019 14:03, (Unconfirmed) Sinus rhythm. has replaced Atrial fibrillation. Criteria for Septal infarct are no longer present ST more depressed in Lateral leads Confirmed by Ben STRANGE, Suhail Montoya ([id number]) on 05/11/2019 7:39:38 AM
--- NOTE | 2019-05-08 12:14 | CARDIOLOGY PROGRESS NOTE ---
DATE: 05/08/2019 CHIEF COMPLAINT: GI bleeding, weakness. SUBJECTIVE: Mr. Gustafson did not rest well last night. He is very sleepy this morning and confused. His is at the bedside. The patient denies having any pain. He is not in distress. OBJECTIVE: Blood pressure is 113/56, temperature 98.3, pulse 83, respirations 20. He responds to verbal commands. He is not agitated. He is just sleepy and sluggish. He is very hard of hearing. Appears to be somewhat pale. He is somewhat contracted in almost like a semi- position. HEENT unremarkable. Chest: Breath sounds are diminished; however, I do not hear rales. Heart sounds are slightly irregular. Closing click of valve is heard. There is no significant murmur. Abdomen is nontender. Extremities showed no significant edema. Neurologic: He is confused. He does not quite follow commands. DIAGNOSTIC DATA: Hemoglobin is 8.5, hematocrit 26.7. INR is 1.91. PTT is 45.3. Sodium 139, potassium 3.2, BUN is 9, creatinine 0.7. Last ProBNP level is 4207 picograms per mL. IMPRESSION: 1. The patient is status post mitral valve replacement on laborer marine terminal anticoagulation with Warfarin. 2. Permanent atrial fibrillation. 3. Previous ASD repair. 4. Status post pacemaker implantation. 5. Gastrointestinal bleeding. 6. History of cancer of the penis, treated with radiation and chemotherapy, with recent hospital admission from 04/04/2019 through 04/24/2019 with sepsis. RECOMMENDATIONS: At this time, from the cardiac viewpoint, we will continue slow up titration of Warfarin and once the INR is at 2.5 or greater, we will stop heparin. The patient seems to be stable from the cardiac viewpoint. Thank you for the opportunity to participate in his evaluation. cc: Igor Veras MD
[2019-05-08] MEDS: HEPARIN 25,000 UNITS/D5W 25,000 UNIT/250 ML IV.SOLN IV SCH (16:43)
--- NOTE | 2019-05-08 17:04 | Diag Imaging Result Doc PS360 ---
CHEST-PORTABLE - 05/08/2019 INDICATION: dyspnea COMPARISON: 05/06/2019 FINDINGS: Stable left-sided pacemaker. Stable sternotomy changes. Stable cardiomegaly and pulmonary vascular congestion. Grossly stable central diffuse infiltrates compatible with pulmonary edema. No large pleural effusion. IMPRESSION: No change from prior. Electronically signed by Liu Renee 05/08/2019 5:02 PM
--- NOTE | 2019-05-08 17:28 | PROGRESS NOTE ---
DATE: 05/08/2019 SUBJECTIVE: The patient is resting comfortably in bed. He has been somewhat fidgety. OBJECTIVE: Vital Signs: Temperature 98.7 degrees, blood pressure 109/60, heart rate 90, respirations 18, O2 saturation is 96% on room air. General: This is a chronically ill-appearing, elderly male, lying in bed in no acute distress. Heart: S1, S2 normal. Regular rate and rhythm. Lungs: Equal air entry bilaterally. No wheezing. No rales. No rhonchi. Abdomen: Positive bowel sounds. Soft, nontender, nondistended. Extremities: No edema. No cyanosis. Neurologic: The patient is alert, but confused. LABORATORY DATA: INR 1.9. Hemoglobin 8.5, hematocrit 26, platelets 258,000. Sodium 139, potassium 3.2, magnesium 1.8, alkaline phosphatase 3, BUN 9, creatinine 0.7. ASSESSMENT AND PLAN: 1. Gastrointestinal bleed. Resolved. 2. Severe esophagitis. Continue on Protonix. 3. Gastric ulcer. Continue on Protonix. 4. Pulmonary edema. Slightly improved. Continue with Lasix. 5. Mechanical mitral valve replacement. Continue on the heparin drip plus warfarin. Will monitor the INR daily. 6. History of atrial septal defect repair. Aware. 7. Left groin infection secondary to Citrobacter and Enterococcus. Continue on antibiotic and wound care therapy. 8. Squamous cell carcinoma of the penis. The patient is managed by Oncology as outpatient. 9. Chronic atrial fibrillation. Continue on Lopressor and the heparin drip. 10. Dementia. Aware. 11. Severe protein-calorie malnutrition. Continue on Marinol and meal supplementation. 12. Disposition. The patient will need inpatient rehab placement. Treater is assisting with placement. cc: Deanna Walden MD [facility]
[2019-05-08] MEDS ORDERED: HEPARIN 25,000 UNITS/D5W 25,000 UNIT/250 ML IV.SOLN IV SCH (20:54)
[2019-05-08] MEDS ORDERED: LOVENOX SUBQ ONE (21:00)
[2019-05-08] MEDS: COUMADIN PO SCH (22:13)
[2019-05-08] MEDS: LOPRESSOR PO SCH (22:14)
[2019-05-08] MEDS: SODIUM CHLORIDE 0.9% INJ SCH (23:23)
[2019-05-09] MEDS: CARAFATE LIQUID PO SCH ×4 (02:08→21:41)
[2019-05-09] MEDS: ZOSYN 3.375 GM in NS 50 ML IV SCH ×3 (05:04→21:40)
[2019-05-09 06:30] LABS: HEMATOCRIT 26.8 % (42.0-52.0); HEMOGLOBIN 8.5 g/dL (14.0-18.0); MCH 32.2 PG (27-31); MCHC 31.7 g/dL (33-37); MCV 101.5 FL (81-99); MPV 9.8 FL (7.4-10.4); RBC 2.64 XMIL (4.7-6.1); RDW 19.7 % (11.5-14.5); WBC 6.3 X1000 (4.8-10.8)
[2019-05-09 06:31] LABS: INR 2.97; PROTIME 31.8 Seconds (11.0-16.0)
[2019-05-09] MEDS: HUMALOG SUBQ SCH ×4 (06:34→21:41)
[2019-05-09 06:54] LABS: AGAP 7; BUN 8 mg/dL (8-22); CALCIUM 8.4 mg/dL (8.8-10.2); CHLORIDE 101 mmol/L (98-107); COSMO 277; CREATININE 0.7 mg/dL (0.7-1.2); ESTIMATED GFR > 60; GLUCOSE 155 mg/dL (70-104); MAGNESIUM 1.8 mg/dL (1.5-2.7); POTASSIUM 3.8 mmol/L (3.5-5.1); SODIUM 138 mmol/L (136-145); TCO2 30 mmol/L (25-35)
[2019-05-09] MEDS: MARINOL PO SCH ×2 (10:23→21:40)
[2019-05-09] MEDS: LOPRESSOR PO SCH ×2 (10:23→21:40)
[2019-05-09] MEDS: DITROPAN PO SCH ×3 (10:23→21:40)
[2019-05-09] MEDS: LASIX IV SCH (10:24)
[2019-05-09] MEDS: LANTUS INSULIN SUBQ SCH (10:24)
[2019-05-09] MEDS: MIRALAX PO SCH (10:24)
--- NOTE | 2019-05-09 11:00 | PROGRESS NOTE ---
DATE: 05/09/2019 CHIEF COMPLAINT: Weakness, GI bleeding, confusion. SUBJECTIVE: Mr. Gustafson had a good night of sleep yesterday. This morning, he is fully awake, conversant, in good spirits. The is at the bedside. His INR is finally therapeutic. OBJECTIVE: Blood pressure 109/70, temperature 98 degrees, respirations 20, pulse 81. Elderly, in no distress. Conversant, appropriate. A little hard of hearing. HEENT: Unremarkable. Chest: Sounds clear to auscultation and percussion. Heart sounds are slightly irregular. Closing click of mitral valve is appreciated. Abdomen: Nontender. Extremities: Showed no edema. Neurological Examination: Follows commands. A little confused. Generally weak. Laboratory Work: Hemoglobin 8.5, hematocrit 26.8, platelet count is 241,000. PTT this morning is rated at 215 seconds, PT is 31.8, with an INR of 2.97. Sodium 138, potassium 3.8, BUN 8, creatinine 0.7. IMPRESSION: 1. Patient who is admitted to the hospital because of gastrointestinal bleeding. That has stopped and he is doing better now. 2. Status post mitral valve replacement, on long-term anticoagulation with warfarin. 3. The patient has permanent atrial fibrillation. 4. Status post pacemaker implantation, sick sinus syndrome. 5. Patient with a previous history of penile cancer , treated with radiation and chemotherapy, and recent bout of septicemia. 6. Dementia/acute organic syndrome. Presently better. RECOMMENDATIONS: At this time, we will stop heparin. We will keep a close eye on his INR. He may be ready for discharge tomorrow. cc: Igor Veras MD [facility]TD[facility]
--- NOTE | 2019-05-09 17:16 | PROGRESS NOTE ---
DATE: 05/09/2019 SUBJECTIVE: The patient is resting comfortably. He was noted to be agitated overnight and pulled out his IV. OBJECTIVE: Vital Signs: Temperature 98.2 degrees, blood pressure 117/70, heart rate 94, respirations 18, O2 saturation 94% on room air. General: This is a chronically ill-appearing elderly male lying in bed in no acute distress. Heart: S1, S2 normal. Regular rate and rhythm. Lungs: Equal air entry bilaterally. No wheezing. No rales. Abdomen: Positive bowel sounds. Soft, nontender, nondistended. Extremities: No edema, no cyanosis. Neurologic: The patient is awake but demented. LABS: INR 2.9. White blood cell count 6.3, hemoglobin 8.5, hematocrit 26, platelets 241,000. Sodium 138, potassium 3.8, chloride 101, CO2 30, BUN 8, creatinine 0.7, glucose 155, magnesium 1.8. ASSESSMENT AND PLAN: 1. Gastrointestinal bleed. Resolved. 2. Severe esophagitis and gastric ulcer. Continue on Protonix. 3. Pulmonary edema. Improved. Continue on diuretic therapy. 4. Mechanical mitral valve replacement. The patient's INR is therapeutic. Continue on warfarin. 5. History of atrial septal defect repair. Aware. 6. Left groin infection secondary to Citrobacter and Enterococcus. Continue with antibiotic therapy and wound care. 7. 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 Aware. The patient is followed by Dr. Galvan. 8. Chronic atrial fibrillation. The patient is rate controlled. Continue on Lopressor and anticoagulation. 9. Dementia. Aware. We will start Seroquel. 10. Disposition. The patient will be discharged to inpatient rehab once a facility has been found. The patient's was updated about the patient's medical condition this morning. cc: Deanna Walden MD MTDD
[2019-05-09] MEDS: PROTONIX IV SCH (17:30)
[2019-05-09] MEDS: SSD CREAM TOP SCH (17:32)
[2019-05-09] MEDS: DAKIN S 0.125% TOP SCH (17:32)
[2019-05-09] MEDS: TYLENOL PO PRN (18:57)
[2019-05-09] MEDS ORDERED: COUMADIN PO SCH (21:00)
[2019-05-09] MEDS: SEROQUEL PO SCH (21:40)
[2019-05-10] MEDS: CARAFATE LIQUID PO SCH ×4 (02:45→21:57)
[2019-05-10] MEDS: ZOSYN 3.375 GM in NS 50 ML IV SCH (02:46)
[2019-05-10] MEDS: DAKIN S 0.125% TOP SCH ×3 (05:11→21:57)
[2019-05-10] MEDS: SSD CREAM TOP SCH ×3 (05:12→21:57)
[2019-05-10] MEDS: PROTONIX IV SCH ×2 (05:12→18:57)
[2019-05-10] MEDS: SODIUM CHLORIDE 0.9% INJ SCH (05:12)
[2019-05-10 06:18] LABS: HEMATOCRIT 28.4 % (42.0-52.0); MCH 32.3 PG (27-31); MCHC 31.7 g/dL (33-37); MCV 101.8 FL (81-99); RBC 2.79 XMIL (4.7-6.1); RDW 19.6 % (11.5-14.5); WBC 6.66 X1000 (4.8-10.8)
[2019-05-10 06:28] LABS: INR 3.86; PROTIME 39.2 Seconds (11.0-16.0)
[2019-05-10 06:38] LABS: AGAP 11; BUN 7 mg/dL (8-22); CALCIUM 8.6 mg/dL (8.8-10.2); CHLORIDE 102 mmol/L (98-107); COSMO 275; CREATININE 0.9 mg/dL (0.7-1.2); ESTIMATED GFR > 60; GLUCOSE 115 mg/dL (70-104); POTASSIUM 4.1 mmol/L (3.5-5.1); SODIUM 138 mmol/L (136-145); TCO2 25 mmol/L (25-35)
[2019-05-10] MEDS: HUMALOG SUBQ SCH ×4 (06:44→21:58)
[2019-05-10] MEDS: MARINOL PO SCH ×2 (08:37→21:57)
[2019-05-10] MEDS: LASIX IV SCH (08:37)
[2019-05-10] MEDS: LOPRESSOR PO SCH ×2 (08:37→21:57)
[2019-05-10] MEDS: LANTUS INSULIN SUBQ SCH (08:37)
[2019-05-10] MEDS: DITROPAN PO SCH ×3 (08:37→21:57)
[2019-05-10] MEDS: MIRALAX PO SCH (08:37)
[2019-05-10] MEDS ORDERED: LEVAQUIN PO SCH (09:00)
--- NOTE | 2019-05-10 10:22 | PROGRESS NOTE ---
DATE: 05/10/2019 SUBJECTIVE: The patient is resting comfortably. The patient had episodes of SVT overnight. OBJECTIVE: Vital Signs: Temperature 97.7 degrees, blood pressure 117/66, heart rate 80, respirations 14, O2 saturation is 100% on room air. Intake 460, output 2.4 L. General: This is a chronically ill-appearing, elderly male, lying in bed in no acute distress. Heart: S1, S2. Normal. Lungs: Equal air entry bilaterally. No wheezing. No rales. No rhonchi. Abdomen: Positive bowel sounds. Soft, nontender, nondistended. Extremities: No edema, no cyanosis, no calf tenderness. Neurologic: The patient is awake, but confused. LABORATORY DATA: White blood cell count 6.6, hemoglobin 9, hematocrit 28, platelets 253,000. INR 3.8. Sodium 138, potassium 4.1, chloride 102, CO2 of 25, BUN 7, creatinine 0.9, glucose 115, calcium 8.6. ASSESSMENT AND PLAN: 1. Gastrointestinal bleed. Resolved. 2. Severe esophagitis and gastric ulcer. Continue on Protonix. 3. Pulmonary edema. Continue with diuretic therapy. 4. Mechanical mitral valve replacement. The INR is 3.8. 5. History of atrial septal defect repair. Aware. 6. Left groin infection secondary to Citrobacter and Enterococcus. The patient has been switched to amoxicillin and Omnicef by Dr. Michel. Continue with wound care. 7. Vitamin D deficiency. Continue on vitamin D replacement. 8. Chronic atrial fibrillation. Continue on Lopressor and warfarin. 9. 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 Aware. The patient is followed by Dr. Galvan. 10. Dementia with behavioral disturbance. Continue on Seroquel at bedtime. 11. Diabetes mellitus type 2. Continue on sliding scale insulin. 12. Disposition. The patient can be discharged to inpatient rehab once a bed is available. cc: Deanna Walden MD [facility]
[2019-05-10] MEDS: OMNICEF PO SCH (12:23)
[2019-05-10] MEDS ORDERED: AMOXIL PO SCH (13:00)
[2019-05-10] MEDS: AMOXIL PO SCH ×2 (15:09→21:57)
[2019-05-10] MEDS ORDERED: COUMADIN PO SCH (21:00)
[2019-05-10] MEDS: SEROQUEL PO SCH (21:57)
[2019-05-11] MEDS: CARAFATE LIQUID PO SCH ×4 (02:17→20:07)
[2019-05-11] MEDS: PROTONIX IV SCH (04:42)
[2019-05-11] MEDS: AMOXIL PO SCH ×3 (04:42→20:08)
[2019-05-11 05:33] LABS: HEMATOCRIT 28.4 % (42.0-52.0); MCH 31.9 PG (27-31); MCHC 31.7 g/dL (33-37); MCV 100.7 FL (81-99); MPV 9.8 FL (7.4-10.4); RBC 2.82 XMIL (4.7-6.1); RDW 19.4 % (11.5-14.5); WBC 7.11 X1000 (4.8-10.8)
[2019-05-11 05:49] LABS: INR 4.07
[2019-05-11 06:09] LABS: AGAP 10; BUN 12 mg/dL (8-22); CALCIUM 8.2 mg/dL (8.8-10.2); CHLORIDE 98 mmol/L (98-107); COSMO 276; CREATININE 0.7 mg/dL (0.7-1.2); ESTIMATED GFR > 60; GLUCOSE 150 mg/dL (70-104); POTASSIUM 3.9 mmol/L (3.5-5.1); SODIUM 137 mmol/L (136-145); TCO2 29 mmol/L (25-35)
[2019-05-11] MEDS: HUMALOG SUBQ SCH ×4 (06:20→20:11)
[2019-05-11 06:25] LABS: PROTIME 40.9 Seconds (11.0-16.0)
--- NOTE | 2019-05-11 07:00 | INFECTIOUS DISEASE PROGRESS NO ---
DATE: 05/10/2019 PRESENT ILLNESS: The patient has an enterococcal and Citrobacter left groin wound infection. MEDICATIONS: The patient completed today, 7 days of IV Zosyn. I discontinued Zosyn today, and started the patient on a combination of amoxicillin and Omnicef. PHYSICAL EXAMINATION: Vital Signs: Temperature is 97.9 degrees, pulse 96, respirations 12, blood pressure 127/74. General: This is a chronically ill-appearing, elderly male. He is lying in bed. He is in no acute distress. HEENT: His eschar that he had on his face has gone. He does not have any drainage from his nose or ears. He does not have any white patches on his tongue. Neck: No pain with movement. Lungs: Clear to auscultation. Cardiovascular: Heart rate is regular. Abdomen: Soft and nontender. I partially removed the dressing on the patient's left groin. I did not see any purulence or erythema, and there was no odor. Neurologic: The patient is awake. He has been eating. He can move his extremities. There is no tremor. He is coherent now, and not confused like he was earlier. IMAGING AND LABORATORY DATA: There is no recent chest x-ray. Laboratory studies show a CBC with a white count of 6660, hemoglobin 9, and platelet count 253,000. Creatinine is 0.9. GFR is greater than 60. ASSESSMENT AND PLAN: The patient has an infected left groin wound with Enterococcus and Citrobacter. I have discontinued Zosyn, and placed the patient on a combination of Omnicef and amoxicillin. I would suggest continuing both antibiotics for 7 to 10 more days. If he should start having purulent drainage or an odor to the wound or erythema, I would suggest repeating the culture, and changing the antibiotics as necessary. I am signing off the patient's case now, but I am available to see him again on an as needed basis. 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 cc: Miguel Michel MD
[2019-05-11] MEDS: OMNICEF PO SCH (09:51)
[2019-05-11] MEDS: LOPRESSOR PO SCH ×2 (09:52→20:08)
[2019-05-11] MEDS: MARINOL PO SCH ×2 (09:52→20:08)
[2019-05-11] MEDS: LANTUS INSULIN SUBQ SCH (09:52)
[2019-05-11] MEDS: LASIX PO SCH (09:52)
[2019-05-11] MEDS: DITROPAN PO SCH ×3 (09:52→20:08)
[2019-05-11] MEDS: MIRALAX PO SCH (09:54)
[2019-05-11] MEDS ORDERED: BLISTEX MEDICATED BERRY LIP BALM TOP ONE (15:01)
[2019-05-11] MEDS: SSD CREAM TOP SCH ×2 (17:00→20:09)
[2019-05-11] MEDS: DAKIN S 0.125% TOP SCH ×2 (17:00→20:09)
--- NOTE | 2019-05-11 18:46 | PROGRESS NOTE ---
DATE: 05/11/2019 INTERVAL HISTORY: No further signs or symptoms of bleeding, although INR is now supratherapeutic. Left groin infection appears to be doing well. No new complaints. No other acute events overnight. REVIEW OF SYSTEMS: Twelve-point review of systems negative except as per interval history. LABORATORY DATA: WBC 7.1, hemoglobin 9, hematocrit 28.4, platelets 223,000. INR 4.07, BUN 12, creatinine 0.7, glucose 150 to 215. OBJECTIVE: T-max 98.6 degrees, pulse 88, respirations 25, blood pressure 131/84, O2 saturation 94% on room air.General: No acute distress. Chronically ill appearing. HEENT: Normocephalic, atraumatic. Moist mucous membranes. No cervical adenopathy. Cardiovascular: Regular rate and rhythm. No murmurs noted. Pulmonary: Clear to auscultation bilaterally. No wheezing, rales or rhonchi. Abdomen: Soft, nontender, nondistended. Bowel sounds positive. Extremities: Peripheral pulses intact. No clubbing or cyanosis. Neurologic: Cranial nerves are grossly intact. No focal deficits identified. Psychiatric: Normal mood and affect. Oriented to person and place, but not time. Cooperative, conversant. Skin: Left groin bandaged. No new rashes noted. ASSESSMENT AND PLAN: 1. Gastrointestinal bleed. Blood counts stable, but INR now supratherapeutic. Monitor closely for recurrent bleed. Hold warfarin tonight. We will plan on restarting tomorrow if his INR is not further elevated. 2. Esophagitis, peptic ulcer disease. Continue Protonix, but as he is seems to be taking p.o. well we will change from intravenous to p.o. 3. Pulmonary edema, essentially resolved at this point. Continue Lasix. 4. Left groin infection. On antibiotics with amoxicillin and Omnicef as per Infectious Disease. 5. Atrial fibrillation. Controlled on Lopressor. Continue warfarin. 6. Mechanical mitral valve. Continue warfarin with goal INR 2.5 to 3.5, but currently supratherapeutic. Holding warfarin tonight and restart tomorrow at lower dose. 7. Dementia with occasional confusion. Relatively stable. 8. Diabetes mellitus. Control not perfect, but given low of 92 and minimal sliding scale likely as good as we are going to get without risking significant hypoglycemia. 9. Disposition: Initially trying for long-term acute care, but he was refused. The patient does have [facility] facility bed. If no bleeding develops with supratherapeutic INR, then hopeful for discharge to [facility] facility tomorrow.
[2019-05-11] MEDS: PROTONIX PO SCH (20:08)
[2019-05-11] MEDS: SEROQUEL PO SCH (20:08)
[2019-05-12] MEDS: XANAX PO PRN (00:23)
[2019-05-12] MEDS: CARAFATE LIQUID PO SCH ×3 (02:11→13:16)
[2019-05-12] MEDS: AMOXIL PO SCH ×2 (04:38→13:16)
[2019-05-12] MEDS: HUMALOG SUBQ SCH ×2 (06:03→11:19)
[2019-05-12 07:38] VITALS: BP 97/47
[2019-05-12 08:54] LABS: BASO# 0.04 X1000 (0.0-0.2); BASO% 0.7 % (0.0-0.8); EOS# 0.51 X1000 (0.0-0.7); EOS% 8.6 % (0.0-10.0); HEMATOCRIT 30.8 % (42.0-52.0); HEMOGLOBIN 9.6 g/dL (14.0-18.0); LYMPH# 0.67 X1000 (1.2-3.4); LYMPH% 11.2 % (20.5-51.1); MCH 31.2 PG (27-31); MCHC 31.2 g/dL (33-37); MONO# 0.51 X1000 (0.11-0.59); MONO% 8.6 % (1.7-9.3); MPV 9.9 FL (7.4-10.4); NEUT# 4.23 X1000 (1.4-6.5); NEUT% 70.9 % (42.2-75.2); PLT 238 X1000 (130-400); RBC 3.08 XMIL (4.7-6.1); WBC 5.96 X1000 (4.8-10.8)
[2019-05-12] MEDS: PROTONIX PO SCH (09:42)
[2019-05-12] MEDS: DAKIN S 0.125% TOP SCH (09:42)
[2019-05-12] MEDS: LOPRESSOR PO SCH (09:42)
[2019-05-12] MEDS: DITROPAN PO SCH (09:42)
[2019-05-12] MEDS: LANTUS INSULIN SUBQ SCH (09:42)
[2019-05-12] MEDS: MARINOL PO SCH (09:42)
[2019-05-12] MEDS: OMNICEF PO SCH (09:42)
[2019-05-12] MEDS: MIRALAX PO SCH (09:43)
[2019-05-12] MEDS: SSD CREAM TOP SCH (09:43)
[2019-05-12] MEDS: LASIX PO SCH (09:43)
--- NOTE | 2019-05-12 10:18 | DISCHARGE SUMMARY ---
ADMISSION DATE: 04/30/2019 DISCHARGE DATE: 05/12/2019 ADMISSION DIAGNOSES: 1. Suspect gastrointestinal bleeding. 2. Penile cancer status post chemotherapy and radiation. 3. Status post mitral valve replacement on anticoagulation. 4. Diabetes mellitus type 2. 5. Troponinemia. DISCHARGE DIAGNOSES: 1. Gastrointestinal bleed. 2. Esophagitis with peptic ulcer disease. 3. Pulmonary edema resolved. 4. Left groin infection on antibiotics, amoxicillin Omnicef followed by ID. 5. Atrial fibrillation on Lopressor and Coumadin. 6. Mechanical mitral valve on Coumadin with an INR goal 2.5 to 3.5. 7. Dementia with occasional confusion. 8. Diabetes mellitus type 2. CONSULTATIONS: 1. Dr. Crook, Gastroenterology for GI bleed. 2. Dr. Pacheco with Cardiology secondary to elevated troponin and also atrial fibrillation. 3. Dr. Joie Clark for penile cancer. 4. Dr. Michel for left groin wound infection number. 5. Also Dr. Guadalupe for gastrointestinal bleeding. 6. Hospice care. 7. Palliative care. 8. Case management and social work. 9. Wound Care consult. SURGERIES OR PROCEDURES: 05/06/2019, Dr. Guadalupe had an EGD performed with result of esophagitis in the mid esophagus, a ulcer in the gastric antrum that was 5 to 9 mm in size. Another ulcer in the 2nd part of the duodenal was 5 to 9 mm in size. A bleeding ulcer that had been seen earlier was healed. Recommendations at that time was to resume current medications, previous diet. HOSPITAL COURSE: 04/30/2019 the evening of, Mr. Wang Gustafson an 79-year-old male presented to the emergency department with several days history of black tarry stools. He is becoming more weak. The patient himself was a poor historian so information was obtained through the family. Apparently he had an EGD 2 weeks prior to presentation and that was for a bleeding ulcer as well. He was admitted to the [facility]. He was kept NPO he was given 2 units of blood. They consulted Gastroenterology, Oncology for the penile cancer, Cardiology because he had elevated troponins and he was on anticoagulation for the history of the mitral valve that was mechanical and a history of atrial fibrillation. Dr. Guadalupe saw the patient, and on 05/06 did the EGD where he saw that the previous bleeding ulcer from a prior EGD from a prior admit had stopped bleeding but he found 2 more gastric ulcers, 1 in the duodenum and 1 in the gastric antrum. It was also found during his stay he had a left groin wound infection. He was started on antibiotic therapy. Oncology followed patient and recommended transfusion of blood if the hemoglobin dropped less than 8. Apparently the patient at some point was put on IV heparin due to a mechanical mitral valve and chronic atrial fibrillation. The left groin wound was cultured, grew out Citrobacter and enterococcus faecalis. It was only resistant to cefazolin. Dr. Michel was consulted and got the patient started on antibiotic therapy and was continued on proton pump inhibitor. By the 05 of May he was resumed on his Coumadin. He had a CT of the abdomen, thorax abdomen and pelvis. He had bilateral pleural effusions on that, anasarca, constipation. It was Cardiology that put him on a heparin drip. During his stay the GI bleed had resolved by the time he had his EGD which was on the 05 of May. He was continued on Protonix for the peptic ulcer disease, the esophagitis. He was given diuretics for the pulmonary edema. He was then transitioned from heparin drip to Coumadin due to subtherapeutic INR. He was continued on antibiotic therapy for the Citrobacter and enterococcus. He was continued on Lopressor with chronic atrial fibrillation for rate control due to him having bilateral pleural effusions with anasarca. He was continued on his Lasix. His dementia maintained control. There were no behavioral disturbances during his stay. He did have some severe protein calorie malnutrition and he was started on Marinol, oral replacement supplementation. He also has a pacemaker due to history of sick sinus syndrome. He remained stable up until he finally got a room at an LTAC facility. He did have palliative care consult during his stay. He is a Do Not Resuscitate level 1. I believe the alternative discharge plan was in [facility], so I believe he is going to [facility]. DISCHARGE VITAL SIGNS: Temperature 98.4 degrees, heart rate 76, respiratory rate 13, blood pressure 97/47, O2 saturation 92% on room air. LABORATORY DATA: White blood cells 5000, hemoglobin 9, hematocrit 30, platelet count 238,000. INR is supratherapeutic at 3.0. Coumadin was being adjusted. BMP yesterday: Sodium 137, potassium 3.9, BUN 12, creatinine 0.7, glucose 150. Calcium 8.2. Micro on 05/01/2019: Left groin showed Citrobacter and enterococcus faecalis only resistant to cefazolin. He was on Zosyn for that and then on the a repeat only showed Citrobacter which was resistant to cefazolin. PERTINENT IMAGIN04/30/2019 chest x-ray: Pulmonary edema. On 05/06/2019 chest x-ray: Stable chest. On 05/06/2019: Chest, abdomen and pelvic CT showed bilateral pleural effusions, anasarca, constipation. On 05/08/2019 chest x-ray showed no change from prior. Still with some grossly stable central diffuse infiltrate compatible with pulmonary edema. An EKG on 04/30, atrial fibrillation rate 89. A repeat showed atrial fibrillation, rate 92. On 05/07 atrial fibrillation rate 110 and on 05/08 SVT rate 145, that was what the EKG reported but it really looked more like atrial fibrillation with RVR and then on 05/10, atrial fibrillation rate 110. DISCHARGE DIET: Diabetic diet, Glucerna shakes with each meal, liquacel supplement with breakfast. DISCHARGE ACTIVITY: As tolerated and with physical therapy here. DISCHARGE MEDICATIONS: 1. Coumadin 1 mg p.o. nightly. 2. Amoxicillin 500 mg p.o. every 8 hours with last dose being on 05/17. 3. Omnicef 600 mg p.o. daily with last dose being on 05/17. 4. Xanax 0.5 mg p.o. twice daily p.r.n. 5. Ditropan 5 mg p.o. t.i.d. 6. Lantus 5 units subcutaneous daily. 7. Lasix 40 mg p.o. daily. 8. Metoprolol 50 mg p.o. every 12 hours. 9. Marinol 2.5 mg p.o. twice daily. 10. MiraLAX 17 g p.o. daily p.r.n. 11. Protonix 40 mg p.o. twice daily. 12. Tylenol 650 mg p.o. every 6 hours p.r.n. DISCHARGE PHYSICIAN FOLLOW-UP: Dr. Lobato and Dr. Pacheco in 1 month and then probably with Dr. Guadalupe as well. DISCHARGE INSTRUCTIONS: Will be per facility of transfer, I believe that will be [facility] but will need to continue with routine wound care on the left groin and take medications as prescribed. Antibiotics end on the 17 of May. DISCHARGE DISPOSITION: I believe he is going to [facility]. Dictated by PRIMITIVO Kelsey for Tremayne Soto MD cc: PRIMITIVO Kelsey agree with the above. the following is my own face to face assessment. patient with GI bleed and left groin infection. infection improving rapidly with antibiotics. blood counts stable. good for discharge to SNF. MTDD
[2019-05-12] MEDS ORDERED: COUMADIN PO SCH (21:00)
== END 2019-05-12 13:58 | DRG 377 ==
LOC: SUPCPDRO → ED 18:42 → 3N 21:52 → SUATTDRO 21:52 → 2N 05-01 00:56
PROVIDERS: ATTEND Internal Medicine

== ENCOUNTER 2019-06-01 14:08 | Inpatient (IN) ==
--- NOTE | 2019-06-01 14:27 | PROVIDER DOCUMENTATION ---
HPI-General Adult - General Chief Complaint: Altered Mental Status Stated Complaint: ELEVATED BLOOD SUGAR Time Seen by Provider: 06/01/19 14:17 Source: family Allergies/Adverse Reactions: Patient Allergies Allergy/AdvReac Type Severity Reaction Status Date / Time No Known Allergies Allergy Verified 04/30/19 21:29 Home Medications: Home Medication List Medication Instructions Recorded Confirmed Last Taken Type Acetaminophen [Tylenol] 650 mg PO Q6H PRN PRN tab 04/23/19 06/01/19 04/23/19 Rx Insulin Glargine [Lantus Insulin] 5 unit SUBQ DAILY #1 unit 04/23/19 06/01/19 04/30/19 Rx Metoprolol [Lopressor] 50 mg PO Q12H #60 tab 04/23/19 06/01/19 04/30/19 Rx Oxybutynin [Ditropan] 5 mg PO TID #90 tab 04/23/19 06/01/19 04/30/19 Rx Alprazolam 1 tab PO BID PRN PRN #30 tab 05/11/19 06/01/19 Unknown Rx Dronabinol [Marinol] 2.5 mg PO BID #60 cap 05/11/19 06/01/19 Unknown Rx Furosemide [Lasix] 40 mg PO DAILY tab 05/11/19 06/01/19 Unknown Rx Pantoprazole [Protonix] 40 mg PO BID tab 05/11/19 06/01/19 Unknown Rx Polyethylene Glycol 3350 [Miralax] 17 gm PO DAILY PRN PRN powder, 05/11/19 06/01/19 Unknown Rx packet Warfarin [Coumadin] 1 mg PO QHS tab 05/11/19 06/01/19 Unknown Rx - History of Present Illness -Gen Adult Nature of Presenting Problems: This is a 79yo male with PMH of penile cancer s/p radiation and chemo and resent hospitalization for sepsis, presents with via EMS for altered mental status and elevated blood sugar. The reports that this morning the patient was noted to be more lethargic and less responsive. She noted that his blood sugar was >600 on three occasions and she gave 10-15 units each check throughout the day but was unable to get it to come down. The patient has not been able to take fluids, but has not had a fever or cough or shortness of breath. Review of Systems - Adult - REVIEW OF SYSTEMS - ADULT ROS:: ROS per family Constitutional: reports: no symptoms reported. denies: fever Eyes: reports: no symptoms reported. denies: eye pain Ears, Nose, Mouth & Throat: reports: no symptoms reported. denies: throat pain Cardiovascular: reports: no symptoms reported. denies: chest pain Respiratory: reports: no symptoms reported, chronic cough. denies: shortness of breath Gastrointestinal: reports: no symptoms reported. denies: abdominal pain Genitourinary: reports: other (chronic haas catheter, abnormal urine appearance) Musculoskeletal: reports: no symptoms reported Neurological: reports: other (lethargy) Psychiatric: reports: no symptoms reported Endocrine: reports: other (elevated blood sugar) Hematologic/Lymphatic: reports: other (on blood thinner for heart valve) Allergic/Immunologic: reports: other (recent infection and recent hx of radiation and chemo) Past History - Adult - PAST MEDICAL HISTORY-ADULT Review of Records: reports: Old Records Reviewed Major Childhood Illnesses: reports: denies history Cardiovascular: reports: A-Fib, HTN, heart valve problem, hyperlipidemia Respiratory: reports: denies history Gastrointestinal: reports: denies history Obstetrical/Gynecological: reports: denies history Genitourinary: reports: cancer (penile), chronic UTI's, other (BPH, penile mass) Musculoskeletal: reports: denies history Neurological: reports: dementia Endocrine/Immune: reports: Diabetes Other Conditions: reports: denies history - PRIOR SURGERIES/PROCEDURES Surgical/Procedure History: reports: appendectomy, CABG, pacemaker, hernia repair, other (penilectomy, heart valve) - IMMUNIZATION STATUS Childhood Immunizations: See Nurse Assessment Flu Vaccine: See Nurse Assessment - FAMILY HISTORY Family History: reviewed, not pertinent - SOCIAL HISTORY Smoking: denies Substance Use: none/never Alcohol Use Frequency: never Physical Exam-General - PHYSICAL EXAM-ADULT Initial Vital Signs Reviewed: Yes - CONSTITUTIONAL General Appearance: thin, lethargic, other (opens eyes to voice) - EYES Eyes: negative: conjuctival exudate - HEAD, EARS, NOSE, MOUTH & THROAT HENMT: normocephalic/atraumatic, moist mucous membranes - RESPIRATORY Respiratory: lungs clear, normal breath sounds. negative: crackles, wheezing - CARDIOVASCULAR Cardiovascular: no edema, tachycardia - GASTROINTESTINAL (ABDOMEN) Abdominal Exam: soft, tenderness (mild diffuse tenderness) - MUSCULOSKELETAL Extremity: non-tender. negative: deformity (LE) - SKIN Integumentary: normal color, other (wound noted in the the left groin, with packing, foul odor but minimal erythema or purulence noted.) - NEUROLOGIC Neurologic: other (lethargic, responses to voice, moves extremities) - PSYCHIATRIC Psych/Mental Status: other (non-verbal, no distress or anxiety noted, somulent) Progress - PLAN OF CARE/RESULTS Result Diagrams: 06/01/19 14:40 06/01/19 14:40 - REASSESSMENT Reassessment #1 Status: other (Patient initially with some hypotension and Afib with RVR after about 2L bolus HR improved and BP improved. He was started on DKA/Hyperglycemia protocol. Discussed case with cardiology who recomended if BP low and RVR not rate controlled to add patito-synephrine and Digoxin. Patient was noted also to have sub-theraputic INR and was started on lovenox. Case discussed with hospitalist who have accepted the patient.) Departure - Departure Date of Disposition Decision: 06/01/19 Time of Disposition Decision: 17:45 DIAGNOSIS: Hyperglycemia, Acute encephalopathy Atrial fibrillation Qualifiers: Atrial fibrillation type: unspecified Qualified Code(s): I48.91 - Unspecified atrial fibrillation Disposition: ADMITTED INPATIENT 09 Certified Medical Emergency: Emergent Condition: Serious Referrals and Follow-Ups: Bruno Lobato MD [Primary Care Provider] - - Critical Care Note This patient required my direct & personal management of CC.: No Attestation - Physician/ JESSICA Attestation Patient care was provided by Advanced Practice Provider:: No The physician spent face to face time with patient:: Yes Advanced Practice Provider documentation review:: Supervising physician onsite and consulted in the evaluation and care of this patient. The physician did have a face to face encounter with the patient.
[2019-06-01] MEDS ORDERED: POTASSIUM CHLORIDE 40 MEQ/SWI 40 MEQ/100 ML IVPB IV PRN (14:44)
[2019-06-01] MEDS ORDERED: D50W SYRINGE IV PRN ×2 (14:44)
[2019-06-01] MEDS ORDERED: POTASSIUM CHLORIDE 20% LIQUID PO PRN (14:44)
[2019-06-01] MEDS ORDERED: NS 1,000 ML IV ONE ×2 (14:44→16:49)
[2019-06-01] MEDS ORDERED: MAGNESIUM SULFATE 2 GM/S.W.I. 2 GM/50 ML IVPB IV PRN (14:44)
[2019-06-01] MEDS ORDERED: POTASSIUM CHLORIDE 10% LIQUID PO PRN (14:44)
[2019-06-01] MEDS ORDERED: POTASSIUM CHLORIDE 20 MEQ/SWI 20 MEQ/100 ML IVPB IV PRN (14:44)
[2019-06-01 14:57] LABS: HEMOGLOBIN 11.9 g/dL (14.0-18.0); MCH 32.1 PG (27-31); MCHC 33.1 g/dL (33-37); MPV 10.3 FL (7.4-10.4); RBC 3.71 XMIL (4.7-6.1); RDW 15.9 % (11.5-14.5); WBC 6.21 X1000 (4.8-10.8)
[2019-06-01 14:58] LABS: URINE SOURCE CATH
[2019-06-01 15:03] LABS: BILIRUBIN URINE NEGATIVE (NEGATIVE); BLOOD URINE SMALL (NEGATIVE); COLOR ORANGE; GLUCOSE URINE >1000 mg/dL (NEGATIVE); KETONE URINE 20 mg/dL (NEGATIVE); LEUKOCYTES URINE LARGE (NEGATIVE); NITRITE URINE NEGATIVE (NEGATIVE); PROTEIN URINE 30 mg/dL (NEGATIVE); TURBIDITY URINE TURBID (CLEAR); UROBILINOGEN URINE NORMAL (NORMAL)
[2019-06-01 15:04] LABS: UR EPITHELIAL CELLS <10 /HPF (<10); URINE BACTERIA NEGATIVE /HPF; URINE RBC <10 /HPF (<10); URINE WBC TNTC /HPF (<10)
[2019-06-01 15:06] LABS: ALLEN TEST YES; BE -2.4 mmoll (-3.0-3.0); BLOOD TYPE ARTERIAL; METHB 1.2 % (0.0-1.5); O2(CT) 14.6 mL/dL (15.0-23.0); O2HB 96.3 % (95.0-99.0); PCO2(98.6) 29 mmHg (35-45); PO2(98.6) 93 mmHg (60-100); SAMPLE BLOOD; SAO2 99.2 % (95.0-100.0); THB 10.7 g/dL (11.5-17.4); pH(98.6) 7.46 (7.35-7.45)
[2019-06-01 15:08] LABS: MODALITY ROOM AIR
[2019-06-01 15:12] LABS: UR AMPHETAMINES QUAL NONE DETECTED (NONE DETECT); UR BARBITUATES QUAL NONE DETECTED (NONE DETECT); UR BENZODIAZEPIN QUAL NONE DETECTED (NONE DETECT); UR CANNABINOIDS QUAL NONE DETECTED (NONE DETECT); UR COCAINE QUAL NONE DETECTED (NONE DETECT); UR METHADONE QUAL NONE DETECTED (NONE DETECT); UR OPIATES QUAL NONE DETECTED (NONE DETECT); UR OXYCODONE QUAL NONE DETECTED (NONE DETECT); UR PCP QUAL NONE DETECTED (NONE DETECT)
[2019-06-01 15:14] LABS: URINE CASTS NONE SEEN; URINE YEAST PRESENT
--- NOTE | 2019-06-01 15:19 | EKG Report ---
Test Performed on : 06/01/2019 2:55:43 PM Test Reason : Altered Mental status Blood Pressure : / mmHG Vent. Rate : 139 BPM Atrial Rate : 122 BPM P-R Int : 000 ms QRS Dur : 116 ms QT Int : 332 ms P-R-T Axes : 000 -27 168 degrees QTc Int : 505 ms Atrial fibrillation. with rapid ventricular response. Incomplete right bundle branch block Septal infarct , age undetermined Marked ST abnormality, possible inferior subendocardial injury Marked ST abnormality, possible anterolateral subendocardial injury Abnormal ECG When compared with ECG of 08-MAY-2019 10:56, Atrial fibrillation. has replaced Sinus rhythm. Incomplete right bundle branch block is now present Septal infarct is now present Unconfirmed Result
[2019-06-01] MEDS ORDERED: NEO-SYNEPHRINE IV ONE ×2 (15:58→16:48)
[2019-06-01 16:10] LABS: AGAP 28; ALB/GLOB RATIO 0.7; ALBUMIN 2.8 g/dL (3.5-5.0); ALKALINE PHOSPHATASE 124 U/L (32-122); BUN 49 mg/dL (8-22); CHLORIDE 95 mmol/L (98-107); CK PROFILE 74 U/L (24-204); COSMO 320; CREATININE 1.7 mg/dL (0.7-1.2); ESTIMATED GFR 39; GOT 32 U/L (10-34); GPT 12 U/L (10-44); MAGNESIUM 1.9 mg/dL (1.5-2.7); POTASSIUM 3.8 mmol/L (3.5-5.1); SODIUM 141 mmol/L (136-145); TCO2 18 mmol/L (25-35); TOTAL BILIRUBIN 0.35 mg/dL (0.20-1.00); TOTAL PROTEIN 6.8 g/dL (6.3-8.3)
[2019-06-01 16:12] LABS: GLUCOSE 571 mg/dL (70-104)
[2019-06-01] MEDS ORDERED: HUMULIN R IV ONE (16:19)
[2019-06-01] MEDS ORDERED: HUMULIN R 100 UNIT in NS 100 ML IV SCH (16:30)
[2019-06-01 16:43] LABS: ACETONE SERUM SMALL (NEGATIVE)
[2019-06-01] MEDS ORDERED: LANOXIN IV ONE (16:59)
[2019-06-01] MEDS ORDERED: LOVENOX 1 MG/KG SUBQ ONE (17:59)
[2019-06-01] MEDS ORDERED: LOVENOX SUBQ ONE (18:15)
[2019-06-01 19:08] LABS: INR 3.5; PROTIME 36.3 Seconds (11.0-16.0)
--- NOTE | 2019-06-01 19:10 | HISTORY AND PHYSICAL ---
CHIEF COMPLAINT: Altered mental status, elevated blood sugar. HPI: This is an 79-year-old gentleman who presents to the emergency room with his and daughters for altered mental status and elevated blood sugar. Mr. Gustafson has a complicated history being hospitalized from April 30 to May 12 with GI bleed, esophagitis and left groin infection. The states that the patient had improved at rehab but over the last 48 hours she has noticed a foul odor that has developed from this wound on his left groin. He has had increasing blood sugars that she was unable to get down and he has had altered mental status. On arrival to the emergency room he was found to be in atrial fibrillation, RVR in 140s to 150s. He was given 2 L of fluid and his heart rates have decreased into the 90s with blood pressures that have been in the 87 to 113 systolic range. He was found to be in DKA and acute kidney injury. PAST MEDICAL HISTORY: 1. Chronic atrial fibrillation. 2. Status post mitral valve replacement on chronic anticoagulation with an INR goal of 2.5 to 3.5. 3. Diabetes mellitus type 2. 4. Recent GI bleed. 5. Dementia with occasional confusion. 6. Infected left groin with cultures as stated above and with antibiotic regimen completed 05/17 while in rehab. 7. Recent GI bleed in May 2019 with EGD revealing esophagitis with peptic ulcer disease. PAST SURGICAL HISTORY: Mitral valve replacement, pacemaker and appendectomy. ALLERGIES: No known drug allergies. SOCIAL HISTORY: He is a former smoker. No alcohol or illicit drug use. He does live at home with his . He has daughters that are active in his care. FAMILY HISTORY: The denies a history of coronary artery disease or cancer. He does have diabetes mellitus in his parents' side. REVIEW OF SYSTEMS: Unable to obtain from the patient as he is altered. The states that he has had no complaints. PHYSICAL EXAMINATION: GENERAL: This is an 79-year-old gentleman who is lying on the stretcher in the emergency room in no distress. VITAL SIGNS: Blood pressure is 106/64 with a heart rate of 94, respirations are 16, temperature is 98.4 degrees oral with room air saturations 97-99%. HEENT: Head is normocephalic, atraumatic. Mucous membranes are moist. NECK: Supple with trachea midline. CARDIOVASCULAR: Irregularly irregular rate and rhythm. S1 and S2 are appreciated. He has no lower extremity edema. Peripheral pulses are palpable x4 extremities. PULMONARY: Breath sounds are clear with no increased work of breathing noted. Chest rise fall symmetric respiration. GASTROINTESTINAL: Abdomen soft, nontender, nondistended with bowel sounds in all 4 quadrants. SKIN: Warm and dry. Wound to left groin is noted with packing. There is redness to the left side of the wound. He does have purulent drainage. He does have a foul odor that the stated has appeared in the last 24 to 36 hours. NEUROLOGIC: He is lethargic. He does startle to loud noise. He does withdraw from pain. LABS: WBC is 6.2 with hemoglobin 11.9, hematocrit 36 and platelets 384,000. Sodium 141, potassium 3.8, BUN 49, creatinine 1.7 with a glucose of 571. Troponin is elevated at 0.645 with a plasma lactate of 9.5. Urinalysis reveals large amount of leukocytes with zmu-dwialzoo-aa-count white blood cells with greater than 1000 glucose with yeast cells present. Urine drug screen reveals none detected with acetone small. ASSESSMENT AND PLAN: 1. Sepsis most likely secondary to left groin infection. Culture has been obtained. Will start antibiotic coverage of Zosyn and daptomycin. Consult Dr. Miguel Michel for further management. Consult Wound Care. 2. Altered mental status which is most likely secondary to sepsis as well as hyperglycemia. We will monitor neuro checks. 3. Diabetes mellitus with hyperglycemia. 4. Diabetic ketoacidosis. Will start DKA protocol. 5. Acute kidney injury. Will hydrate, renal dose medications as appropriate and recheck labs in the morning. 6. Elevated troponin. In review the patient's chart his troponin has been elevated since April 2019. 7. Possible urinary tract infection with yeast present. We will order a urine culture. Start Diflucan. 8. History of chronic atrial fibrillation. We will monitor rate, will review home medications. 9. Prosthetic aortic valve with a target INR of 2.5 to 3.5. Will check an INR. restart Coumadin at 1 mg nightly if appropriate and trend labs daily. 10. Recent gastrointestinal bleed. Start Protonix b.i.d. 11. History of dementia with occasional confusion aware. The patient was examined and plan was discussed with Dr. Carpenter. Further treatments pending hospital course. Dictated by PRIMITIVO Collins for Hawk Cleaning MD Addendum: Patient seen and examined by myself. Agree with PRIMITIVO note. It reflects my assessment and plan. Patient is being admitted to hospital for sepsis secondary to left groin infection so will start broad spectrum antibiotics and ID will be consulted. Also patient was found out to be in DKA so will start insulin drip. His heart rate is elevated and he has chronic a fib. Will monitor patient closely in ICU. cc: PRIMITIVO Collins MD [facility]
[2019-06-01] MEDS ORDERED: ZOFRAN IV PRN (19:25)
[2019-06-01] MEDS ORDERED: TYLENOL PO PRN (19:25)
[2019-06-01] MEDS ORDERED: CUBICIN 500 MG in NS 100 ML IV SCH (20:00)
[2019-06-01] MEDS ORDERED: PROTONIX PO SCH (21:00)
[2019-06-01] MEDS: HEPARIN SUBQ SCH (21:38)
[2019-06-01] MEDS: D5 1/2 NS 1,000 ML IV SCH (21:38)
[2019-06-01] MEDS: ZOSYN 2.25 GM in NS 50 ML IV SCH (22:13)
[2019-06-01] MEDS: PROTONIX IV SCH (22:14)
[2019-06-01 22:32] LABS: AGAP 13; BUN 39 mg/dL (8-22); CALCIUM 8.5 mg/dL (8.8-10.2); CHLORIDE 104 mmol/L (98-107); COSMO 296; ESTIMATED GFR > 60; GLUCOSE 124 mg/dL (70-104); MAGNESIUM 1.7 mg/dL (1.5-2.7); PHOSPHORUS 2.4 mg/dL (2.7-4.5); POTASSIUM 3.2 mmol/L (3.5-5.1); SODIUM 143 mmol/L (136-145); TCO2 26 mmol/L (25-35)
[2019-06-02] MEDS: ZOSYN 2.25 GM in NS 50 ML IV SCH (02:00)
[2019-06-02 02:26] LABS: AGAP 19; BUN 38 mg/dL (8-22); CALCIUM 7.8 mg/dL (8.8-10.2); CHLORIDE 105 mmol/L (98-107); COSMO 296; ESTIMATED GFR > 60; GLUCOSE 134 mg/dL (70-104); MAGNESIUM 1.7 mg/dL (1.5-2.7); PHOSPHORUS 2.7 mg/dL (2.7-4.5); POTASSIUM 3.2 mmol/L (3.5-5.1); SODIUM 143 mmol/L (136-145); TCO2 19 mmol/L (25-35)
[2019-06-02] MEDS: MARINOL PO SCH ×3 (02:26→21:06)
[2019-06-02] MEDS: POTASSIUM CHLORIDE 20 MEQ/SWI 20 MEQ/100 ML IVPB IV PRN ×2 (02:53→06:31)
[2019-06-02] MEDS ORDERED: LANOXIN IV ONE (04:17)
[2019-06-02] MEDS ORDERED: NS 1,000 ML IV ONE (04:17)
[2019-06-02 04:48] LABS: ALLEN TEST YES; BE 3.2 mmoll (-3.0-3.0); BLOOD TYPE ARTERIAL; HCO3-(ACT) 27.4 mmoll (20.0-26.0); METHB 1.2 % (0.0-1.5); O2(CT) 15.1 mL/dL (15.0-23.0); O2HB 95.1 % (95.0-99.0); PCO2(98.6) 37 mmHg (35-45); PO2(98.6) 79 mmHg (60-100); SAMPLE BLOOD; SAO2 97.9 % (95.0-100.0); THB 11.2 g/dL (11.5-17.4); pH(98.6) 7.47 (7.35-7.45)
[2019-06-02 04:51] LABS: MODALITY ROOM AIR
[2019-06-02 06:08] LABS: BASO# 0.02 X1000 (0.0-0.2); BASO% 0.2 % (0.0-0.8); EOS% 0.2 % (0.0-10.0); HEMOGLOBIN 10.5 g/dL (14.0-18.0); MPV 10.2 FL (7.4-10.4)
[2019-06-02 06:10] LABS: INR 3.91; PROTIME 39.6 Seconds (11.0-16.0)
[2019-06-02 06:44] LABS: AGAP 15; BUN 37 mg/dL (8-22); CALCIUM 7.7 mg/dL (8.8-10.2); CHLORIDE 107 mmol/L (98-107); COSMO 303; ESTIMATED GFR > 60; GLUCOSE 205 mg/dL (70-104); MAGNESIUM 1.6 mg/dL (1.5-2.7); PHOSPHORUS 2.4 mg/dL (2.7-4.5); POTASSIUM 3.2 mmol/L (3.5-5.1); SODIUM 145 mmol/L (136-145); TCO2 23 mmol/L (25-35)
--- NOTE | 2019-06-02 07:22 | INFECTIOUS DISEASE PROGRESS NO ---
DATE: 06/02/2019 PRESENT ILLNESS: The patient is admitted to the hospital with altered mental status and elevated glucose. He is a diabetic and he may have an infection which is causing his present illness. RECOMMENDATIONS: I agree with treating the patient with daptomycin. I have decreased the dose to 350 mg daily. I have discontinued Zosyn and instead placed the patient on cefepime. I have also ordered a chest x-ray. 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 PAST SURGICAL HISTORY: Positive for mitral valve replacement, placement of a pacemaker, and appendectomy. PHYSICAL EXAMINATION: Vital Signs: Temperature is 97.8 degrees, pulse 140, respirations 11, blood pressure 111/83. General: This is an ill-appearing elderly male. He is in no acute distress. Head, eyes, ears, nose, and throat: There is no drainage from the nose or ears. He does not have any white coating of his tongue. Neck: No meningismus. Lungs: Clear to auscultation. Cardiovascular: Heart rate is rapid and irregular. Abdomen: Soft and not tender. Pelvic exam: In the left groin, there is a wound that is tender. There was no odor to it and I did not see any purulence. There was no surrounding erythema either. The wound is where the patient has metastatic penile cancer. Neurologic: The patient is awake. He did follow request to open his mouth and move his extremities. There is no tremor. LAB AND X-RAY: There is no radiographic study present. I have, as mentioned above, ordered a chest x-[place]. [place] [address], hemoglobin 10.5, platelet count 346,000. Creatinine is 1. GFR is greater than 60. Arterial blood gases show a pH of 7.47, a PO2 of 79, and a pCO2 of 37. Liver function studies are normal except for an alkaline phosphatase of 124. Blood, urine and left groin cultures are pending. Gram stain of the left groin wound showed gram- positive cocci, gram-positive rods, and gram-negative rods. ASSESSMENT AND PLAN: The patient came in with hyperglycemia and altered mental status. He may have an infection. I agree with treating the patient with daptomycin. I have decreased the dose to 350 mg and I have substituted cefepime for Zosyn. Also, I have ordered a chest x-ray for today. COMORBIDITIES: The patient has metastatic penile cancer, he is elderly, he has chronic atrial fibrillation. He also is a diabetic. He has dementia. He also recently had a GI bleed. ADDENDUM: The microbiology lab just notified us that 1 out of 2 blood cultures is growing a gram positive coccus. This may be a contaminant or a pathogen. It should be covered by daptomycin unless it is in the lung. cc: Miguel Michel MD MTDD
[2019-06-02] MEDS: PROTONIX IV SCH ×2 (07:27→18:02)
--- NOTE | 2019-06-02 07:27 | INFECTIOUS DISEASE PROGRESS NO ---
DATE: 06/02/2019 ADDENDUM: The microbiology lab just called and informed us that one out of two blood cultures is growing a gram-positive coccus. This could be a contaminant or it could be a pathogen. The patient is on daptomycin which has good coverage for most gram-positive cocci unless they are coming from the lung. cc: Miguel Michel MD
[2019-06-02] MEDS: MAXIPIME 1 GM in NS 50 ML IV SCH ×3 (07:28→22:32)
[2019-06-02] MEDS ORDERED: SODIUM PHOSPHATE 35 MMOL in NS 250 ML IV ONE (07:44)
[2019-06-02 07:53] LABS: EOS# 0.03 X1000 (0.0-0.7); HEMATOCRIT 31.3 % (42.0-52.0); IMM GRAN# 0.03 X1000 (0.0-0.04); IMM GRAN% 0.2 % (0.0-0.5); LYMPH# 0.36 X1000 (1.2-3.4); LYMPH% 2.9 % (20.5-51.1); MCH 32.4 PG (27-31); MCHC 33.5 g/dL (33-37); MCV 96.6 FL (81-99); MONO# 0.53 X1000 (0.11-0.59); MONO% 4.3 % (1.7-9.3); NEUT# 11.35 X1000 (1.4-6.5); NEUT% 92.2 % (42.2-75.2); PLT 338 X1000 (130-400); RBC 3.24 XMIL (4.7-6.1); RDW 15.4 % (11.5-14.5); WBC 12.32 X1000 (4.8-10.8)
[2019-06-02] MEDS: D5 1/2 NS 1,000 ML IV SCH (07:56)
--- NOTE | 2019-06-02 08:10 | EKG Report ---
Test Performed on : 06/01/2019 5:43:45 PM Test Reason : ED. NO EKG ORDER FOR MUSE Blood Pressure : / mmHG Vent. Rate : 104 BPM Atrial Rate : 166 BPM P-R Int : 000 ms QRS Dur : 122 ms QT Int : 394 ms P-R-T Axes : 000 -36 222 degrees QTc Int : 518 ms Atrial fibrillation. with rapid ventricular response. with premature ventricular or aberrantly conduc grady complexes. Left axis deviation Septal infarct (cited on or before 07-MAY-2019) Marked ST abnormality, possible inferior subendocardial injury Marked ST abnormality, possible anterior subendocardial injury Abnormal ECG When compared with ECG of 01-JUN-2019 14:55, (Unconfirmed) T wave inversion now evident in Inferior leads Unconfirmed Result
[2019-06-02] MEDS: NS 1,000 ML IV SCH ×2 (08:11→18:02)
--- NOTE | 2019-06-02 08:11 | EKG Report ---
Test Performed on : 06/01/2019 9:48:14 PM Test Reason : ELEVATED TROPONIN Blood Pressure : / mmHG Vent. Rate : 139 BPM Atrial Rate : 139 BPM P-R Int : 140 ms QRS Dur : 118 ms QT Int : 332 ms P-R-T Axes : 015 -06 192 degrees QTc Int : 505 ms Sinus tachycardia. Possible Left atrial enlargement Septal infarct (cited on or before 07-MAY-2019) Marked ST abnormality, possible inferior subendocardial injury Marked ST abnormality, possible anterolateral subendocardial injury Abnormal ECG When compared with ECG of 01-JUN-2019 21:47, (Unconfirmed) Sinus rhythm. has replaced Atrial flutter. Confirmed by Ben STRANGE, Suhail Montoya ([id number]) on 06/03/2019 7:41:17 AM
[2019-06-02] MEDS: HEPARIN SUBQ SCH (08:28)
[2019-06-02] MEDS: LASIX PO SCH (08:28)
[2019-06-02 08:36] LABS: BANDS 6 % (0-1); EOS 2 % (1-10); LYMPHS 4 % (21-51); MONO 4 % (1-9); SEGS 84 % (42-75)
[2019-06-02 08:37] LABS: HYPOCHROM 1+
[2019-06-02] MEDS: LANTUS INSULIN SUBQ SCH (08:42)
--- NOTE | 2019-06-02 08:56 | Diag Imaging Result Doc PS360 ---
EXAM: CHEST-1 VIEW 06/02/2019 HISTORY: pneumonia TECHNIQUE: AP portable upright at 0838 COMMENT: Compared to 05/08/2019 the lungs are better expanded and the hazy opacity present bilaterally particularly in the parahilar region of the right upper lobe has improved. The heart size appears smaller. IMPRESSION: Improved pulmonary edema and cardiomegaly. Electronically signed by Chi Morris 06/02/2019 8:54 AM
[2019-06-02] MEDS ORDERED: PRILOSEC PO SCH (09:00)
--- NOTE | 2019-06-02 09:09 | PROGRESS NOTE ---
DATE: 06/02/2019 SUBJECTIVE: The patient is definitely more awake and alert in comparing with yesterday at admission. He reports feeling better. No acute issues as per nursing staff overnight. OBJECTIVE: Vital Signs: Temperature 97.1 degrees, heart rate 141, respiratory rate 16, blood pressure 118/86, O2 saturation 98% on room air. General: This is a chronically ill-appearing and frail 79-year-old male, lying in bed, in no acute distress. Cardiovascular: Irregularly irregular heart rhythm. Tachycardic. No murmurs, gallops, or rubs. Respiratory: Clear bilaterally to auscultation. No work of breathing or using accessory muscles. Abdomen: Soft. Nontender to palpation. Nondistended. Bowel sounds present. No organomegaly. Extremities: There is a wound to the left groin noted with packing. There is redness noted to the left side of the wound. He has purulent drainage with a foul odor. Neurological: Patient is more alert and awake. Follows basic commands and moves 4 extremities. LABORATORY DATA: White cell count 12.32, hemoglobin 10.5, hematocrit 31.3, platelets 338,000 with INR 3.91. ABG shows pH 7.47 with pCO2 39 with pCO2 of 79. BMP reveals potassium 3.2, creatinine is normal, anion gap 15. Troponin 0.6. ASSESSMENT AND PLAN: 1. Sepsis, most like secondary to left groin infection. We have consulted Dr. Michel from Infectious Disease. He has adjusted doses of antibiotics with daptomycin 350 mg IV daily and also he has been started on cefepime as well. Wound Care has been consulted. One culture, blood culture, urine culture pending. We will continue to monitor. 2. Chronic atrial fibrillation. Rate is in the range of 140s. Has been sustained in that range. I think at this point we will start Cardizem p.o. 200 mg q.6 hours and we will see how this patient does. 3. Acute kidney injury, resolved. We will continue with IV fluids. 4. Diabetic ketoacidosis. Last BMP shows that ketoacidosis is almost resolved. Most likely, we will stop the drip and will restart Lantus and sliding scale insulin as well. 5. Elevated troponins and coronary artery disease. Troponins are getting better but considering the results are high in the setting of normal renal function, we will consult Cardiology. 6. Prosthetic aortic valve with INR target of 2.5 to 3.5. INR is therapeutic. It is important to remark that I talked with the ER doctor, Dr. Valdivia, and he did not provide any Lovenox for this patient. The INR is on target so we will continue with warfarin. 7. History of gastrointestinal bleeding. We will continue with Protonix. 8. History of dementia. The patient is confused at times. We will continue to monitor. 9. Clinical disposition. I think we will continue monitoring this patient closely here in the intensive care unit. cc: Hawk Cleaning MD
[2019-06-02] MEDS: CARDIZEM PO SCH ×2 (09:14→13:03)
--- NOTE | 2019-06-02 09:39 | EKG Report ---
Test Performed on : 06/02/2019 09:23:20 AM Test Reason : elevated troponins Blood Pressure : / mmHG Vent. Rate : 143 BPM Atrial Rate : 143 BPM P-R Int : 080 ms QRS Dur : 110 ms QT Int : 352 ms P-R-T Axes : -73 -32 212 degrees QTc Int : 543 ms Critical Test Result: High HR Unusual P axis and short [place], probable junctional tachycardia. Left axis deviation Incomplete right bundle branch block Septal infarct (cited on or before 07-MAY-2019) Marked ST abnormality, possible inferolateral subendocardial injury Abnormal ECG When compared with ECG of 01-JUN-2019 21:48, (Unconfirmed) Junctional rhythm. has replaced Sinus rhythm. ST less depressed in Anterior leads Nonspecific T wave abnormality, worse in Inferior leads Confirmed by Ben STRANGE, Suhail Montoya ([id number]) on 06/03/2019 7:42:24 AM
[2019-06-02 11:01] LABS: AGAP 14; BUN 30 mg/dL (8-22); CALCIUM 7.5 mg/dL (8.8-10.2); CHLORIDE 108 mmol/L (98-107); COSMO 296; ESTIMATED GFR > 60; GLUCOSE 145 mg/dL (70-104); MAGNESIUM 1.5 mg/dL (1.5-2.7); PHOSPHORUS 3.9 mg/dL (2.7-4.5); POTASSIUM 3.4 mmol/L (3.5-5.1); SODIUM 144 mmol/L (136-145); TCO2 22 mmol/L (25-35)
[2019-06-02] MEDS ORDERED: NS 1,000 ML IV SCH (13:15)
[2019-06-02] MEDS: XANAX PO PRN (14:17)
--- NOTE | 2019-06-02 15:46 | EKG Report ---
Test Performed on : 06/02/2019 3:27:00 PM Test Reason : elevated troponins Blood Pressure : / mmHG Vent. Rate : 111 BPM Atrial Rate : 033 BPM P-R Int : 000 ms QRS Dur : 110 ms QT Int : 314 ms P-R-T Axes : 000 -73 217 degrees QTc Int : 427 ms Accelerated Junctional rhythm. with frequent premature ventricular complexes. Left axis deviation Incomplete right bundle branch block Anteroseptal infarct (cited on or before 07-MAY-2019) Marked ST abnormality, possible inferolateral subendocardial injury Abnormal ECG When compared with ECG of 02-JUN-2019 09:23, (Unconfirmed) premature ventricular complexes. are now present ST no longer depressed in Anterior leads Confirmed by Ben STRANGE, Suhail Montoya ([id number]) on 06/03/2019 7:44:48 AM
[2019-06-02] MEDS: HUMALOG SUBQ SCH ×2 (16:30→21:06)
[2019-06-02] MEDS: LOPRESSOR PO SCH ×2 (16:59→20:27)
[2019-06-02] MEDS ORDERED: LOPRESSOR IV PRN (17:25)
[2019-06-02] MEDS ORDERED: LOPRESSOR PO ONE (17:28)
--- NOTE | 2019-06-02 19:03 | CONSULTATION ---
DATE OF CONSULTATION: 06/02/2019 IMPRESSIONS: 1. Nonspecific elevation in troponin, probably due to sepsis and possibly congestive heart failure. 2. Patient admitted with probable sepsis. 3. Chronic atrial fibrillation with elevated heart rate. 4. Status post mechanical mitral valve placement approximately 30 years ago. Patient continues on chronic anticoagulation with warfarin. 5. Type 2 diabetes mellitus. 6. Recent gastrointestinal bleed. 7. Significant dementia. 8. Recent infected left groin. RECOMMENDATIONS: 1. Utilize beta-lyndon, metoprolol for rate control. 2. Continue anticoagulation. 3. Patient has already diuresed and chest x-ray reports improvement. 4. Continue to treat sepsis and evaluate for source as you are doing. 5. Conservative cardiovascular management overall. 6. Follow up echocardiography. HISTORY: This 79-year-old white male with a past history of previous mechanical mitral valve replacement approximately 30 years ago, chronic atrial fibrillation, previous permanent pacemaker, GI bleed, peptic ulcer disease, type 2 diabetes mellitus, dementia, and recent problems with infected left groin, was admitted with increasing confusion and mental status changes. He was just hospitalized for infection in his left groin and discharged to care home facility. He had been home for approximately 6 days. He developed altered mental status and was noted to have elevated blood sugar, prompting him to be brought to the emergency room for evaluation. He was found to have evidence of sepsis with elevated lactate and leukocytosis. He has been admitted for further care. He was noted to have mild nonspecific elevation in troponin. For this reason, Cardiology was consulted. He is not known to have coronary disease. He has not been noted to have any reports of chest pain. He is confused and not able to contribute much in the way of history. He has demonstrated some elevation in heart rate response to his atrial fibrillation. He has been given intravenous fluids. He has also been given some oral Cardizem. He continues to have some tendency for tachycardia. PAST MEDICAL HISTORY: 1. Status post mechanical mitral valve replacement approximately 30 years ago. Patient continues on chronic anticoagulation with warfarin. 2. Chronic atrial fibrillation. 3. Status post permanent pacemaker. 4. Type 2 diabetes mellitus. 5. Recent GI bleed in May 2019 with upper GI endoscopy revealing esophagitis and peptic ulcer disease. 6. Dementia. 7. Recent problems with infected left groin, treated with antibiotic regimen, completed May 17 while in rehab at care home facility. PAST SURGICAL HISTORY: Also includes permanent pacemaker, and appendectomy, as well as mechanical mitral valve placement. ALLERGIES: He has no known drug allergies. MEDICATIONS: Prior to admission, as listed. SOCIAL HISTORY: He is . He is a former smoker. He does not use alcohol. He has been living at home with his and it is her desire to try and keep him at home. FAMILY HISTORY: Negative for premature coronary disease. REVIEW OF SYSTEMS: Not reliably obtainable given patient's confusion. PHYSICAL EXAMINATION: General: Reveals an elderly white male in no distress, on room air. Vital signs: Blood pressure 106/61, heart rate 122 and irregular with ECG monitor showing atrial fibrillation. Oxygen saturation 95%. HEENT: Extraocular movements appear intact. Mucous membranes moist. Neck: Supple without jugular venous distention. There are no carotid bruits. Chest: Clear to auscultation bilaterally. Cardiac Exam: Reveals an irregular tachycardia with mechanical first heart sound. No murmur or gallop could be appreciated. Abdomen: Soft. Bowel sounds are normal. Extremities: Without edema. Neurologic: Reveals him to be awake and responsive. He is confused. He moves all 4 extremities equally well. Speech is fluent. PERTINENT DATA: Twelve lead EKG demonstrates atrial fibrillation with ventricular response of 111 beats per minute and occasional premature ventricular aberrantly conducted complexes, as well as occasional ventricular paced complexes. Left axis deviation demonstrated along with incomplete right bundle branch block. LABORATORY DATA: Includes a white blood cell count 12.32, hematocrit 31.3, hemoglobin 10.5, platelet count 338,000. INR 3.91. Sodium 144, potassium 3.4, chloride 108, carbon dioxide 22, BUN 30, creatinine 1.0, glucose 145. Initial troponin T 0.645, follow-up troponin T 1.030, and subsequent troponin Ts thereafter 0.676, 0.491, and 0.531. CPK 74. Lactate on admission 9.5. cc: Cruzito Aldana MD
--- NOTE | 2019-06-02 19:56 | ECHO REPORT ---
ORDER DATE: 06/02/2019 INDICATION: Status post mitral valve replacement, atrial fibrillation with rapid response. M-MODE MEASUREMENTS: Left ventricle end diastole: 3.7. Left ventricle end systole: 2.5. Posterior wall: Appears to be 1.5. Interventricular septum: 1.5. Left atrium: 3.9. Aortic diameter: 3.4. SUMMARY OF 2-DIMENSIONAL IMAGIN. This study is very limited. The patient is critically ill with atrial fibrillation with rapid response. 2. Global left ventricular systolic function is probably normal, estimated visually on the order of 55%, but his heart rate is unfortunately very fast at 141, and that really limits the ability to interpret ventricular contractility. 3. The right-sided chambers appear to be mildly enlarged. There is a pacemaker within the right- sided chamber. 4. The mitral valve is a mechanical valve. Maximum gradient across the valve is 10 mm. Mean gradient is 3 mm. 5. The left atrium is enlarged. 6. The aortic valve shows no significant regurgitation. There is no aortic stenosis. There is a [id number] state here. 7. The tricuspid valve shows a trivial degree of regurgitation. Pulmonary pressure estimated grossly at 29 mmHg. 8. The pulmonic valve appears to be grossly unremarkable. Clinical correlation recommended. cc: MD Hawk Cabral MD
[2019-06-02] MEDS: CUBICIN 350 MG in NS 100 ML IV SCH (20:27)
[2019-06-02] MEDS ORDERED: COUMADIN PO SCH (21:00)
[2019-06-03] MEDS: XANAX PO PRN (00:18)
[2019-06-03] MEDS: LOPRESSOR PO SCH ×5 (01:57→22:23)
[2019-06-03] MEDS: HUMALOG SUBQ SCH ×4 (06:20→21:17)
[2019-06-03] MEDS: MAXIPIME 1 GM in NS 50 ML IV SCH ×3 (06:28→22:50)
[2019-06-03] MEDS: PROTONIX IV SCH ×2 (06:28→17:48)
[2019-06-03 06:31] LABS: BASO# 0.02 X1000 (0.0-0.2); BASO% 0.2 % (0.0-0.8); EOS% 3.7 % (0.0-10.0); HEMATOCRIT 32.2 % (42.0-52.0); HEMOGLOBIN 10.3 g/dL (14.0-18.0); LYMPH# 0.35 X1000 (1.2-3.4); LYMPH% 4.4 % (20.5-51.1); MCH 31.3 PG (27-31); MCV 97.9 FL (81-99); MONO# 0.41 X1000 (0.11-0.59); MONO% 5.1 % (1.7-9.3); NEUT# 6.94 X1000 (1.4-6.5); NEUT% 86.6 % (42.2-75.2); PLT 295 X1000 (130-400); RBC 3.29 XMIL (4.7-6.1); WBC 8.02 X1000 (4.8-10.8)
[2019-06-03 06:45] LABS: INR 4.72
[2019-06-03 06:54] LABS: AGAP 15; BUN 19 mg/dL (8-22); CALCIUM 7.8 mg/dL (8.8-10.2); CHLORIDE 104 mmol/L (98-107); COSMO 275; CREATININE 0.8 mg/dL (0.7-1.2); ESTIMATED GFR > 60; GLUCOSE 121 mg/dL (70-104); MAGNESIUM 1.7 mg/dL (1.5-2.7); PHOSPHORUS 2.7 mg/dL (2.7-4.5); POTASSIUM 3.4 mmol/L (3.5-5.1); SODIUM 136 mmol/L (136-145); TCO2 17 mmol/L (25-35)
--- NOTE | 2019-06-03 07:02 | INFECTIOUS DISEASE PROGRESS NO ---
DATE: 06/03/2019 PRESENT ILLNESS: The patient has a gram-negative addie left groin infection. He also has one of two blood cultures growing a gram-positive coccus. The patient's chest x-ray appears to be more likely due to pulmonary venous congestion rather than pneumonia. The blood cultures, one out of two is growing a gram-positive coccus. Urine culture is pending. An echocardiogram showed no vegetations. MEDICATIONS: The patient is on day 1 of a combination of cefepime and daptomycin. PHYSICAL EXAMINATION: Vital Signs: Temperature is 96.9 degrees, pulse 93, respirations 18, blood pressure 122/86. The patient weighs 134 pounds. General: This is a chronically ill and malnourished, elderly male. He is in no acute distress. He does seem to be delirious. Head, Eyes, Ears, Nose, and Throat: No drainage noted from the nose or the ears. Neck: No meningismus. Lungs: Clear to auscultation. Cardiovascular: Heart rate is irregular. Abdomen: Soft and nontender. Pelvic Examination: The patient's left groin wound has some devitalized tissue but no necrosis that I could see and there is no foul odor to the wound. Neurologic: The patient is delirious. He did not follow requests to move his extremities. He did talk but I could not understand what he was saying. Thorax: There is a left chest PPM. The site is not red or swollen. LAB AND X-RAY: Chest x-ray shows improved pulmonary venous congestion. CBC is pending. Groin culture is growing gram-negative addie. One of two blood cultures is growing gram-positive coccus. Urine culture result is pending. Echocardiogram showed no vegetation. ASSESSMENT AND PLAN: The patient has a left groin wound infection and possibly pneumonia and bacteremia.I plan to continue with cefepime and daptomycin pending further culture results. COMORBIDITIES: Metastatic penile cancer, elderly, atrial fibrillation, and diabetes mellitus. cc: MD GEENA Garnett
[2019-06-03] MEDS: LANTUS INSULIN SUBQ SCH (08:06)
[2019-06-03] MEDS: LASIX PO SCH (08:07)
[2019-06-03] MEDS: MARINOL PO SCH ×3 (08:07→22:23)
--- NOTE | 2019-06-03 09:44 | PROGRESS NOTE ---
DATE: 06/03/2019 SUBJECTIVE: The patient is definitely much more confused in comparing with yesterday, according to nursing staff. Upon my examination, he is not even able to tell me his name. OBJECTIVE: Vital Signs: Temperature 96.8, heart rate 94, respiratory rate 13, blood pressure 118/50, O2 saturation 99% on room air. General Examination: This is a chronically ill-appearing and demented, 79-year-old, male, lying in bed, in no acute distress. Cardiovascular Examination: S1 and S2 heard. Irregularly irregular heart rhythm. Tachycardic but no murmurs, gallops, or rubs. Respiratory Examination: Clear bilaterally to auscultation. No work of breathing or using accessory muscles. Abdomen: Soft. Nontender to palpation. Nondistended. Bowel sounds present. No organomegaly. Extremities: There is a wound in the left groin noted with packing with dryness around, with some foul-smelling odor. Neurological Examination: The patient is definitely more confused. Does not follow commands. Apparently, he moves 4 extremities spontaneously. Laboratory Data: White cell count 8.02, hemoglobin 10.3, hematocrit 32.2, platelets 295,000. BMP remarkable for potassium 3.2. ASSESSMENT AND PLAN: 1. Sepsis secondary to left groin infection. Reportedly, this patient is on daptomycin 350 mg and cefepime as well. Wound care is also following with this patient. The blood culture shows a contaminant of coagulase-negative Staphylococcus aureus but urine culture and Gram stain, one culture showed gram-negative rods, gram-positive cocci. At this point, we will continue with the current management. I will leave the decision to modify antibiotics to Dr. Michel. 2. Chronic atrial fibrillation. Patient has been started on beta-blockers and heart rate so far is in the range of 100s and below. Cardiology is following this patient for this condition. 3. Acute kidney injury, resolved. 4. Diabetic ketoacidosis, resolved. Patient is on home medications and his Lantus in small doses considering that he is not eating a lot. 5. Nonspecific elevated troponins. Cardiology has been consulted. They think that all these troponins are elevated secondary to sepsis. Conservative management recommended. 6. Prosthetic valve with INR of 4.2. We will hold warfarin today and we will keep checking INR daily. 7. History of dementia. Patient is very confused at this time. The patient needs to be in restraints. We will continue to monitor. 8. Disposition. We will continue to monitor this patient closely in the intensive care unit. cc: Hawk Cleaning MD MTDD
--- NOTE | 2019-06-03 10:07 | INFECTIOUS DISEASE PROGRESS NO ---
DATE: 06/03/2019 ADDENDUM: The patient has had 1 of 2 blood cultures grow a coag-negative Staph. This is a contaminant and does not require antibiotic treatment. cc: Miguel Michel MD
[2019-06-03] MEDS: MORPHINE IV PRN (13:02)
[2019-06-03] MEDS ORDERED: CALMOSEPTINE OINTMENT TOP PRN (13:19)
[2019-06-03] MEDS: NS 1,000 ML IV SCH (16:30)
--- NOTE | 2019-06-03 17:57 | PROGRESS NOTE ---
DATE: 06/03/2019 SUBJECTIVE: The patient had some sundowning last night. He has pulled out on IV and is now in restraints. He is more confused. He denies shortness of breath. There has been no chest pain. OBJECTIVE: Vital signs: Blood pressure 120/85, heart rate 80 with ECG monitor showing atrial fibrillation. There is no significant jugular distention. Chest: Clear to auscultation. Cardiac Exam: Reveals an irregular rate and rhythm without appreciable murmur or gallop. There is no evidence of peripheral edema. LABORATORY DATA: Includes white blood cell count 8.2, hematocrit 32.2, hemoglobin 10.3, platelet count 295,000. Sodium 136, potassium 3.4, chloride 104, carbon dioxide 17. BUN 19, creatinine 0.8, glucose 180. Albumin 2.0. IMPRESSION: 1. Mild elevation in troponin without chest pain or acute change in ECG, probably related to sepsis and possible component of congestive heart failure. 2. Chronic atrial fibrillation. Heart rate now better controlled on metoprolol. 3. Recurrent infection in left groin. 4. Status post mechanical mitral valve replacement approximately 30 years ago. 5. Type 2 diabetes mellitus. 6. Significant dementia. RECOMMENDATIONS: 1. Continue metoprolol 50 mg twice daily for rate control with respect to his atrial fibrillation. 2. Continue anticoagulation with target INR of 2.5 to 3.5. 3. Further diuresis does not appear to be needed. 4. Conservative cardiovascular management overall. I will plan on seeing him further on an as needed basis. cc: Cruzito Aldana MD
[2019-06-03] MEDS: CUBICIN 350 MG in NS 100 ML IV SCH (20:49)
[2019-06-04 06:02] LABS: BASO# 0.01 X1000 (0.0-0.2); BASO% 0.1 % (0.0-0.8); EOS# 0.17 X1000 (0.0-0.7); EOS% 2.1 % (0.0-10.0); HEMATOCRIT 30.3 % (42.0-52.0); HEMOGLOBIN 9.5 g/dL (14.0-18.0); IMM GRAN# 0.02 X1000 (0.0-0.04); IMM GRAN% 0.2 % (0.0-0.5); LYMPH# 0.36 X1000 (1.2-3.4); LYMPH% 4.4 % (20.5-51.1); MCH 30.5 PG (27-31); MCHC 31.4 g/dL (33-37); MCV 97.4 FL (81-99); MONO# 0.24 X1000 (0.11-0.59); MONO% 2.9 % (1.7-9.3); MPV 10.3 FL (7.4-10.4); NEUT# 7.37 X1000 (1.4-6.5); NEUT% 90.3 % (42.2-75.2); PLT 266 X1000 (130-400); RBC 3.11 XMIL (4.7-6.1); RDW 15.6 % (11.5-14.5); WBC 8.17 X1000 (4.8-10.8)
[2019-06-04] MEDS: MAXIPIME 1 GM in NS 50 ML IV SCH ×2 (06:12→16:14)
[2019-06-04] MEDS: PROTONIX IV SCH ×2 (06:12→18:28)
[2019-06-04 06:15] LABS: AGAP 9; ALBUMIN 1.8 g/dL (3.5-5.0); BUN 12 mg/dL (8-22); CALCIUM 7.6 mg/dL (8.8-10.2); CHLORIDE 105 mmol/L (98-107); COSMO 281; CREATININE 0.7 mg/dL (0.7-1.2); ESTIMATED GFR > 60; GLUCOSE 138 mg/dL (70-104); MAGNESIUM 1.5 mg/dL (1.5-2.7); PHOSPHORUS 2.5 mg/dL (2.7-4.5); POTASSIUM 3.5 mmol/L (3.5-5.1); SODIUM 140 mmol/L (136-145); TCO2 26 mmol/L (25-35)
[2019-06-04] MEDS: HUMALOG SUBQ SCH ×4 (06:18→20:42)
[2019-06-04] MEDS ORDERED: SODIUM PHOSPHATE 35 MMOL in NS 250 ML IV ONE (07:53)
[2019-06-04] MEDS: LANTUS INSULIN SUBQ SCH (09:08)
[2019-06-04] MEDS: MARINOL PO SCH ×2 (09:27→20:37)
[2019-06-04] MEDS: LASIX PO SCH (09:27)
[2019-06-04] MEDS: LOPRESSOR PO SCH ×2 (09:27→20:37)
--- NOTE | 2019-06-04 10:35 | PROGRESS NOTE ---
DATE: 06/04/2019 SUBJECTIVE: Patient continues to be more confused, and continues to be confused same in comparing with yesterday. He had been in restraints although he has been a little bit restless last night. No other issues noted as per nursing staff overnight. OBJECTIVE: Vital Signs: Temperature 97.2 degrees, heart rate 82, respiratory rate 18, blood pressure 99/63, and O2 saturation 100% 3 L nasal cannula. General: This is a chronically ill- appearing and demented 79-year-old male, lying in bed in no acute distress. Cardiovascular: S1, S2 heard. Irregularly irregular heart rhythm. No murmurs, gallops, or rubs noted. Respiratory: Clear bilaterally to auscultation. No work of breathing or using accessory muscles. Abdomen: Soft. Nontender to palpation. Bowel sounds present. No organomegaly. Extremities: No clubbing or cyanosis. There is some edema noted. In the left groin, there is a wound with packing with some redness around with some foul smelling. Neurological: Patient continues to be confused. Does not follow commands. He is not oriented to person, place or time. Moves all 4 extremities spontaneously. LABORATORY DATA: White cell count 8.17, hemoglobin 9.5, hematocrit 30.3 and platelets 266,000 with BMP that is unremarkable except phosphorus that is 2.5. ASSESSMENT AND PLAN: 1. Sepsis secondary to left groin infection. His white cell count is okay, and the Gram stain shows Pseudomonas aeruginosa. The urine culture did shows gram-positive cocci. Currently, patient is on daptomycin and cefepime as well. Dr. Michel from infectious disease is managing antibiotics. We appreciate his input. 2. Chronic atrial fibrillation. After patient has been started on metoprolol, heart rate is definitely much better controlled. There was some nonspecific elevation of troponins. Cardiology has been consulted. At this point, patient is stable. Cardiology is signing off. 3. Diabetic ketoacidosis. That condition is resolved. Patient is on Lantus really small doses because this patient sometimes is not able to eat. We will continue to monitor BMP daily. 4. Aortic prosthetic valve with INR of 4.1. We will continue to check INR while this patient is here in the hospital. 5. History of advanced dementia. Patient continues to be very confused. We will continue to monitor this patient. 6. Disposition. At this point, patient is stable so he can be sent to a regular floor. Considering all his comorbidities, I think he is a candidate for hospice. There is a Hospice consult for [facility]. We will see what they have to say. Palliative Care also is following this patient. cc: Hawk Cleaning MD
[2019-06-04] MEDS: NS 1,000 ML IV SCH (18:28)
--- NOTE | 2019-06-04 18:49 | INFECTIOUS DISEASE PROGRESS NO ---
DATE: 06/04/2019 PRESENT ILLNESS: The patient has a Pseudomonas left groin wound infection. He has 1 of 2 blood cultures growing a coagulase-negative Staph. This is a contaminant. Patient has a gram-positive coccal urinary tract infection also. MEDICATIONS: This is day is 2 of treatment with the combination of cefepime and daptomycin. PHYSICAL EXAMINATION: Vital Signs: Temperature is 97.2 degrees, pulse 98, respirations 18, blood pressure 121/72. General: This is a chronically ill-appearing elderly male who is lethargic. Head/eyes/ears/nose/throat: He apparently can hear my spoken words but was not able to carry on a conversation. There is no drainage coming from his nose or ears. I did not see any white patches in his mouth. Neck: No pain with passive movement. Lungs: Clear to auscultation. Cardiovascular: Heart rate is irregular. Abdomen: Soft and not tender. In the left groin area there is a wound with devitalized tissue in it. Neurologic: The patient is lethargic. He did not follow my request to move his extremities. He said a few words but I could not understand what he was saying. Thorax: The patient has a pacemaker present in the left upper chest. The site is not swollen or draining. LAB AND X-RAY: The patient's left groin wound culture grew Pseudomonas. Urine culture is growing gram-positive cocci. One of 2 blood cultures is growing out a coagulase-negative Staph. This is a contaminant. ASSESSMENT AND PLAN: I am going to continue cefepime for the Pseudomonas groin infection and I am also going to continue daptomycin for the patient's gram-positive coccal urinary tract infection pending further culture results. COMORBIDITIES: The patient has metastatic penile cancer. He is elderly and he is a diabetic. cc: Miguel Michel MD
[2019-06-04] MEDS: CUBICIN 350 MG in NS 100 ML IV SCH (20:37)
[2019-06-04] MEDS: MORPHINE IV PRN (20:41)
[2019-06-05] MEDS: MAXIPIME 1 GM in NS 50 ML IV SCH ×3 (00:21→16:50)
[2019-06-05] MEDS: PROTONIX IV SCH ×2 (06:31→18:43)
[2019-06-05] MEDS: SODIUM CHLORIDE 0.9% INJ SCH ×2 (06:31→18:43)
[2019-06-05] MEDS: HUMALOG SUBQ SCH ×4 (06:32→21:00)
[2019-06-05 07:57] LABS: BASO# 0.02 X1000 (0.0-0.2); BASO% 0.3 % (0.0-0.8); EOS# 0.31 X1000 (0.0-0.7); EOS% 5.4 % (0.0-10.0); HEMATOCRIT 32.1 % (42.0-52.0); HEMOGLOBIN 10.1 g/dL (14.0-18.0); LYMPH# 0.36 X1000 (1.2-3.4); LYMPH% 6.3 % (20.5-51.1); MCH 30.8 PG (27-31); MCHC 31.5 g/dL (33-37); MCV 97.9 FL (81-99); MONO# 0.35 X1000 (0.11-0.59); MONO% 6.1 % (1.7-9.3); NEUT# 4.71 X1000 (1.4-6.5); NEUT% 81.9 % (42.2-75.2); PLT 307 X1000 (130-400); RBC 3.28 XMIL (4.7-6.1); RDW 16.1 % (11.5-14.5); WBC 5.75 X1000 (4.8-10.8)
[2019-06-05 08:27] LABS: AGAP 10; BUN 9 mg/dL (8-22); CALCIUM 7.6 mg/dL (8.8-10.2); CHLORIDE 104 mmol/L (98-107); COSMO 277; CREATININE 0.5 mg/dL (0.7-1.2); ESTIMATED GFR > 60; GLUCOSE 149 mg/dL (70-104); PHOSPHORUS 2.3 mg/dL (2.7-4.5); POTASSIUM 3.3 mmol/L (3.5-5.1); SODIUM 138 mmol/L (136-145); TCO2 24 mmol/L (25-35)
[2019-06-05] MEDS: MARINOL PO SCH ×2 (10:13→22:56)
[2019-06-05] MEDS: LOPRESSOR PO SCH ×2 (10:14→22:57)
[2019-06-05] MEDS: LASIX PO SCH (10:14)
[2019-06-05] MEDS: LANTUS INSULIN SUBQ SCH ×3 (10:15→21:00)
--- NOTE | 2019-06-05 11:53 | PROGRESS NOTE ---
DATE: 06/05/2019 SUBJECTIVE: The patient is more alert today. He is not on any restraints. OBJECTIVE: Vital Signs: Temperature 97.5 degrees, heart rate 86, respiratory rate 12, blood pressure 141/41, O2 saturation 97% on room air. General: This is a chronically ill-appearing, demented 79-year-old male, lying in bed, in no acute distress. Cardiovascular: S1, S2 heard. Irregularly, irregular heart rhythm. No murmurs, gallops, or rubs. Respiratory: Clear bilaterally to auscultation. No work of breathing or using accessory muscles. Abdomen: Soft, nontender to palpation. Bowel sounds present. No organomegaly. Extremities: No clubbing, cyanosis, or edema. Peripheral pulses present in both legs. Neurologic: The patient is a little bit more alert today, awake, still confused to place and time. Follows basic commands. Moves all 4 extremities spontaneously. LABORATORY DATA: White cell count 575, hemoglobin 10.1, hematocrit 32.1, platelets 307,000. BMP remarkable for potassium 3.3. Renal function, 0.5, with glucose of 149. ASSESSMENT/PLAN: 1. Sepsis secondary to left groin infection. Gram stain showed Pseudomonas and blood culture showed coagulase-negative staphylococcus. At this point, the patient is being followed by ID and receiving cefepime 1 g IV q.8 hours and daptomycin as well. We will continue with the same management. 2. Chronic atrial fibrillation. Heart rate at admission was elevated but after we started metoprolol the patient is much better. Cardiology has been following but they signed off. 3. Diabetic ketoacidosis, resolved. The blood sugars are much better controlled. 4. Aortic prosthetic valve. We have not checked INR during the last couple days but during the first 3 days of hospitalization that has been on target. At this point, we will check INR tomorrow we will go from there. We will continue with warfarin. 5. History of advanced dementia. The patient is still confused but awake today. We will continue to monitor. 6. Disposition. I have talked with the daughter, who is at bedside, and they have requested to have physical therapy on board. If he continues to be stable they are planning to continue with home health next Friday. cc: Hawk Cleaning MD
[2019-06-05] MEDS: NS 1,000 ML IV SCH (16:50)
[2019-06-05] MEDS ORDERED: ATIVAN IM ONE (23:27)
[2019-06-06] MEDS: MAXIPIME 1 GM in NS 50 ML IV SCH ×3 (02:54→19:23)
[2019-06-06] MEDS: CUBICIN 350 MG in NS 100 ML IV SCH ×2 (02:58→21:36)
[2019-06-06] MEDS: PROTONIX IV SCH ×2 (06:01→19:24)
[2019-06-06] MEDS: SODIUM CHLORIDE 0.9% INJ SCH (06:01)
[2019-06-06] MEDS: HUMALOG SUBQ SCH ×4 (06:02→21:57)
[2019-06-06 08:02] LABS: BASO# 0.02 X1000 (0.0-0.2); BASO% 0.3 % (0.0-0.8); EOS# 0.21 X1000 (0.0-0.7); EOS% 2.8 % (0.0-10.0); HEMATOCRIT 30.3 % (42.0-52.0); HEMOGLOBIN 9.6 g/dL (14.0-18.0); IMM GRAN# 0.02 X1000 (0.0-0.04); IMM GRAN% 0.3 % (0.0-0.5); LYMPH# 0.47 X1000 (1.2-3.4); LYMPH% 6.3 % (20.5-51.1); MCH 31.1 PG (27-31); MCHC 31.7 g/dL (33-37); MCV 98.1 FL (81-99); MONO% 6.7 % (1.7-9.3); MPV 9.9 FL (7.4-10.4); NEUT# 6.27 X1000 (1.4-6.5); NEUT% 83.6 % (42.2-75.2); PLT 319 X1000 (130-400); RBC 3.09 XMIL (4.7-6.1); WBC 7.49 X1000 (4.8-10.8)
[2019-06-06 08:09] LABS: INR 2.03; PROTIME 23.4 Seconds (11.0-16.0)
[2019-06-06 08:22] LABS: AGAP 13; ALBUMIN 2.2 g/dL (3.5-5.0); BUN 11 mg/dL (8-22); CALCIUM 8.3 mg/dL (8.8-10.2); CHLORIDE 101 mmol/L (98-107); COSMO 283; CREATININE 0.7 mg/dL (0.7-1.2); ESTIMATED GFR > 60; GLUCOSE 204 mg/dL (70-104); PHOSPHORUS 1.4 mg/dL (2.7-4.5); POTASSIUM 2.9 mmol/L (3.5-5.1); SODIUM 139 mmol/L (136-145); TCO2 25 mmol/L (25-35)
[2019-06-06] MEDS: MARINOL PO SCH ×2 (09:28→21:45)
[2019-06-06] MEDS: LANTUS INSULIN SUBQ SCH (09:29)
[2019-06-06] MEDS: LASIX PO SCH (09:29)
[2019-06-06] MEDS: LOPRESSOR PO SCH ×2 (09:29→21:41)
[2019-06-06] MEDS ORDERED: POTASSIUM CHLORIDE 60 MEQ in NS 500 ML IV ONE (15:56)
--- NOTE | 2019-06-06 18:02 | PROGRESS NOTE ---
DATE: 06/06/2019 SUBJECTIVE: The patient is comfortable. No acute issues noted as per nursing staff overnight. OBJECTIVE: Vital Signs: Temperature 97.4 degrees, heart rate 84, respiratory rate 16, blood pressure 102/52, O2 saturation 91% on room air. General: This is a chronically ill appearing and demented 79-year-old male, lying in bed, in no acute distress. Cardiovascular: S1, S2 heard. Irregularly, irregular heart rhythm. No murmurs, gallops, or rubs noted. Respiratory: Clear bilaterally to auscultation. No work of breathing or using accessory muscles. Abdomen: Soft, nontender to palpation. Bowel sounds present. No organomegaly. Extremities: No clubbing, cyanosis, or edema. Peripheral pulses present in both legs. Neurologic: The patient is sleepy this morning. From nurse evaluation, he is sometimes confused. Moves all four extremities spontaneously. LABORATORY DATA: Repeat INR is 2.03. Potassium 2.9. Glucose 204. ASSESSMENT/PLAN: 1. Sepsis secondary to left groin infection. Gram stain showed Pseudomonas and blood culture showed coagulase negative Staphylococcus. Dr. Michel from Infectious Disease is following this patient and he is receiving cefepime and daptomycin as well. We will continue with the same management. 2. Chronic atrial fibrillation. At presentation the heart rate was very elevated, requiring Cardizem drip. At this point we have started metoprolol and heart rate is definitely much better controlled. Cardiology was following at the admission, but they have signed off already. 3. Diabetic ketoacidosis, at presentation. Now blood sugars are better controlled. Sometimes he has an elevated blood sugar. Will continue with sliding scale insulin. 4. Aortic prosthetic valve. INR is subtherapeutic today so we are going to restart home dosage of warfarin, that is 2 mg orally at bedtime. 5. History of advanced dementia. The patient is still confused, awake today. 6. Disposition. I had a long conversation with daughter and she said that the patient has been in the rehab facility two times during the last 12 months. What she really wanted is to send this patient home with home health, so that is what we are going to do. There was a consult for hospice but they refused hospice and they preferred to have home health on board. cc: Hawk Cleaning MD
[2019-06-06] MEDS ORDERED: COUMADIN PO SCH (21:00)
[2019-06-06] MEDS: NS 1,000 ML IV SCH (21:45)
[2019-06-07] MEDS: MAXIPIME 1 GM in NS 50 ML IV SCH ×3 (02:19→17:53)
[2019-06-07] MEDS: PROTONIX IV SCH ×2 (06:35→17:53)
[2019-06-07] MEDS: HUMALOG SUBQ SCH ×4 (06:44→20:45)
[2019-06-07 07:42] LABS: INR 1.83; PROTIME 21.6 Seconds (11.0-16.0)
[2019-06-07 07:54] LABS: BASO# 0.03 X1000 (0.0-0.2); BASO% 0.4 % (0.0-0.8); EOS# 0.24 X1000 (0.0-0.7); EOS% 3.2 % (0.0-10.0); HEMATOCRIT 31.6 % (42.0-52.0); HEMOGLOBIN 10.2 g/dL (14.0-18.0); LYMPH# 0.49 X1000 (1.2-3.4); LYMPH% 6.6 % (20.5-51.1); MCH 32.2 PG (27-31); MCHC 32.3 g/dL (33-37); MCV 99.7 FL (81-99); MONO# 0.69 X1000 (0.11-0.59); MONO% 9.3 % (1.7-9.3); MPV 9.9 FL (7.4-10.4); NEUT# 5.95 X1000 (1.4-6.5); NEUT% 80.5 % (42.2-75.2); PLT 264 X1000 (130-400); RBC 3.17 XMIL (4.7-6.1); RDW 16.4 % (11.5-14.5)
[2019-06-07 08:00] LABS: AGAP 12; ALBUMIN 2.4 g/dL (3.5-5.0); BUN 7 mg/dL (8-22); CALCIUM 7.8 mg/dL (8.8-10.2); CHLORIDE 100 mmol/L (98-107); COSMO 271; CREATININE 0.7 mg/dL (0.7-1.2); ESTIMATED GFR > 60; GLUCOSE 111 mg/dL (70-104); PHOSPHORUS 1.7 mg/dL (2.7-4.5); POTASSIUM 3.8 mmol/L (3.5-5.1); SODIUM 136 mmol/L (136-145); TCO2 24 mmol/L (25-35)
[2019-06-07 08:10] LABS: BANDS 2 % (0-1); EOS 2 % (1-10); LYMPHS 16 % (21-51); MONO 4 % (1-9); SEGS 76 % (42-75)
[2019-06-07] MEDS: LOPRESSOR PO SCH ×2 (08:44→20:45)
[2019-06-07] MEDS: LASIX PO SCH (08:44)
[2019-06-07] MEDS: MARINOL PO SCH ×2 (08:45→20:46)
[2019-06-07] MEDS: LANTUS INSULIN SUBQ SCH ×2 (08:45→20:45)
[2019-06-07] MEDS ORDERED: SODIUM PHOSPHATE 40 MEQ in NS 250 ML IV ONE (12:00)
[2019-06-07] MEDS: MORPHINE IV PRN (14:54)
[2019-06-07] MEDS: NS 1,000 ML IV SCH (17:53)
--- NOTE | 2019-06-07 18:47 | PROGRESS NOTE ---
DATE: 06/07/2019 SUBJECTIVE: Patient has no major complaints. He is a bit confused after getting some morphine. OBJECTIVE: Blood pressure 94/53, heart rate of 80, respiratory rate 18, temperature 98.2 degrees.Cardiovascular: Regular rate and rhythm. Pulmonary: Bilateral breath sounds clear to auscultation. Gastrointestinal: Soft, nontender, nondistended. Bowel sounds are positive. Dressing overlying his perineum anteriorly. DIAGNOSTIC STUDIES: White count 7, hemoglobin 10, hematocrit 31, platelets 264. INR 1.8. Basic was normal. Phosphorus is 1.7. PROBLEM LIST: 1. Left groin infection with Pseudomonas. Dr. Michel is following, and the patient is on cefepime, been about 4 days of that, and then he was on daptomycin, but I think that is been discontinued, I guess maybe based on sensitivities. The blood culture was most likely a contaminant. 2. Atrial fibrillation, stable currently. 3. Diabetic ketoacidosis on presentation, but now blood sugars are stable. 4. Aortic prosthetic valve. INR needs to be analyzed. It actually went down. He is on Coumadin 1 mg at bedtime which is a very small dose, so we are going to bump up that 2 mg and see how he does and follow his INR very closely. 5. Dementia. He still gets agitated at night with . He is on a regimen for that. Continue to monitor. 6. Diabetes. Appears to be stable. DISPOSITION: Again will be per Dr. Michel. It is susceptible to oral agents such as Levaquin but this will be at the behest of ID. Hopefully, discharge him soon, though. cc: Israel Miranda MD
--- NOTE | 2019-06-07 19:34 | INFECTIOUS DISEASE PROGRESS NO ---
DATE: 06/07/2019 PRESENT ILLNESS: Mr. Gustafson is being treated for a left groin wound infection which is growing Pseudomonas. There is a yeast that is growing in his urine, which will not need any treatment. MEDICATIONS: He is on day 5 of cefepime 1 g IV every 8 hours and IV daptomycin 350 mg daily. PHYSICAL EXAMINATION: Vital Signs: Temperature is 98.3 degrees, pulse rate 76, respiratory rate 18, blood pressure 126/68, O2 saturation is 100% on 2 L nasal cannula. General: This is a chronically ill-appearing elderly gentleman. He is lying in bed currently in no acute distress. HEENT: Atraumatic, normocephalic. Oral mucous membranes are pink and moist. Conjunctivae are pale. Neck: Supple. Trachea is midline. Cardiovascular: Heart rate and rhythm are regular. Paced rhythm on the monitor. Respiratory: Lung sounds are bilaterally clear to auscultation, diminished in the bases. No work of breathing is noted. Abdomen: Soft, round, and nontender. Bowel sounds are active. Integumentary: Skin is warm and dry. The left groin dressing was not removed due to recent application. Neuro: The patient is drowsy after receiving premed for the dressing change, but he is arousable. LABORATORY AND X-RAY: Today his white count is 7.4, hemoglobin 10.2, platelet count 264,000. Creatinine is 0.7, estimated GFR is greater than 60. His groin has grown a Pseudomonas and his urine culture has grown yeast. ASSESSMENT AND PLAN: Mr. Gustafson has a Pseudomonas left groin wound infection which we are treating with cefepime, which we will continue. He has been receiving daptomycin for the possibility of a gram-positive coccus in his urine, however that turned out to be a yeast so we will discontinue daptomycin and continue the cefepime as a single agent. When he is ready to be discharged, the plan is to send him home on Levaquin by mouth. These plans have been discussed with and recommended by Dr. Michel. COMORBIDITIES: Include that he is elderly, with diabetes mellitus and metastatic penile cancer. Dictated by PRIMITIVO Montejo for Miguel Michel MD cc: Miguel Michel MD [facility]
[2019-06-07] MEDS ORDERED: COUMADIN PO SCH (21:00)
[2019-06-08] MEDS: MAXIPIME 1 GM in NS 50 ML IV SCH ×2 (01:33→10:56)
[2019-06-08] MEDS: PROTONIX IV SCH (06:05)
[2019-06-08] MEDS: HUMALOG SUBQ SCH ×2 (06:07→11:00)
[2019-06-08 07:15] LABS: BASO# 0.02 X1000 (0.0-0.2); BASO% 0.3 % (0.0-0.8); EOS# 0.16 X1000 (0.0-0.7); EOS% 2.5 % (0.0-10.0); HEMATOCRIT 31.2 % (42.0-52.0); IMM GRAN# 0.02 X1000 (0.0-0.04); IMM GRAN% 0.3 % (0.0-0.5); LYMPH% 6.2 % (20.5-51.1); MCH 31.4 PG (27-31); MCHC 32.1 g/dL (33-37); MCV 98.1 FL (81-99); MONO# 0.69 X1000 (0.11-0.59); MONO% 10.7 % (1.7-9.3); MPV 10.1 FL (7.4-10.4); NEUT# 5.14 X1000 (1.4-6.5); PLT 296 X1000 (130-400); RBC 3.18 XMIL (4.7-6.1); RDW 16.2 % (11.5-14.5); WBC 6.43 X1000 (4.8-10.8)
[2019-06-08 07:19] LABS: INR 1.9; PROTIME 22.3 Seconds (11.0-16.0)
[2019-06-08 07:40] LABS: AGAP 8; ALBUMIN 2.1 g/dL (3.5-5.0); BUN 9 mg/dL (8-22); CALCIUM 7.8 mg/dL (8.8-10.2); CHLORIDE 101 mmol/L (98-107); COSMO 280; CREATININE 0.7 mg/dL (0.7-1.2); ESTIMATED GFR > 60; GLUCOSE 225 mg/dL (70-104); PHOSPHORUS 2.8 mg/dL (2.7-4.5); POTASSIUM 4.5 mmol/L (3.5-5.1); SODIUM 137 mmol/L (136-145); TCO2 28 mmol/L (25-35)
[2019-06-08] MEDS: LANTUS INSULIN SUBQ SCH (10:58)
[2019-06-08] MEDS: LASIX PO SCH (10:59)
[2019-06-08] MEDS: LOPRESSOR PO SCH (10:59)
[2019-06-08] MEDS: MARINOL PO SCH (10:59)
[2019-06-08 16:09] VITALS: BP 119/79
--- NOTE | 2019-06-08 17:08 | DISCHARGE SUMMARY ---
ADMISSION DATE: 06/01/2019 DISCHARGE DATE: 06/08/2019 DISCHARGE DIAGNOSES: 1. Sepsis secondary to left groin infection secondary to Pseudomonas. 2. Metabolic encephalopathy, resolved. 3. Diabetes mellitus, in ketoacidosis. 4. Acute kidney injury. 5. Elevated troponin. 6. Chronic atrial fibrillation. 7. Prosthetic aortic valve with target INR 2.5 to 3.5. CONSULTATIONS: Dr. Miguel Michel from Infectious Disease. Dr. Aldana from Cardiology. HOSPITAL COURSE: The patient was admitted to the hospital for the following problems. 1. DKA. Patient was found to be in DKA so he was started on insulin drip and after a couple days his blood sugar has been okay. Since then, because he was not consistently eating, sometimes we had days that he had really high blood sugars to 500. While some days with his usual insulin regimen, his blood sugar had been getting low. So at this point, we prefer just to continue with just a small dose of Lantus 5 units daily and sliding scale insulin if needed. 2. Sepsis secondary to left groin infection. Patient's white cell count was elevated and we isolated Pseudomonas. Dr. Michel from Infectious Disease was following this patient and at discharge the patient is going to receive levofloxacin for 10 days. 3. Chronic atrial fibrillation. On presentation heart rate was elevated so we needed to put him on a Cardizem drip and then once the infection started being controlled, the heart rate returned to normal limits. The patient remains in atrial fibrillation. 4. Elevated troponins. That is reason why we have consulted Cardiology but they think that was secondary to critical illness, so no procedure was warranted and with metoprolol heart rate was well controlled. 5. Disposition. I have talked with the daughter who is at bedside and she reported that this patient has been in rehab 2 times during this year. So at this point, she wants really to have him on home health but if at some point the patient does not improve, they will be glad to change to hospice. But at this time, he is going home with home health. DISCHARGE PHYSICAL EXAMINATION: Vital signs: Temperature 99.2 degrees, heart rate 101, respiratory rate 18, blood pressure 145/92, O2 saturation 97% on room air. General Examination: This is a chronically ill-appearing, 79-year-old male, lying in bed, in no acute distress. Cardiovascular: S1, S2 heard. No murmurs, gallops, or rubs. Regular rate and rhythm. Respiratory: Clear bilaterally to auscultation. No work of breathing or using accessory muscles. Abdomen: Soft. Nontender to palpation. Bowel sounds present. No organomegaly. Extremities: No clubbing, cyanosis, or edema. Peripheral pulses present in both legs. Neurological: The patient is confused at times. Moves 4 extremities spontaneously. DISCHARGE MEDICATIONS: 1. Levaquin 500 mg 1 tablet p.o. daily for 10 days. 2. Lantus 5 units subcutaneous daily. 3. Lopressor 50 mg 1 tablet p.o. twice daily. 4. Tylenol 650 mg 1 tablet p.o. every 6 hours as needed. 5. Oxybutynin 5 mg 1 tablet p.o. 2 times per day. 6. Furosemide 40 mg 1 tablet p.o. daily. 7. Pantoprazole 40 mg 1 tablet p.o. b.i.d. 8. MiraLAX as needed for constipation. 9. Alprazolam 1 tablet p.o. b.i.d., 0.5 mg. 10. Marinol 2.5 mg 1 tablet p.o. daily. 11. Warfarin 2 mg 1 tablet p.o. at bedtime. DISCHARGE TIME: 50 minutes. cc: Hawk Cleaning MD
== END 2019-06-08 17:43 | disposition home health service (06) | DRG 871 ==
LOC: SUPCPDRO → ED 14:08 → ICU 18:57 → SUATTDRO 18:57 → 3N 06-04 11:05
PROVIDERS: ATTEND Internal Medicine